=== PATIENT | male | born 1955 | race Caucasian/White ===

== ENCOUNTER 2016-06-28 10:50 | Emergency (ER) | payer MEDICAID, OTHER ==
--- NOTE | 2016-06-28 11:55 | ED Physician Chart ---
Chief Complaint/HPI - Patient Information Date Seen:: 06/28/16 Time Seen:: 11:40 Chief Complaint:: depression History of Present Illness:: Patient was brought in by police having been placed on a 5150 by the police. Patient was at home and was called by a nurse doing a survey for his medical insurance company which is [employer]. The patient told the blister rust eradicator that 10-15 years ago he he had a gun and had thoughts of shooting himself. He denied at present any thoughts of suicide. He also states that he does not have any guns in his possession at this time. His sons have his guns. Patient states he is always depressed but is not any more so now than he always is. Allergies:: Allergies Allergy/AdvReac Type Severity Reaction Status Date / Time No Known Allergies Allergy Verified 06/28/16 10:58 Vitals:: Vital Signs - 8 hr 06/28/16 10:50 Temp 97.8 F HR 89 RR 16 BP 175/113 O2 Sat % 96 Historian:: Patient Review:: Nurse's Note Reviewed Review of Systems - Review of Systems General/Constitutional: No fever, No chills Skin: No skin lesions Head: No headache Eyes: No loss of vision ENT: No earache Neck: No neck pain Cardio Vascular: No chest pain Pulmonary: Wheezing, Other GI: No nausea, No vomiting G/U: No dysuria, No hematuria Musculoskeletal: No bone or joint pain, No muscle pain Psychiatric: Depression, Suicidal ideation Hematopoietic: No bruising Allergic/Immuno: No urticaria Neurological: No syncope, No focal symptoms, No weakness Family Medical History - Family Member Mother History Unknown: Yes Ethnicity: Non- Living Status: Hx Family Diabetes: Yes Physical Exam - Physical Examination General/Constitutional: Well-developed, well-nourished, Alert, No distress Head: Atraumatic Eyes: Lids, conjuctiva normal, PERRL Skin: No rash, No ecchymosis Other ENMT comments:: Edentulous Neck: No nuchal rigidity Respiratory: Nl effort/Exclusion Other Respiratory comments:: 1 out of 4 inspiratory wheezing and decreased expiratory sounds Other Cardio Vascular comments:: Heart sounds and audible GI: No tenderness/rebounding/guarding, No organomegaly : No CVA tenderness Other Extremities comments:: 2/4 pretibial pitting edema Neuro/Psych: Alert/oriented, No focal deficits Misc: Normal back Labs/Radiology/EKG Results - Lab Results Results: Laboratory Results - last 24 hr 06/28/16 06/28/16 06/28/16 11:50 11:50 11:50 WBC 7.9 RBC 5.41 Hgb 15.2 Hct 46.2 MCV 85.4 MCH 28.1 MCHC Differential 32.9 RDW 13.4 Plt Count 139 L MPV 8.9 Neutrophils % 54.4 Lymphocytes % 35.1 Monocytes % 6.1 Eosinophils % 3.2 Basophils % 1.2 Sodium 136 Potassium 4.6 Chloride 101 Carbon Dioxide 32.6 H Anion Gap 7.0 BUN 16 Creatinine 1.1 Est GFR ( Amer) > 60.0 Est GFR (Non-Af Amer) > 60.0 BUN/Creatinine Ratio 14.5 Glucose 233 H Hemoglobin A1c % Calcium 9.5 Triglycerides 159 H Cholesterol 138 LDL Cholesterol Direct 73 L HDL Cholesterol 38 TSH 1.62 Salicylates Acetaminophen Ethyl Alcohol 06/28/16 06/28/16 11:50 11:50 WBC RBC Hgb Hct MCV MCH MCHC Differential RDW Plt Count MPV Neutrophils % Lymphocytes % Monocytes % Eosinophils % Basophils % Sodium Potassium Chloride Carbon Dioxide Anion Gap BUN Creatinine Est GFR ( Amer) Est GFR (Non-Af Amer) BUN/Creatinine Ratio Glucose Hemoglobin A1c % 8.2 H Calcium Triglycerides Cholesterol LDL Cholesterol Direct HDL Cholesterol TSH Salicylates < 25.0 L Acetaminophen < 10.0 L Ethyl Alcohol < 10 - Radiology Results Results: CXR: pacemeaker noted; no infiltrate - EKG Interpretations Rate & Rhythm: ventricular pacemaker; rate 88 Assessment - Assessment General Assessment: Patient is medically stable ED Septic Shock - <6hrs of presentation: Vital Signs: Vital Signs - 8 hr 06/28/16 10:50 Temp 97.8 F HR 89 RR 16 BP 175/113 O2 Sat % 96 ED Discharge Plan - Patient Disposition Instructions: Psychosis
[2016-06-28 11:57] LABS: % BASOPHILS 1.2 % (0.0-2.0); % EOSINOPHILS 3.2 % (0.0-5.0); % LYMPHOCYTES 35.1 % (20.0-50.0); % MONOCYTES 6.1 % (2.0-10.0); % NEUTROPHILS 54.4 % (40.0-80.0); HEMATOCRIT 46.2 % (39.0-49.0); HEMOGLOBIN 15.2 gm/dL (13.2-17.3); MEAN CELL VOLUME 85.4 fl (80-99); MEAN CORPUSCULAR HEMOGLOBIN 28.1 pg (26.0-30.0); MEAN CORPUSCULAR HGB CONC 32.9 pg (28.0-36.0); MEAN PLATELET VOLUME 8.9 fl; NEUTROPHILE ABSOLUTE 4.2 Th/cmm (1.8-8.0); PLATELET COUNT 139 Th/cmm (150-400); RED BLOOD COUNT 5.41 Mil/cmm (4.30-5.70); RED CELL DISTRIBUTION WIDTH 13.4 % (11.5-20.0); WHITE BLOOD COUNT 7.9 Th/cmm (4.8-10.8)
[2016-06-28 12:17] LABS: BUN - UREA NITROGEN 16 mg/dL (7-25); BUN/CREATININE RATIO 14.5; CALCIUM SERUM 9.5 mg/dL (8.6-10.3); CARBON DIOXIDE 32.6 mEq/L (21.0-31.0); CHLORIDE 101 mEq/L (98-107); CHOLESTEROL 138 mg/dL (<200); CREATININE - SERUM 1.1 mg/dL (0.7-1.3); GLUCOSE 233 mg/dL (70-105); POTASSIUM SERUM 4.6 mEq/L (3.5-5.1); SODIUM SERUM 136 mEq/L (136-145); TRIGLYCERIDES 159 mg/dL (<150)
[2016-06-28 12:30] LABS: ACETAMINOPHEN < 10.0 ug/mL (10.0-30.0)
--- NOTE | 2016-06-28 15:10 | Diagnostic Imaging Report ---
Portable chest x-ray HISTORY: Pneumonia The heart is enlarged. Pacemaker lead wires project over the right atrium and right ventricle. No focal pulmonary processes. IMPRESSION: 1. No acute pulmonary processes 2. Cardiomegaly
[2016-06-28 18:49] VITALS: BP 135/75
[2016-06-28] MEDS ORDERED: Atorvastatin Calcium 10 MG TAB ONE (21:54)
[2016-06-28] MEDS ORDERED: Diclofenac 75 mg Tab PO ONE (21:54)
[2016-06-28] MEDS: Non-Formulary Item 1 EA (Atorvastatin Calcium [Lipitor] 40 MG) PO SCH (22:07)
[2016-06-28] MEDS: METOPROLOL SUCCINATE 25 MG PO SCH (22:07)
[2016-06-28] MEDS: Non-Formulary Item 1 EA (Metformin Hcl [Metformin Hcl Er] 1,000 MG) PO SCH (22:07)
[2016-06-29 13:11] LABS: HEP B CORE IGM Negative (Negative); HEP C ANTIBODY <0.1 s/co ratio (0.0-0.9)
== END 2016-06-28 11:15 | disposition home or self-care (01) ==
LOC: ER 10:50
DX: F32.9 Major depressive disorder, single episode, unspecified (principal)
CPT/HCPCS: 36415-UA; 71010-TC; 80048-TC; 80061-TC; 80074-90; 80320-TC; 80329-TC; 83036-90; 84443-TC; 85025-TC; 86592-TC; 93005

== ENCOUNTER 2018-05-30 08:56 | Emergency (ER) | payer OTHER ==
[2018-05-30 09:31] LABS: % BASOPHILS 0.6 % (0.0-2.0); % EOSINOPHILS 1.5 % (0.0-5.0); % MONOCYTES 6.5 % (2.0-10.0); % NEUTROPHILS 71.4 % (40.0-80.0); BASOPHILE ABSOLUTE 0.1 Th/cumm (0-0.2); EOSINOPHILE ABSOLUTE 0.2 Th/cmm (0.1-0.4); HEMATOCRIT 39.5 % (41.0-60); LYMPHOCYTE ABSOLUTE 2.3 Th/cmm (1.5-3.0); MEAN CELL VOLUME 87.3 fl (80-99); MEAN CORPUSCULAR HEMOGLOBIN 28.6 pg (26.0-30.0); MEAN CORPUSCULAR HGB CONC 32.8 pg (28.0-36.0); MEAN PLATELET VOLUME 8.5 fl; MONOCYTE ABSOLUTE 0.7 Th/cmm (0.3-1.0); NEUTROPHILE ABSOLUTE 8.1 Th/cmm (1.8-8.0); PLATELET COUNT 185 Th/cmm (150-400); RED BLOOD COUNT 4.52 Mil/cmm (4.30-5.70); RED CELL DISTRIBUTION WIDTH 15.2 % (11.5-20.0); WHITE BLOOD COUNT 11.4 Th/cmm (4.8-10.8)
[2018-05-30 09:42] LABS: INR 1.01 (0.5-1.4); PROTHROMBIN TIME (TEST) 10.5 SECONDS (9.5-11.5)
--- NOTE | 2018-05-30 09:43 | ED Physician Chart ---
ED Chief Complaint/HPI - Patient Information Date Seen:: 05/30/18 Time Seen:: 09:06 Chief Complaint:: bilateral foot pain History of Present Illness:: this is a 62 yo obese, diabetic chronically ill male with complaint of bilateral foot pain. he also has orthopnia, chf and copd. he was refered to a vascular senior analytic consultant for evaluation and treatment of his foot pain. Allergies:: Allergies Allergy/AdvReac Type Severity Reaction Status Date / Time No Known Allergies Allergy Verified 06/28/16 10:58 Vitals:: Vital Signs - 8 hr 05/30/18 09:09 Temp 97.8 F HR 80 RR 22 BP 113/42 O2 Sat % 96 Historian:: Patient Review:: Nurse's Note Reviewed, Old Chart Reviewed ED Review of Systems - Review of Systems General/Constitutional: No fever, No chills, No weight loss, No weakness, No diaphoresis, Edema, No loss of appetite Skin: No skin lesions, No rash, No bruising Head: No headache, No light-headedness Eyes: No loss of vision, No pain, No diplopia ENT: No earache, No nasal drainage, No sore throat, No tinnitus Neck: No neck pain, No swelling, No thyromegaly, No stiffness, No mass noted Cardio Vascular: No chest pain, No palpitations, PND, orthopnea, edema Pulmonary: No SOB, No cough, No sputum, No wheezing GI: No nausea, No vomiting, No diarrhea, Pain, No melena, No hematochezia, No constipation, No hematemesis G/U: No dysuria, No frequency, No hematuria Musculoskeletal: Bone or joint pain (foot pain), No back pain, No muscle pain Endocrine: No polyuria, No polydipsia Psychiatric: No prior psych history, No depression, No anxiety, No suicidal ideation Hematopoietic: No bruising, No lymphadenopathy Allergic/Immuno: No urticaria, No angioedema Neurological: No syncope, No focal symptoms, No weakness, No paresthesia, No headache, No seizure, No dizziness, No confusion, No vertigo ED Past Medical History - Past Medical History Obtainable: Yes Past Medical History: HTN, DM, CAD, CHF Family History: None Social History: Smoker, No Alcohol, No Drug Use Surgical History: Pacemaker, other (back surgery) Family Medical History - Family Member Mother History Unknown: Yes Ethnicity: Non- Living Status: Hx Family Diabetes: Yes ED Labs/Radiology/EKG Results - Lab Results Results: Laboratory Tests 05/30/18 09:19 WBC 11.4 H RBC 4.52 Hgb 13.0 Hct 39.5 L MCV 87.3 MCH 28.6 MCHC Differential 32.8 RDW 15.2 Plt Count 185 MPV 8.5 Neutrophils % 71.4 Lymphocytes % 20.0 Monocytes % 6.5 Eosinophils % 1.5 Basophils % 0.6 Abnormal Lab Results 05/30/18 05/30/18 05/30/18 09:19 09:19 09:19 WBC 11.4 H RBC 4.52 Hgb 13.0 Hct 39.5 L MCV 87.3 MCH 28.6 MCHC Differential 32.8 RDW 15.2 Plt Count 185 MPV 8.5 Neutrophils % 71.4 Lymphocytes % 20.0 Monocytes % 6.5 Eosinophils % 1.5 Basophils % 0.6 PT 10.5 INR 1.01 PTT (Actin FS) 27.3 Sodium 133 L Potassium 4.9 Chloride 96 L Carbon Dioxide 35.0 H Anion Gap 6.9 L BUN 25 Creatinine 1.6 H Est GFR ( Amer) 56.6 Est GFR (Non-Af Amer) 46.8 BUN/Creatinine Ratio 15.6 Glucose 139 H Calcium 9.5 Total Bilirubin 0.4 AST 15 ALT 12 Alkaline Phosphatase 81 Troponin I Total Protein 6.8 Albumin 3.7 L Globulin 3.1 Albumin/Globulin Ratio 1.2 Triglycerides 166 H Cholesterol 148 LDL Cholesterol Direct 96 HDL Cholesterol 33 05/30/18 09:19 WBC RBC Hgb Hct MCV MCH MCHC Differential RDW Plt Count MPV Neutrophils % Lymphocytes % Monocytes % Eosinophils % Basophils % PT INR PTT (Actin FS) Sodium Potassium Chloride Carbon Dioxide Anion Gap BUN Creatinine Est GFR ( Amer) Est GFR (Non-Af Amer) BUN/Creatinine Ratio Glucose Calcium Total Bilirubin AST ALT Alkaline Phosphatase Troponin I 0.06 H D Total Protein Albumin Globulin Albumin/Globulin Ratio Triglycerides Cholesterol LDL Cholesterol Direct HDL Cholesterol - Radiology Results Results: chest x-ray = cm, copd ED Assessment - Assessment General Assessment: chf, and bilateral neuropathy of the feet. ED Septic Shock - . Is Septic Shock (SBP<90, OR Lactate>4 mmol\L) present?: No - <6hrs of presentation: Vital Signs: Vital Signs - 8 hr 05/30/18 09:09 Temp 97.8 F HR 80 RR 22 BP 113/42 O2 Sat % 96 ED Reassessment (Disposition) - Diagnosis Diagnosis:: abdominal pain bilateral foot pain elevated tropo - Patient Disposition Discharge/Transfer:: Acute Care w/in this hosp
[2018-05-30 09:46] LABS: ALB/GLOB RATIO 1.2 (1.0-1.8); ALBUMIN 3.7 gm/dL (4.2-5.5); ANION GAP 6.9 (7.0-16.0); BILIRUBIN,TOTAL 0.4 mg/dL (0.3-1.0); CALCIUM SERUM 9.5 mg/dL (8.6-10.3); CREATININE - SERUM 1.6 mg/dL (0.7-1.3); GFR AFRICAN-AMERICAN 56.6 ml/min (>90); GFR NON AFRICAN-AMERICAN 46.8 ml/min; POTASSIUM SERUM 4.9 mEq/L (3.5-5.1); TOTAL PROTEIN,SERUM 6.8 gm/dL (6.0-8.3)
--- NOTE | 2018-05-30 10:56 | Diagnostic Imaging Report ---
Chest x-ray single view History: Shortness of breath Comparison: 0 06/28 2016 The heart size is normal. No focal pulmonary parenchymal processes. No hilar or mediastinal abnormalities. Impression: No acute abnormalities
[2018-05-30 11:35] LABS: URINE SOURCE CLEAN C
[2018-05-30 11:52] LABS: URINE BILIRUBIN NEGATIVE (NEGATIVE); URINE BLOOD NEGATIVE (NEGATIVE); URINE GLUCOSE (UA) NEGATIVE (NEGATIVE); URINE KETONE NEGATIVE (NEGATIVE); URINE LEUKOCYTE ESTERASE NEGATIVE (NEGATIVE); URINE NITRATE NEGATIVE (NEGATIVE); URINE PH 5.5 (4.6 - 8.0); URINE PROTEIN NEGATIVE (NEGATIVE); URINE UROBILINOGEN 0.2 E.U./dL (0.2 - 1.0)
[2018-05-30 12:12] LABS: URINE CLARITY CLEAR (CLEAR); URINE COLOR YELLOW; URINE MICROSCOPIC INDICATED? YES
[2018-05-30 12:13] LABS: URINE BACTERIA FEW /hpf (NONE SEEN); URINE EPITHELIAL CELLS NONE SEEN /lpf (FEW); URINE RBC NONE SEEN /hpf (0-5); URINE WBC 0-2 /hpf (0-5)
--- NOTE | 2018-05-30 15:04 | Diagnostic Imaging Report ---
Bilateral lower extremity Doppler arterial ultrasound exam HISTORY: Pain Sonographic sector images were obtained through the arterial systems of both legs. Associated Doppler data was obtained. The exam of the right leg demonstrates biphasic waveforms within the common femoral, superficial femoral, popliteal, anterior tibial, posterior tibial, and dorsalis pedis arteries. Sonographic images demonstrate generalized intimal thickening. No significant focal atherosclerotic plaque is seen. No significant narrowing or stenosis. The right ankle-brachial index is normal (ankle-brachial index equals 1.06). The left leg demonstrates biphasic waveforms throughout the arterial system. No significant focal plaque. Ankle-brachial index is normal (0.94). IMPRESSION: 1. No evidence of hemodynamically significant atherosclerotic vascular disease
--- NOTE | 2018-05-30 15:04 | Diagnostic Imaging Report ---
Bilateral lower extremity Doppler venous ultrasound exam HISTORY: Pain/swelling Sonographic sector images were obtained through the deep venous systems of both legs. Associated Doppler data was obtained. The exam demonstrates patency of the common femoral, superficial femoral, popliteal, and posterior tibial veins bilaterally. Specifically, no thrombus is seen. There are normal compressibility and augmentation responses. IMPRESSION: Negative exam for deep vein thrombophlebitis.
--- NOTE | 2018-05-31 09:39 | Diagnostic Imaging Report ---
CT pulmonary angiogram with intravenous contrast History: : Embolism Total DLP equals 609 CTDI equals 12.9 Following administration of intravenous contrast, axial sections were obtained from a level above the clavicles down to a level below the diaphragm. The exam demonstrates normal opacification of the main right and left pulmonary arteries. No intraluminal lesions are seen. Specifically, no evidence of pulmonary embolism. There is preservation of normal fat planes throughout the mediastinum. No lymphadenopathy is seen. No abnormal focal pulmonary parenchymal masses or nodules are seen. No pleural effusions. Impression: Negative examination.
== END 2018-05-30 16:03 | disposition home or self-care (01) ==
LOC: ER 08:56
DX: I11.0 Hypertensive heart disease with heart failure (principal); I50.9 Heart failure, unspecified; E11.9 Type 2 diabetes mellitus without complications; M79.671 Pain in right foot; M79.672 Pain in left foot; R79.89 Other specified abnormal findings of blood chemistry; F17.200 Nicotine dependence, unspecified, uncomplicated; Z95.1 Presence of aortocoronary bypass graft
CPT/HCPCS: 36415-UA; 71045-TC; 71275-TC; 80053-TC; 80061-TC; 81001-TC; 83880-TC; 84443-TC; 84484-TC; 85025-TC; 85379-TC; 85610-TC; 85730-TC; 93005; 93925-TC; 93970-TC-50; 96374; J1940

== ENCOUNTER 2018-05-31 17:46 | Inpatient (IN) | payer OTHER ==
[2018-05-31 18:27] LABS: % BASOPHILS 0.9 % (0.0-2.0); % EOSINOPHILS 0.9 % (0.0-5.0); % LYMPHOCYTES 18.3 % (20.0-50.0); % MONOCYTES 5.3 % (2.0-10.0); % NEUTROPHILS 74.6 % (40.0-80.0); BASOPHILE ABSOLUTE 0.1 Th/cumm (0-0.2); EOSINOPHILE ABSOLUTE 0.1 Th/cmm (0.1-0.4); HEMATOCRIT 38.2 % (41.0-60); HEMOGLOBIN 12.3 gm/dL (12-16); LYMPHOCYTE ABSOLUTE 2.4 Th/cmm (1.5-3.0); MEAN CELL VOLUME 87.5 fl (80-99); MEAN CORPUSCULAR HEMOGLOBIN 28.2 pg (26.0-30.0); MEAN CORPUSCULAR HGB CONC 32.2 pg (28.0-36.0); MEAN PLATELET VOLUME 8.2 fl; MONOCYTE ABSOLUTE 0.7 Th/cmm (0.3-1.0); NEUTROPHILE ABSOLUTE 9.7 Th/cmm (1.8-8.0); PLATELET COUNT 170 Th/cmm (150-400); RED BLOOD COUNT 4.37 Mil/cmm (4.30-5.70); RED CELL DISTRIBUTION WIDTH 14.8 % (11.5-20.0)
--- NOTE | 2018-05-31 18:33 | ED Physician Chart ---
ED Chief Complaint/HPI - Patient Information Date Seen:: 05/31/18 Time Seen:: 18:28 Chief Complaint:: positive blood cultures History of Present Illness:: this patient's blood culture came back positive and his doctor sent him back to er for evaluation and treatment. he son stated that his sugar was above 300 and he had several seizures the day before coming into the hospital. Allergies:: Allergies Allergy/AdvReac Type Severity Reaction Status Date / Time No Known Allergies Allergy Verified 06/28/16 10:58 Vitals:: Vital Signs - 8 hr 05/31/18 18:09 Temp 99.5 F HR 92 RR 17 BP 108/59 O2 Sat % 96 Historian:: Patient, Family Member (son) Review:: Nurse's Note Reviewed, Old Chart Reviewed ED Review of Systems - Review of Systems General/Constitutional: Fever, No chills, No weight loss, No weakness, No diaphoresis, No edema, No loss of appetite Skin: No skin lesions, No rash, No bruising Head: No headache, No light-headedness Eyes: No loss of vision, No pain, No diplopia ENT: No earache, No nasal drainage, No sore throat, No tinnitus Neck: No neck pain, No swelling, No thyromegaly, No stiffness, No mass noted Cardio Vascular: No chest pain, No palpitations, No PND, No orthopnea, No edema Pulmonary: No SOB, No cough, No sputum, No wheezing GI: No nausea, No vomiting, No diarrhea, No pain, No melena, No hematochezia, No constipation, No hematemesis G/U: No dysuria, No frequency, No hematuria Musculoskeletal: No bone or joint pain, No back pain, No muscle pain, Other ( pain in both legs and feet) Endocrine: No polyuria, No polydipsia Psychiatric: No prior psych history, No depression, No anxiety, No suicidal ideation Hematopoietic: No bruising, No lymphadenopathy Allergic/Immuno: No urticaria, No angioedema Neurological: No syncope, No focal symptoms, No weakness, No paresthesia, No headache, No seizure, No dizziness, No confusion, No vertigo ED Past Medical History - Past Medical History Obtainable: Yes Past Medical History: HTN, DM, CAD, CHF, Dyslipidemia Family History: None Social History: Non Smoker, No Alcohol, No Drug Use Psychiatricy History: Depression Medication: Reviewed Family Medical History - Family Member Mother History Unknown: Yes Ethnicity: Non- Living Status: Hx Family Diabetes: Yes ED Physical Exam - Physical Examination General/Constitutional: Awake, Well-developed, well-nourished, Alert, No distress, GCS 15, Non-toxic appearing, Ambulatory Other Gen/Cons comments:: obese Head: Atraumatic Eyes: Lids, conjuctiva normal, PERRL, EOMI Skin: Nl inspection, No rash, No skin lesions, No ecchymosis, Well hydrated, No lymphadenopathy ENMT: External ears, nose nl, Nasal exam nl, Lips, teeth, gums nl Neck: Nontender, Full ROM w/o pain, No JVD, No nuchal rigidity, No bruit, No mass, No stridor Respiratory: Nl effort/Exclusion, Clear to Auscultation, No Wheeze/Rhonchi/Rales Cardio Vascular: RRR, No murmur, gallop, rubs, NL S1 S2 GI: No tenderness/rebounding/guarding, No organomegaly, No hernia, Normal BS's, Nondistended, No mass/bruits, No McBurney tenderness : No CVA tenderness Extremities: No tenderness or effusion, Full ROM, normal strength in all extremities, No edema, Normal digits & nails Other Extremities comments:: bilateral edema of the lower extremities Neuro/Psych: Alert/oriented, DTR's symmetric, Normal sensory exam, Normal motor strength, Judgement/insight normal, Mood normal, Normal gait, No focal deficits Misc: Normal back, No paraspinal tenderness ED Labs/Radiology/EKG Results - Lab Results Results: Abnormal Lab Results 05/31/18 05/31/18 05/31/18 17:53 18:15 18:15 WBC 13.0 H RBC 4.37 Hgb 12.3 Hct 38.2 L MCV 87.5 MCH 28.2 MCHC Differential 32.2 RDW 14.8 Plt Count 170 MPV 8.2 Neutrophils % 74.6 Lymphocytes % 18.3 L Monocytes % 5.3 Eosinophils % 0.9 Basophils % 0.9 Sodium 133 L Potassium 5.1 Chloride 90 L Carbon Dioxide 32.8 H Anion Gap 15.3 BUN 32 H Creatinine 1.8 H Est GFR ( Amer) 49.4 Est GFR (Non-Af Amer) 40.8 BUN/Creatinine Ratio 17.8 Glucose 154 H Calcium 9.3 Total Bilirubin 0.6 AST 14 ALT 10 Alkaline Phosphatase 65 Troponin I 0.06 H Total Protein 6.8 Albumin 3.6 L Globulin 3.2 Albumin/Globulin Ratio 1.1 ED Assessment - Assessment General Assessment: bacteremia copd chf elevated troponin ED Septic Shock - . Is Septic Shock (SBP<90, OR Lactate>4 mmol\L) present?: No - <6hrs of presentation: Vital Signs: Vital Signs - 8 hr 05/31/18 18:09 Temp 99.5 F HR 92 RR 17 BP 108/59 O2 Sat % 96 ED Reassessment (Disposition) - Reassessment Reassessment Condition:: Unchanged - Diagnosis Diagnosis:: two possitive blood cultures(bacterimia) elevated troponin copd chf - Patient Disposition Discharge/Transfer:: Acute Care w/in this hosp Admitting Medical Physician:: Ap Rutherford Condition at Disposition:: Unchanged
[2018-05-31 18:45] LABS: ALB/GLOB RATIO 1.1 (1.0-1.8); ALBUMIN 3.6 gm/dL (4.2-5.5); ANION GAP 15.3 (7.0-16.0); BILIRUBIN,TOTAL 0.6 mg/dL (0.3-1.0); CALCIUM SERUM 9.3 mg/dL (8.6-10.3); CARBON DIOXIDE 32.8 mEq/L (21.0-31.0); CREATININE - SERUM 1.8 mg/dL (0.7-1.3); GFR AFRICAN-AMERICAN 49.4 ml/min (>90); GFR NON AFRICAN-AMERICAN 40.8 ml/min; POTASSIUM SERUM 5.1 mEq/L (3.5-5.1); TOTAL PROTEIN,SERUM 6.8 gm/dL (6.0-8.3)
[2018-05-31] MEDS: INSULIN LISPRO SLIDING SCALE 100 UNITS/ML UNIT SUBQ SCH (22:35)
[2018-06-01] MEDS: INSULIN LISPRO SLIDING SCALE 100 UNITS/ML UNIT SUBQ SCH ×4 (06:31→21:18)
[2018-06-01 06:55] LABS: ALB/GLOB RATIO 1.1 (1.0-1.8); ALBUMIN 3.3 gm/dL (4.2-5.5); ANION GAP 12.7 (7.0-16.0); BILIRUBIN,TOTAL 0.6 mg/dL (0.3-1.0); CALCIUM SERUM 9.1 mg/dL (8.6-10.3); CARBON DIOXIDE 34.4 mEq/L (21.0-31.0); CREATININE - SERUM 2.6 mg/dL (0.7-1.3); GFR AFRICAN-AMERICAN 32.3 ml/min (>90); GFR NON AFRICAN-AMERICAN 26.7 ml/min; MAGNESIUM 1.5 mg/dL (1.9-2.7); POTASSIUM SERUM 5.1 mEq/L (3.5-5.1); TOTAL PROTEIN,SERUM 6.3 gm/dL (6.0-8.3)
[2018-06-01 06:56] LABS: % BASOPHILS 0.2 % (0.0-2.0); % EOSINOPHILS 0.8 % (0.0-5.0); % LYMPHOCYTES 24.2 % (20.0-50.0); % MONOCYTES 6.9 % (2.0-10.0); % NEUTROPHILS 67.9 % (40.0-80.0); EOSINOPHILE ABSOLUTE 0.1 Th/cmm (0.1-0.4); HEMATOCRIT 35.4 % (41.0-60); HEMOGLOBIN 11.6 gm/dL (12-16); LYMPHOCYTE ABSOLUTE 3.2 Th/cmm (1.5-3.0); MEAN CELL VOLUME 88.2 fl (80-99); MEAN CORPUSCULAR HEMOGLOBIN 28.9 pg (26.0-30.0); MEAN CORPUSCULAR HGB CONC 32.8 pg (28.0-36.0); MEAN PLATELET VOLUME 8.9 fl; MONOCYTE ABSOLUTE 0.9 Th/cmm (0.3-1.0); NEUTROPHILE ABSOLUTE 9.1 Th/cmm (1.8-8.0); PLATELET COUNT 162 Th/cmm (150-400); RED BLOOD COUNT 4.01 Mil/cmm (4.30-5.70); RED CELL DISTRIBUTION WIDTH 14.5 % (11.5-20.0); WHITE BLOOD COUNT 13.3 Th/cmm (4.8-10.8)
[2018-06-01] MEDS ORDERED: METFORMIN HCL 1000 MG PO SCH (12:15)
--- NOTE | 2018-06-01 13:41 | History & Physical ---
ADMIT DATE: 06/01/2018 PATIENT IDENTIFICATION: A 62-year-old male. CHIEF COMPLAINT: "They have called me to come to the Emergency Room." HISTORY OF PRESENT ILLNESS: A 62-year-old male who resides in [facility], has previous admission here at [facility] in 04/2015. Has a diagnosis of diabetes mellitus, COPD, hypertension, sleep apnea, coronary artery disease, history of pacemaker placement, who has primary doctor in [facility], came to Emergency Room 2 days ago for bilateral leg pain and at that time, I was called in to see this patient for CHF exacerbation as per Emergency Room MD evaluation. I did discuss with the Emergency Room MD and the staff and noted that the patient did not have any evidence of any congestive heart failure or any history of pneumonia in spite of patient also had a CT angio was also done, which was unremarkable for pulmonary embolism and the patient was discharged to home, but in the Emergency Room, Emergency Room doctor ordered blood cultures that came out positive for gram-positive cocci in clusters and I did receive a call and the patient was advised to go to the ER, so he came to Emergency Room without any symptoms of fever, chills, or any unusual new symptoms. The patient was advised to be admitted. PAST MEDICAL HISTORY: 1. Diabetes. 2. Obstructive sleep apnea. 3. Chronic obstructive pulmonary disease. 4. Hypertension. 5. Coronary artery disease. 6. Pacemaker placement. 7. History of cerebrovascular accident. 8. History of atrial fibrillation. MEDICATIONS: List has been reviewed and reconciled appropriately. ALLERGIES: To not any medications. SOCIAL HISTORY: The patient resides in [facility]. The patient has a history of smoking cigarette but no history of alcohol or drug use. 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 FAMILY HISTORY: Remarkable for diabetes. REVIEW OF SYSTEMS: Remarkable for leg pain, otherwise denies any chest pain, shortness of breath, palpitation, dizziness, nausea, vomiting, diarrhea, dysuria, hematuria, hematochezia, or melena. No fever, no chills. No seizure or syncopal episode. PHYSICAL EXAMINATION: GENERAL: The patient is alert, awake, oriented, lying in the bed without any acute distress. VITAL SIGNS: Temperature 98.1, pulse is 74, respiratory rate 18, blood pressure 138/64. HEENT: Normocephalic, atraumatic. Extraocular muscles are intact. Tongue more pink and coated. Absent upper and lower dentition noted. NECK: Supple, no JVD, no hepatojugular reflux. No lymphadenopathy, thyromegaly, or carotid bruit. HEART: Both heart sounds are irregular. Grade 2/6 systolic murmur noted. CHEST AND LUNGS: Equal in expansion with occasional expiratory wheezing. Palpable pacemaker noted. ABDOMEN: Protuberant, soft. No guarding, no rigidity. Liver and spleen palpable. No palpable mass. EXTREMITIES: Remarkable for trace edema, with mild erythema noted, without any evidence of any calf tenderness. Peripheral pulses are +2. NEUROLOGIC: Limited, but grossly nonfocal. AVAILABLE DIAGNOSTIC DATA: White count of 13.3, hemoglobin 11.6, platelet count of 170. Sodium 133, potassium 5.1, chloride 90, CO2 32.8. BUN and creatinine is 32 and 1.8, glucose of 154. Blood cultures were done 2 days ago was gram-positive cocci in clusters. MRSA nares final was MRSA. CLINICAL IMPRESSION: 1. Positive blood cultures x 2. Nares for MRSA screen is positive for MRSA at the nares area. The patient does not look toxic, does not look sepsis. The patient has Staphylococcus aureus positive blood cultures, either it is coagulase negative or it is true Staphylococcus aureus needs to determine, wait for the final culture and sensitivity, but in the view of his immunocompromised status, I will admit this patient. 2. Chronic respiratory failure. 3. Chronic obstructive pulmonary disease, O2 dependent. 4. Hypertension. 5. Diabetes mellitus. 6. Status post pacemaker placement. 7. Cardiac arrhythmia. 8. History of cerebrovascular accident. 9. Obesity. PLAN: 1. Admit patient to Med/Surg floor. 2. IV antibiotic, vancomycin for now. Have Infectious Disease consultation and do the appropriate home medicine reconciliation. 3. Discontinue patient's Actos in the view of leg edema. 4. Continue other medicine as prescribed. Follow up lab will be done. Infectious Disease input will be greatly helpful in order to make decisions to discharge this patient. Care plan has been reviewed and discussed. JOB# [id number]
[2018-06-01] MEDS: Apixaban 5 MG TABLET PO SCH (16:36)
[2018-06-01] MEDS ORDERED: APIXABAN 5 MG PO SCH (17:00)
[2018-06-01 20:49] LABS: URINE SOURCE CLEAN C
[2018-06-01 20:56] LABS: URINE BILIRUBIN NEGATIVE (NEGATIVE); URINE BLOOD TRACE (NEGATIVE); URINE GLUCOSE (UA) NEGATIVE (NEGATIVE); URINE KETONE NEGATIVE (NEGATIVE); URINE LEUKOCYTE ESTERASE NEGATIVE (NEGATIVE); URINE MICROSCOPIC INDICATED? YES; URINE NITRATE NEGATIVE (NEGATIVE); URINE PH 5.5 (4.6 - 8.0); URINE PROTEIN TRACE mg/dL (NEGATIVE); URINE UROBILINOGEN 0.2 E.U./dL (0.2 - 1.0)
[2018-06-01] MEDS: Linezolid 600mg/300mL 600 MG/300 ML BAG IV SCH (20:56)
[2018-06-01 21:00] LABS: URINE CLARITY CLEAR (CLEAR); URINE COLOR YELLOW
--- NOTE | 2018-06-01 21:02 | Consultation ---
DATE OF CONSULTATION: 06/01/2018 INFECTIOUS DISEASE CONSULTATION REFERRING PHYSICIAN: Ap Rutherford M.D. REASON FOR CONSULTATION: Bacteremia. HISTORY OF PRESENT ILLNESS: The patient is a 60-year-old male with a past medical history of diabetes mellitus type 2, sleep apnea, COPD, hypertension, carotid disease, pacemaker placement, history of CVA, history of atrial fibrillation and chronic pain syndrome and went to pain management doctor. However, he was stating there was some issue with the paper work, so he cannot get his pain medications. So, he came to the ER for further evaluation and management. His blood sugar was also not well controlled. Two days back, he came to the ER for bilateral leg pain and swelling. He was diagnosed with CHF in ER. The patient CT angio was done, which was unremarkable for pulmonary embolism. Ultimately, the patient was discharged home. ER physician ordered a blood culture at that time, it came positive for gram-positive cocci in clusters. Blood cultures are repeated again yesterday and blood culture grew gram-positive cocci in clusters, ____ staph species. Vancomycin IV was started and ID consult was called for antibiotic management. On initial evaluation, his temperature was 99.5 degree Fahrenheit. WBC count was 13,000. His creatinine was 1.6 on 05/30/2018 and yesterday 1.8. Today, it went up to 2.6. Vancomycin was stopped. Metformin was stopped. The patient wanted to sign AMA. I have discussed with him and his son in detail and informed of the gravity of the situation and risks related with bacteremia. Ultimately, he decided to stay in the hospital and had workup done. PAST MEDICAL HISTORY: Includes diabetes mellitus type 2, hypertension, obesity, sleep apnea, COPD, coronary artery disease, pacemaker placement, CVA, atrial fibrillation, and chronic pain syndrome. MEDICATIONS: As per medication reconciliation sheet. Antibiotic-llanes, the patient had received vancomycin. ALLERGIES: NKDA. SOCIAL HISTORY: The patient lives at home. Denies any smoking, alcohol or drug use. REVIEW OF SYSTEMS: GENERAL: The patient denies any fever or chills. HEENT: No diplopia, no photophobia, no sore throat. RESPIRATORY: No cough, no shortness of breath. CARDIOVASCULAR: No chest pain or palpitation. GASTROINTESTINAL: No nausea, no vomiting, no diarrhea, no constipation. GENITOURINARY: No dysuria. NEUROLOGIC: No headache, no dizziness, no focal weakness. MUSCULOSKELETAL: The patient complains of the pain in the legs and the joints. PHYSICAL EXAMINATION: VITAL SIGNS: Shows temperature is 97.5, pulse 55, respirations 20, blood pressure 90/53, oxygen 91%. GENERAL: The patient is comfortable lying in the bed, obese. HEENT: Head is normocephalic, atraumatic. Oral cavity moist, pink tongue. Eyes: No pallor, no icterus. Pupils PERRLA, EOMI. NECK: Supple, no JVD, no bruits. Trachea midline. CHEST: Bilateral breath sounds. No crackles or wheezing. HEART: S1, S2 within normal limits. Regular rhythm. No murmur, no gallop. ABDOMEN: Soft, nontender, nondistended. Bowel sounds present. EXTREMITIES: No cyanosis, no clubbing, no edema. NEUROLOGIC: Alert, awake, oriented x 3. No focal deficit. LABORATORY DATA: Current lab shows WBC count is 13,300, hemoglobin 11.6, hematocrit 35.4, platelets are 162,000. Sodium is 132, potassium 5.1, chloride 90, bicarbonate is 34, BUN is 39, creatinine 2.6, glucose is 173. Blood culture 4 sets on 05/30/2018 and 05/31/2018, few gram-positive cocci in clusters, ____ staph species. CT angio was negative. Chest x-ray on 05/30/2018 showed no acute abnormality. Ultrasound of lower extremity showed negative with somewhat DVT. Arterial study of lower extremity showed no evidence of any significant disease. IMPRESSION: 1. Staph sepsis, with hypotension and leukocytosis. 2. Chronic respiratory insufficiency. 3. Acute kidney injury, likely sepsis related versus acute tubular necrosis. The patient had received 1 dose of vancomycin. 4. Chronic pain syndrome. 5. Chronic obstructive pulmonary disease. 6. Dyslipidemia. 7. Hypertension, but currently hypotensive. 8. History of atrial fibrillation. 9. History of cerebrovascular accident. 10. Obesity. 11. Pacemaker placement. 12. Diabetes mellitus type 2. RECOMMENDATION AND PLAN: We will change antibiotic to Zyvox at this time. Check lactic acid. Get the CT scan of the abdomen, pelvis and chest. A 2D echocardiogram. Repeat blood culture in the morning. Procalcitonin level, lactic acid now. Discussed with the patient and he was tolerating his workup done for his bacteremia. He agreed to stay today. Tomorrow may consider transfer the patient to contracted facility. Thank you, Dr. Rutherford for involving me in taking care of this patient. JOB# [id number]
[2018-06-01 21:04] LABS: AMPHETAMINE URINE POSITIVE (NEGATIVE); BARBITURATES URINE NEGATIVE (NEGATIVE); COCAINE METABOLITE QUAL URINE NEGATIVE (NEGATIVE); METHAMPHETAMINES QUAL URINE POSITIVE (NEGATIVE); PHENCYCLIDINE (PCP) URINE NEGATIVE (NEGATIVE); TRICYCLICS (TCA) QUAL. URINE NEGATIVE (NEGATIVE); URINE BACTERIA 1+ /hpf (NONE SEEN); URINE COARSE GRANULAR CAST 0-2 /lpf (NONE SEEN); URINE EPITHELIAL CELLS FEW /lpf (FEW); URINE WBC 0-2 /hpf (0-5)
[2018-06-01 21:05] LABS: BENZODIAZEPINES QUAL URINE NEGATIVE (NEGATIVE); CANNABINOID THC NEGATIVE (NEGATIVE); METHADONE URINE NEGATIVE (NEGATIVE); OPIATES (MORPHINE) QUAL. URINE POSITIVE (NEGATIVE)
[2018-06-02] MEDS: INSULIN LISPRO SLIDING SCALE 100 UNITS/ML UNIT SUBQ SCH ×4 (07:01→21:15)
[2018-06-02] MEDS: Apixaban 5 MG TABLET PO SCH ×2 (08:00→16:53)
[2018-06-02] MEDS: Pantoprazole 40 mg EC Tab PO SCH (08:01)
[2018-06-02] MEDS: Linezolid 600mg/300mL 600 MG/300 ML BAG IV SCH ×2 (08:34→20:02)
[2018-06-02] MEDS ORDERED: Non-Formulary Item 1 EA (Omeprazole [Omeprazole] 20 MG) PO SCH (09:00)
--- NOTE | 2018-06-02 12:38 | Diagnostic Imaging Report ---
Exam: CT examination of chest HISTORY: Nodule Total DLP equals 757 CTDI equals 14.2 COMPARISON 05/30/2018. Findings: Multiple contiguous thin section of the chest were obtained from thoracic outlet to the upper abdomen without the administration of contrast material, the study compared to prior exam 05/30/2018. The study again demonstrates no active pulmonic infiltrates or effusions. Mediastinal structures midline. The evidence for mild bilateral basilar atelectasis. The costophrenic angles are clear. The visualized upper abdomen is intact. IMPRESSION: Basilar atelectasis.
--- NOTE | 2018-06-02 12:42 | Diagnostic Imaging Report ---
Exam: CT examination abdomen pelvis. HISTORY: Abscess. Total DLP equals 757 CTDI equals 14.2 Findings: Multiple contiguous thin section abdomen pelvis obtained from lower thorax to pubic symphysis without the administration of contrast material. No prior studies available for comparison. The study demonstrates normal appearance of liver and spleen. The spleen is slightly enlarged. The pancreas normal. Adrenal glands are normal. The kidneys demonstrate no evidence of obstructive uropathy or nephrolithiasis. The abdominal aorta is calcified. There is evidence for midline infraumbilical hernia containing fat. The appendix is not seen. There is evidence of diverticular disease of sigmoid colon without diverticulitis. The uterine bladder is intact. There is evidence for 1 mm nonobstructing left renal calculus at the ureter the thecal junction. The bony structures demonstrate no evidence for lytic or blastic process. IMPRESSION: Splenomegaly. Midline infraumbilical abdominal hernia containing fat. Atherosclerosis. Nonobstructing 1 mm calculus left ureterovesicular junction.
--- NOTE | 2018-06-02 13:02 | General Progress Note ---
Subjective - Review of Systems Service Date: 06/02/18 Subjective: Patient has less chest pain shortness of breath Objective - Results Result Diagrams: 06/01/18 06:05 06/01/18 06:05 Recent Labs: Laboratory Last Values WBC 13.3 Th/cmm (4.8-10.8) H 06/01/18 06:05 RBC 4.01 Mil/cmm (4.30-5.70) L 06/01/18 06:05 Hgb 11.6 gm/dL (12-16) L 06/01/18 06:05 Hct 35.4 % (41.0-60) L 06/01/18 06:05 MCV 88.2 fl (80-99) 06/01/18 06:05 MCH 28.9 pg (26.0-30.0) 06/01/18 06:05 MCHC Differential 32.8 pg (28.0-36.0) 06/01/18 06:05 RDW 14.5 % (11.5-20.0) 06/01/18 06:05 Plt Count 162 Th/cmm (150-400) 06/01/18 06:05 MPV 8.9 fl 06/01/18 06:05 Neutrophils % 67.9 % (40.0-80.0) 06/01/18 06:05 Lymphocytes % 24.2 % (20.0-50.0) 06/01/18 06:05 Monocytes % 6.9 % (2.0-10.0) 06/01/18 06:05 Eosinophils % 0.8 % (0.0-5.0) 06/01/18 06:05 Basophils % 0.2 % (0.0-2.0) 06/01/18 06:05 Sodium 132 mEq/L (136-145) L 06/01/18 06:05 Potassium 5.1 mEq/L (3.5-5.1) 06/01/18 06:05 Chloride 90 mEq/L (98-107) L 06/01/18 06:05 Carbon Dioxide 34.4 mEq/L (21.0-31.0) H 06/01/18 06:05 Anion Gap 12.7 (7.0-16.0) 06/01/18 06:05 BUN 39 mg/dL (7-25) H 06/01/18 06:05 Creatinine 2.6 mg/dL (0.7-1.3) H 06/01/18 06:05 Est GFR ( Amer) 32.3 ml/min (>90) 06/01/18 06:05 Est GFR (Non-Af Amer) 26.7 ml/min 06/01/18 06:05 BUN/Creatinine Ratio 15.0 06/01/18 06:05 Glucose 173 mg/dL (70-105) H 06/01/18 06:05 POC Glucose 169 MG/DL (70 - 105) H 06/02/18 06:47 Whole Bld Lactic Acid 1.55 mmol/L (0.60-1.99) 05/31/18 18:15 Calcium 9.1 mg/dL (8.6-10.3) 06/01/18 06:05 Magnesium 1.5 mg/dL (1.9-2.7) L 06/01/18 06:05 Total Bilirubin 0.6 mg/dL (0.3-1.0) 06/01/18 06:05 AST 13 U/L (13-39) 06/01/18 06:05 ALT 9 U/L (7-52) 06/01/18 06:05 Alkaline Phosphatase 60 U/L (34-104) 06/01/18 06:05 Troponin I 0.06 ng/mL (0.01-0.05) H 05/31/18 18:15 Total Protein 6.3 gm/dL (6.0-8.3) 06/01/18 06:05 Albumin 3.3 gm/dL (4.2-5.5) L 06/01/18 06:05 Globulin 3.0 gm/dL 06/01/18 06:05 Albumin/Globulin Ratio 1.1 (1.0-1.8) 06/01/18 06:05 Urine Source CLEAN C 06/01/18 20:45 Urine Color YELLOW 06/01/18 20:45 Urine Clarity CLEAR (CLEAR) 06/01/18 20:45 Urine pH 5.5 (4.6 - 8.0) 06/01/18 20:45 Ur Specific Felch 1.025 (1.005-1.030) 06/01/18 20:45 Urine Protein TRACE mg/dL (NEGATIVE) 06/01/18 20:45 Urine Glucose (UA) NEGATIVE mg/dL (NEGATIVE) 06/01/18 20:45 Urine Ketones NEGATIVE mg/dL (NEGATIVE) 06/01/18 20:45 Urine Blood TRACE (NEGATIVE) 06/01/18 20:45 Urine Nitrate NEGATIVE (NEGATIVE) 06/01/18 20:45 Urine Bilirubin NEGATIVE (NEGATIVE) 06/01/18 20:45 Urine Urobilinogen 0.2 E.U./dL (0.2 - 1.0) 06/01/18 20:45 Ur Leukocyte Esterase NEGATIVE (NEGATIVE) 06/01/18 20:45 Urine RBC 2-5 /hpf (0-5) H 06/01/18 20:45 Urine WBC 0-2 /hpf (0-5) 06/01/18 20:45 Ur Epithelial Cells FEW /lpf (FEW) 06/01/18 20:45 Urine Bacteria 1+ /hpf (NONE SEEN) H 06/01/18 20:45 Coarse Granular Casts 0-2 /lpf (NONE SEEN) H 06/01/18 20:45 Random Vancomycin 16.6 ug/mL (5.0-40.0) 06/02/18 04:40 Urine Opiates Screen POSITIVE (NEGATIVE) H 06/01/18 20:45 Urine Methadone Screen NEGATIVE (NEGATIVE) 06/01/18 20:45 Ur Barbiturates Screen NEGATIVE (NEGATIVE) 06/01/18 20:45 Ur Tricyclics Screen NEGATIVE (NEGATIVE) 06/01/18 20:45 Ur Phencyclidine Scrn NEGATIVE (NEGATIVE) 06/01/18 20:45 Amphetamines Screen POSITIVE (NEGATIVE) H 06/01/18 20:45 U Methamphetamines Scrn POSITIVE (NEGATIVE) H 06/01/18 20:45 U Benzodiazepines Scrn NEGATIVE (NEGATIVE) 06/01/18 20:45 U Cocaine Metab Screen NEGATIVE (NEGATIVE) 06/01/18 20:45 U Cannabinoids Screen NEGATIVE (NEGATIVE) 06/01/18 20:45 - Physical Exam Vitals and I&O: Vital Signs Temp 97.1 F 06/02/18 12:09 Pulse 69 06/02/18 12:09 Resp 19 06/02/18 12:09 BP 108/78 06/02/18 12:09 Pulse Ox 92 06/02/18 12:09 Intake & Output 06/01/18 06/02/18 06/02/18 18:59 06:59 18:59 Intake Total 300 700 300 Balance 300 700 300 Weight (lbs) 133.719 kg 133.356 kg Intake: Intake, IV Amount 300 300 Linezolid 600mg/300mL 600 300 300 mg In 300 ml @ 300 mls/ hr IV Q12HR [facility] Rx#: [id number] Oral 300 400 Other: # Voids 3 2 # Bowel Movements 1 0 Stool Characteristics Soft Soft Brown Brown Weight Source Bedscale Bedscale Active Medications: Current Medications Acetaminophen (Tylenol) 650 mg PO Q4H PRN PRN Reason: Pain (Moderate) Stop: 07/31/18 04:58 Last Admin: 06/01/18 09:50 Dose: 650 mg Carvedilol (Coreg) 6.25 mg PO BID [facility] Stop: 07/31/18 16:59 Last Admin: 06/02/18 08:00 Dose: Not Given Furosemide (Lasix) 40 mg PO BID [facility] Stop: 07/31/18 16:59 Last Admin: 06/02/18 08:00 Dose: Not Given Gabapentin (Neurontin) 800 mg PO TID [facility] Stop: 07/31/18 13:59 Last Admin: 06/02/18 08:01 Dose: Not Given Glipizide (Glucotrol) 5 mg PO DAILY [facility] Stop: 07/31/18 12:14 Last Admin: 06/02/18 08:01 Dose: Not Given Linezolid (Zyvox) 600 mg in 300 mls @ 300 mls/hr IV Q12HR [facility] Stop: 07/31/18 20:59 Last Infusion: 06/02/18 09:34 Dose: Infused Insulin Human Lispro (Humalog Insulin Sliding Scale) 0 units SUBQ ACHS [facility]; Protocol Stop: 07/30/18 20:59 Last Admin: 06/02/18 07:01 Dose: Not Given Losartan Potassium (Cozaar) 25 mg PO DAILY [facility] Stop: 07/31/18 12:14 Last Admin: 06/02/18 08:01 Dose: Not Given Magnesium Oxide (Mag-Oxide) 400 mg PO DAILY [facility] Stop: 07/31/18 12:14 Last Admin: 06/02/18 08:01 Dose: Not Given Pantoprazole Sodium (Protonix) 40 mg PO DAILY [facility] Stop: 08/01/18 08:59 Last Admin: 06/02/18 08:01 Dose: Not Given Spironolactone (Aldactone) 25 mg PO BID [facility] Stop: 07/31/18 16:59 Last Admin: 06/02/18 08:02 Dose: Not Given Tramadol HCl (Ultram) 50 mg PO Q4HR PRN PRN Reason: PAIN Stop: 07/31/18 12:13 General: Alert, Oriented x3, No acute distress HEENT: Mucous membr. moist/pink Neck: Supple, JVD, +2 carotid pulse wo bruit (flat) Cardiovascular: Regular rate, Normal S1, Normal S2, Systolic murmurs Lungs: Clear to auscultation, Normal air movement Abdomen: Bowel sounds, Soft, Obese Extremities: Edema Neurological: Normal gait, Normal speech, Strength at 5/5 X4 ext, Normal tone, Cranial nerves 3-12 NL, Reflexes 2+ - Procedures Procedures: Procedures Procedure Code Date OXYGEN ENRICHMENT NEC 93.96 12/11/00 Assessment/Plan - Problem List Patient Problems: All Active Problems ABNORMAL PRELIMINARY BLOOD CULTURE REPOR (Acute) - Assessment Assessment: Septicemia with blood cultures positive COPD Hypertension Atrial fibrillation 6 sinus syndrome with pacemaker Morbid obesity Diabetes mellitus type 2 Obstructive sleep apnea Chronic pain syndrome Narcotic dependence - Plan Plan: Patient to have echocardiogram to rule out endocarditis
--- NOTE | 2018-06-02 13:24 | Infectious Disease Prog Note ---
Infectious Disease Subjective - Review of Systems Service Date: 06/02/18 Subjective: There is no new change. Infectious Disease Objective - Results Result Diagrams: 06/01/18 06:05 06/01/18 06:05 Recent Labs: Laboratory Last Values WBC 13.3 Th/cmm (4.8-10.8) H 06/01/18 06:05 RBC 4.01 Mil/cmm (4.30-5.70) L 06/01/18 06:05 Hgb 11.6 gm/dL (12-16) L 06/01/18 06:05 Hct 35.4 % (41.0-60) L 06/01/18 06:05 MCV 88.2 fl (80-99) 06/01/18 06:05 MCH 28.9 pg (26.0-30.0) 06/01/18 06:05 MCHC Differential 32.8 pg (28.0-36.0) 06/01/18 06:05 RDW 14.5 % (11.5-20.0) 06/01/18 06:05 Plt Count 162 Th/cmm (150-400) 06/01/18 06:05 MPV 8.9 fl 06/01/18 06:05 Neutrophils % 67.9 % (40.0-80.0) 06/01/18 06:05 Lymphocytes % 24.2 % (20.0-50.0) 06/01/18 06:05 Monocytes % 6.9 % (2.0-10.0) 06/01/18 06:05 Eosinophils % 0.8 % (0.0-5.0) 06/01/18 06:05 Basophils % 0.2 % (0.0-2.0) 06/01/18 06:05 Sodium 132 mEq/L (136-145) L 06/01/18 06:05 Potassium 5.1 mEq/L (3.5-5.1) 06/01/18 06:05 Chloride 90 mEq/L (98-107) L 06/01/18 06:05 Carbon Dioxide 34.4 mEq/L (21.0-31.0) H 06/01/18 06:05 Anion Gap 12.7 (7.0-16.0) 06/01/18 06:05 BUN 39 mg/dL (7-25) H 06/01/18 06:05 Creatinine 2.6 mg/dL (0.7-1.3) H 06/01/18 06:05 Est GFR ( Amer) 32.3 ml/min (>90) 06/01/18 06:05 Est GFR (Non-Af Amer) 26.7 ml/min 06/01/18 06:05 BUN/Creatinine Ratio 15.0 06/01/18 06:05 Glucose 173 mg/dL (70-105) H 06/01/18 06:05 POC Glucose 169 MG/DL (70 - 105) H 06/02/18 06:47 Whole Bld Lactic Acid 1.55 mmol/L (0.60-1.99) 05/31/18 18:15 Calcium 9.1 mg/dL (8.6-10.3) 06/01/18 06:05 Magnesium 1.5 mg/dL (1.9-2.7) L 06/01/18 06:05 Total Bilirubin 0.6 mg/dL (0.3-1.0) 06/01/18 06:05 AST 13 U/L (13-39) 06/01/18 06:05 ALT 9 U/L (7-52) 06/01/18 06:05 Alkaline Phosphatase 60 U/L (34-104) 06/01/18 06:05 Troponin I 0.06 ng/mL (0.01-0.05) H 05/31/18 18:15 Total Protein 6.3 gm/dL (6.0-8.3) 06/01/18 06:05 Albumin 3.3 gm/dL (4.2-5.5) L 06/01/18 06:05 Globulin 3.0 gm/dL 06/01/18 06:05 Albumin/Globulin Ratio 1.1 (1.0-1.8) 06/01/18 06:05 Urine Source CLEAN C 06/01/18 20:45 Urine Color YELLOW 06/01/18 20:45 Urine Clarity CLEAR (CLEAR) 06/01/18 20:45 Urine pH 5.5 (4.6 - 8.0) 06/01/18 20:45 Ur Specific Aubrey 1.025 (1.005-1.030) 06/01/18 20:45 Urine Protein TRACE mg/dL (NEGATIVE) 06/01/18 20:45 Urine Glucose (UA) NEGATIVE mg/dL (NEGATIVE) 06/01/18 20:45 Urine Ketones NEGATIVE mg/dL (NEGATIVE) 06/01/18 20:45 Urine Blood TRACE (NEGATIVE) 06/01/18 20:45 Urine Nitrate NEGATIVE (NEGATIVE) 06/01/18 20:45 Urine Bilirubin NEGATIVE (NEGATIVE) 06/01/18 20:45 Urine Urobilinogen 0.2 E.U./dL (0.2 - 1.0) 06/01/18 20:45 Ur Leukocyte Esterase NEGATIVE (NEGATIVE) 06/01/18 20:45 Urine RBC 2-5 /hpf (0-5) H 06/01/18 20:45 Urine WBC 0-2 /hpf (0-5) 06/01/18 20:45 Ur Epithelial Cells FEW /lpf (FEW) 06/01/18 20:45 Urine Bacteria 1+ /hpf (NONE SEEN) H 06/01/18 20:45 Coarse Granular Casts 0-2 /lpf (NONE SEEN) H 06/01/18 20:45 Random Vancomycin 16.6 ug/mL (5.0-40.0) 06/02/18 04:40 Urine Opiates Screen POSITIVE (NEGATIVE) H 06/01/18 20:45 Urine Methadone Screen NEGATIVE (NEGATIVE) 06/01/18 20:45 Ur Barbiturates Screen NEGATIVE (NEGATIVE) 06/01/18 20:45 Ur Tricyclics Screen NEGATIVE (NEGATIVE) 06/01/18 20:45 Ur Phencyclidine Scrn NEGATIVE (NEGATIVE) 06/01/18 20:45 Amphetamines Screen POSITIVE (NEGATIVE) H 06/01/18 20:45 U Methamphetamines Scrn POSITIVE (NEGATIVE) H 06/01/18 20:45 U Benzodiazepines Scrn NEGATIVE (NEGATIVE) 06/01/18 20:45 U Cocaine Metab Screen NEGATIVE (NEGATIVE) 06/01/18 20:45 U Cannabinoids Screen NEGATIVE (NEGATIVE) 06/01/18 20:45 - Physical Exam Vitals and I&O: Vital Signs Temp 97.1 F 06/02/18 12:09 Pulse 69 06/02/18 12:09 Resp 19 06/02/18 12:09 BP 108/78 06/02/18 12:09 Pulse Ox 92 06/02/18 12:09 Intake & Output 06/01/18 06/02/18 06/02/18 18:59 06:59 18:59 Intake Total 300 700 300 Balance 300 700 300 Weight (lbs) 133.719 kg 133.356 kg Intake: Intake, IV Amount 300 300 Linezolid 600mg/300mL 600 300 300 mg In 300 ml @ 300 mls/ hr IV Q12HR [facility] Rx#: [id number] Oral 300 400 Other: # Voids 3 2 # Bowel Movements 1 0 Stool Characteristics Soft Soft Brown Brown Weight Source Bedscale Bedscale Active Medications: Current Medications Acetaminophen (Tylenol) 650 mg PO Q4H PRN PRN Reason: Pain (Moderate) Stop: 07/31/18 04:58 Last Admin: 06/01/18 09:50 Dose: 650 mg Carvedilol (Coreg) 6.25 mg PO BID [facility] Stop: 07/31/18 16:59 Last Admin: 06/02/18 08:00 Dose: Not Given Furosemide (Lasix) 40 mg PO BID [facility] Stop: 07/31/18 16:59 Last Admin: 06/02/18 08:00 Dose: Not Given Gabapentin (Neurontin) 800 mg PO TID [facility] Stop: 07/31/18 13:59 Last Admin: 06/02/18 08:01 Dose: Not Given Glipizide (Glucotrol) 5 mg PO DAILY [facility] Stop: 07/31/18 12:14 Last Admin: 06/02/18 08:01 Dose: Not Given Linezolid (Zyvox) 600 mg in 300 mls @ 300 mls/hr IV Q12HR [facility] Stop: 07/31/18 20:59 Last Infusion: 06/02/18 09:34 Dose: Infused Insulin Human Lispro (Humalog Insulin Sliding Scale) 0 units SUBQ ACHS [facility]; Protocol Stop: 07/30/18 20:59 Last Admin: 06/02/18 07:01 Dose: Not Given Losartan Potassium (Cozaar) 25 mg PO DAILY [facility] Stop: 07/31/18 12:14 Last Admin: 06/02/18 08:01 Dose: Not Given Magnesium Oxide (Mag-Oxide) 400 mg PO DAILY [facility] Stop: 07/31/18 12:14 Last Admin: 06/02/18 08:01 Dose: Not Given Pantoprazole Sodium (Protonix) 40 mg PO DAILY [facility] Stop: 08/01/18 08:59 Last Admin: 06/02/18 08:01 Dose: Not Given Spironolactone (Aldactone) 25 mg PO BID [facility] Stop: 07/31/18 16:59 Last Admin: 06/02/18 08:02 Dose: Not Given Tramadol HCl (Ultram) 50 mg PO Q4HR PRN PRN Reason: PAIN Stop: 07/31/18 12:13 General: no acute distress, well developed, well nourished HEENT: atraumatic, normocephalic, PERRLA, EOMI Neck: supple, no thyromegaly, no lymphadenopathy Cardiovascular: S1S2, regular, systolic murmur Lungs: clear to auscultation bilaterally, clear to percussion Abdomen: soft, no tender, no distended, no mass, no rebound Extremities: no cyanosis, no clubbing, no edema Neurological: awake, alert, oriented Skin: intact - Procedures Procedures: Procedures Procedure Code Date OXYGEN ENRICHMENT NEC 93.96 12/11/00 Infectious Disease Assmt/Plan - Problem List Patient Problems: All Active Problems ABNORMAL PRELIMINARY BLOOD CULTURE REPOR (Acute) - Assessment Assessment: 1. Staph hemolyticus sepsis, with hypotension and leukocytosis. CY A/P/C neg./ 2. Chronic respiratory insufficiency. 3. Acute kidney injury, likely sepsis related versus acute tubular necrosis. The patient had received 1 dose of vancomycin. 4. Chronic pain syndrome. 5. Chronic obstructive pulmonary disease. 6. Dyslipidemia. 7. Hypertension, but currently hypotensive. 8. History of atrial fibrillation. 9. History of cerebrovascular accident. 10. Obesity. 11. Pacemaker placement. 12. Diabetes mellitus type 2. - Plan Plan: Continue zyvox. Repeat the blood culture till his blood clears up. Check Echo
--- NOTE | 2018-06-02 13:33 | Diagnostic Imaging Report ---
Exam: Portable chest x-ray HISTORY: Pneumonia COMPARISON 05/30/2018 Findings: Portable upright examination of the chest at 0 7:28 reviewed compatible prior study 05/30/2018 demonstrates mild left basilar atelectasis. The distal structures midline, the heart is not enlarged. No acute pulmonic infiltrates or effusions are noted bony thorax intact. Left-sided pacemaker is noted. IMPRESSION mild left basilar atelectasis.
--- NOTE | 2018-06-03 00:04 | Progress Notes ---
DATE: 06/02/2018 PATIENT'S IDENTIFICATION: A 62-year-old male. SUBJECTIVE: The patient seen and examined. The patient is lying in the bed. The patient remained hostile and he does not know what is going on with him. Discussed with him about his positive blood cultures. The patient currently denies any chest pain, shortness of breath, palpitation, dizziness, nausea, vomiting, diarrhea. PHYSICAL EXAMINATION: On exam, VITAL SIGNS: Temperature 96.4, pulse 70, respiratory rate 18, blood pressure 112/47. HEENT: No facial asymmetry. NECK: Supple, no JVD. HEART: Irregularly irregular. CHEST AND LUNG: Equal in expansion with no expiratory wheezing. Palpable pacemaker noted. ABDOMEN: Protuberant, soft. No guarding, no rigidity. Bowel sounds present. No palpable mass. EXTREMITIES: No edema. NEUROLOGIC: Nonfocal. CLINICAL IMPRESSION: 1. Gram-positive septicemia. 4 blood cultures are positive. 2. Diabetes. 3. Obesity. 4. Respiratory failure. 5. Cardiomyopathy. 6. Status post pacemaker placement. 7. Atrial fibrillation. 8. Positive drug screen with methamphetamine and amphetamine with opiates. PLAN: Workup for septicemia by getting CT abdomen, pelvis and chest. 2D echocardiogram has been ordered. Cardiology consultation requested. The patient will continue on IV antibiotic. Diabetes management as prescribed. General nursing care as well. Follow lab and follow consultant electronics's recommendations. Care plan reviewed and discussed with staff. JOB# [id number]
[2018-06-03 07:41] LABS: ALB/GLOB RATIO 1.1 (1.0-1.8); ALBUMIN 3.5 gm/dL (4.2-5.5); ALKALINE PHOSPHATASE 66 U/L (34-104); ANION GAP 11.3 (7.0-16.0); BILIRUBIN,TOTAL 0.5 mg/dL (0.3-1.0); BUN - UREA NITROGEN 26 mg/dL (7-25); CALCIUM SERUM 9.5 mg/dL (8.6-10.3); CARBON DIOXIDE 35.4 mEq/L (21.0-31.0); CHLORIDE 90 mEq/L (98-107); CREATININE - SERUM 1.5 mg/dL (0.7-1.3); GFR AFRICAN-AMERICAN > 60.0 ml/min (>90); GFR NON AFRICAN-AMERICAN 50.4 ml/min; GLUCOSE 177 mg/dL (70-105); POTASSIUM SERUM 4.7 mEq/L (3.5-5.1); SGOT 13 U/L (13-39); SGPT/ALT 10 U/L (7-52); SODIUM SERUM 132 mEq/L (136-145); TOTAL PROTEIN,SERUM 6.8 gm/dL (6.0-8.3)
[2018-06-03] MEDS: Apixaban 5 MG TABLET PO SCH ×2 (08:52→16:31)
[2018-06-03] MEDS: Pantoprazole 40 mg EC Tab PO SCH (08:53)
[2018-06-03] MEDS: Linezolid 600mg/300mL 600 MG/300 ML BAG IV SCH ×2 (08:54→20:46)
[2018-06-03] MEDS: INSULIN LISPRO SLIDING SCALE 100 UNITS/ML UNIT SUBQ SCH ×4 (08:57→21:00)
[2018-06-03 11:10] LABS: HEMATOCRIT 38.5 % (41.0-60); HEMOGLOBIN 12.4 gm/dL (12-16); MEAN CORPUSCULAR HEMOGLOBIN 29.1 pg (26.0-30.0); MEAN CORPUSCULAR HGB CONC 32.3 pg (28.0-36.0); RED BLOOD COUNT 4.28 Mil/cmm (4.30-5.70); RED CELL DISTRIBUTION WIDTH 15.3 % (11.5-20.0); WHITE BLOOD COUNT 10.1 Th/cmm (4.8-10.8)
[2018-06-03 11:11] LABS: BAND NEUTROPHILE 0 % (0-10); LYMPHOCYTE 23.1 % (20-50); MONOCYTE 6.7 % (2-10); NEUTROPHILS 68.4 % (40-80); PLATELET COUNT 160 Th/cmm (150-400)
[2018-06-03 11:12] LABS: BASOPHIL 0 % (0-3); EOSINOPHIL 1.6 % (0-5)
--- NOTE | 2018-06-03 12:05 | Infectious Disease Prog Note ---
Infectious Disease Subjective - Review of Systems Service Date: 06/03/18 Subjective: There is no new change. Infectious Disease Objective - Results Result Diagrams: 06/03/18 06:40 06/03/18 06:40 Recent Labs: Laboratory Last Values WBC 10.1 Th/cmm (4.8-10.8) 06/03/18 06:40 RBC 4.28 Mil/cmm (4.30-5.70) L 06/03/18 06:40 Hgb 12.4 gm/dL (12-16) 06/03/18 06:40 Hct 38.5 % (41.0-60) L 06/03/18 06:40 MCV 90.0 fl (80-99) 06/03/18 06:40 MCH 29.1 pg (26.0-30.0) 06/03/18 06:40 MCHC Differential 32.3 pg (28.0-36.0) 06/03/18 06:40 RDW 15.3 % (11.5-20.0) 06/03/18 06:40 Plt Count 160 Th/cmm (150-400) 06/03/18 06:40 MPV 8.9 fl 06/01/18 06:05 Add Manual Diff YES 06/03/18 06:40 Neutrophils % 67.9 % (40.0-80.0) 06/01/18 06:05 Band Neutrophils % 0 % (0-10) 06/03/18 06:40 Lymphocytes % 24.2 % (20.0-50.0) 06/01/18 06:05 Monocytes % 6.9 % (2.0-10.0) 06/01/18 06:05 Eosinophils % 0.8 % (0.0-5.0) 06/01/18 06:05 Basophils % 0.2 % (0.0-2.0) 06/01/18 06:05 Neutrophils (Manual) 68.4 % (40-80) 06/03/18 06:40 Lymphocytes 23.1 % (20-50) 06/03/18 06:40 Monocytes 6.7 % (2-10) 06/03/18 06:40 Eosinophils 1.6 % (0-5) 06/03/18 06:40 Basophils 0 % (0-3) 06/03/18 06:40 Sodium 132 mEq/L (136-145) L 06/03/18 06:40 Potassium 4.7 mEq/L (3.5-5.1) 06/03/18 06:40 Chloride 90 mEq/L (98-107) L 06/03/18 06:40 Carbon Dioxide 35.4 mEq/L (21.0-31.0) H 06/03/18 06:40 Anion Gap 11.3 (7.0-16.0) 06/03/18 06:40 BUN 26 mg/dL (7-25) H 06/03/18 06:40 Creatinine 1.5 mg/dL (0.7-1.3) H 06/03/18 06:40 Est GFR ( Amer) > 60.0 ml/min (>90) 06/03/18 06:40 Est GFR (Non-Af Amer) 50.4 ml/min 06/03/18 06:40 BUN/Creatinine Ratio 17.3 06/03/18 06:40 Glucose 177 mg/dL (70-105) H 06/03/18 06:40 POC Glucose 183 MG/DL (70 - 105) H 06/03/18 06:31 Whole Bld Lactic Acid 1.55 mmol/L (0.60-1.99) 05/31/18 18:15 Calcium 9.5 mg/dL (8.6-10.3) 06/03/18 06:40 Magnesium 1.5 mg/dL (1.9-2.7) L 06/01/18 06:05 Total Bilirubin 0.5 mg/dL (0.3-1.0) 06/03/18 06:40 AST 13 U/L (13-39) 06/03/18 06:40 ALT 10 U/L (7-52) 06/03/18 06:40 Alkaline Phosphatase 66 U/L (34-104) 06/03/18 06:40 Troponin I 0.06 ng/mL (0.01-0.05) H 05/31/18 18:15 Total Protein 6.8 gm/dL (6.0-8.3) 06/03/18 06:40 Albumin 3.5 gm/dL (4.2-5.5) L 06/03/18 06:40 Globulin 3.3 gm/dL 06/03/18 06:40 Albumin/Globulin Ratio 1.1 (1.0-1.8) 06/03/18 06:40 Urine Source CLEAN C 06/01/18 20:45 Urine Color YELLOW 06/01/18 20:45 Urine Clarity CLEAR (CLEAR) 06/01/18 20:45 Urine pH 5.5 (4.6 - 8.0) 06/01/18 20:45 Ur Specific [place] 1.025 (1.005-1.030) 06/01/18 20:45 Urine Protein TRACE mg/dL (NEGATIVE) 06/01/18 20:45 Urine Glucose (UA) NEGATIVE mg/dL (NEGATIVE) 06/01/18 20:45 Urine Ketones NEGATIVE mg/dL (NEGATIVE) 06/01/18 20:45 Urine Blood TRACE (NEGATIVE) 06/01/18 20:45 Urine Nitrate NEGATIVE (NEGATIVE) 06/01/18 20:45 Urine Bilirubin NEGATIVE (NEGATIVE) 06/01/18 20:45 Urine Urobilinogen 0.2 E.U./dL (0.2 - 1.0) 06/01/18 20:45 Ur Leukocyte Esterase NEGATIVE (NEGATIVE) 06/01/18 20:45 Urine RBC 2-5 /hpf (0-5) H 06/01/18 20:45 Urine WBC 0-2 /hpf (0-5) 06/01/18 20:45 Ur Epithelial Cells FEW /lpf (FEW) 06/01/18 20:45 Urine Bacteria 1+ /hpf (NONE SEEN) H 06/01/18 20:45 Coarse Granular Casts 0-2 /lpf (NONE SEEN) H 06/01/18 20:45 Random Vancomycin 16.6 ug/mL (5.0-40.0) 06/02/18 04:40 Urine Opiates Screen POSITIVE (NEGATIVE) H 06/01/18 20:45 Urine Methadone Screen NEGATIVE (NEGATIVE) 06/01/18 20:45 Ur Barbiturates Screen NEGATIVE (NEGATIVE) 06/01/18 20:45 Ur Tricyclics Screen NEGATIVE (NEGATIVE) 06/01/18 20:45 Ur Phencyclidine Scrn NEGATIVE (NEGATIVE) 06/01/18 20:45 Amphetamines Screen POSITIVE (NEGATIVE) H 06/01/18 20:45 U Methamphetamines Scrn POSITIVE (NEGATIVE) H 06/01/18 20:45 U Benzodiazepines Scrn NEGATIVE (NEGATIVE) 06/01/18 20:45 U Cocaine Metab Screen NEGATIVE (NEGATIVE) 06/01/18 20:45 U Cannabinoids Screen NEGATIVE (NEGATIVE) 06/01/18 20:45 - Physical Exam Vitals and I&O: Vital Signs Temp 96.4 F 06/03/18 11:29 Pulse 83 06/03/18 11:29 Resp 18 06/03/18 11:29 BP 129/35 06/03/18 11:29 Pulse Ox 98 06/03/18 11:29 Intake & Output 06/02/18 06/03/18 06/03/18 18:59 06:59 18:59 Intake Total 1200 300 Output Total 300 Balance 1200 0 Weight (lbs) 133.356 kg 116.12 kg Intake: Intake, IV Amount 300 300 Linezolid 600mg/300mL 600 300 300 mg In 300 ml @ 300 mls/ hr IV Q12HR [facility] Rx#: [id number] Oral 900 Output: Urine 300 Other: # Voids 3 # Bowel Movements 1 Weight Source Bedscale Bedscale Active Medications: Current Medications Acetaminophen (Tylenol) 650 mg PO Q4H PRN PRN Reason: Pain (Moderate) Stop: 07/31/18 04:58 Last Admin: 06/01/18 09:50 Dose: 650 mg Carvedilol (Coreg) 6.25 mg PO BID [facility] Stop: 07/31/18 16:59 Last Admin: 06/03/18 08:53 Dose: 6.25 mg Furosemide (Lasix) 40 mg PO BID [facility] Stop: 07/31/18 16:59 Last Admin: 06/03/18 08:52 Dose: 40 mg Gabapentin (Neurontin) 800 mg PO TID [facility] Stop: 07/31/18 13:59 Last Admin: 06/03/18 08:53 Dose: 800 mg Glipizide (Glucotrol) 5 mg PO DAILY [facility] Stop: 07/31/18 12:14 Last Admin: 06/03/18 08:54 Dose: 5 mg Linezolid (Zyvox) 600 mg in 300 mls @ 300 mls/hr IV Q12HR [facility] Stop: 07/31/18 20:59 Last Admin: 06/03/18 08:54 Dose: 300 mls/hr Insulin Human Lispro (Humalog Insulin Sliding Scale) 0 units SUBQ ACHS [facility]; Protocol Stop: 07/30/18 20:59 Last Admin: 06/03/18 08:57 Dose: 2 units Losartan Potassium (Cozaar) 25 mg PO DAILY [facility] Stop: 07/31/18 12:14 Last Admin: 06/03/18 08:54 Dose: 25 mg Magnesium Oxide (Mag-Oxide) 400 mg PO DAILY [facility] Stop: 07/31/18 12:14 Last Admin: 06/03/18 08:53 Dose: 400 mg Pantoprazole Sodium (Protonix) 40 mg PO DAILY [facility] Stop: 08/01/18 08:59 Last Admin: 06/03/18 08:53 Dose: 40 mg Spironolactone (Aldactone) 25 mg PO BID [facility] Stop: 07/31/18 16:59 Last Admin: 06/03/18 08:54 Dose: 25 mg Tramadol HCl (Ultram) 50 mg PO Q4HR PRN PRN Reason: PAIN Stop: 07/31/18 12:13 Last Admin: 06/02/18 20:03 Dose: 50 mg General: no acute distress, well developed, well nourished HEENT: atraumatic, normocephalic, PERRLA, EOMI Neck: supple, no thyromegaly Cardiovascular: S1S2, regular Lungs: clear to auscultation bilaterally, clear to percussion Abdomen: soft, no tender, no distended, no rebound Extremities: no cyanosis, no clubbing, no edema Neurological: awake, alert, oriented Skin: intact - Procedures Procedures: Procedures Procedure Code Date OXYGEN ENRICHMENT NEC 93.96 12/11/00 Infectious Disease Assmt/Plan - Problem List Patient Problems: All Active Problems ABNORMAL PRELIMINARY BLOOD CULTURE REPOR (Acute) - Assessment Assessment: 1. Staph hemolyticus sepsis, with hypotension and leukocytosis. CT A/P/C neg./ 2. Chronic respiratory insufficiency. 3. Acute kidney injury, likely sepsis related versus acute tubular necrosis. The patient had received 1 dose of vancomycin. improving. 4. Chronic pain syndrome. 5. Chronic obstructive pulmonary disease. 6. Dyslipidemia. 7. Hypertension, but currently hypotensive. 8. History of atrial fibrillation. 9. History of cerebrovascular accident. 10. Obesity. 11. Pacemaker placement. 12. Diabetes mellitus type 2. 13. CELIO. ( does not like to use CPAP). - Plan Plan: Continue zyvox. If renal function improves may consider changing antibiotic to vancO IV. Repeat the blood culture till his blood clears up. Check Echo
--- NOTE | 2018-06-03 12:41 | Cardiology ---
06/02/[address] Rutherford. M-MODE ECHOCARDIOGRAM: Mitral valve: Anterior leaflet of mitral valve shows normal excursion, EF velocity. Posterior leaflet of the mitral valve shows normal excursion. Left ventricle posterior wall shows normal thickness, excursion. Interventricular septum shows normal thickness, excursion. Ejection fraction 63%. Left atrium enlarged 4.2 cm. Aortic root shows normal dimension, normal excursion of aortic leaflets. CONCLUSION: Left atrial enlargement, minimal hypertrophy of the left ventricle, ejection fraction 63%. 2D ECHO: Long axis view showed normal sized left ventricle with minimal hypertrophy of the left ventricle. Left atrium enlarged. Aortic root shows normal dimension, normal excursion of aortic leaflets. Short axis view of mitral valve normal. Short axis view of aortic valve normal. Apical four-chamber view showed normal sized left ventricle with minimal hypertrophy of the left ventricle. Left atrium enlarged. Right ventricular cavity, right atrium normal. No pericardial effusion. CONCLUSION: Minimal hypertrophy of the left ventricle, ejection fraction 63%. Doppler study showed trace mitral regurgitation, trace tricuspid regurgitation, right ventricular systolic pressure 40 mmHg. [facility]# [id number]
--- NOTE | 2018-06-03 22:25 | Progress Notes ---
DATE: MEDICAL PROGRESS NOTE IDENTIFICATION: A 62-year-old male. SUBJECTIVE: The patient seen and examined. The patient is lying in the bed. No new event. Another blood cultures came out negative. The patient was seen by automotive worker foreman as well. A 2D echocardiogram is also done, which is remarkable for minimal hypertrophy of left ventricle with ejection fraction 63%. No evidence of any wall motion abnormality. The patient remained hemodynamically stable. PHYSICAL EXAMINATION: VITAL SIGNS: Temperature 96.4, pulse 83, respiratory rate 18, and blood pressure 130/35. HEENT: No facial asymmetry. NECK: Supple. HEART: Regular. LUNGS: Expiratory wheezing. ABDOMEN: Soft. EXTREMITIES: No edema. NEUROLOGIC: Alert, awake, follows command. AVAILABLE DIAGNOSTIC DATA: Reviewed. CLINICAL IMPRESSION: 1. Staph haemolyticus sepsis with hypotension and leukocytosis. 2. Chronic respiratory failure. 3. Chronic obstructive pulmonary disease. 4. Chronic pain syndrome. 5. Hypertension. 6. Atrial fibrillation. 7. Status post pacemaker placement. 8. Diabetes mellitus. 9. Obstructive sleep apnea. PLAN: Discussed with Infectious Disease. Continue to recommend antibiotic. If the patient is stable, we will discharge this patient to home tomorrow. Meanwhile, continue to provide current medication as well as chronic disease management. Care plan reviewed and discussed with staff. JOB# [id number]
[2018-06-04] MEDS: INSULIN LISPRO SLIDING SCALE 100 UNITS/ML UNIT SUBQ SCH ×4 (07:49→20:42)
[2018-06-04] MEDS: Apixaban 5 MG TABLET PO SCH ×2 (08:34→17:00)
[2018-06-04] MEDS: Linezolid 600mg/300mL 600 MG/300 ML BAG IV SCH ×2 (08:35→21:14)
[2018-06-04] MEDS: Pantoprazole 40 mg EC Tab PO SCH (08:35)
--- NOTE | 2018-06-04 14:44 | General Progress Note ---
Subjective - Review of Systems Service Date: 06/04/18 Subjective: Patient has less chest pain shortness of breath Objective - Results Result Diagrams: 06/03/18 06:40 06/03/18 06:40 Recent Labs: Laboratory Last Values WBC 10.1 Th/cmm (4.8-10.8) 06/03/18 06:40 RBC 4.28 Mil/cmm (4.30-5.70) L 06/03/18 06:40 Hgb 12.4 gm/dL (12-16) 06/03/18 06:40 Hct 38.5 % (41.0-60) L 06/03/18 06:40 MCV 90.0 fl (80-99) 06/03/18 06:40 MCH 29.1 pg (26.0-30.0) 06/03/18 06:40 MCHC Differential 32.3 pg (28.0-36.0) 06/03/18 06:40 RDW 15.3 % (11.5-20.0) 06/03/18 06:40 Plt Count 160 Th/cmm (150-400) 06/03/18 06:40 MPV 8.9 fl 06/01/18 06:05 Add Manual Diff YES 06/03/18 06:40 Neutrophils % 67.9 % (40.0-80.0) 06/01/18 06:05 Band Neutrophils % 0 % (0-10) 06/03/18 06:40 Lymphocytes % 24.2 % (20.0-50.0) 06/01/18 06:05 Monocytes % 6.9 % (2.0-10.0) 06/01/18 06:05 Eosinophils % 0.8 % (0.0-5.0) 06/01/18 06:05 Basophils % 0.2 % (0.0-2.0) 06/01/18 06:05 Neutrophils (Manual) 68.4 % (40-80) 06/03/18 06:40 Lymphocytes 23.1 % (20-50) 06/03/18 06:40 Monocytes 6.7 % (2-10) 06/03/18 06:40 Eosinophils 1.6 % (0-5) 06/03/18 06:40 Basophils 0 % (0-3) 06/03/18 06:40 Sodium 132 mEq/L (136-145) L 06/03/18 06:40 Potassium 4.7 mEq/L (3.5-5.1) 06/03/18 06:40 Chloride 90 mEq/L (98-107) L 06/03/18 06:40 Carbon Dioxide 35.4 mEq/L (21.0-31.0) H 06/03/18 06:40 Anion Gap 11.3 (7.0-16.0) 06/03/18 06:40 BUN 26 mg/dL (7-25) H 06/03/18 06:40 Creatinine 1.5 mg/dL (0.7-1.3) H 06/03/18 06:40 Est GFR ( Amer) > 60.0 ml/min (>90) 06/03/18 06:40 Est GFR (Non-Af Amer) 50.4 ml/min 06/03/18 06:40 BUN/Creatinine Ratio 17.3 06/03/18 06:40 Glucose 177 mg/dL (70-105) H 06/03/18 06:40 POC Glucose 244 MG/DL (70 - 105) H 06/04/18 12:08 Whole Bld Lactic Acid 1.55 mmol/L (0.60-1.99) 05/31/18 18:15 Calcium 9.5 mg/dL (8.6-10.3) 06/03/18 06:40 Magnesium 1.5 mg/dL (1.9-2.7) L 06/01/18 06:05 Total Bilirubin 0.5 mg/dL (0.3-1.0) 06/03/18 06:40 AST 13 U/L (13-39) 06/03/18 06:40 ALT 10 U/L (7-52) 06/03/18 06:40 Alkaline Phosphatase 66 U/L (34-104) 06/03/18 06:40 Troponin I 0.06 ng/mL (0.01-0.05) H 05/31/18 18:15 Total Protein 6.8 gm/dL (6.0-8.3) 06/03/18 06:40 Albumin 3.5 gm/dL (4.2-5.5) L 06/03/18 06:40 Globulin 3.3 gm/dL 06/03/18 06:40 Albumin/Globulin Ratio 1.1 (1.0-1.8) 06/03/18 06:40 Urine Source CLEAN C 06/01/18 20:45 Urine Color YELLOW 06/01/18 20:45 Urine Clarity CLEAR (CLEAR) 06/01/18 20:45 Urine pH 5.5 (4.6 - 8.0) 06/01/18 20:45 Ur Specific [place] 1.025 (1.005-1.030) 06/01/18 20:45 Urine Protein TRACE mg/dL (NEGATIVE) 06/01/18 20:45 Urine Glucose (UA) NEGATIVE mg/dL (NEGATIVE) 06/01/18 20:45 Urine Ketones NEGATIVE mg/dL (NEGATIVE) 06/01/18 20:45 Urine Blood TRACE (NEGATIVE) 06/01/18 20:45 Urine Nitrate NEGATIVE (NEGATIVE) 06/01/18 20:45 Urine Bilirubin NEGATIVE (NEGATIVE) 06/01/18 20:45 Urine Urobilinogen 0.2 E.U./dL (0.2 - 1.0) 06/01/18 20:45 Ur Leukocyte Esterase NEGATIVE (NEGATIVE) 06/01/18 20:45 Urine RBC 2-5 /hpf (0-5) H 06/01/18 20:45 Urine WBC 0-2 /hpf (0-5) 06/01/18 20:45 Ur Epithelial Cells FEW /lpf (FEW) 06/01/18 20:45 Urine Bacteria 1+ /hpf (NONE SEEN) H 06/01/18 20:45 Coarse Granular Casts 0-2 /lpf (NONE SEEN) H 06/01/18 20:45 Random Vancomycin 16.6 ug/mL (5.0-40.0) 06/02/18 04:40 Urine Opiates Screen POSITIVE (NEGATIVE) H 06/01/18 20:45 Urine Methadone Screen NEGATIVE (NEGATIVE) 06/01/18 20:45 Ur Barbiturates Screen NEGATIVE (NEGATIVE) 06/01/18 20:45 Ur Tricyclics Screen NEGATIVE (NEGATIVE) 06/01/18 20:45 Ur Phencyclidine Scrn NEGATIVE (NEGATIVE) 06/01/18 20:45 Amphetamines Screen POSITIVE (NEGATIVE) H 06/01/18 20:45 U Methamphetamines Scrn POSITIVE (NEGATIVE) H 06/01/18 20:45 U Benzodiazepines Scrn NEGATIVE (NEGATIVE) 06/01/18 20:45 U Cocaine Metab Screen NEGATIVE (NEGATIVE) 06/01/18 20:45 U Cannabinoids Screen NEGATIVE (NEGATIVE) 06/01/18 20:45 - Physical Exam Vitals and I&O: Vital Signs Temp 97.4 F 06/04/18 11:13 Pulse 65 06/04/18 11:13 Resp 20 06/04/18 11:13 BP 103/46 06/04/18 11:13 Pulse Ox 96 06/04/18 11:13 Intake & Output 06/03/18 06/04/18 06/04/18 18:59 06:59 18:59 Intake Total 1200 300 700 Balance 1200 300 700 Weight (lbs) 116.12 kg 116.12 kg Intake: Intake, IV Amount 300 300 Linezolid 600mg/300mL 600 300 300 mg In 300 ml @ 300 mls/ hr IV Q12HR [facility] Rx#: [id number] Oral 900 700 Other: # Voids 6 4 # Bowel Movements 1 0 Weight Source Bedscale Bedscale Active Medications: Current Medications Acetaminophen (Tylenol) 650 mg PO Q4H PRN PRN Reason: Pain (Moderate) Stop: 07/31/18 04:58 Last Admin: 06/01/18 09:50 Dose: 650 mg Carvedilol (Coreg) 6.25 mg PO BID [facility] Stop: 07/31/18 16:59 Last Admin: 06/04/18 08:21 Dose: Not Given Furosemide (Lasix) 40 mg PO BID [facility] Stop: 07/31/18 16:59 Last Admin: 06/04/18 08:21 Dose: Not Given Gabapentin (Neurontin) 800 mg PO TID [facility] Stop: 07/31/18 13:59 Last Admin: 06/04/18 13:35 Dose: 800 mg Glipizide (Glucotrol) 5 mg PO DAILY [facility] Stop: 07/31/18 12:14 Last Admin: 06/04/18 08:35 Dose: 5 mg Linezolid (Zyvox) 600 mg in 300 mls @ 300 mls/hr IV Q12HR [facility] Stop: 07/31/18 20:59 Last Admin: 06/04/18 08:35 Dose: 300 mls/hr Insulin Human Lispro (Humalog Insulin Sliding Scale) 0 units SUBQ ACHS [facility]; Protocol Stop: 07/30/18 20:59 Last Admin: 06/04/18 12:16 Dose: 4 units Losartan Potassium (Cozaar) 25 mg PO DAILY [facility] Stop: 07/31/18 12:14 Last Admin: 06/04/18 08:21 Dose: Not Given Magnesium Oxide (Mag-Oxide) 400 mg PO DAILY [facility] Stop: 07/31/18 12:14 Last Admin: 06/04/18 08:35 Dose: 400 mg Pantoprazole Sodium (Protonix) 40 mg PO DAILY [facility] Stop: 08/01/18 08:59 Last Admin: 06/04/18 08:35 Dose: 40 mg Spironolactone (Aldactone) 25 mg PO BID [facility] Stop: 07/31/18 16:59 Last Admin: 06/04/18 08:22 Dose: Not Given Tramadol HCl (Ultram) 50 mg PO Q4HR PRN PRN Reason: PAIN Stop: 07/31/18 12:13 Last Admin: 06/04/18 05:02 Dose: 50 mg General: Alert, Oriented x3, No acute distress HEENT: Mucous membr. moist/pink Neck: Supple, JVD, +2 carotid pulse wo bruit (flat) Cardiovascular: Regular rate, Normal S1, Normal S2, Systolic murmurs Lungs: Clear to auscultation, Normal air movement Abdomen: Bowel sounds, Soft, Obese Extremities: Edema Neurological: Normal gait, Normal speech, Strength at 5/5 X4 ext, Normal tone, Cranial nerves 3-12 NL, Reflexes 2+ - Procedures Procedures: Procedures Procedure Code Date OXYGEN ENRICHMENT NEC 93.96 12/11/00 Assessment/Plan - Problem List Patient Problems: All Active Problems ABNORMAL PRELIMINARY BLOOD CULTURE REPOR (Acute) - Assessment Assessment: Septicemia with blood cultures positive COPD Hypertension Atrial fibrillation 6 sinus syndrome with pacemaker Morbid obesity Diabetes mellitus type 2 Obstructive sleep apnea Chronic pain syndrome Narcotic dependence Echocardiogram showed ejection fraction 63% mild left ventricular hypertrophy and trace mitral regurgitation tricuspid regurgitation no evidence of endocarditis - Plan Plan: Echocardiogram no endocarditis patient to continue IV antibiotic
--- NOTE | 2018-06-05 02:19 | Progress Notes ---
DATE: 06/04/2018 PATIENT'S ID: A 62-year-old male. SUBJECTIVE: The patient seen and examined. The patient is lying in the bed. OBJECTIVE: GENERAL: The patient is lying in the bed. The patient has no new complaint. VITAL SIGNS: Temperature 97.6, pulse is 68, respiratory rate 18, blood pressure 100/53. HEENT: Poor dentition. NECK: Supple, no JVD. HEART: Regular. CHEST AND LUNGS: Equal in expansion with mild expiratory wheezing. ABDOMEN: Soft, no guarding or rigidity. Bowel sounds are present. No palpable mass. EXTREMITIES: No edema. AVAILABLE DIAGNOSTIC DATA: Reviewed. CLINICAL IMPRESSION: 1. Staphylococcus haemolyticus sepsis. 2. Chronic respiratory failure. 3. Acute kidney injury. 4. Chronic pain syndrome. 5. Chronic obstructive pulmonary disease. 6. Hyperlipidemia. 7. Hypertension. 8. Atrial fibrillation. 9. History of cerebrovascular accident. 10. Obesity. 11. Status post pacemaker placement. 12. Diabetes mellitus. 13. Obstructive sleep apnea. PLAN: Discharge to home with IV vancomycin to be continued for 2 weeks as well. We will have piano case maker to arrange this and will discharge this patient safely to home. Care plan has been reviewed and discussed with the patient and the patient's RN. JOB# [id number]
[2018-06-05] MEDS: INSULIN LISPRO SLIDING SCALE 100 UNITS/ML UNIT SUBQ SCH ×3 (07:50→16:58)
[2018-06-05] MEDS: Pantoprazole 40 mg EC Tab PO SCH (08:57)
[2018-06-05] MEDS: Linezolid 600mg/300mL 600 MG/300 ML BAG IV SCH (08:57)
[2018-06-05] MEDS: Apixaban 5 MG TABLET PO SCH ×2 (08:58→17:02)
--- NOTE | 2018-06-05 11:34 | Infectious Disease Prog Note ---
Infectious Disease Subjective - Review of Systems Service Date: 06/05/18 Subjective: There is no new change. Infectious Disease Objective - Results Result Diagrams: 06/03/18 06:40 06/03/18 06:40 Recent Labs: Laboratory Last Values WBC 10.1 Th/cmm (4.8-10.8) 06/03/18 06:40 RBC 4.28 Mil/cmm (4.30-5.70) L 06/03/18 06:40 Hgb 12.4 gm/dL (12-16) 06/03/18 06:40 Hct 38.5 % (41.0-60) L 06/03/18 06:40 MCV 90.0 fl (80-99) 06/03/18 06:40 MCH 29.1 pg (26.0-30.0) 06/03/18 06:40 MCHC Differential 32.3 pg (28.0-36.0) 06/03/18 06:40 RDW 15.3 % (11.5-20.0) 06/03/18 06:40 Plt Count 160 Th/cmm (150-400) 06/03/18 06:40 MPV 8.9 fl 06/01/18 06:05 Add Manual Diff YES 06/03/18 06:40 Neutrophils % 67.9 % (40.0-80.0) 06/01/18 06:05 Band Neutrophils % 0 % (0-10) 06/03/18 06:40 Lymphocytes % 24.2 % (20.0-50.0) 06/01/18 06:05 Monocytes % 6.9 % (2.0-10.0) 06/01/18 06:05 Eosinophils % 0.8 % (0.0-5.0) 06/01/18 06:05 Basophils % 0.2 % (0.0-2.0) 06/01/18 06:05 Neutrophils (Manual) 68.4 % (40-80) 06/03/18 06:40 Lymphocytes 23.1 % (20-50) 06/03/18 06:40 Monocytes 6.7 % (2-10) 06/03/18 06:40 Eosinophils 1.6 % (0-5) 06/03/18 06:40 Basophils 0 % (0-3) 06/03/18 06:40 Sodium 132 mEq/L (136-145) L 06/03/18 06:40 Potassium 4.7 mEq/L (3.5-5.1) 06/03/18 06:40 Chloride 90 mEq/L (98-107) L 06/03/18 06:40 Carbon Dioxide 35.4 mEq/L (21.0-31.0) H 06/03/18 06:40 Anion Gap 11.3 (7.0-16.0) 06/03/18 06:40 BUN 26 mg/dL (7-25) H 06/03/18 06:40 Creatinine 1.5 mg/dL (0.7-1.3) H 06/03/18 06:40 Est GFR ( Amer) > 60.0 ml/min (>90) 06/03/18 06:40 Est GFR (Non-Af Amer) 50.4 ml/min 06/03/18 06:40 BUN/Creatinine Ratio 17.3 06/03/18 06:40 Glucose 177 mg/dL (70-105) H 06/03/18 06:40 POC Glucose 159 MG/DL (70 - 105) H 06/05/18 05:32 Whole Bld Lactic Acid 1.55 mmol/L (0.60-1.99) 05/31/18 18:15 Calcium 9.5 mg/dL (8.6-10.3) 06/03/18 06:40 Magnesium 1.5 mg/dL (1.9-2.7) L 06/01/18 06:05 Total Bilirubin 0.5 mg/dL (0.3-1.0) 06/03/18 06:40 AST 13 U/L (13-39) 06/03/18 06:40 ALT 10 U/L (7-52) 06/03/18 06:40 Alkaline Phosphatase 66 U/L (34-104) 06/03/18 06:40 Troponin I 0.06 ng/mL (0.01-0.05) H 05/31/18 18:15 Total Protein 6.8 gm/dL (6.0-8.3) 06/03/18 06:40 Albumin 3.5 gm/dL (4.2-5.5) L 06/03/18 06:40 Globulin 3.3 gm/dL 06/03/18 06:40 Albumin/Globulin Ratio 1.1 (1.0-1.8) 06/03/18 06:40 Urine Source CLEAN C 06/01/18 20:45 Urine Color YELLOW 06/01/18 20:45 Urine Clarity CLEAR (CLEAR) 06/01/18 20:45 Urine pH 5.5 (4.6 - 8.0) 06/01/18 20:45 Ur Specific [place] 1.025 (1.005-1.030) 06/01/18 20:45 Urine Protein TRACE mg/dL (NEGATIVE) 06/01/18 20:45 Urine Glucose (UA) NEGATIVE mg/dL (NEGATIVE) 06/01/18 20:45 Urine Ketones NEGATIVE mg/dL (NEGATIVE) 06/01/18 20:45 Urine Blood TRACE (NEGATIVE) 06/01/18 20:45 Urine Nitrate NEGATIVE (NEGATIVE) 06/01/18 20:45 Urine Bilirubin NEGATIVE (NEGATIVE) 06/01/18 20:45 Urine Urobilinogen 0.2 E.U./dL (0.2 - 1.0) 06/01/18 20:45 Ur Leukocyte Esterase NEGATIVE (NEGATIVE) 06/01/18 20:45 Urine RBC 2-5 /hpf (0-5) H 06/01/18 20:45 Urine WBC 0-2 /hpf (0-5) 06/01/18 20:45 Ur Epithelial Cells FEW /lpf (FEW) 06/01/18 20:45 Urine Bacteria 1+ /hpf (NONE SEEN) H 06/01/18 20:45 Coarse Granular Casts 0-2 /lpf (NONE SEEN) H 06/01/18 20:45 Random Vancomycin 16.6 ug/mL (5.0-40.0) 06/02/18 04:40 Urine Opiates Screen POSITIVE (NEGATIVE) H 06/01/18 20:45 Urine Methadone Screen NEGATIVE (NEGATIVE) 06/01/18 20:45 Ur Barbiturates Screen NEGATIVE (NEGATIVE) 06/01/18 20:45 Ur Tricyclics Screen NEGATIVE (NEGATIVE) 06/01/18 20:45 Ur Phencyclidine Scrn NEGATIVE (NEGATIVE) 06/01/18 20:45 Amphetamines Screen POSITIVE (NEGATIVE) H 06/01/18 20:45 U Methamphetamines Scrn POSITIVE (NEGATIVE) H 06/01/18 20:45 U Benzodiazepines Scrn NEGATIVE (NEGATIVE) 06/01/18 20:45 U Cocaine Metab Screen NEGATIVE (NEGATIVE) 06/01/18 20:45 U Cannabinoids Screen NEGATIVE (NEGATIVE) 06/01/18 20:45 - Physical Exam Vitals and I&O: Vital Signs Temp 97.5 F 06/05/18 08:00 Pulse 89 06/05/18 08:55 Resp 19 06/05/18 08:00 BP 101/48 06/05/18 08:55 Pulse Ox 95 06/05/18 08:00 Intake & Output 06/04/18 06/05/18 06/05/18 18:59 06:59 18:59 Intake Total 1620 550 Balance 1620 550 Weight (lbs) 116.12 kg 116.12 kg Intake: Intake, IV Amount 300 300 Linezolid 600mg/300mL 600 300 300 mg In 300 ml @ 300 mls/ hr IV Q12HR [facility] Rx#: [id number] Oral 1320 250 Other: # Voids 3 2 # Bowel Movements 0 Weight Source Bedscale Bedscale Active Medications: Current Medications Acetaminophen (Tylenol) 650 mg PO Q4H PRN PRN Reason: Pain (Moderate) Stop: 07/31/18 04:58 Last Admin: 06/01/18 09:50 Dose: 650 mg Carvedilol (Coreg) 6.25 mg PO BID [facility] Stop: 07/31/18 16:59 Last Admin: 06/05/18 08:51 Dose: Not Given Furosemide (Lasix) 40 mg PO BID [facility] Stop: 07/31/18 16:59 Last Admin: 06/05/18 08:51 Dose: Not Given Gabapentin (Neurontin) 800 mg PO TID [facility] Stop: 07/31/18 13:59 Last Admin: 06/05/18 08:56 Dose: 800 mg Glipizide (Glucotrol) 5 mg PO DAILY [facility] Stop: 07/31/18 12:14 Last Admin: 06/05/18 08:57 Dose: 5 mg Linezolid (Zyvox) 600 mg in 300 mls @ 300 mls/hr IV Q12HR [facility] Stop: 07/31/18 20:59 Last Admin: 06/05/18 08:57 Dose: 300 mls/hr Insulin Human Lispro (Humalog Insulin Sliding Scale) 0 units SUBQ ACHS [facility]; Protocol Stop: 07/30/18 20:59 Last Admin: 06/05/18 07:50 Dose: 2 units Losartan Potassium (Cozaar) 25 mg PO DAILY [facility] Stop: 07/31/18 12:14 Last Admin: 06/05/18 08:54 Dose: Not Given Magnesium Oxide (Mag-Oxide) 400 mg PO DAILY [facility] Stop: 07/31/18 12:14 Last Admin: 06/05/18 08:56 Dose: 400 mg Pantoprazole Sodium (Protonix) 40 mg PO DAILY [facility] Stop: 08/01/18 08:59 Last Admin: 06/05/18 08:57 Dose: 40 mg Spironolactone (Aldactone) 25 mg PO BID [facility] Stop: 07/31/18 16:59 Last Admin: 06/05/18 08:55 Dose: Not Given Tramadol HCl (Ultram) 50 mg PO Q4HR PRN PRN Reason: PAIN Stop: 07/31/18 12:13 Last Admin: 06/05/18 06:03 Dose: 50 mg General: no acute distress, well developed, well nourished, other (obesity) HEENT: atraumatic, normocephalic, PERRLA, EOMI Neck: supple, no thyromegaly Cardiovascular: S1S2, regular Lungs: clear to auscultation bilaterally, clear to percussion Abdomen: soft, no tender, no distended, no mass, no hepatomegaly Extremities: no cyanosis, no clubbing, no edema Neurological: awake, alert, oriented Skin: intact - Procedures Procedures: Procedures Procedure Code Date OXYGEN ENRICHMENT NEC 93.96 12/11/00 Infectious Disease Assmt/Plan - Problem List Patient Problems: All Active Problems ABNORMAL PRELIMINARY BLOOD CULTURE REPOR (Acute) - Assessment Assessment: 1. Staph hemolyticus sepsis, with hypotension and leukocytosis. CT A/P/C neg./ Echo Neg. 2. Chronic respiratory insufficiency. 3. Acute kidney injury, likely sepsis related versus acute tubular necrosis. The patient had received 1 dose of vancomycin. improving. 4. Chronic pain syndrome. 5. Chronic obstructive pulmonary disease. 6. Dyslipidemia. 7. Hypertension, but currently hypotensive. 8. History of atrial fibrillation. 9. History of cerebrovascular accident. 10. Obesity. 11. Pacemaker placement. 12. Diabetes mellitus type 2. 13. CELIO. ( does not like to use CPAP). - Plan Plan: Continue zyvox. If renal function improves may consider changing antibiotic to vancO IV. (End Date: 06/14/2018). DC PLAN. Nutritional Asmnt/Malnutr-PDOC - Dietary Evaluation Malnutrition Findings (Please click <Entered> for more info): Nutritional Asmnt/Malnutrition Start: 06/04/18 16: 51 Text: Status: Complete Freq: Protocol: Document 06/04/18 16:51 LCMARVING (Rec: 06/04/18 17:15 [id number]) Nutritional Asmnt/Malnutrition Patient General Information Nutritional Screening Moderate Risk Diagnosis bacteremia Pertinent Medical Hx/Surgical Hx HTn, DM, CAD, CHF, dyslipidemia, depression Subjective Information Pt seen sitting on bed, on the phone, not able to visit pt. Per EMR, PO intake 75-100%. Current Diet Order/ Nutrition Support 2gm Na Pertinent Medications lasix, glucotrol, humalog, mag -oxide, protonix Pertinent Labs 06/04 POC 81-244 06/03 Na 132, Cl 90, BUN 26, Cr 1.5, glucose 177, POC 158-215 Nutritional Hx/Data Height 1.73 m Height (Calculated Centimeters) 172.7 Current Weight (lbs) 116.12 kg Weight (Calculated Kilograms) 116.1 Weight (Calculated Grams) 225387.6 [place] Body Weight 154 Body Mass Index (BMI) 38.9 GI Symptoms GI Symptoms None Last BM 06/03 Difficult in: None Skin Integrity/Comment: flaking Current %PO Good (75-100%) Estimated Nutritional Goals BEE in Kcals: Adj wt of IBW Calories/Kcals/Kg 25-30 Kcals Calculated 6285-4422 Protein: Adj wt of IBW Protein g/k Protein Calculated 82 Fluid: ml 2049-2460ml (1ml/kcal) Nutritional Problem 1. Problem Problem altered nutrition related labs Etiology hyperglycemia, renal dysfunction Signs/Symptoms: glucose 177, BUN 26, Cr 1.5 Malnutrition Alert Is there a minimum of two criteria No selected? Query Text:Check all the applicable criteria. A minimum of two criteria are recommended for diagnosis of either severe or non-severe malnutrition. Malnutrition Related to Morbid Obesity Malnutrition related to morbid obesity No Intervention/Recommendation Comments 1. Recommend adding CCHO diet for optimal glycemic control. 2. Monitor PO intake, wt, labs and skin integrity 3. F/U as moderate risk in 3-5 days Expected Outcomes/Goals Expected Outcomes/Goals 1. PO intake to meet at least 75% of nutritional needs. 2. Wt stability, skin to remain intact, labs to approach WNL.
[2018-06-05 12:28] LABS: BUN - UREA NITROGEN 24 mg/dL (7-25); CALCIUM SERUM 9.2 mg/dL (8.6-10.3); CHLORIDE 90 mEq/L (98-107); CREATININE - SERUM 1.3 mg/dL (0.7-1.3); GFR AFRICAN-AMERICAN > 60.0 ml/min (>90); GFR NON AFRICAN-AMERICAN 59.5 ml/min; GLUCOSE 186 mg/dL (70-105); POTASSIUM SERUM 4.8 mEq/L (3.5-5.1); SODIUM SERUM 132 mEq/L (136-145)
[2018-06-05 12:46] LABS: ANION GAP 7.9 (7.0-16.0); CARBON DIOXIDE 38.9 mEq/L (21.0-31.0)
--- NOTE | 2018-06-05 13:04 | General Progress Note ---
Subjective - Review of Systems Service Date: 06/05/18 Subjective: Patient has less chest pain shortness of breath Objective - Results Result Diagrams: 06/03/18 06:40 06/05/18 11:55 Recent Labs: Laboratory Last Values WBC 10.1 Th/cmm (4.8-10.8) 06/03/18 06:40 RBC 4.28 Mil/cmm (4.30-5.70) L 06/03/18 06:40 Hgb 12.4 gm/dL (12-16) 06/03/18 06:40 Hct 38.5 % (41.0-60) L 06/03/18 06:40 MCV 90.0 fl (80-99) 06/03/18 06:40 MCH 29.1 pg (26.0-30.0) 06/03/18 06:40 MCHC Differential 32.3 pg (28.0-36.0) 06/03/18 06:40 RDW 15.3 % (11.5-20.0) 06/03/18 06:40 Plt Count 160 Th/cmm (150-400) 06/03/18 06:40 MPV 8.9 fl 06/01/18 06:05 Add Manual Diff YES 06/03/18 06:40 Neutrophils % 67.9 % (40.0-80.0) 06/01/18 06:05 Band Neutrophils % 0 % (0-10) 06/03/18 06:40 Lymphocytes % 24.2 % (20.0-50.0) 06/01/18 06:05 Monocytes % 6.9 % (2.0-10.0) 06/01/18 06:05 Eosinophils % 0.8 % (0.0-5.0) 06/01/18 06:05 Basophils % 0.2 % (0.0-2.0) 06/01/18 06:05 Neutrophils (Manual) 68.4 % (40-80) 06/03/18 06:40 Lymphocytes 23.1 % (20-50) 06/03/18 06:40 Monocytes 6.7 % (2-10) 06/03/18 06:40 Eosinophils 1.6 % (0-5) 06/03/18 06:40 Basophils 0 % (0-3) 06/03/18 06:40 Sodium 132 mEq/L (136-145) L 06/05/18 11:55 Potassium 4.8 mEq/L (3.5-5.1) 06/05/18 11:55 Chloride 90 mEq/L (98-107) L 06/05/18 11:55 Carbon Dioxide 38.9 mEq/L (21.0-31.0) H 06/05/18 11:55 Anion Gap 7.9 (7.0-16.0) 06/05/18 11:55 BUN 24 mg/dL (7-25) 06/05/18 11:55 Creatinine 1.3 mg/dL (0.7-1.3) 06/05/18 11:55 Est GFR ( Amer) > 60.0 ml/min (>90) 06/05/18 11:55 Est GFR (Non-Af Amer) 59.5 ml/min 06/05/18 11:55 BUN/Creatinine Ratio 18.5 06/05/18 11:55 Glucose 186 mg/dL (70-105) H 06/05/18 11:55 POC Glucose 170 MG/DL (70 - 105) H 06/05/18 11:57 Whole Bld Lactic Acid 1.55 mmol/L (0.60-1.99) 05/31/18 18:15 Calcium 9.2 mg/dL (8.6-10.3) 06/05/18 11:55 Magnesium 1.5 mg/dL (1.9-2.7) L 06/01/18 06:05 Total Bilirubin 0.5 mg/dL (0.3-1.0) 06/03/18 06:40 AST 13 U/L (13-39) 06/03/18 06:40 ALT 10 U/L (7-52) 06/03/18 06:40 Alkaline Phosphatase 66 U/L (34-104) 06/03/18 06:40 Troponin I 0.06 ng/mL (0.01-0.05) H 05/31/18 18:15 Total Protein 6.8 gm/dL (6.0-8.3) 06/03/18 06:40 Albumin 3.5 gm/dL (4.2-5.5) L 06/03/18 06:40 Globulin 3.3 gm/dL 06/03/18 06:40 Albumin/Globulin Ratio 1.1 (1.0-1.8) 06/03/18 06:40 Urine Source CLEAN C 06/01/18 20:45 Urine Color YELLOW 06/01/18 20:45 Urine Clarity CLEAR (CLEAR) 06/01/18 20:45 Urine pH 5.5 (4.6 - 8.0) 06/01/18 20:45 Ur Specific [place] 1.025 (1.005-1.030) 06/01/18 20:45 Urine Protein TRACE mg/dL (NEGATIVE) 06/01/18 20:45 Urine Glucose (UA) NEGATIVE mg/dL (NEGATIVE) 06/01/18 20:45 Urine Ketones NEGATIVE mg/dL (NEGATIVE) 06/01/18 20:45 Urine Blood TRACE (NEGATIVE) 06/01/18 20:45 Urine Nitrate NEGATIVE (NEGATIVE) 06/01/18 20:45 Urine Bilirubin NEGATIVE (NEGATIVE) 06/01/18 20:45 Urine Urobilinogen 0.2 E.U./dL (0.2 - 1.0) 06/01/18 20:45 Ur Leukocyte Esterase NEGATIVE (NEGATIVE) 06/01/18 20:45 Urine RBC 2-5 /hpf (0-5) H 06/01/18 20:45 Urine WBC 0-2 /hpf (0-5) 06/01/18 20:45 Ur Epithelial Cells FEW /lpf (FEW) 06/01/18 20:45 Urine Bacteria 1+ /hpf (NONE SEEN) H 06/01/18 20:45 Coarse Granular Casts 0-2 /lpf (NONE SEEN) H 06/01/18 20:45 Random Vancomycin 16.6 ug/mL (5.0-40.0) 06/02/18 04:40 Urine Opiates Screen POSITIVE (NEGATIVE) H 06/01/18 20:45 Urine Methadone Screen NEGATIVE (NEGATIVE) 06/01/18 20:45 Ur Barbiturates Screen NEGATIVE (NEGATIVE) 06/01/18 20:45 Ur Tricyclics Screen NEGATIVE (NEGATIVE) 06/01/18 20:45 Ur Phencyclidine Scrn NEGATIVE (NEGATIVE) 06/01/18 20:45 Amphetamines Screen POSITIVE (NEGATIVE) H 06/01/18 20:45 U Methamphetamines Scrn POSITIVE (NEGATIVE) H 06/01/18 20:45 U Benzodiazepines Scrn NEGATIVE (NEGATIVE) 06/01/18 20:45 U Cocaine Metab Screen NEGATIVE (NEGATIVE) 06/01/18 20:45 U Cannabinoids Screen NEGATIVE (NEGATIVE) 06/01/18 20:45 - Physical Exam Vitals and I&O: Vital Signs Temp 97 F 06/05/18 11:52 Pulse 84 06/05/18 11:52 Resp 18 06/05/18 11:52 BP 98/35 06/05/18 11:52 Pulse Ox 99 06/05/18 11:52 Intake & Output 06/04/18 06/05/18 06/05/18 18:59 06:59 18:59 Intake Total 1620 550 Balance 1620 550 Weight (lbs) 116.12 kg 116.12 kg Intake: Intake, IV Amount 300 300 Linezolid 600mg/300mL 600 300 300 mg In 300 ml @ 300 mls/ hr IV Q12HR [facility] Rx#: [id number] Oral 1320 250 Other: # Voids 3 2 # Bowel Movements 0 Weight Source Bedscale Bedscale Active Medications: Current Medications Acetaminophen (Tylenol) 650 mg PO Q4H PRN PRN Reason: Pain (Moderate) Stop: 07/31/18 04:58 Last Admin: 06/01/18 09:50 Dose: 650 mg Carvedilol (Coreg) 6.25 mg PO BID [facility] Stop: 07/31/18 16:59 Last Admin: 06/05/18 08:51 Dose: Not Given Furosemide (Lasix) 40 mg PO BID [facility] Stop: 07/31/18 16:59 Last Admin: 06/05/18 08:51 Dose: Not Given Gabapentin (Neurontin) 800 mg PO TID [facility] Stop: 07/31/18 13:59 Last Admin: 06/05/18 08:56 Dose: 800 mg Glipizide (Glucotrol) 5 mg PO DAILY [facility] Stop: 07/31/18 12:14 Last Admin: 06/05/18 08:57 Dose: 5 mg Linezolid (Zyvox) 600 mg in 300 mls @ 300 mls/hr IV Q12HR [facility] Stop: 07/31/18 20:59 Last Admin: 06/05/18 08:57 Dose: 300 mls/hr Insulin Human Lispro (Humalog Insulin Sliding Scale) 0 units SUBQ ACHS [facility]; Protocol Stop: 07/30/18 20:59 Last Admin: 06/05/18 12:14 Dose: 2 units Losartan Potassium (Cozaar) 25 mg PO DAILY [facility] Stop: 07/31/18 12:14 Last Admin: 06/05/18 08:54 Dose: Not Given Magnesium Oxide (Mag-Oxide) 400 mg PO DAILY [facility] Stop: 07/31/18 12:14 Last Admin: 06/05/18 08:56 Dose: 400 mg Pantoprazole Sodium (Protonix) 40 mg PO DAILY [facility] Stop: 08/01/18 08:59 Last Admin: 06/05/18 08:57 Dose: 40 mg Spironolactone (Aldactone) 25 mg PO BID [facility] Stop: 07/31/18 16:59 Last Admin: 06/05/18 08:55 Dose: Not Given Tramadol HCl (Ultram) 50 mg PO Q4HR PRN PRN Reason: PAIN Stop: 07/31/18 12:13 Last Admin: 06/05/18 06:03 Dose: 50 mg General: Alert, Oriented x3, No acute distress HEENT: Mucous membr. moist/pink Neck: Supple, JVD, +2 carotid pulse wo bruit (flat) Cardiovascular: Regular rate, Normal S1, Normal S2, Systolic murmurs Lungs: Clear to auscultation, Normal air movement Abdomen: Bowel sounds, Soft, Obese Extremities: Edema Neurological: Normal gait, Normal speech, Strength at 5/5 X4 ext, Normal tone, Cranial nerves 3-12 NL, Reflexes 2+ - Procedures Procedures: Procedures Procedure Code Date OXYGEN ENRICHMENT NEC 93.96 12/11/00 Assessment/Plan - Problem List Patient Problems: All Active Problems ABNORMAL PRELIMINARY BLOOD CULTURE REPOR (Acute) - Assessment Assessment: Septicemia with blood cultures positive COPD Hypertension Atrial fibrillation 6 sinus syndrome with pacemaker Morbid obesity Diabetes mellitus type 2 Obstructive sleep apnea Chronic pain syndrome Narcotic dependence Echocardiogram showed ejection fraction 63% mild left ventricular hypertrophy and trace mitral regurgitation tricuspid regurgitation no evidence of endocarditis CT abdomen chest pelvis no evidence of infection echocardiogram nor endocarditis Hypotension - Plan Plan: Echocardiogram no endocarditis patient to continue IV antibiotic Nutritional Asmnt/Malnutr-PDOC - Dietary Evaluation Malnutrition Findings (Please click <Entered> for more info): Nutritional Asmnt/Malnutrition Start: 06/04/18 16: 51 Text: Status: Complete Freq: Protocol: Document 06/04/18 16:51 MARVIN (Rec: 06/04/18 17:15 [facility] [email or web address]) Nutritional Asmnt/Malnutrition Patient General Information Nutritional Screening Moderate Risk Diagnosis bacteremia Pertinent Medical Hx/Surgical Hx HTn, DM, CAD, CHF, dyslipidemia, depression Subjective Information Pt seen sitting on bed, on the phone, not able to visit pt. Per EMR, PO intake 75-100%. Current Diet Order/ Nutrition Support 2gm Na Pertinent Medications lasix, glucotrol, humalog, mag -oxide, protonix Pertinent Labs 06/04 POC 81-244 06/03 Na 132, Cl 90, BUN 26, Cr 1.5, glucose 177, POC 158-215 Nutritional Hx/Data Height 1.73 m Height (Calculated Centimeters) 172.7 Current Weight (lbs) 116.12 kg Weight (Calculated Kilograms) 116.1 Weight (Calculated Grams) 097969.6 [place] Body Weight 154 Body Mass Index (BMI) 38.9 GI Symptoms GI Symptoms None Last BM 06/03 Difficult in: None Skin Integrity/Comment: flaking Current %PO Good (75-100%) Estimated Nutritional Goals BEE in Kcals: Adj wt of IBW Calories/Kcals/Kg 25-30 Kcals Calculated 2626-6106 Protein: Adj wt of IBW Protein g/k Protein Calculated 82 Fluid: ml 2049-2460ml (1ml/kcal) Nutritional Problem 1. Problem Problem altered nutrition related labs Etiology hyperglycemia, renal dysfunction Signs/Symptoms: glucose 177, BUN 26, Cr 1.5 Malnutrition Alert Is there a minimum of two criteria No selected? Query Text:Check all the applicable criteria. A minimum of two criteria are recommended for diagnosis of either severe or non-severe malnutrition. Malnutrition Related to Morbid Obesity Malnutrition related to morbid obesity No Intervention/Recommendation Comments 1. Recommend adding CCHO diet for optimal glycemic control. 2. Monitor PO intake, wt, labs and skin integrity 3. F/U as moderate risk in 3-5 days Expected Outcomes/Goals Expected Outcomes/Goals 1. PO intake to meet at least 75% of nutritional needs. 2. Wt stability, skin to remain intact, labs to approach WNL.
--- NOTE | 2018-06-05 23:02 | Progress Notes ---
DATE: PATIENT'S IDENTIFICATION: A 62-year-old male. SUBJECTIVE: The patient seen and examined. The patient is still here, not discharged to home, considering the patient had a urine drug screen positive for crystal meth. The patient has no new complaints. OBJECTIVE: On exam, VITAL SIGNS: Temperature 97.5, pulse 90, respiratory rate 18, blood pressure 101/48. HEENT: Poor dentition. NECK: Supple. No JVD. HEART: Irregular. CHEST AND LUNG: Equal in expansion. Mild expiratory wheezing. ABDOMEN: Soft. EXTREMITIES: No edema. CLINICAL IMPRESSION: 1. Staphylococcus haemolyticus sepsis. 2. Respiratory failure, chronic. 3. Chronic obstructive pulmonary disease. 4. Hypertension. 5. Atrial fibrillation. 6. Diabetes mellitus. 7. Obstructive sleep apnea. PLAN: 1. Discharge to alf for 2 weeks for IV antibiotic for now. 2. Continue other medicine as prescribed. 3. We will discuss with outpatient case manager. JOB# [id number]
--- NOTE | 2018-06-15 18:28 | Discharge Summary ---
DATE OF DISCHARGE: DISPOSITION: To SNF. PRINCIPAL DIAGNOSES: 1. Staphylococcus haemolyticus septicemia. 2. Chronic respiratory failure. 3. Chronic obstructive pulmonary disease. 4. Hypertension. 5. Diabetes mellitus. 6. Obstructive sleep apnea. 7. Degenerative joint disease. 8. History of substance abuse. 9. Status post pacemaker placement. 10. Coronary artery disease. 11. History of cerebrovascular accident. BRIEF STATEMENT FOR THE REASON FOR ADMISSION: A 62-year-old male who was admitted on 06/01/2018 after the patient was called in to come to Emergency Room when his blood cultures came out positive for gram-positive cocci in cluster. Please refer to my H and P for further information. HOSPITAL COURSE: The patient was admitted to Med/Surg floor. IV antibiotic was started. Infectious Disease consultation was requested, appropriate home medicines were reconciled. Actos was discontinued along with other medication was reconciled. The patient was informed of the patient's condition, diagnosis, and treatment plan. Repeat blood cultures did come out negative. The blood cultures came out as Staphylococcus haemolyticus. The patient did have a positive blood cultures workup in the form of CT scan of the chest, abdomen and pelvis along with a 2D echocardiogram, which was not showing any source of endocarditis or any source of infection though the patient responded so well to the treatment plan. Infectious Disease recommended the patient should be placed on IV antibiotic for 2 more weeks. The patient did have a history of substance abuse, so it was decided that it is better to put this patient in intermediate. The patient was accepted to intermediate and transferred to intermediate on 06/05/2018. The patient will be followed by the [facility] in the intermediate. At the time of discharge, all of his medications were reconciled. JOB# [id number]
== END 2018-06-05 17:14 | DRG 720 ==
LOC: ER 17:46 → MSI 19:15
PROVIDERS: ADMIT Internal Medicine; ATTEND Internal Medicine
DX: A41.1 Sepsis due to other specified staphylococcus (principal); J96.10 Chronic respiratory failure, unspecified whether with hypoxia or hypercapnia; I95.9 Hypotension, unspecified; I13.0 Hypertensive heart and chronic kidney disease with heart failure and stage 1 through stage 4 chronic kidney disease, or unspecified chronic kidney disease; N17.9 Acute kidney failure, unspecified; I49.5 Sick sinus syndrome; I50.9 Heart failure, unspecified; E66.01 Morbid (severe) obesity due to excess calories; N18.3 Chronic kidney disease, stage 3 (moderate); I48.91 Unspecified atrial fibrillation; J44.9 Chronic obstructive pulmonary disease, unspecified; I49.9 Cardiac arrhythmia, unspecified; E11.9 Type 2 diabetes mellitus without complications; I25.10 Atherosclerotic heart disease of native coronary artery without angina pectoris; G47.33 Obstructive sleep apnea (adult) (pediatric); G89.4 Chronic pain syndrome; E78.5 Hyperlipidemia, unspecified; F11.10 Opioid abuse, uncomplicated; Z68.38 Body mass index [BMI] 38.0-38.9, adult; Z95.0 Presence of cardiac pacemaker; Z86.73 Personal history of transient ischemic attack (TIA), and cerebral infarction without residual deficits
CPT/HCPCS: 36415-UA; 71045-TC; 71250-TC; 80048-TC; 80053-TC; 80202-TC; 80307; 81001-TC; 82948-90; 83036-90; 83605; 83735-TC; 84484-TC; 85007-TC; 85025-TC; 87086-90; 94760; J2020; J3370; J7040; Q0162; Z7610

== ENCOUNTER 2018-06-11 20:47 | Inpatient (IN) | payer OTHER ==
[2018-06-11] MEDS ORDERED: Albuterol/Ipratropium Neb 3 ML AERS HHN ONE ×2 (21:14→21:39)
[2018-06-11] MEDS ORDERED: Dexamethasone Sodium Phos 4 mg/mL Vial INH STA (21:40)
[2018-06-11 21:46] LABS: % BASOPHILS 0.3 % (0.0-2.0); % EOSINOPHILS 0.3 % (0.0-5.0); % LYMPHOCYTES 15.1 % (20.0-50.0); % MONOCYTES 4.4 % (2.0-10.0); % NEUTROPHILS 79.9 % (40.0-80.0); HEMATOCRIT 37.7 % (41.0-60); HEMOGLOBIN 12.2 gm/dL (12-16); LYMPHOCYTE ABSOLUTE 1.4 Th/cmm (1.5-3.0); MEAN CELL VOLUME 87.7 fl (80-99); MEAN CORPUSCULAR HEMOGLOBIN 28.3 pg (26.0-30.0); MEAN CORPUSCULAR HGB CONC 32.3 pg (28.0-36.0); MEAN PLATELET VOLUME 8.5 fl; MONOCYTE ABSOLUTE 0.4 Th/cmm (0.3-1.0); NEUTROPHILE ABSOLUTE 7.3 Th/cmm (1.8-8.0); PLATELET COUNT 175 Th/cmm (150-400); RED CELL DISTRIBUTION WIDTH 14.4 % (11.5-20.0); WHITE BLOOD COUNT 9.1 Th/cmm (4.8-10.8)
--- NOTE | 2018-06-11 21:47 | ED Physician Chart ---
ED Chief Complaint/HPI - Patient Information Date Seen:: 06/11/18 Time Seen:: 21:41 Chief Complaint:: abd pain History of Present Illness:: 62 yr old male with hx chf copd pacemaker dm htn with sob cough abd pain Allergies:: Allergies Allergy/AdvReac Type Severity Reaction Status Date / Time No Known Allergies Allergy Verified 06/28/16 10:58 Vitals:: Vital Signs - 8 hr 06/11/18 06/11/18 20:50 21:05 Temp 98.5 F 99.1 F HR 66 105 RR 17 21 BP 144/62 107/52 O2 Sat % 93 95 ED Review of Systems - Review of Systems Pulmonary: SOB GI: No nausea, No vomiting, Other (dry heaves) G/U: No dysuria Hematopoietic: No bruising Allergic/Immuno: No urticaria Neurological: No syncope Family Medical History - Family Member Mother History Unknown: Yes Ethnicity: Non- Living Status: Hx Family Cancer: Yes Hx Family Coronary Artery Disease: No Hx Family Congestive Heart Failure: Yes Hx Family Hypertension: Yes Hx Family Stroke: No Hx Family Diabetes: Yes Hx Family Seizures: No Hx Family Dementia: No Hx Family AIDS: No Hx Family HIV: No Hx Family COPD: Yes Hx Family Hepatitis: No Hx Family Psychiatric Problems: No Hx Family Tuberculosis: No ED Septic Shock - . Is Septic Shock (SBP<90, OR Lactate>4 mmol\L) present?: No - <6hrs of presentation: Vital Signs: Vital Signs - 8 hr 06/11/18 06/11/18 20:50 21:05 Temp 98.5 F 99.1 F HR 66 105 RR 17 21 BP 144/62 107/52 O2 Sat % 93 95 ED Reassessment (Disposition) - Reassessment Reassessment:: copd sob abd pains - Patient Disposition Condition at Disposition:: Stable
[2018-06-11] MEDS ORDERED: Dexamethasone Sodium Phos 10 mg/mL PF Vial ONE (21:53)
[2018-06-11 22:06] LABS: ALB/GLOB RATIO 1.3 (1.0-1.8); ALBUMIN 3.8 gm/dL (4.2-5.5); ALKALINE PHOSPHATASE 81 U/L (34-104); AMYLASE SERUM 23 U/L (29-103); ANION GAP 11.7 (7.0-16.0); BILIRUBIN,TOTAL 0.6 mg/dL (0.3-1.0); BUN - UREA NITROGEN 29 mg/dL (7-25); CALCIUM SERUM 9.5 mg/dL (8.6-10.3); CARBON DIOXIDE 37.5 mEq/L (21.0-31.0); CHLORIDE 93 mEq/L (98-107); CREATININE - SERUM 1.5 mg/dL (0.7-1.3); GFR AFRICAN-AMERICAN > 60.0 ml/min (>90); GFR NON AFRICAN-AMERICAN 50.4 ml/min; GLUCOSE 189 mg/dL (70-105); LIPASE 11 U/L (11-82); POTASSIUM SERUM 5.2 mEq/L (3.5-5.1); SGOT 26 U/L (13-39); SGPT/ALT 23 U/L (7-52); SODIUM SERUM 137 mEq/L (136-145); TOTAL PROTEIN,SERUM 6.8 gm/dL (6.0-8.3)
[2018-06-12] MEDS: Albuterol/Ipratropium Neb 3 ML AERS HHN SCH ×6 (02:35→22:47)
[2018-06-12 04:01] VITALS: BP 110/56
[2018-06-12] MEDS ORDERED: methylPREDNISolone SS 40 mg Vial IVP SCH (05:00)
[2018-06-12] MEDS ORDERED: INSULIN ASPART SLIDING SCALE 100 UNITS/ML UNIT SUBQ PRN (05:15)
[2018-06-12] MEDS ORDERED: Dextrose 50% 50 mL Abboject IVP PRN (05:23)
[2018-06-12 06:33] LABS: % BASOPHILS 0.2 % (0.0-2.0); % EOSINOPHILS 0.3 % (0.0-5.0); % LYMPHOCYTES 23.4 % (20.0-50.0); % MONOCYTES 6.8 % (2.0-10.0); % NEUTROPHILS 69.3 % (40.0-80.0); HEMATOCRIT 38.3 % (41.0-60); HEMOGLOBIN 12.3 gm/dL (12-16); LYMPHOCYTE ABSOLUTE 2.3 Th/cmm (1.5-3.0); MEAN CORPUSCULAR HEMOGLOBIN 28.7 pg (26.0-30.0); MEAN CORPUSCULAR HGB CONC 32.3 pg (28.0-36.0); MEAN PLATELET VOLUME 8.7 fl; MONOCYTE ABSOLUTE 0.7 Th/cmm (0.3-1.0); PLATELET COUNT 150 Th/cmm (150-400); RED CELL DISTRIBUTION WIDTH 14.5 % (11.5-20.0)
[2018-06-12 06:35] LABS: ALB/GLOB RATIO 1.4 (1.0-1.8); ALBUMIN 3.8 gm/dL (4.2-5.5); BILIRUBIN,TOTAL 0.6 mg/dL (0.3-1.0); CALCIUM SERUM 9.6 mg/dL (8.6-10.3); CARBON DIOXIDE 31.8 mEq/L (21.0-31.0); CREATININE - SERUM 1.8 mg/dL (0.7-1.3); GFR AFRICAN-AMERICAN 49.4 ml/min (>90); GFR NON AFRICAN-AMERICAN 40.8 ml/min; POTASSIUM SERUM 5.8 mEq/L (3.5-5.1); TOTAL PROTEIN,SERUM 6.6 gm/dL (6.0-8.3)
[2018-06-12] MEDS: INSULIN LISPRO SLIDING SCALE 100 UNITS/ML UNIT SUBQ SCH ×4 (06:37→21:26)
[2018-06-12] MEDS: Pantoprazole 40 mg EC Tab PO SCH (06:42)
--- NOTE | 2018-06-12 08:43 | Diagnostic Imaging Report ---
Exam: Portable chest x-ray HISTORY: Shortness of breath Findings: Portable summation of chest at 2124 hours reviewed, compatible prior study of 06/02/2018 demonstrates cardiomegaly and congestion. The costophrenic angles are clear bony thorax intact. No acute pulmonic right-sided identified. IMPRESSION: Cardiomegaly, congestive heart failure.
[2018-06-12] MEDS ORDERED: Apixaban 2.5 MG TABLET PO SCH (09:00)
[2018-06-12] MEDS: Apixaban 5 MG TABLET PO SCH ×2 (10:00→17:36)
[2018-06-12] MEDS: Linezolid 600mg/300mL 600 MG/300 ML BAG IV SCH ×2 (10:01→21:25)
--- NOTE | 2018-06-12 10:38 | Diagnostic Imaging Report ---
CHEST X-RAY: AP view INDICATION: Shortness of breath COMPARISON: 06/11/2018 FINDINGS: Left chest wall pacemaker is noted. There is mild increased central lung markings. There may be trace right pleural fluid. Cardiomegaly is noted. IMPRESSION: Mild increased interstitial lung markings. A mild degree of congestion cannot be excluded at trace right pleural effusion No focal consolidation identified. Cardiomegaly.
[2018-06-12] MEDS ORDERED: Non-Formulary Item 1 EA (Metformin Hcl [Metformin Hcl] 1,000 MG) PO SCH (11:15)
[2018-06-12] MEDS ORDERED: [UNRECOGNIZED DRUG - OTHER] IV SCH (11:15)
[2018-06-12] MEDS ORDERED: LINEZOLID IV SCH (11:15)
[2018-06-12] MEDS ORDERED: MAGNESIUM OXIDE 400 MG PO SCH (11:15)
[2018-06-12] MEDS ORDERED: PIOGLITAZONE HCL 45 MG PO SCH (11:15)
--- NOTE | 2018-06-12 12:24 | Consultation ---
Consult Note - Consult Note Service Date: 06/12/18 Referring Physician: Abdullahi Hernandez Consult Note: PHYSICIAN Consultation Note: Date of Admission: 06/12/18 Purpose of Consultation: follow up on septicemia Chief Complaint: Patient ABELINO QUACH was admitted to [facility] Telemetry with COPD,CHF. History of Present Illness: 62 y male with hotory of obesity,DM2, HTN, chf, copd, sleep apnea, recently admitted for CN staph sepsis 05/22 blood cs positive. Echo was negative. He was discharged on Zyvox ( as he had renal failure getting worse on vanco IV ) for two weeks ( blood cs was negative on 06/02/2018). Yesterday, he came in for shortness of breath and diagnosed to have COPD, CHF exacerbation. ID consult was called for antibiotic management. Past Medical History: DM2, obesity, HTN, COPD, CHF, CELIO, Staph hemolyticus bacteremia. Allergies Allergy/AdvReac Type Severity Reaction Status Date / Time No Known Allergies Allergy Verified 06/28/16 10:58 Vital Signs Temp 98 F 06/12/18 10:00 Pulse 99 06/12/18 11:25 Resp 20 06/12/18 11:25 BP 137/8 06/12/18 10:10 Pulse Ox 96 06/12/18 11:25 Intake & Output 06/11/18 06/12/18 06/12/18 18:59 06:59 18:59 Intake Total 300 Output Total 0 Balance 300 Weight (lbs) 117.934 kg 117.934 kg Intake: Oral 300 Output: Urine 0 Other: # Voids 0 Weight Source Estimated Bedscale Laboratory Results - last 24 hr 06/11/18 06/11/18 06/11/18 21:30 21:30 21:30 WBC 9.1 RBC 4.30 Hgb 12.2 Hct 37.7 L MCV 87.7 MCH 28.3 MCHC Differential 32.3 RDW 14.4 Plt Count 175 MPV 8.5 Neutrophils % 79.9 Lymphocytes % 15.1 L Monocytes % 4.4 Eosinophils % 0.3 Basophils % 0.3 Sodium 137 Potassium 5.2 H Chloride 93 L Carbon Dioxide 37.5 H Anion Gap 11.7 BUN 29 H Creatinine 1.5 H Est GFR ( Amer) > 60.0 Est GFR (Non-Af Amer) 50.4 BUN/Creatinine Ratio 19.3 Glucose 189 H POC Glucose Calcium 9.5 Total Bilirubin 0.6 AST 26 ALT 23 Alkaline Phosphatase 81 Creatine Kinase 35 Troponin I Total Protein 6.8 Albumin 3.8 L Globulin 3.0 Albumin/Globulin Ratio 1.3 Amylase 23 L Lipase 11 06/11/18 06/12/18 06/12/18 21:30 05:25 05:25 WBC 10.0 RBC 4.30 Hgb 12.3 Hct 38.3 L MCV 89.0 MCH 28.7 MCHC Differential 32.3 RDW 14.5 Plt Count 150 MPV 8.7 Neutrophils % 69.3 Lymphocytes % 23.4 Monocytes % 6.8 Eosinophils % 0.3 Basophils % 0.2 Sodium 135 L Potassium 5.8 H Chloride 92 L Carbon Dioxide 31.8 H Anion Gap 17.0 H BUN 35 H Creatinine 1.8 H Est GFR ( Amer) 49.4 Est GFR (Non-Af Amer) 40.8 BUN/Creatinine Ratio 19.4 Glucose 156 H POC Glucose Calcium 9.6 Total Bilirubin 0.6 AST 37 ALT 33 Alkaline Phosphatase 79 Creatine Kinase Troponin I 0.06 H Total Protein 6.6 Albumin 3.8 L Globulin 2.8 Albumin/Globulin Ratio 1.4 Amylase Lipase 06/12/18 06/12/18 05:25 06:32 WBC RBC Hgb Hct MCV MCH MCHC Differential RDW Plt Count MPV Neutrophils % Lymphocytes % Monocytes % Eosinophils % Basophils % Sodium Potassium Chloride Carbon Dioxide Anion Gap BUN Creatinine Est GFR ( Amer) Est GFR (Non-Af Amer) BUN/Creatinine Ratio Glucose POC Glucose 147 H Calcium Total Bilirubin AST ALT Alkaline Phosphatase Creatine Kinase Troponin I 0.07 H* D Total Protein Albumin Globulin Albumin/Globulin Ratio Amylase Lipase Home Medication Medication Instructions Recorded Type Acetaminophen [Tylenol] 6,650 mg PO Q4HR PRN 06/11/18 History Apixaban [Eliquis] 5 mg PO BID 06/11/18 History Aspirin [Aspirin Chewable] 81 mg PO DAILY 06/11/18 History Carvedilol 6.25 mg PO BID 06/11/18 History Furosemide [Lasix] 40 mg PO BID 06/11/18 History Gabapentin 800 mg PO TID 06/11/18 History Glipizide [Glucotrol] 5 mg PO DAILY 06/11/18 History Insulin Lispro Sliding Scale See Protocol SUBQ ACHS 06/11/18 History [humaLOG INSULIN SLIDING SCALE] Linezolid in Dextrose 5% 600 mg IV Q12H 06/11/18 History [Linezolid 600 mg/300 ml-D5w] Losartan Potassium 25 mg PO DAILY 06/11/18 History Magnesium Oxide 400 mg PO DAILY 06/11/18 History Metformin HCl 1,000 mg PO DAILY 06/11/18 History Omeprazole 20 mg PO DAILY 06/11/18 History Pantoprazole [Protonix] 40 mg PO DAILY 06/11/18 History Pioglitazone HCl 45 mg PO DAILY 06/11/18 History Spironolactone [Aldactone] 25 mg PO BID 06/11/18 History Tramadol HCl [Ultram] 50 mg PO Q4H PRN 06/11/18 History Current Medications Generic Name Dose Route Start Last Admin Trade Name Freq PRN Reason Stop Dose Admin Acetaminophen 650 mg 06/12/18 01:14 06/12/18 04:53 Tylenol PO 08/11/18 03:59 650 mg Q4HR PRN Administration Pain or Fever >101 Albuterol/Ipratropium 3 ml 06/12/18 03:00 06/12/18 11:16 Duoneb Neb HHN 08/11/18 02:59 3 ml Q4HRT ERICKSON Administration Aspirin 325 mg 06/12/18 09:00 06/12/18 09:59 Aspirin PO 08/11/18 08:59 325 mg DAILY ERICKSON Administration Carvedilol 6.25 mg 06/12/18 17:00 Coreg PO 08/11/18 16:59 BID ERICKSON Dextrose 50 ml 06/12/18 05:23 D50w IVP 08/11/18 05:22 PRN PRN Blood Glucose less than 70 Furosemide 20 mg 06/12/18 09:00 06/12/18 10:10 Lasix IVP 08/11/18 08:59 20 mg BID ERICKSON Administration Gabapentin 800 mg 06/12/18 14:00 Neurontin PO 08/11/18 13:59 TID ERICKSON Glipizide 5 mg 06/12/18 11:15 Glucotrol PO 08/11/18 11:14 DAILY ERICKSON Linezolid 600 mg in 300 mls @ 300 mls/hr 06/12/18 09:00 06/12/18 10:01 Zyvox IV 08/11/18 08:59 300 mls/hr Q12HR ERICKSON Administration Insulin Human Lispro 0 units 06/12/18 07:30 06/12/18 06:37 Humalog Insulin Sliding Scale SUBQ 08/11/18 07:29 Not Given ACHS ERICKSON Protocol Losartan Potassium 25 mg 06/12/18 11:15 Cozaar PO 08/11/18 11:14 DAILY ERICKSON Magnesium Oxide 400 mg 06/13/18 09:00 Mag-Oxide PO 08/12/18 08:59 DAILY ERICKSON Metformin HCl 1,000 mg 06/13/18 09:00 Glucophage PO 08/12/18 08:59 DAILY ERICKSON Methylprednisolone Sodium Succinate 40 mg 06/12/18 05:00 06/12/18 04:40 Solu-Medrol IVP 08/11/18 04:59 40 mg Q8HR ERICKSON Administration Pantoprazole Sodium 40 mg 06/12/18 07:30 06/12/18 06:42 Protonix PO 08/11/18 07:29 40 mg QDAC ERICKSON Administration Pioglitazone HCl 15 mg/ 45 mg 06/13/18 09:00 Pioglitazone HCl 30 mg PO 08/12/18 08:59 DAILY ERICKSON Tramadol HCl 50 mg 06/12/18 11:09 Ultram PO 08/11/18 11:08 Q4H PRN Pain (Severe) Review of Systems: A 12 point ROS was reviewed with the pertinent positive and negatives noted in the HPI. Social History Smoking Status Former smoker Drug Use No Alcohol Use No Family Medical History Unknown. Physical Exam: General: Obese, dyspneic. HEENT: Head: NC NT. Oral cavity: moist, pink tongue. Eyes: pallor neg, icterus neg, Pupil PERRLA, EOMI. Neck: Supple, no JVD, no carotid bruit. Cardio: S1 and S2 WNL, No murmur. Respiratory: Vesicualr breath sounds. NO crackles, no wheezing. decreased breath sounds. Abdominal: Soft NT ND BS, globular Genital/Urinary: Extremities: NCCE Neurological: AAOx3. No focal neurodeficit. Assessment: 1. Staph hemolyticus bacteremia/sepsis. 2. DEENA on CKD. 3. SOB. improved, COPD exacerbation. 4. CELIO. 5. DM2 6. COPD. 7. Obesity. 8. h/o Afib and Pacemaker placement. Plan: Will continue the same treatment. Continue Zyvox till 06/16/2018. Follow up blood cultures done on this admission. Thank you, Dr Abdullahi Hernandez for involving me in taking care of this patient. SignedDavid Devesh N., M.D. [id number]
--- NOTE | 2018-06-12 13:15 | History & Physical ---
ADMIT DATE: 06/12/2018 REASON FOR ADMISSION: COPD and CHF exacerbation in this patient with severe obstructive sleep apnea and refusing to use CPAP, recent bacteremia with staphylococcus and currently on Zyvox due to renal failure with vancomycin. HISTORY OF PRESENTING ILLNESS: This 62-year-old gentleman sent from the senior care facility due to shortness of breath after getting Zyvox dose. The patient pointing at the xiphoid area and says it is hard to breathe from here. The patient complaining of some discomfort, generalized all over the belly. Denies any chest pain, chest pressure, palpitation, passing out. The patient gets short of breath very easily and he was given a trial of CPAP, but refuses in the past. Advised the patient to reconsider any use as much as BiPAP/CPAP he can tolerate. During this hospital stay, the patient's medication reviewed and we will discontinue the spironolactone as the potassium level increased from 5.2 to 5.8 and creatinine increased from 1.5 to 1.8. The patient's case discussed with ID specialist who is also at bedside and advised me to continue 2 weeks of total IV Zyvox and will obtain ID consult to finish the duration of the IV Zyvox for bacteremia persistent x 2 in the blood culture, 4 sets positive. We will also obtain a renal consult with doctors regarding hyperkalemia. The patient is also on Actos, we will discontinue that as it can increase the swelling and edema. At this stage, the patient will be better served with insulin than p.o. medication. The patient is also on metformin, as creatinine is increasing we will have to discontinue that also. All other medications rechecked. The patient's troponin on admission 0.06 and increased to 0.07, so we will also obtain a Cardiology consult. Otherwise, the patient is a very poor historian and says look up the chart, I do not remember most of the time. Chest x-ray from admission 06/11/2018 to 06/12/2018 revealed increase in interstitial marking, mild degree of congestive heart failure, right pleural effusion also present. ALLERGIES: None. MEDICATIONS: At [facility] include Ecotrin 325 once a day, Coreg 6.25 twice a day, Lasix 40 mg twice a day, gabapentin 800 mg 3 times a day, glipizide 5 mg once a day, Zyvox 600 mg IV piggyback q.12 hours, losartan 25 mg once a day, magnesium oxide 400 mg once a day, metformin 1 gram once a day, Solu-Medrol 40 IV push q.8 hours, Protonix 40 p.o. once a day, Ultram 50 q.4h. and Actos 45 mg once a day. SOCIAL HISTORY: Denies smoking at present time. No alcohol or substance abuse. FAMILY HISTORY: Noncontributory. REVIEW OF SYSTEMS: See the history of presenting illness. PHYSICAL EXAMINATION: VITAL SIGNS: Height 1.73 meter, weight 117.9 kg, BMI 39.5. Temperature 98, pulse 99, respiratory rate 20, blood pressure 137/80, oxygen saturation 88-94%. HEENT: Unremarkable. NECK: Very short and thick. LUNGS: Decreased air entry all over, but no rales, rhonchi. CARDIOVASCULAR: S1, S2 normal limit. ABDOMEN: Morbidly obese, otherwise benign. EXTREMITIES: Trace edema. Dorsalis pedis palpable. Bunion with callus noted on left first MP joint. No foot ulcers are noted. No cellulitis noted. SKIN: Dry. MUSCULOSKELETAL: No clubbing, cyanosis, or synovitis. LABORATORY TESTS: Significant for WBC 10,000, hemoglobin 12.3, MCV 89, platelet count of 150,000, neutrophil 69%. Sodium 135, potassium 5.8, chloride 92, bicarb 31, BUN 35, creatinine 1.8, glucose of 156, calcium 9.6. Liver panel otherwise unremarkable. Troponin 0.06 and 0.07 respectively. Albumin 3.8. Liver panel otherwise unremarkable. Amylase and lipase normal. Chest x-ray as mentioned earlier with right pleural effusion and vascular congestion and interstitial marking. ASSESSMENT AND PLAN: 1. Acute respiratory failure secondary to chronic obstructive pulmonary disease and congestive heart failure decompensation. 2. Congestive heart failure decompensation. 3. Chronic obstructive pulmonary disease decompensation. 4. Severe obstructive sleep apnea clinically and refusing to use CPAP. 5. Morbid obesity with BMI of 39.5. 6. Type 2 diabetes mellitus. We will discontinue metformin and Actos due to elevated creatinine and morbid obesity and congestive heart failure diagnoses, Actos contraindicated. Only do Accu-Chek sliding scale and start on Lantus as needed. 7. Acute kidney injuries. We will discontinue spironolactone, watch potassium level and creatinine carefully, obtain renal consult and go from there. 8. Chronic obstructive pulmonary disease exacerbation. We will taper off the Solu-Medrol and only go with handheld nebulizer and oxygen therapy at present time. 9. Bacteremia with staphylococcus, currently on IV Zyvox 600 b.i.d. We will obtain ID consult for further evaluation. 10. Elevated troponin. We will obtain Cardiology consult and go from there. Dr. Rutherford will follow the patient. JOB# [id number]
[2018-06-12] MEDS ORDERED: Non-Formulary Item 1 EA (Gabapentin [Gabapentin] 800 MG) PO SCH (14:00)
[2018-06-12] MEDS ORDERED: Apixaban 5 MG TABLET PO SCH (17:00)
[2018-06-12] MEDS ORDERED: Linezolid 600mg/300mL Premix Bag IV SCH (21:00)
--- NOTE | 2018-06-12 21:24 | Consultation ---
DATE OF CONSULTATION: 06/12/2018 PATIENT OF: Dr. Benton. HISTORY OF PRESENT ILLNESS: This 62 years old male patient who was recently discharged from [facility]. The patient had blood cultures positive. The patient was on IV antibiotics. The patient's renal status deteriorated. At this time, the patient came to the Emergency Room and the patient is admitted. No history of PND, orthopnea. PAST MEDICAL HISTORY: Staph septicemia, blood culture positive. Echocardiogram, no evidence of endocarditis, diabetes mellitus type 2, hypertension, congestive heart failure, diastolic dysfunction, chronic obstructive sleep apnea, morbid obesity, COPD, chronic atrial fibrillation, sick sinus syndrome with pacemaker, narcotic dependence. FAMILY HISTORY: Unremarkable. SOCIAL HISTORY: No history of smoking, alcohol abuse. ALLERGIES: None. PHYSICAL EXAMINATION: VITAL SIGNS: Blood pressure 130/80, pulse 80 irregular, and respirations 28. HEAD: Normocephalic. No lumps or bumps. EYES: Pupils equal, reactive to light. Fundi show AV nicking, sclerae white, conjunctivae pink. NECK: Carotid 2+. Normal upstroke. JVD 10 cm above the sternal angle. Thyroid not palpable. Lymph nodes not palpable. CHEST: Shows increased AP diameter. No kyphosis, scoliosis. LUNGS: Bilateral bronchovesicular breath sounds. HEART: PMI fifth intercostal space with lateral to midclavicular line. S1 irregular. S2, S3, S4, soft systolic murmur. ABDOMEN: Soft. Liver, spleen not palpable. No organomegaly. Bowel sounds active. NEUROLOGIC: Unremarkable. EXTREMITIES: Peripheral pulses 2+. No pedal edema. CLINICAL IMPRESSION: 1. Staphylococcus septicemia. 2. Diabetes mellitus type 2. 3. Diabetic chronic kidney disease. 4. Hypertension. 5. Congestive heart failure. 6. Diastolic dysfunction. 7. Obstructive sleep apnea. 8. Chronic obstructive pulmonary disease. 9. Atrial fibrillation. 10. Sick sinus syndrome with pacemaker. 11. Narcotic dependence. PLAN: At the present time, we will continue IV antibiotics. The patient's recent echocardiogram showed no evidence of endocarditis. The patient's potassium is 5.8 with hyperkalemia, also give Kayexalate. The patient's creatinine is 1.8 and BUN 35. JOB# [id number]
[2018-06-13] MEDS: Albuterol/Ipratropium Neb 3 ML AERS HHN SCH ×6 (02:30→23:28)
[2018-06-13] MEDS: INSULIN LISPRO SLIDING SCALE 100 UNITS/ML UNIT SUBQ SCH ×4 (06:41→20:22)
[2018-06-13] MEDS: Pantoprazole 40 mg EC Tab PO SCH (06:42)
[2018-06-13 07:09] LABS: % BASOPHILS 0.9 % (0.0-2.0); % EOSINOPHILS 0.4 % (0.0-5.0); % LYMPHOCYTES 24.8 % (20.0-50.0); % MONOCYTES 8.2 % (2.0-10.0); % NEUTROPHILS 65.7 % (40.0-80.0); BASOPHILE ABSOLUTE 0.1 Th/cumm (0-0.2); HEMATOCRIT 37.8 % (41.0-60); HEMOGLOBIN 12.2 gm/dL (12-16); LYMPHOCYTE ABSOLUTE 2.7 Th/cmm (1.5-3.0); MEAN CELL VOLUME 89.4 fl (80-99); MEAN CORPUSCULAR HEMOGLOBIN 28.9 pg (26.0-30.0); MEAN CORPUSCULAR HGB CONC 32.4 pg (28.0-36.0); MEAN PLATELET VOLUME 8.9 fl; MONOCYTE ABSOLUTE 0.9 Th/cmm (0.3-1.0); NEUTROPHILE ABSOLUTE 7.3 Th/cmm (1.8-8.0); PLATELET COUNT 158 Th/cmm (150-400); RED BLOOD COUNT 4.22 Mil/cmm (4.30-5.70); RED CELL DISTRIBUTION WIDTH 14.7 % (11.5-20.0)
[2018-06-13 07:22] LABS: ALB/GLOB RATIO 1.2 (1.0-1.8); ALBUMIN 3.8 gm/dL (4.2-5.5); ANION GAP 14.3 (7.0-16.0); BILIRUBIN,TOTAL 0.4 mg/dL (0.3-1.0); CALCIUM SERUM 9.6 mg/dL (8.6-10.3); CARBON DIOXIDE 35.8 mEq/L (21.0-31.0); GFR AFRICAN-AMERICAN 43.8 ml/min (>90); GFR NON AFRICAN-AMERICAN 36.2 ml/min; POTASSIUM SERUM 5.1 mEq/L (3.5-5.1); TOTAL PROTEIN,SERUM 7.1 gm/dL (6.0-8.3)
[2018-06-13] MEDS ORDERED: Aspirin 81mg Chewable Tab PO SCH (09:00)
[2018-06-13] MEDS ORDERED: methylPREDNISolone SS 40 mg Vial IVP SCH (09:00)
[2018-06-13] MEDS ORDERED: PIOGLITAZONE HCL PO SCH (09:00)
[2018-06-13] MEDS: Linezolid 600mg/300mL 600 MG/300 ML BAG IV SCH ×2 (09:13→22:55)
[2018-06-13] MEDS: Apixaban 5 MG TABLET PO SCH ×2 (09:16→17:26)
--- NOTE | 2018-06-13 09:45 | Infectious Disease Prog Note ---
Infectious Disease Subjective - Review of Systems Service Date: 06/13/18 Subjective: Patient feels better, had used CPAP last night. Infectious Disease Objective - Results Result Diagrams: 06/13/18 06:35 06/13/18 06:35 Recent Labs: Laboratory Last Values WBC 11.0 Th/cmm (4.8-10.8) H 06/13/18 06:35 RBC 4.22 Mil/cmm (4.30-5.70) L 06/13/18 06:35 Hgb 12.2 gm/dL (12-16) 06/13/18 06:35 Hct 37.8 % (41.0-60) L 06/13/18 06:35 MCV 89.4 fl (80-99) 06/13/18 06:35 MCH 28.9 pg (26.0-30.0) 06/13/18 06:35 MCHC Differential 32.4 pg (28.0-36.0) 06/13/18 06:35 RDW 14.7 % (11.5-20.0) 06/13/18 06:35 Plt Count 158 Th/cmm (150-400) 06/13/18 06:35 MPV 8.9 fl 06/13/18 06:35 Neutrophils % 65.7 % (40.0-80.0) 06/13/18 06:35 Lymphocytes % 24.8 % (20.0-50.0) 06/13/18 06:35 Monocytes % 8.2 % (2.0-10.0) 06/13/18 06:35 Eosinophils % 0.4 % (0.0-5.0) 06/13/18 06:35 Basophils % 0.9 % (0.0-2.0) 06/13/18 06:35 Sodium 135 mEq/L (136-145) L 06/13/18 06:35 Potassium 5.1 mEq/L (3.5-5.1) 06/13/18 06:35 Chloride 90 mEq/L (98-107) L 06/13/18 06:35 Carbon Dioxide 35.8 mEq/L (21.0-31.0) H 06/13/18 06:35 Anion Gap 14.3 (7.0-16.0) 06/13/18 06:35 BUN 46 mg/dL (7-25) H 06/13/18 06:35 Creatinine 2.0 mg/dL (0.7-1.3) H 06/13/18 06:35 Est GFR ( Amer) 43.8 ml/min (>90) 06/13/18 06:35 Est GFR (Non-Af Amer) 36.2 ml/min 06/13/18 06:35 BUN/Creatinine Ratio 23.0 06/13/18 06:35 Glucose 163 mg/dL (70-105) H 06/13/18 06:35 POC Glucose 145 MG/DL (70 - 105) H 06/13/18 06:38 Whole Bld Lactic Acid 1.92 mmol/L (0.60-1.99) 06/12/18 13:55 Calcium 9.6 mg/dL (8.6-10.3) 06/13/18 06:35 Total Bilirubin 0.4 mg/dL (0.3-1.0) 06/13/18 06:35 AST 64 U/L (13-39) H 06/13/18 06:35 ALT 99 U/L (7-52) H 06/13/18 06:35 Alkaline Phosphatase 93 U/L (34-104) 06/13/18 06:35 Creatine Kinase 35 U/L (30-223) 06/11/18 21:30 Troponin I 0.07 ng/mL (0.01-0.05) H* D 06/12/18 05:25 Total Protein 7.1 gm/dL (6.0-8.3) 06/13/18 06:35 Albumin 3.8 gm/dL (4.2-5.5) L 06/13/18 06:35 Globulin 3.3 gm/dL 06/13/18 06:35 Albumin/Globulin Ratio 1.2 (1.0-1.8) 06/13/18 06:35 Triglycerides 114 mg/dL (<150) 06/13/18 06:35 Cholesterol 115 mg/dL (<200) 06/13/18 06:35 LDL Cholesterol Direct 76 mg/dL (75-193) 06/13/18 06:35 HDL Cholesterol 26 mg/dL (23-92) 06/13/18 06:35 Amylase 24 U/L (29-103) L 06/13/18 06:35 Lipase 11 U/L (11-82) 06/11/18 21:30 TSH 1.30 uIU/ml (0.34-5.60) 06/12/18 13:55 - Physical Exam Vitals and I&O: Vital Signs Temp 98.0 F 06/13/18 08:44 Pulse 98 06/13/18 09:16 Resp 18 06/13/18 08:44 BP 114/72 06/13/18 09:16 Pulse Ox 99 06/13/18 08:44 Intake & Output 06/12/18 06/13/18 06/13/18 18:59 06:59 18:59 Intake Total 1600 600 Output Total 450 Balance 1150 600 Weight (lbs) 117.934 kg Intake: Intake, IV Amount 600 Linezolid 600mg/300mL 600 600 mg In 300 ml @ 300 mls/ hr IV Q12HR [facility] Rx#: [id number] Oral 800 Other 800 Output: Urine 450 Other: # Voids 0 # Bowel Movements 2 Stool Characteristics Soft Soft Weight Source Bedscale Active Medications: Current Medications Acetaminophen (Tylenol) 650 mg PO Q4HR PRN PRN Reason: Pain or Fever >101 Stop: 08/11/18 03:59 Last Admin: 06/12/18 04:53 Dose: 650 mg Albuterol/Ipratropium (Duoneb Neb) 3 ml HHN Q4HRT [facility] Stop: 08/11/18 02:59 Last Admin: 06/13/18 07:07 Dose: 3 ml Aspirin (Aspirin) 325 mg PO DAILY [facility] Stop: 08/11/18 08:59 Last Admin: 06/13/18 09:14 Dose: 325 mg Carvedilol (Coreg) 6.25 mg PO BID [facility] Stop: 08/11/18 16:59 Last Admin: 06/13/18 09:16 Dose: 6.25 mg Dextrose (D50w) 50 ml IVP PRN PRN PRN Reason: Blood Glucose less than 70 Stop: 08/11/18 05:22 Furosemide (Lasix) 20 mg IVP BID [facility] Stop: 08/11/18 08:59 Last Admin: 06/13/18 09:15 Dose: 20 mg Gabapentin (Neurontin) 800 mg PO TID [facility] Stop: 08/11/18 13:59 Last Admin: 06/13/18 09:16 Dose: 800 mg Glipizide (Glucotrol) 5 mg PO DAILY [facility] Stop: 08/11/18 11:14 Last Admin: 06/13/18 09:16 Dose: 5 mg Linezolid (Zyvox) 600 mg in 300 mls @ 300 mls/hr IV Q12HR [facility] Stop: 08/11/18 08:59 Last Admin: 06/13/18 09:13 Dose: 300 mls/hr Insulin Human Lispro (Humalog Insulin Sliding Scale) 0 units SUBQ ACHS [facility]; Protocol Stop: 08/11/18 07:29 Last Admin: 06/13/18 06:41 Dose: Not Given Magnesium Oxide (Mag-Oxide) 400 mg PO DAILY [facility] Stop: 08/12/18 08:59 Last Admin: 06/13/18 09:16 Dose: 400 mg Metformin HCl (Glucophage) 1,000 mg PO DAILY [facility] Stop: 08/12/18 08:59 Last Admin: 06/13/18 09:16 Dose: 1,000 mg Methylprednisolone Sodium Succinate (Solu-Medrol) 40 mg IVP DAILY [facility] Stop: 08/12/18 08:59 Last Admin: 06/13/18 09:14 Dose: 40 mg Pantoprazole Sodium (Protonix) 40 mg PO QDAC [facility] Stop: 08/11/18 07:29 Last Admin: 06/13/18 06:42 Dose: 40 mg Tramadol HCl (Ultram) 50 mg PO Q4H PRN PRN Reason: Pain (Severe) Stop: 08/11/18 11:08 General: no acute distress, well developed, well nourished HEENT: atraumatic, normocephalic, PERRLA Neck: supple, no thyromegaly Cardiovascular: S1S2, regular Lungs: clear to auscultation bilaterally, clear to percussion Abdomen: soft, no tender, no distended Extremities: no cyanosis, no clubbing, no edema Neurological: awake, alert, oriented Skin: intact - Procedures Procedures: Procedures Procedure Code Date OXYGEN ENRICHMENT NEC 93.96 12/11/00 Infectious Disease Assmt/Plan - Assessment Assessment: 1. Staph hemolyticus bacteremia/sepsis. 2. DEENA on CKD. 3. SOB. improved, COPD exacerbation. 4. CELIO. 5. DM2 6. COPD. 7. Obesity. 8. h/o Afib and Pacemaker placement. - Plan Plan: Will continue the same treatment. Continue Zyvox till 06/16/2018. Follow up blood cultures done on this admission. can be discharged from ID point of view. Nutritional Asmnt/Malnutr-PDOC - Dietary Evaluation Malnutrition Findings (Please click <Entered> for more info): Nutritional Asmnt/Malnutrition Start: 06/12/18 17: 18 Text: Status: Complete Freq: Protocol: Document 06/12/18 17:23 LCHENG (Rec: 06/12/18 17:37 LCHENG [email or web address]) Nutritional Asmnt/Malnutrition Patient General Information Nutritional Screening High Risk Diagnosis COPD, CHF Pertinent Medical Hx/Surgical Hx DM, HTN, pacemaker, COPD, CHF Subjective Information Pt seen sitting up on bed having lunch. Pt stated he did not want this lunch tray only took the ice cream and requested for salad and fresh fruit. Food preference provided to RD. Glucose ad admission was 189 noted. Pt appeared not ready for diabetic education. Current Diet Order/ Nutrition Support CCHO NA 2gm Pertinent Medications lasix, humalog, mag-oxide, glucophage, protonix Pertinent Labs 06/12 na 135, K 5.8, Cl 92, BUN 35, Cr 1.8, Glucose 156, POC 147-280, Alb 3.8 Nutritional Hx/Data Height 1.73 m Height (Calculated Centimeters) 172.7 Current Weight (lbs) 117.934 kg Weight (Calculated Kilograms) 117.9 Weight (Calculated Grams) 427621.0 [place] Body Weight 154 Body Mass Index (BMI) 39.5 Weight Status Obese GI Symptoms GI Symptoms None Last BM none Difficult in: None Skin Integrity/Comment: intact Estimated Nutritional Goals BEE in Kcals: Adj wt of IBW Calories/Kcals/Kg 23-27 Kcals Calculated [id number] Protein: Adj wt of IBW Protein g/k.8 Protein Calculated 66 Fluid: ml [id number] Nutritional Problem 1. Problem Problem altered nutrition related labs Etiology hyperglycemia Signs/Symptoms: Glucose 156, POC 147-280 Intervention/Recommendation Comments 1. Continue with CCHO Na 2gm diet as ordered. 2. Monitor PO intake, wt, labs and skin integrity 3. F/U as high risk in 2-3 days Expected Outcomes/Goals Expected Outcomes/Goals 1. PO intake to meet at least 75% of nutritional needs. 2. Wt stability, skin to remain intact, labs to approach WNL.
[2018-06-13] MEDS ORDERED: Albumin 5% 12.5gm/250mL 12.5 GM/250 ML BTL IV ONE (10:10)
--- NOTE | 2018-06-13 11:40 | Diagnostic Imaging Report ---
Chest x-ray (2 views) HISTORY: Shortness of breath Compared to prior exam of 2018, the heart remains enlarged. Faint linear density seen in the left perihilar region. Changes may be associated with subsegmental atelectasis. No other changes. IMPRESSION: 1. New faint linear density within the left perihilar region. Findings may be associated with subsegmental atelectasis. No other changes.
--- NOTE | 2018-06-13 12:47 | Consultation ---
DATE OF CONSULTATION: ATTENDING PHYSICIAN: Dr. Abdullahi Hernandez. REASON FOR CONSULTATION: Acute renal failure. HISTORY OF PRESENT ILLNESS: The patient is a 62-year-old male with a history of CHF, COPD, diabetes mellitus, who comes into the Emergency Room with shortness of breath. He was found to have congestive heart failure and COPD exacerbation as well as worsening renal failure, so I am called in consultation as I am covering for Dr. Keegan Oneill. PAST MEDICAL HISTORY: Significant for diabetes, hypertension, congestive heart failure and COPD. FAMILY HISTORY: Noncontributory. SOCIAL HISTORY: The patient does not drink or smoke now, but did in the past. REVIEW OF SYSTEMS: As in history of present illness, all other systems reviewed and found to be negative. PHYSICAL EXAMINATION: VITAL SIGNS: His blood pressure is 137/80, temperature is 98.0, pulse 99, respirations 20. HEENT: Normocephalic, atraumatic. Pupils equal, round, reacting to light and accommodation. Extraocular movements are intact. CARDIOVASCULAR: S1, S2 heard, regular rate and rhythm. LUNGS: Clear to auscultation bilaterally. ABDOMEN: Soft. No hepatosplenomegaly. EXTREMITIES: There is no cyanosis or clubbing. There is trace pedal edema. NEUROLOGIC: Cranial nerves 2 through 12 are intact. No focal deficit. LABORATORY DATA: On presentation, WBC was 10,000, hemoglobin 12.3, platelet count 150,000. Sodium 135, potassium 5.8, chloride 92, bicarbonate 31, BUN 35, creatinine 1.8, glucose 156, calcium 9.6. Troponin 0.06, albumin 3.8. ASSESSMENT AND PLAN: 1. Acute renal failure. This is probably prerenal azotemia due to congestive heart failure. We will check renal ultrasound and urinalysis. If this is confirmed, we will start the patient on a dopamine drip for renal perfusion. 2. Probable underlying chronic kidney disease due to diabetes. We will see if there is proteinuria. 3. Chronic obstructive pulmonary disease, on breathing treatments. 4. Diabetes mellitus, on sliding scale insulin. Thank you very much for the privilege of consulting on your patient. JOB# [id number]
[2018-06-13 13:48] LABS: URINE SOURCE RANDOM
[2018-06-13 13:50] LABS: URINE BILIRUBIN NEGATIVE (NEGATIVE); URINE BLOOD NEGATIVE (NEGATIVE); URINE GLUCOSE (UA) NEGATIVE (NEGATIVE); URINE KETONE NEGATIVE (NEGATIVE); URINE LEUKOCYTE ESTERASE NEGATIVE (NEGATIVE); URINE NITRATE NEGATIVE (NEGATIVE); URINE PH 5.5 (4.6 - 8.0); URINE PROTEIN NEGATIVE (NEGATIVE); URINE UROBILINOGEN 0.2 E.U./dL (0.2 - 1.0)
[2018-06-13] MEDS ORDERED: Probiotic Screen MC PRN (13:55)
--- NOTE | 2018-06-13 13:56 | Diagnostic Imaging Report ---
Renal ultrasound HISTORY: Abnormal renal function tests The right kidney is generous in size (12.5 x 4.9 x 5.5 cm). No focal lesions. No hydronephrosis. The left kidney is somewhat increased in size (13.0 x 5.6 x 4.8 cm). No focal lesions. No hydronephrosis. No intraluminal abnormality seen within the urinary bladder. IMPRESSION: 1. Increased renal sizes bilaterally. Significance should be correlated with renal function tests. 2. No focal renal lesions or hydronephrosis.
[2018-06-13 14:07] LABS: URINE CLARITY CLEAR (CLEAR); URINE COLOR YELLOW
[2018-06-13 14:12] LABS: URINE MICROSCOPIC INDICATED? YES; URINE RBC NONE SEEN /hpf (0-5); URINE WBC NONE SEEN /hpf (0-5)
[2018-06-13 14:13] LABS: URINE BACTERIA FEW /hpf (NONE SEEN); URINE EPITHELIAL CELLS RARE /lpf (FEW)
--- NOTE | 2018-06-13 15:43 | General Progress Note ---
Subjective - Review of Systems Service Date: 06/13/18 Subjective: Patient is still complaining of chest pain shortness of breath no palpitations Objective - Results Result Diagrams: 06/13/18 06:35 06/13/18 06:35 Recent Labs: Laboratory Last Values WBC 11.0 Th/cmm (4.8-10.8) H 06/13/18 06:35 RBC 4.22 Mil/cmm (4.30-5.70) L 06/13/18 06:35 Hgb 12.2 gm/dL (12-16) 06/13/18 06:35 Hct 37.8 % (41.0-60) L 06/13/18 06:35 MCV 89.4 fl (80-99) 06/13/18 06:35 MCH 28.9 pg (26.0-30.0) 06/13/18 06:35 MCHC Differential 32.4 pg (28.0-36.0) 06/13/18 06:35 RDW 14.7 % (11.5-20.0) 06/13/18 06:35 Plt Count 158 Th/cmm (150-400) 06/13/18 06:35 MPV 8.9 fl 06/13/18 06:35 Neutrophils % 65.7 % (40.0-80.0) 06/13/18 06:35 Lymphocytes % 24.8 % (20.0-50.0) 06/13/18 06:35 Monocytes % 8.2 % (2.0-10.0) 06/13/18 06:35 Eosinophils % 0.4 % (0.0-5.0) 06/13/18 06:35 Basophils % 0.9 % (0.0-2.0) 06/13/18 06:35 Sodium 135 mEq/L (136-145) L 06/13/18 06:35 Potassium 5.1 mEq/L (3.5-5.1) 06/13/18 06:35 Chloride 90 mEq/L (98-107) L 06/13/18 06:35 Carbon Dioxide 35.8 mEq/L (21.0-31.0) H 06/13/18 06:35 Anion Gap 14.3 (7.0-16.0) 06/13/18 06:35 BUN 46 mg/dL (7-25) H 06/13/18 06:35 Creatinine 2.0 mg/dL (0.7-1.3) H 06/13/18 06:35 Est GFR ( Amer) 43.8 ml/min (>90) 06/13/18 06:35 Est GFR (Non-Af Amer) 36.2 ml/min 06/13/18 06:35 BUN/Creatinine Ratio 23.0 06/13/18 06:35 Glucose 163 mg/dL (70-105) H 06/13/18 06:35 POC Glucose 281 MG/DL (70 - 105) H 06/13/18 10:59 Whole Bld Lactic Acid 1.92 mmol/L (0.60-1.99) 06/12/18 13:55 Calcium 9.6 mg/dL (8.6-10.3) 06/13/18 06:35 Total Bilirubin 0.4 mg/dL (0.3-1.0) 06/13/18 06:35 AST 64 U/L (13-39) H 06/13/18 06:35 ALT 99 U/L (7-52) H 06/13/18 06:35 Alkaline Phosphatase 93 U/L (34-104) 06/13/18 06:35 Creatine Kinase 35 U/L (30-223) 06/11/18 21:30 Troponin I 0.10 ng/mL (0.01-0.05) H* D 06/13/18 06:35 Total Protein 7.1 gm/dL (6.0-8.3) 06/13/18 06:35 Albumin 3.8 gm/dL (4.2-5.5) L 06/13/18 06:35 Globulin 3.3 gm/dL 06/13/18 06:35 Albumin/Globulin Ratio 1.2 (1.0-1.8) 06/13/18 06:35 Triglycerides 114 mg/dL (<150) 06/13/18 06:35 Cholesterol 115 mg/dL (<200) 06/13/18 06:35 LDL Cholesterol Direct 76 mg/dL (75-193) 06/13/18 06:35 HDL Cholesterol 26 mg/dL (23-92) 06/13/18 06:35 Amylase 24 U/L (29-103) L 06/13/18 06:35 Lipase 11 U/L (11-82) 06/11/18 21:30 TSH 1.30 uIU/ml (0.34-5.60) 06/12/18 13:55 Urine Source RANDOM 06/13/18 13:46 Urine Color YELLOW 06/13/18 13:46 Urine Clarity CLEAR (CLEAR) 06/13/18 13:46 Urine pH 5.5 (4.6 - 8.0) 06/13/18 13:46 Ur Specific [place] >= 1.030 (1.005-1.030) 06/13/18 13:46 Urine Protein NEGATIVE mg/dL (NEGATIVE) 06/13/18 13:46 Urine Glucose (UA) NEGATIVE mg/dL (NEGATIVE) 06/13/18 13:46 Urine Ketones NEGATIVE mg/dL (NEGATIVE) 06/13/18 13:46 Urine Blood NEGATIVE (NEGATIVE) 06/13/18 13:46 Urine Nitrate NEGATIVE (NEGATIVE) 06/13/18 13:46 Urine Bilirubin NEGATIVE (NEGATIVE) 06/13/18 13:46 Urine Urobilinogen 0.2 E.U./dL (0.2 - 1.0) 06/13/18 13:46 Ur Leukocyte Esterase NEGATIVE (NEGATIVE) 06/13/18 13:46 Urine RBC NONE SEEN /hpf (0-5) 06/13/18 13:46 Urine WBC NONE SEEN /hpf (0-5) 06/13/18 13:46 Ur Epithelial Cells RARE /lpf (FEW) 06/13/18 13:46 Urine Bacteria FEW /hpf (NONE SEEN) 06/13/18 13:46 - Physical Exam Vitals and I&O: Vital Signs Temp 98.1 F 06/13/18 12:54 Pulse 86 06/13/18 14:23 Resp 18 06/13/18 14:23 BP 121/70 06/13/18 12:54 Pulse Ox 94 06/13/18 14:23 Intake & Output 06/12/18 06/13/18 06/13/18 18:59 06:59 18:59 Intake Total 1600 600 Output Total 450 Balance 1150 600 Weight (lbs) 117.934 kg Intake: Intake, IV Amount 600 Linezolid 600mg/300mL 600 600 mg In 300 ml @ 300 mls/ hr IV Q12HR [facility] Rx#: [id number] Oral 800 Other 800 Output: Urine 450 Other: # Voids 0 # Bowel Movements 2 Stool Characteristics Soft Soft Soft Weight Source Bedscale Active Medications: Current Medications Acetaminophen (Tylenol) 650 mg PO Q4HR PRN PRN Reason: Pain or Fever >101 Stop: 08/11/18 03:59 Last Admin: 06/12/18 04:53 Dose: 650 mg Albuterol/Ipratropium (Duoneb Neb) 3 ml HHN Q4HRT [facility] Stop: 08/11/18 02:59 Last Admin: 06/13/18 14:20 Dose: 3 ml Aspirin (Aspirin) 325 mg PO DAILY [facility] Stop: 08/11/18 08:59 Last Admin: 06/13/18 09:14 Dose: 325 mg Carvedilol (Coreg) 6.25 mg PO BID [facility] Stop: 08/11/18 16:59 Last Admin: 06/13/18 09:16 Dose: 6.25 mg Dextrose (D50w) 50 ml IVP PRN PRN PRN Reason: Blood Glucose less than 70 Stop: 08/11/18 05:22 Gabapentin (Neurontin) 800 mg PO TID [facility] Stop: 08/11/18 13:59 Last Admin: 06/13/18 13:21 Dose: 800 mg Glipizide (Glucotrol) 5 mg PO DAILY [facility] Stop: 08/11/18 11:14 Last Admin: 06/13/18 09:16 Dose: 5 mg Linezolid (Zyvox) 600 mg in 300 mls @ 300 mls/hr IV Q12HR [facility] Stop: 08/11/18 08:59 Last Admin: 06/13/18 09:13 Dose: 300 mls/hr Insulin Human Lispro (Humalog Insulin Sliding Scale) 0 units SUBQ ACHS [facility]; Protocol Stop: 08/11/18 07:29 Last Admin: 06/13/18 12:19 Dose: 6 units Lactobacillus Rhamnosus (Culturelle 15b) 1 each PO DAILY [facility] Stop: 08/13/18 08:59 Magnesium Oxide (Mag-Oxide) 400 mg PO DAILY [facility] Stop: 08/12/18 08:59 Last Admin: 06/13/18 09:16 Dose: 400 mg Miscellaneous (Probiotic Screen) 1 ea MC PRN PRN PRN Reason: PROTOCOL Stop: 08/12/18 13:54 Pantoprazole Sodium (Protonix) 40 mg PO QDAC [facility] Stop: 08/11/18 07:29 Last Admin: 06/13/18 06:42 Dose: 40 mg Tramadol HCl (Ultram) 50 mg PO Q4H PRN PRN Reason: Pain (Severe) Stop: 08/11/18 11:08 Last Admin: 06/13/18 10:10 Dose: 50 mg General: Alert, No acute distress HEENT: Mucous membr. moist/pink Neck: Supple, JVD, +2 carotid pulse wo bruit (flat) Cardiovascular: Regular rate, Systolic murmurs, Other (atrial fibrillation) Lungs: Clear to auscultation, Normal air movement Abdomen: Bowel sounds, Soft, Obese, Other (no organomegaly) Neurological: Normal speech, Strength at 5/5 X4 ext, Cranial nerves 3-12 NL, Reflexes 2+ - Procedures Procedures: Procedures Procedure Code Date OXYGEN ENRICHMENT NEC 93.96 12/11/00 Assessment/Plan - Assessment Assessment: Staph septicemia Diabetes mellitus type 2 insulin-dependent Diabetics securities Hypertension Congestive heart failure diastolic dysfunction. COPD 6 sinus syndrome with pacemaker Atrial fibrillation Narcotic dependence - Plan Plan: Continue IV antibiotics we will do urine for drug screen Nutritional Asmnt/Malnutr-PDOC - Dietary Evaluation Malnutrition Findings (Please click <Entered> for more info): Nutritional Asmnt/Malnutrition Start: 06/12/18 17: 18 Text: Status: Complete Freq: Protocol: Document 06/12/18 17:23 LCHENG (Rec: 06/12/18 17:37 [email or web address]) Nutritional Asmnt/Malnutrition Patient General Information Nutritional Screening High Risk Diagnosis COPD, CHF Pertinent Medical Hx/Surgical Hx DM, HTN, pacemaker, COPD, CHF Subjective Information Pt seen sitting up on bed having lunch. Pt stated he did not want this lunch tray only took the ice cream and requested for salad and fresh fruit. Food preference provided to RD. Glucose ad admission was 189 noted. Pt appeared not ready for diabetic education. Current Diet Order/ Nutrition Support CCHO NA 2gm Pertinent Medications lasix, humalog, mag-oxide, glucophage, protonix Pertinent Labs 06/12 na 135, K 5.8, Cl 92, BUN 35, Cr 1.8, Glucose 156, POC 147-280, Alb 3.8 Nutritional Hx/Data Height 1.73 m Height (Calculated Centimeters) 172.7 Current Weight (lbs) 117.934 kg Weight (Calculated Kilograms) 117.9 Weight (Calculated Grams) 068801.0 [place] Body Weight 154 Body Mass Index (BMI) 39.5 Weight Status Obese GI Symptoms GI Symptoms None Last BM none Difficult in: None Skin Integrity/Comment: intact Estimated Nutritional Goals BEE in Kcals: Adj wt of IBW Calories/Kcals/Kg 23-27 Kcals Calculated 7732-5038 Protein: Adj wt of IBW Protein g/k.8 Protein Calculated 66 Fluid: ml 5548-0978 Nutritional Problem 1. Problem Problem altered nutrition related labs Etiology hyperglycemia Signs/Symptoms: Glucose 156, POC 147-280 Intervention/Recommendation Comments [facility]. [facility] as ordered. 2. Monitor PO intake, wt, labs and skin integrity 3. F/U as high risk in 2-3 days Expected Outcomes/Goals Expected Outcomes/Goals 1. PO intake to meet at least 75% of nutritional needs. 2. Wt stability, skin to remain intact, labs to approach WNL.
[2018-06-13 17:31] LABS: AMPHETAMINE URINE NEGATIVE (NEGATIVE); BARBITURATES URINE NEGATIVE (NEGATIVE); CANNABINOID THC NEGATIVE (NEGATIVE); COCAINE METABOLITE QUAL URINE NEGATIVE (NEGATIVE); METHAMPHETAMINES QUAL URINE NEGATIVE (NEGATIVE); OPIATES (MORPHINE) QUAL. URINE NEGATIVE (NEGATIVE); PHENCYCLIDINE (PCP) URINE NEGATIVE (NEGATIVE); TRICYCLICS (TCA) QUAL. URINE NEGATIVE (NEGATIVE)
[2018-06-13 17:32] LABS: BENZODIAZEPINES QUAL URINE NEGATIVE (NEGATIVE); METHADONE URINE NEGATIVE (NEGATIVE)
--- NOTE | 2018-06-14 01:57 | Progress Notes ---
DATE: 06/13/[address] Rutherford's coverage. SUBJECTIVE: The patient tolerated BiPAP at night from 10:30 to 6:30 this morning and feeling a little better, wish to finish Zyvox antibiotic up to 06/16 at the hospital or want to go to the [facility] where all his records are there. The patient still on oxygen via face mask. Overall, feeling better. Generalized weakness persist. Laboratory llanes potassium now back to 5.1, creatinine increased to 2.0, waiting for renal input at this stage. Case discussed at bedside with Dr. Michael Hernandez, Infectious Disease specialist and recommended to finish Zyvox up to 06/16. PHYSICAL EXAMINATION: VITAL SIGNS: Temperature 98, pulse 98, respiratory rate 18, blood pressure 114/72. HEENT: Unremarkable. NECK: Very short and thick. LUNGS: Decreased air entry, but no rales or rhonchi. CARDIOVASCULAR: S1, S2 normal limits. No murmur, gallop, or bruit. ABDOMEN: Soft, nontender. No hepatosplenomegaly. Obesity is apparent. EXTREMITIES: No leg edema noted. LABORATORY TESTS: WBC 11,000, hemoglobin 12, MCV 89, platelet count of 150,000, neutrophil 65%. Sodium 135, potassium 5.1, chloride 90, bicarbonate 35, BUN 26, creatinine 2.0, glucose 145 calcium 9.5, AST 64, ALT 99, alkaline phosphatase 93, albumin 3.8, amylase 24. Cholesterol 115, HDL 26, LDL 76. TSH 1.3, lipase 11, amylase 24. Chest x-ray this morning is pending. ASSESSMENT AND PLAN: 1. Hyperkalemia, now resolving. 2. Acute on chronic renal insufficiency. Keep off of metformin, spironolactone, and losartan. Renal consult pending. Monitor BMP daily. 3. Staphylococcus haemolyticus bacteremia. Finish IV Zyvox up until 06/16. 4. Chronic obstructive pulmonary disease, now improving, so discontinue IV Solu-Medrol. 5. Obstructive sleep apnea on BiPAP. The patient is much alert after that. Continue BiPAP treatment. 6. Elevated troponin. Further plan per pearl fisherman and Cardiology consult noted. The patient recently had an echocardiogram, so no further workup needed at this stage. JOB# [id number] [facility]
[2018-06-14] MEDS: Albuterol/Ipratropium Neb 3 ML AERS HHN SCH ×6 (02:07→23:18)
[2018-06-14 06:31] LABS: % BASOPHILS 0.4 % (0.0-2.0); % EOSINOPHILS 0.2 % (0.0-5.0); % LYMPHOCYTES 16.5 % (20.0-50.0); % NEUTROPHILS 75.9 % (40.0-80.0); HEMATOCRIT 33.4 % (41.0-60); HEMOGLOBIN 11.1 gm/dL (12-16); LYMPHOCYTE ABSOLUTE 1.7 Th/cmm (1.5-3.0); MEAN CELL VOLUME 88.1 fl (80-99); MEAN CORPUSCULAR HEMOGLOBIN 29.4 pg (26.0-30.0); MEAN CORPUSCULAR HGB CONC 33.4 pg (28.0-36.0); MEAN PLATELET VOLUME 8.9 fl; MONOCYTE ABSOLUTE 0.7 Th/cmm (0.3-1.0); NEUTROPHILE ABSOLUTE 7.7 Th/cmm (1.8-8.0); PLATELET COUNT 149 Th/cmm (150-400); RED BLOOD COUNT 3.79 Mil/cmm (4.30-5.70); RED CELL DISTRIBUTION WIDTH 14.6 % (11.5-20.0); WHITE BLOOD COUNT 10.1 Th/cmm (4.8-10.8)
[2018-06-14 06:38] LABS: ALB/GLOB RATIO 1.3 (1.0-1.8); ANION GAP 13.8 (7.0-16.0); BILIRUBIN,TOTAL 0.4 mg/dL (0.3-1.0); CALCIUM SERUM 9.5 mg/dL (8.6-10.3); CARBON DIOXIDE 33.9 mEq/L (21.0-31.0); CREATININE - SERUM 2.4 mg/dL (0.7-1.3); GFR AFRICAN-AMERICAN 35.5 ml/min (>90); GFR NON AFRICAN-AMERICAN 29.3 ml/min; POTASSIUM SERUM 5.7 mEq/L (3.5-5.1)
[2018-06-14] MEDS: Pantoprazole 40 mg EC Tab PO SCH (06:46)
[2018-06-14] MEDS: INSULIN LISPRO SLIDING SCALE 100 UNITS/ML UNIT SUBQ SCH ×4 (06:46→21:16)
--- NOTE | 2018-06-14 08:32 | General Progress Note ---
Subjective - Review of Systems Subjective: IM A LITTLE BETTER Objective - Results Result Diagrams: 06/14/18 06:02 06/14/18 06:02 Recent Labs: Laboratory Last Values WBC 10.1 Th/cmm (4.8-10.8) 06/14/18 06:02 RBC 3.79 Mil/cmm (4.30-5.70) L 06/14/18 06:02 Hgb 11.1 gm/dL (12-16) L 06/14/18 06:02 Hct 33.4 % (41.0-60) L 06/14/18 06:02 MCV 88.1 fl (80-99) 06/14/18 06:02 MCH 29.4 pg (26.0-30.0) 06/14/18 06:02 MCHC Differential 33.4 pg (28.0-36.0) 06/14/18 06:02 RDW 14.6 % (11.5-20.0) 06/14/18 06:02 Plt Count 149 Th/cmm (150-400) L 06/14/18 06:02 MPV 8.9 fl 06/14/18 06:02 Neutrophils % 75.9 % (40.0-80.0) 06/14/18 06:02 Lymphocytes % 16.5 % (20.0-50.0) L 06/14/18 06:02 Monocytes % 7.0 % (2.0-10.0) 06/14/18 06:02 Eosinophils % 0.2 % (0.0-5.0) 06/14/18 06:02 Basophils % 0.4 % (0.0-2.0) 06/14/18 06:02 Sodium 130 mEq/L (136-145) L 06/14/18 06:02 Potassium 5.7 mEq/L (3.5-5.1) H 06/14/18 06:02 Chloride 88 mEq/L (98-107) L 06/14/18 06:02 Carbon Dioxide 33.9 mEq/L (21.0-31.0) H 06/14/18 06:02 Anion Gap 13.8 (7.0-16.0) 06/14/18 06:02 BUN 61 mg/dL (7-25) H 06/14/18 06:02 Creatinine 2.4 mg/dL (0.7-1.3) H 06/14/18 06:02 Est GFR ( Amer) 35.5 ml/min (>90) 06/14/18 06:02 Est GFR (Non-Af Amer) 29.3 ml/min 06/14/18 06:02 BUN/Creatinine Ratio 25.4 06/14/18 06:02 Glucose 183 mg/dL (70-105) H 06/14/18 06:02 POC Glucose 175 MG/DL (70 - 105) H 06/14/18 06:27 Whole Bld Lactic Acid 1.92 mmol/L (0.60-1.99) 06/12/18 13:55 Calcium 9.5 mg/dL (8.6-10.3) 06/14/18 06:02 Total Bilirubin 0.4 mg/dL (0.3-1.0) 06/14/18 06:02 AST 42 U/L (13-39) H 06/14/18 06:02 ALT 91 U/L (7-52) H 06/14/18 06:02 Alkaline Phosphatase 90 U/L (34-104) 06/14/18 06:02 Creatine Kinase 35 U/L (30-223) 06/11/18 21:30 Troponin I 0.10 ng/mL (0.01-0.05) H* D 06/13/18 06:35 Total Protein 7.0 gm/dL (6.0-8.3) 06/14/18 06:02 Albumin 4.0 gm/dL (4.2-5.5) L 06/14/18 06:02 Globulin 3.0 gm/dL 06/14/18 06:02 Albumin/Globulin Ratio 1.3 (1.0-1.8) 06/14/18 06:02 Triglycerides 114 mg/dL (<150) 06/13/18 06:35 Cholesterol 115 mg/dL (<200) 06/13/18 06:35 LDL Cholesterol Direct 76 mg/dL (75-193) 06/13/18 06:35 HDL Cholesterol 26 mg/dL (23-92) 06/13/18 06:35 Amylase 24 U/L (29-103) L 06/13/18 06:35 Lipase 11 U/L (11-82) 06/11/18 21:30 TSH 1.30 uIU/ml (0.34-5.60) 06/12/18 13:55 Urine Source RANDOM 06/13/18 13:46 Urine Color YELLOW 06/13/18 13:46 Urine Clarity CLEAR (CLEAR) 06/13/18 13:46 Urine pH 5.5 (4.6 - 8.0) 06/13/18 13:46 Ur Specific [place] >= 1.030 (1.005-1.030) 06/13/18 13:46 Urine Protein NEGATIVE mg/dL (NEGATIVE) 06/13/18 13:46 Urine Glucose (UA) NEGATIVE mg/dL (NEGATIVE) 06/13/18 13:46 Urine Ketones NEGATIVE mg/dL (NEGATIVE) 06/13/18 13:46 Urine Blood NEGATIVE (NEGATIVE) 06/13/18 13:46 Urine Nitrate NEGATIVE (NEGATIVE) 06/13/18 13:46 Urine Bilirubin NEGATIVE (NEGATIVE) 06/13/18 13:46 Urine Urobilinogen 0.2 E.U./dL (0.2 - 1.0) 06/13/18 13:46 Ur Leukocyte Esterase NEGATIVE (NEGATIVE) 06/13/18 13:46 Urine RBC NONE SEEN /hpf (0-5) 06/13/18 13:46 Urine WBC NONE SEEN /hpf (0-5) 06/13/18 13:46 Ur Epithelial Cells RARE /lpf (FEW) 06/13/18 13:46 Urine Bacteria FEW /hpf (NONE SEEN) 06/13/18 13:46 Urine Opiates Screen NEGATIVE (NEGATIVE) 06/13/18 13:46 Urine Methadone Screen NEGATIVE (NEGATIVE) 06/13/18 13:46 Ur Barbiturates Screen NEGATIVE (NEGATIVE) 06/13/18 13:46 Ur Tricyclics Screen NEGATIVE (NEGATIVE) 06/13/18 13:46 Ur Phencyclidine Scrn NEGATIVE (NEGATIVE) 06/13/18 13:46 Amphetamines Screen NEGATIVE (NEGATIVE) 06/13/18 13:46 U Methamphetamines Scrn NEGATIVE (NEGATIVE) 06/13/18 13:46 U Benzodiazepines Scrn NEGATIVE (NEGATIVE) 06/13/18 13:46 U Cocaine Metab Screen NEGATIVE (NEGATIVE) 06/13/18 13:46 U Cannabinoids Screen NEGATIVE (NEGATIVE) 06/13/18 13:46 - Physical Exam Vitals and I&O: Vital Signs Temp 97.8 F 06/14/18 00:00 Pulse 78 06/14/18 02:09 Resp 23 06/14/18 02:28 BP 94/41 06/14/18 00:00 Pulse Ox 95 06/14/18 02:28 Intake & Output 06/13/18 06/14/18 06/14/18 18:59 06:59 18:59 Intake Total 800 700 Output Total 850 Balance 800 -150 Weight (lbs) 117.934 kg 117.934 kg Intake: Intake, IV Amount 300 Linezolid 600mg/300mL 600 300 mg In 300 ml @ 300 mls/ hr IV Q12HR [facility] Rx#: [id number] Oral 500 700 Output: Urine 850 Other: # Voids 2 # Bowel Movements 0 Stool Characteristics Soft Soft Weight Source Bedscale Bedscale Active Medications: Current Medications Acetaminophen (Tylenol) 650 mg PO Q4HR PRN PRN Reason: Pain or Fever >101 Stop: 08/11/18 03:59 Last Admin: 06/13/18 21:42 Dose: 650 mg Albuterol/Ipratropium (Duoneb Neb) 3 ml HHN Q4HRT [facility] Stop: 08/11/18 02:59 Last Admin: 06/14/18 07:05 Dose: 3 ml Aspirin (Aspirin) 325 mg PO DAILY [facility] Stop: 08/11/18 08:59 Last Admin: 06/13/18 09:14 Dose: 325 mg Carvedilol (Coreg) 6.25 mg PO BID [facility] Stop: 08/11/18 16:59 Last Admin: 06/13/18 17:26 Dose: 6.25 mg Dextrose (D50w) 50 ml IVP PRN PRN PRN Reason: Blood Glucose less than 70 Stop: 08/11/18 05:22 Gabapentin (Neurontin) 800 mg PO TID [facility] Stop: 08/11/18 13:59 Last Admin: 06/13/18 20:22 Dose: 800 mg Glipizide (Glucotrol) 5 mg PO DAILY [facility] Stop: 08/11/18 11:14 Last Admin: 06/13/18 09:16 Dose: 5 mg Linezolid (Zyvox) 600 mg in 300 mls @ 300 mls/hr IV Q12HR [facility] Stop: 08/11/18 08:59 Last Admin: 06/13/18 22:55 Dose: 300 mls/hr Insulin Human Lispro (Humalog Insulin Sliding Scale) 0 units SUBQ ACHS [facility]; Protocol Stop: 08/11/18 07:29 Last Admin: 06/14/18 06:46 Dose: 2 units Lactobacillus Rhamnosus (Culturelle 15b) 1 each PO DAILY [facility] Stop: 08/13/18 08:59 Magnesium Oxide (Mag-Oxide) 400 mg PO DAILY [facility] Stop: 08/12/18 08:59 Last Admin: 06/13/18 09:16 Dose: 400 mg Miscellaneous (Probiotic Screen) 1 ea MC PRN PRN PRN Reason: PROTOCOL Stop: 08/12/18 13:54 Pantoprazole Sodium (Protonix) 40 mg PO QDAC [facility] Stop: 08/11/18 07:29 Last Admin: 06/14/18 06:46 Dose: 40 mg Tramadol HCl (Ultram) 50 mg PO Q4H PRN PRN Reason: Pain (Severe) Stop: 08/11/18 11:08 Last Admin: 06/14/18 04:23 Dose: 50 mg General: Alert, No acute distress HEENT: Mucous membr. moist/pink Neck: Supple, JVD, +2 carotid pulse wo bruit (flat) Cardiovascular: Regular rate, Systolic murmurs, Other (atrial fibrillation) Lungs: Clear to auscultation, Normal air movement Abdomen: Bowel sounds, Soft, Obese, Other (no organomegaly) Neurological: Normal speech, Strength at 5/5 X4 ext, Cranial nerves 3-12 NL, Reflexes 2+ - Procedures Procedures: Procedures Procedure Code Date OXYGEN ENRICHMENT NEC 93.96 12/11/00 Assessment/Plan - Problem List Patient Problems: All Active Problems ARF (acute renal failure) (Acute) COPD with acute exacerbation (Acute) J44.1 Diabetes mellitus (Acute) E11.9 HTN (hypertension) (Acute) I10 - Assessment Assessment: ARF DUE TO PRERENAL AZOTEMIA WILL GIVE RENAL DOSE DOPAMINE - Plan Plan: CHECK LABS IN AM Nutritional Asmnt/Malnutr-PDOC - Dietary Evaluation Malnutrition Findings (Please click <Entered> for more info): Nutritional Asmnt/Malnutrition Start: 06/12/18 17: 18 Text: Status: Complete Freq: Protocol: Document 06/12/18 17:23 ROJAS (Rec: 06/12/18 17:37 [email or web address]) Nutritional Asmnt/Malnutrition Patient General Information Nutritional Screening High Risk Diagnosis COPD, CHF Pertinent Medical Hx/Surgical Hx DM, HTN, pacemaker, COPD, CHF Subjective Information Pt seen sitting up on bed having lunch. Pt stated he did not want this lunch tray only took the ice cream and requested for salad and fresh fruit. Food preference provided to RD. Glucose ad admission was 189 noted. Pt appeared not ready for diabetic education. Current Diet Order/ Nutrition Support CCHO NA 2gm Pertinent Medications lasix, humalog, mag-oxide, glucophage, protonix Pertinent Labs 06/12 na 135, K 5.8, Cl 92, BUN 35, Cr 1.8, Glucose 156, POC 147-280, Alb 3.8 Nutritional Hx/Data Height 1.73 m Height (Calculated Centimeters) 172.7 Current Weight (lbs) 117.934 kg Weight (Calculated Kilograms) 117.9 Weight (Calculated Grams) 358552.0 [place] Body Weight 154 Body Mass Index (BMI) 39.5 Weight Status Obese GI Symptoms GI Symptoms None Last BM none Difficult in: None Skin Integrity/Comment: intact Estimated Nutritional Goals BEE in Kcals: Adj wt of IBW Calories/Kcals/Kg 23-27 Kcals Calculated 8299-4229 Protein: Adj wt of IBW Protein g/k.8 Protein Calculated 66 Fluid: ml 4307-3759 Nutritional Problem 1. Problem Problem altered nutrition related labs Etiology hyperglycemia Signs/Symptoms: Glucose 156, POC 147-280 Intervention/Recommendation Comments 1. [facility] diet as ordered. 2. Monitor PO intake, wt, labs and skin integrity 3. F/U as high risk in 2-3 days Expected Outcomes/Goals Expected Outcomes/Goals 1. PO intake to meet at least 75% of nutritional needs. 2. Wt stability, skin to remain intact, labs to approach WNL.
[2018-06-14] MEDS ORDERED: DOPamine 400 MG/250 ML BAG IV PRN (08:33)
[2018-06-14] MEDS: Apixaban 5 MG TABLET PO SCH ×2 (10:18→16:56)
[2018-06-14] MEDS: Lactobacillus Rhamnosus GG 15 Billion CFU CAP.SPRINK PO SCH (10:19)
[2018-06-14] MEDS: Linezolid 600mg/300mL 600 MG/300 ML BAG IV SCH ×2 (10:20→21:01)
--- NOTE | 2018-06-14 14:27 | General Progress Note ---
Subjective - Review of Systems Service Date: 06/14/18 Subjective: Patient is still complaining of chest pain shortness of breath no palpitations Objective - Results Result Diagrams: 06/14/18 06:02 06/14/18 06:02 Recent Labs: Laboratory Last Values WBC 10.1 Th/cmm (4.8-10.8) 06/14/18 06:02 RBC 3.79 Mil/cmm (4.30-5.70) L 06/14/18 06:02 Hgb 11.1 gm/dL (12-16) L 06/14/18 06:02 Hct 33.4 % (41.0-60) L 06/14/18 06:02 MCV 88.1 fl (80-99) 06/14/18 06:02 MCH 29.4 pg (26.0-30.0) 06/14/18 06:02 MCHC Differential 33.4 pg (28.0-36.0) 06/14/18 06:02 RDW 14.6 % (11.5-20.0) 06/14/18 06:02 Plt Count 149 Th/cmm (150-400) L 06/14/18 06:02 MPV 8.9 fl 06/14/18 06:02 Neutrophils % 75.9 % (40.0-80.0) 06/14/18 06:02 Lymphocytes % 16.5 % (20.0-50.0) L 06/14/18 06:02 Monocytes % 7.0 % (2.0-10.0) 06/14/18 06:02 Eosinophils % 0.2 % (0.0-5.0) 06/14/18 06:02 Basophils % 0.4 % (0.0-2.0) 06/14/18 06:02 Sodium 130 mEq/L (136-145) L 06/14/18 06:02 Potassium 5.7 mEq/L (3.5-5.1) H 06/14/18 06:02 Chloride 88 mEq/L (98-107) L 06/14/18 06:02 Carbon Dioxide 33.9 mEq/L (21.0-31.0) H 06/14/18 06:02 Anion Gap 13.8 (7.0-16.0) 06/14/18 06:02 BUN 61 mg/dL (7-25) H 06/14/18 06:02 Creatinine 2.4 mg/dL (0.7-1.3) H 06/14/18 06:02 Est GFR ( Amer) 35.5 ml/min (>90) 06/14/18 06:02 Est GFR (Non-Af Amer) 29.3 ml/min 06/14/18 06:02 BUN/Creatinine Ratio 25.4 06/14/18 06:02 Glucose 183 mg/dL (70-105) H 06/14/18 06:02 POC Glucose 308 MG/DL (70 - 105) H 06/14/18 12:03 Whole Bld Lactic Acid 1.92 mmol/L (0.60-1.99) 06/12/18 13:55 Calcium 9.5 mg/dL (8.6-10.3) 06/14/18 06:02 Total Bilirubin 0.4 mg/dL (0.3-1.0) 06/14/18 06:02 AST 42 U/L (13-39) H 06/14/18 06:02 ALT 91 U/L (7-52) H 06/14/18 06:02 Alkaline Phosphatase 90 U/L (34-104) 06/14/18 06:02 Creatine Kinase 35 U/L (30-223) 06/11/18 21:30 Troponin I 0.10 ng/mL (0.01-0.05) H* D 06/13/18 06:35 Total Protein 7.0 gm/dL (6.0-8.3) 06/14/18 06:02 Albumin 4.0 gm/dL (4.2-5.5) L 06/14/18 06:02 Globulin 3.0 gm/dL 06/14/18 06:02 Albumin/Globulin Ratio 1.3 (1.0-1.8) 06/14/18 06:02 Triglycerides 114 mg/dL (<150) 06/13/18 06:35 Cholesterol 115 mg/dL (<200) 06/13/18 06:35 LDL Cholesterol Direct 76 mg/dL (75-193) 06/13/18 06:35 HDL Cholesterol 26 mg/dL (23-92) 06/13/18 06:35 Amylase 24 U/L (29-103) L 06/13/18 06:35 Lipase 11 U/L (11-82) 06/11/18 21:30 TSH 1.30 uIU/ml (0.34-5.60) 06/12/18 13:55 Urine Source RANDOM 06/13/18 13:46 Urine Color YELLOW 06/13/18 13:46 Urine Clarity CLEAR (CLEAR) 06/13/18 13:46 Urine pH 5.5 (4.6 - 8.0) 06/13/18 13:46 Ur Specific [place] >= 1.030 (1.005-1.030) 06/13/18 13:46 Urine Protein NEGATIVE mg/dL (NEGATIVE) 06/13/18 13:46 Urine Glucose (UA) NEGATIVE mg/dL (NEGATIVE) 06/13/18 13:46 Urine Ketones NEGATIVE mg/dL (NEGATIVE) 06/13/18 13:46 Urine Blood NEGATIVE (NEGATIVE) 06/13/18 13:46 Urine Nitrate NEGATIVE (NEGATIVE) 06/13/18 13:46 Urine Bilirubin NEGATIVE (NEGATIVE) 06/13/18 13:46 Urine Urobilinogen 0.2 E.U./dL (0.2 - 1.0) 06/13/18 13:46 Ur Leukocyte Esterase NEGATIVE (NEGATIVE) 06/13/18 13:46 Urine RBC NONE SEEN /hpf (0-5) 06/13/18 13:46 Urine WBC NONE SEEN /hpf (0-5) 06/13/18 13:46 Ur Epithelial Cells RARE /lpf (FEW) 06/13/18 13:46 Urine Bacteria FEW /hpf (NONE SEEN) 06/13/18 13:46 Urine Opiates Screen NEGATIVE (NEGATIVE) 06/13/18 13:46 Urine Methadone Screen NEGATIVE (NEGATIVE) 06/13/18 13:46 Ur Barbiturates Screen NEGATIVE (NEGATIVE) 06/13/18 13:46 Ur Tricyclics Screen NEGATIVE (NEGATIVE) 06/13/18 13:46 Ur Phencyclidine Scrn NEGATIVE (NEGATIVE) 06/13/18 13:46 Amphetamines Screen NEGATIVE (NEGATIVE) 06/13/18 13:46 U Methamphetamines Scrn NEGATIVE (NEGATIVE) 06/13/18 13:46 U Benzodiazepines Scrn NEGATIVE (NEGATIVE) 06/13/18 13:46 U Cocaine Metab Screen NEGATIVE (NEGATIVE) 06/13/18 13:46 U Cannabinoids Screen NEGATIVE (NEGATIVE) 06/13/18 13:46 - Physical Exam Vitals and I&O: Vital Signs Temp 96.4 F 06/14/18 12:00 Pulse 88 06/14/18 12:00 Resp 19 06/14/18 12:00 BP 115/57 06/14/18 12:00 Pulse Ox 93 06/14/18 12:00 Intake & Output 06/13/18 06/14/18 06/14/18 18:59 06:59 18:59 Intake Total 800 1000 Output Total 850 Balance 800 150 Weight (lbs) 117.934 kg 117.934 kg Intake: Intake, IV Amount 300 300 Linezolid 600mg/300mL 600 300 300 mg In 300 ml @ 300 mls/ hr IV Q12HR [facility]ES [facility] Rx#: [id number] Oral 500 700 Output: Urine 850 Other: # Voids 2 # Bowel Movements 0 Stool Characteristics Soft Soft Soft Weight Source Bedscale Bedscale Active Medications: Current Medications Acetaminophen (Tylenol) 650 mg PO Q4HR PRN PRN Reason: Pain or Fever >101 Stop: 08/11/18 03:59 Last Admin: 06/13/18 21:42 Dose: 650 mg Albuterol/Ipratropium (Duoneb Neb) 3 ml HHN Q4HRT [facility] Stop: 08/11/18 02:59 Last Admin: 06/14/18 10:52 Dose: 3 ml Aspirin (Aspirin) 325 mg PO DAILY [facility] Stop: 08/11/18 08:59 Last Admin: 06/14/18 10:18 Dose: 325 mg Carvedilol (Coreg) 6.25 mg PO BID [facility] Stop: 08/11/18 16:59 Last Admin: 06/14/18 10:18 Dose: 6.25 mg Dextrose (D50w) 50 ml IVP PRN PRN PRN Reason: Blood Glucose less than 70 Stop: 08/11/18 05:22 Gabapentin (Neurontin) 800 mg PO TID [facility] Stop: 08/11/18 13:59 Last Admin: 06/14/18 10:19 Dose: 800 mg Glipizide (Glucotrol) 5 mg PO DAILY [facility] Stop: 08/11/18 11:14 Last Admin: 06/14/18 10:20 Dose: 5 mg Linezolid (Zyvox) 600 mg in 300 mls @ 300 mls/hr IV Q12HR [facility] Stop: 08/11/18 08:59 Last Admin: 06/14/18 10:20 Dose: 300 mls/hr Dopamine HCl/Dextrose (Dopamine) 400 mg in 250 mls @ 11.056 mls/hr IV TITR PRN PRN Reason: RENAL PERFUSION Stop: 08/13/18 08:32 Insulin Human Lispro (Humalog Insulin Sliding Scale) 0 units SUBQ ACHS [facility]; Protocol Stop: 08/11/18 07:29 Last Admin: 06/14/18 12:28 Dose: 8 units Lactobacillus Rhamnosus (Culturelle 15b) 1 each PO DAILY [facility] Stop: 08/13/18 08:59 Last Admin: 06/14/18 10:19 Dose: 1 each Magnesium Oxide (Mag-Oxide) 400 mg PO DAILY [facility] Stop: 08/12/18 08:59 Last Admin: 06/14/18 10:19 Dose: 400 mg Miscellaneous (Probiotic Screen) 1 ea PRN PRN PRN Reason: PROTOCOL Stop: 08/12/18 13:54 Pantoprazole Sodium (Protonix) 40 mg PO QDAC [facility]CLUD[facility] Stop: 08/11/18 07:29 Last Admin: 06/14/18 06:46 Dose: 40 mg Tramadol HCl (Ultram) 50 mg PO Q4H PRN PRN Reason: Pain (Severe) Stop: 08/11/18 11:08 Last Admin: 06/14/18 10:19 Dose: 50 mg General: Alert, No acute distress HEENT: Mucous membr. moist/pink Neck: Supple, JVD, +2 carotid pulse wo bruit (flat) Cardiovascular: Regular rate, Systolic murmurs, Other (atrial fibrillation) Lungs: Clear to auscultation, Normal air movement Abdomen: Bowel sounds, Soft, Obese, Other (no organomegaly) Neurological: Normal speech, Strength at 5/5 X4 ext, Cranial nerves 3-12 NL, Reflexes 2+ - Procedures Procedures: Procedures Procedure Code Date OXYGEN ENRICHMENT NEC 93.96 12/11/00 Assessment/Plan - Problem List Patient Problems: All Active Problems ARF (acute renal failure) (Acute) COPD with acute exacerbation (Acute) J44.1 Diabetes mellitus (Acute) E11.9 HTN (hypertension) (Acute) I10 - Assessment Assessment: Staph septicemia Diabetes mellitus type 2 insulin-dependent Diabetics securities Hypertension Congestive heart failure diastolic dysfunction. COPD 6 sinus syndrome with pacemaker Atrial fibrillation Narcotic dependence - Plan Plan: Continue IV antibiotics we will do urine for drug screen Patient to get Kayexalate 60 g due to hyperkalemia Nutritional Asmnt/Malnutr-PDOC - Dietary Evaluation Malnutrition Findings (Please click <Entered> for more info): Nutritional Asmnt/Malnutrition Start: 06/12/18 17: 18 Text: Status: Complete Freq: Protocol: Document 06/12/18 17:23 [facility]CHENG (Rec: 06/12/18 17:37 [email or web address] Nutritional Asmnt/Malnutrition Patient General Information Nutritional Screening High Risk Diagnosis COPD, CHF Pertinent Medical Hx/Surgical Hx DM, HTN, pacemaker, COPD, CHF Subjective Information Pt seen sitting up on bed having lunch. Pt stated he did not want this lunch tray only took the ice cream and requested for salad and fresh fruit. Food preference provided to RD. Glucose ad admission was 189 noted. Pt appeared not ready for diabetic education. Current Diet Order/ Nutrition Support CCHO NA 2gm Pertinent Medications lasix, humalog, mag-oxide, glucophage, protonix Pertinent Labs 06/12 na 135, K 5.8, Cl 92, BUN 35, Cr 1.8, Glucose 156, POC 147-280, Alb 3.8 Nutritional Hx/Data Height 1.73 m Height (Calculated Centimeters) 172.7 Current Weight (lbs) 117.934 kg Weight (Calculated Kilograms) 117.9 Weight (Calculated Grams) 015282.0 [place] Body Weight 154 Body Mass Index (BMI) 39.5 Weight Status Obese GI Symptoms GI Symptoms None Last BM none Difficult in: None Skin Integrity/Comment: intact Estimated Nutritional Goals BEE in Kcals: Adj wt of IBW Calories/Kcals/Kg 23-27 Kcals Calculated 1057-9395 Protein: Adj wt of IBW Protein g/k.8 Protein Calculated 66 Fluid: ml 6579-1885 Nutritional Problem 1. Problem Problem altered nutrition related labs Etiology hyperglycemia Signs/Symptoms: Glucose 156, POC 147-280 Intervention/Recommendation Comments 1. Continue with CCHO Na 2gm diet as ordered. 2. Monitor PO intake, wt, labs and skin integrity 3. F/U as high risk in 2-3 days Expected Outcomes/Goals Expected Outcomes/Goals 1. PO intake to meet at least 75% of nutritional needs. 2. Wt stability, skin to remain intact, labs to approach WNL.
--- NOTE | 2018-06-14 20:53 | Progress Notes ---
DATE: 06/14/[address] Rutherford's coverage. SUBJECTIVE: The patient is a 62-year-old gentleman who is persistently hyperkalemic and creatinine increased from 1.5 to 2.4 now. Renal consult appreciated this morning and the patient started on renal dose of dopamine for prerenal azotemia. The patient remained afebrile, complaining of some nausea this morning, but no abdominal pain, no vomiting, no diarrhea, melena. Bowel movement increased after Kayexalate, but no blood in it. No UTI symptomatology. No leg swelling or joint swelling at present time. No seizures noted per RN report. The patient is tolerating BiPAP at night. PHYSICAL EXAMINATION: VITAL SIGNS: Temperature 96.8, pulse 89, respiratory rate 20, blood pressure 121/69, oxygen saturation 94% on 4 liters oxygen nasal cannula. HEENT: Unremarkable. NECK: Short and thick. LUNGS: Clear anteriorly and posteriorly. No rales, rhonchi. CARDIOVASCULAR: S1, S2 normal limit. ABDOMEN: Obese, otherwise benign. EXTREMITIES: No leg edema noted. LABORATORY TESTS: Significant for WBC 10,000, hemoglobin 11, MCV 88 and a platelet count of 149,000, neutrophil 76%. Sodium 130, potassium 5.7, chloride 88, bicarbonate 33, BUN 61, creatinine 2.4, glucose 183, calcium 9.5. AST 42, ALT 91, alkaline phosphatase normal at 90. Albumin 4.0. Urinalysis: pH 5.5, specific gravity 1.030, otherwise unremarkable. Urine tox screen is negative. Renal ultrasound done on 06/13/2018 revealed increased renal size bilaterally. No significant focal renal lesion or hydronephrosis noted. ASSESSMENT AND PLAN: 1. Hyperkalemia, persistent Kayexalate 60 grams given by the renal specialist. We will monitor BMP in the morning and go from there. 2. Acute on chronic renal insufficiency with prerenal azotemia. The patient currently on dopamine renal dose. Monitor BMP in the morning. 3. A Staphylococcus haemolyticus bacteremia. Continue IV Zosyn up until 06/16/2018. 4. Chronic obstructive pulmonary disease. Continue with handheld nebulizer. The patient is off of IV Solu-Medrol now and no exacerbation noted. 5. Obstructive sleep apnea on BiPAP. The patient tolerating BiPAP. Continue same at night. 6. Elevated troponin. Further plan per cardiology. JOB# [id number]
[2018-06-15] MEDS: Albuterol/Ipratropium Neb 3 ML AERS HHN SCH ×6 (02:48→23:08)
[2018-06-15] MEDS: Pantoprazole 40 mg EC Tab PO SCH (06:36)
[2018-06-15 07:10] LABS: % BASOPHILS 0.5 % (0.0-2.0); % EOSINOPHILS 0.8 % (0.0-5.0); % LYMPHOCYTES 22.9 % (20.0-50.0); % MONOCYTES 8.8 % (2.0-10.0); EOSINOPHILE ABSOLUTE 0.1 Th/cmm (0.1-0.4); HEMATOCRIT 33.7 % (41.0-60); HEMOGLOBIN 11.1 gm/dL (12-16); MEAN CELL VOLUME 89.4 fl (80-99); MEAN CORPUSCULAR HEMOGLOBIN 29.4 pg (26.0-30.0); MEAN CORPUSCULAR HGB CONC 32.9 pg (28.0-36.0); MEAN PLATELET VOLUME 9.1 fl; MONOCYTE ABSOLUTE 0.8 Th/cmm (0.3-1.0); NEUTROPHILE ABSOLUTE 5.7 Th/cmm (1.8-8.0); PLATELET COUNT 137 Th/cmm (150-400); RED BLOOD COUNT 3.77 Mil/cmm (4.30-5.70); RED CELL DISTRIBUTION WIDTH 14.9 % (11.5-20.0); WHITE BLOOD COUNT 8.6 Th/cmm (4.8-10.8)
[2018-06-15 07:21] LABS: ALB/GLOB RATIO 1.4 (1.0-1.8); ALBUMIN 3.8 gm/dL (4.2-5.5); ANION GAP 13.1 (7.0-16.0); BILIRUBIN,TOTAL 0.5 mg/dL (0.3-1.0); CARBON DIOXIDE 37.2 mEq/L (21.0-31.0); CREATININE - SERUM 2.3 mg/dL (0.7-1.3); GFR AFRICAN-AMERICAN 37.2 ml/min (>90); GFR NON AFRICAN-AMERICAN 30.8 ml/min; MAGNESIUM 2.1 mg/dL (1.9-2.7); PHOSPHOROUS 5.6 mg/dL (2.5-5.0); POTASSIUM SERUM 4.3 mEq/L (3.5-5.1); TOTAL PROTEIN,SERUM 6.6 gm/dL (6.0-8.3)
[2018-06-15] MEDS: INSULIN LISPRO SLIDING SCALE 100 UNITS/ML UNIT SUBQ SCH ×4 (08:13→21:41)
[2018-06-15] MEDS: Lactobacillus Rhamnosus GG 15 Billion CFU CAP.SPRINK PO SCH (08:58)
[2018-06-15] MEDS: Linezolid 600mg/300mL 600 MG/300 ML BAG IV SCH ×2 (08:58→20:30)
[2018-06-15] MEDS: Apixaban 5 MG TABLET PO SCH ×2 (09:20→17:08)
[2018-06-15] MEDS ORDERED: DOPamine 400 MG/250 ML BAG IV PRN (11:41)
--- NOTE | 2018-06-15 13:18 | General Progress Note ---
Subjective - Review of Systems Service Date: 06/15/18 Subjective: Patient is still complaining of chest pain shortness of breath no palpitations Objective - Results Result Diagrams: 06/15/18 06:46 06/15/18 06:46 Recent Labs: Laboratory Last Values WBC 8.6 Th/cmm (4.8-10.8) 06/15/18 06:46 RBC 3.77 Mil/cmm (4.30-5.70) L 06/15/18 06:46 Hgb 11.1 gm/dL (12-16) L 06/15/18 06:46 Hct 33.7 % (41.0-60) L 06/15/18 06:46 MCV 89.4 fl (80-99) 06/15/18 06:46 MCH 29.4 pg (26.0-30.0) 06/15/18 06:46 MCHC Differential 32.9 pg (28.0-36.0) 06/15/18 06:46 RDW 14.9 % (11.5-20.0) 06/15/18 06:46 Plt Count 137 Th/cmm (150-400) L 06/15/18 06:46 MPV 9.1 fl 06/15/18 06:46 Neutrophils % 67.0 % (40.0-80.0) 06/15/18 06:46 Lymphocytes % 22.9 % (20.0-50.0) 06/15/18 06:46 Monocytes % 8.8 % (2.0-10.0) 06/15/18 06:46 Eosinophils % 0.8 % (0.0-5.0) 06/15/18 06:46 Basophils % 0.5 % (0.0-2.0) 06/15/18 06:46 Sodium 133 mEq/L (136-145) L 06/15/18 06:46 Potassium 4.3 mEq/L (3.5-5.1) 06/15/18 06:46 Chloride 87 mEq/L (98-107) L 06/15/18 06:46 Carbon Dioxide 37.2 mEq/L (21.0-31.0) H 06/15/18 06:46 Anion Gap 13.1 (7.0-16.0) 06/15/18 06:46 BUN 64 mg/dL (7-25) H 06/15/18 06:46 Creatinine 2.3 mg/dL (0.7-1.3) H 06/15/18 06:46 Est GFR ( Amer) 37.2 ml/min (>90) 06/15/18 06:46 Est GFR (Non-Af Amer) 30.8 ml/min 06/15/18 06:46 BUN/Creatinine Ratio 27.8 06/15/18 06:46 Glucose 170 mg/dL (70-105) H 06/15/18 06:46 POC Glucose 216 MG/DL (70 - 105) H 06/15/18 12:03 Whole Bld Lactic Acid 1.92 mmol/L (0.60-1.99) 06/12/18 13:55 Calcium 9.0 mg/dL (8.6-10.3) 06/15/18 06:46 Phosphorus 5.6 mg/dL (2.5-5.0) H 06/15/18 06:46 Magnesium 2.1 mg/dL (1.9-2.7) 06/15/18 06:46 Total Bilirubin 0.5 mg/dL (0.3-1.0) 06/15/18 06:46 AST 68 U/L (13-39) H 06/15/18 06:46 ALT 128 U/L (7-52) H 06/15/18 06:46 Alkaline Phosphatase 112 U/L (34-104) H 06/15/18 06:46 Creatine Kinase 35 U/L (30-223) 06/11/18 21:30 Troponin I 0.10 ng/mL (0.01-0.05) H* D 06/13/18 06:35 Total Protein 6.6 gm/dL (6.0-8.3) 06/15/18 06:46 Albumin 3.8 gm/dL (4.2-5.5) L 06/15/18 06:46 Globulin 2.8 gm/dL 06/15/18 06:46 Albumin/Globulin Ratio 1.4 (1.0-1.8) 06/15/18 06:46 Triglycerides 114 mg/dL (<150) 06/13/18 06:35 Cholesterol 115 mg/dL (<200) 06/13/18 06:35 LDL Cholesterol Direct 76 mg/dL (75-193) 06/13/18 06:35 HDL Cholesterol 26 mg/dL (23-92) 06/13/18 06:35 Amylase 24 U/L (29-103) L 06/13/18 06:35 Lipase 11 U/L (11-82) 06/11/18 21:30 TSH 1.30 uIU/ml (0.34-5.60) 06/12/18 13:55 Urine Source RANDOM 06/13/18 13:46 Urine Color YELLOW 06/13/18 13:46 Urine Clarity CLEAR (CLEAR) 06/13/18 13:46 Urine pH 5.5 (4.6 - 8.0) 06/13/18 13:46 Ur Specific [place] >= 1.030 (1.005-1.030) 06/13/18 13:46 Urine Protein NEGATIVE mg/dL (NEGATIVE) 06/13/18 13:46 Urine Glucose (UA) NEGATIVE mg/dL (NEGATIVE) 06/13/18 13:46 Urine Ketones NEGATIVE mg/dL (NEGATIVE) 06/13/18 13:46 Urine Blood NEGATIVE (NEGATIVE) 06/13/18 13:46 Urine Nitrate NEGATIVE (NEGATIVE) 06/13/18 13:46 Urine Bilirubin NEGATIVE (NEGATIVE) 06/13/18 13:46 Urine Urobilinogen 0.2 E.U./dL (0.2 - 1.0) 06/13/18 13:46 Ur Leukocyte Esterase NEGATIVE (NEGATIVE) 06/13/18 13:46 Urine RBC NONE SEEN /hpf (0-5) 06/13/18 13:46 Urine WBC NONE SEEN /hpf (0-5) 06/13/18 13:46 Ur Epithelial Cells RARE /lpf (FEW) 06/13/18 13:46 Urine Bacteria FEW /hpf (NONE SEEN) 06/13/18 13:46 Urine Opiates Screen NEGATIVE (NEGATIVE) 06/13/18 13:46 Urine Methadone Screen NEGATIVE (NEGATIVE) 06/13/18 13:46 Ur Barbiturates Screen NEGATIVE (NEGATIVE) 06/13/18 13:46 Ur Tricyclics Screen NEGATIVE (NEGATIVE) 06/13/18 13:46 Ur Phencyclidine Scrn NEGATIVE (NEGATIVE) 06/13/18 13:46 Amphetamines Screen NEGATIVE (NEGATIVE) 06/13/18 13:46 U Methamphetamines Scrn NEGATIVE (NEGATIVE) 06/13/18 13:46 U Benzodiazepines Scrn NEGATIVE (NEGATIVE) 06/13/18 13:46 U Cocaine Metab Screen NEGATIVE (NEGATIVE) 06/13/18 13:46 U Cannabinoids Screen NEGATIVE (NEGATIVE) 06/13/18 13:46 - Physical Exam Vitals and I&O: Vital Signs Temp 96.6 F 06/15/18 12:00 Pulse 100 06/15/18 12:00 Resp 18 06/15/18 12:00 BP 84/30 06/15/18 12:00 Pulse Ox 91 06/15/18 12:00 Intake & Output 06/14/18 06/15/18 06/15/18 18:59 06:59 18:59 Intake Total 300 1100 Balance 300 1100 Weight (lbs) 117.934 kg 124.738 kg Intake: Intake, IV Amount 300 300 Linezolid 600mg/300mL 600 300 300 mg In 300 ml @ 300 mls/ hr IV Q12HR [facility] Rx#: [id number] Oral 800 Other: # Voids 600 # Bowel Movements 2 Stool Characteristics Soft Soft Weight Source Bedscale Active Medications: Current Medications Acetaminophen (Tylenol) 650 mg PO Q4HR PRN PRN Reason: Pain or Fever >101 Stop: 08/11/18 03:59 Last Admin: 06/13/18 21:42 Dose: 650 mg Albuterol/Ipratropium (Duoneb Neb) 3 ml HHN Q4HRT [facility] Stop: 08/11/18 02:59 Last Admin: 06/15/18 10:39 Dose: 3 ml Aspirin (Aspirin) 325 mg PO DAILY [facility] Stop: 08/11/18 08:59 Last Admin: 06/15/18 08:57 Dose: 325 mg Carvedilol (Coreg) 6.25 mg PO BID [facility] Stop: 08/11/18 16:59 Last Admin: 06/15/18 08:52 Dose: Not Given Dextrose (D50w) 50 ml IVP PRN PRN PRN Reason: Blood Glucose less than 70 Stop: 08/11/18 05:22 Gabapentin (Neurontin) 800 mg PO TID [facility] Stop: 08/11/18 13:59 Last Admin: 06/15/18 08:58 Dose: 800 mg Glipizide (Glucotrol) 5 mg PO DAILY [facility] Stop: 08/11/18 11:14 Last Admin: 06/15/18 08:58 Dose: 5 mg Linezolid (Zyvox) 600 mg in 300 mls @ 300 mls/hr IV Q12HR [facility] Stop: 08/11/18 08:59 Last Admin: 06/15/18 08:58 Dose: 300 mls/hr Dopamine HCl/Dextrose (Dopamine) 400 mg in 250 mls @ 6.634 mls/hr IV TITR PRN PRN Reason: RENAL PERFUSION Stop: 06/16/18 08:32 Insulin Human Lispro (Humalog Insulin Sliding Scale) 0 units SUBQ ACHS [facility]; Protocol Stop: 08/11/18 07:29 Last Admin: 06/15/18 12:06 Dose: 4 units Lactobacillus Rhamnosus (Culturelle 15b) 1 each PO DAILY [facility] Stop: 08/13/18 08:59 Last Admin: 06/15/18 08:58 Dose: 1 each Levetiracetam (Keppra) 500 mg PO BID [facility] Stop: 08/13/18 18:14 Last Admin: 06/15/18 08:58 Dose: 500 mg Magnesium Oxide (Mag-Oxide) 400 mg PO DAILY [facility] Stop: 08/12/18 08:59 Last Admin: 06/15/18 08:58 Dose: 400 mg Miscellaneous (Probiotic Screen) 1 ea MC PRN PRN PRN Reason: PROTOCOL Stop: 08/12/18 13:54 Ondansetron HCl (Zofran) 4 mg IV Q4H PRN PRN Reason: Nausea / Vomiting Stop: 08/14/18 11:47 Last Admin: 06/15/18 11:55 Dose: 4 mg Pantoprazole Sodium (Protonix) 40 mg PO QDAC [facility] Stop: 08/11/18 07:29 Last Admin: 06/15/18 06:36 Dose: 40 mg Tramadol HCl (Ultram) 50 mg PO Q4H PRN PRN Reason: Pain (Severe) Stop: 08/11/18 11:08 Last Admin: 06/15/18 08:58 Dose: 50 mg General: Alert, No acute distress HEENT: Mucous membr. moist/pink Neck: Supple, JVD, +2 carotid pulse wo bruit (flat) Cardiovascular: Regular rate, Systolic murmurs, Other (atrial fibrillation) Lungs: Clear to auscultation, Normal air movement Abdomen: Bowel sounds, Soft, Obese, Other (no organomegaly) Neurological: Normal speech, Strength at 5/5 X4 ext, Cranial nerves 3-12 NL, Reflexes 2+ - Procedures Procedures: Procedures Procedure Code Date OXYGEN ENRICHMENT NEC 93.96 12/11/00 Assessment/Plan - Problem List Patient Problems: All Active Problems ARF (acute renal failure) (Acute) COPD with acute exacerbation (Acute) J44.1 Diabetes mellitus (Acute) E11.9 HTN (hypertension) (Acute) I10 - Assessment Assessment: Staph septicemia Diabetes mellitus type 2 insulin-dependent Diabetics securities Hypertension Congestive heart failure diastolic dysfunction. COPD sick sinus syndrome with pacemaker Atrial fibrillation Narcotic dependence - Plan Plan: Continue IV antibiotics we will do urine for drug screen Patient to get Kayexalate 60 g due to hyperkalemia Low dose dopamine for renal perfusion Nutritional Asmnt/Malnutr-PDOC - Dietary Evaluation Malnutrition Findings (Please click <Entered> for more info): Nutritional Asmnt/Malnutrition Start: 06/12/18 17: 18 Text: Status: Complete Freq: Protocol: Document 06/12/18 17:23 LCHENG (Rec: 06/12/18 17:37 [email or web address]) Nutritional Asmnt/Malnutrition Patient General Information Nutritional Screening High Risk Diagnosis COPD, CHF Pertinent Medical Hx/Surgical Hx DM, HTN, pacemaker, COPD, CHF Subjective Information Pt seen sitting up on bed having lunch. Pt stated he did not want this lunch tray only took the ice cream and requested for salad and fresh fruit. Food preference provided to RD. Glucose ad admission was 189 noted. Pt appeared not ready for diabetic education. Current Diet Order/ Nutrition Support CCHO NA 2gm Pertinent Medications lasix, humalog, mag-oxide, glucophage, protonix Pertinent Labs 06/12 na 135, K 5.8, Cl 92, BUN 35, Cr 1.8, Glucose 156, POC 147-280, Alb 3.8 Nutritional Hx/Data Height 1.73 m Height (Calculated Centimeters) 172.7 Current Weight (lbs) 117.934 kg Weight (Calculated Kilograms) 117.9 Weight (Calculated Grams) 352420.0 [place] Body Weight 154 Body Mass Index (BMI) 39.5 Weight Status Obese GI Symptoms GI Symptoms None Last BM none Difficult in: None Skin Integrity/Comment: intact Estimated Nutritional Goals BEE in Kcals: Adj wt of IBW Calories/Kcals/Kg 23-27 Kcals Calculated 8664-3701 Protein: Adj wt of IBW Protein g/k.8 Protein Calculated 66 Fluid: ml Nutritional Problem 1. Problem Problem altered nutrition related labs Etiology hyperglycemia Signs/Symptoms: Glucose 156, POC 147-280 Intervention/Recommendation Comments 1. Continue with CCHO Na 2gm diet as ordered. 2. Monitor PO intake, wt, labs and skin integrity 3. F/U as high risk in 2-3 days Expected Outcomes/Goals Expected Outcomes/Goals 1. PO intake to meet at least 75% of nutritional needs. 2. Wt stability, skin to remain intact, labs to approach WNL.
--- NOTE | 2018-06-16 01:49 | Infectious Disease Prog Note ---
Infectious Disease Subjective - Review of Systems Service Date: 06/15/18 Subjective: Patient feels better, had used CPAP last night. Infectious Disease Objective - Results Result Diagrams: 06/15/18 06:46 06/15/18 06:46 Recent Labs: Laboratory Last Values WBC 8.6 Th/cmm (4.8-10.8) 06/15/18 06:46 RBC 3.77 Mil/cmm (4.30-5.70) L 06/15/18 06:46 Hgb 11.1 gm/dL (12-16) L 06/15/18 06:46 Hct 33.7 % (41.0-60) L 06/15/18 06:46 MCV 89.4 fl (80-99) 06/15/18 06:46 MCH 29.4 pg (26.0-30.0) 06/15/18 06:46 MCHC Differential 32.9 pg (28.0-36.0) 06/15/18 06:46 RDW 14.9 % (11.5-20.0) 06/15/18 06:46 Plt Count 137 Th/cmm (150-400) L 06/15/18 06:46 MPV 9.1 fl 06/15/18 06:46 Neutrophils % 67.0 % (40.0-80.0) 06/15/18 06:46 Lymphocytes % 22.9 % (20.0-50.0) 06/15/18 06:46 Monocytes % 8.8 % (2.0-10.0) 06/15/18 06:46 Eosinophils % 0.8 % (0.0-5.0) 06/15/18 06:46 Basophils % 0.5 % (0.0-2.0) 06/15/18 06:46 Sodium 133 mEq/L (136-145) L 06/15/18 06:46 Potassium 4.3 mEq/L (3.5-5.1) 06/15/18 06:46 Chloride 87 mEq/L (98-107) L 06/15/18 06:46 Carbon Dioxide 37.2 mEq/L (21.0-31.0) H 06/15/18 06:46 Anion Gap 13.1 (7.0-16.0) 06/15/18 06:46 BUN 64 mg/dL (7-25) H 06/15/18 06:46 Creatinine 2.3 mg/dL (0.7-1.3) H 06/15/18 06:46 Est GFR ( Amer) 37.2 ml/min (>90) 06/15/18 06:46 Est GFR (Non-Af Amer) 30.8 ml/min 06/15/18 06:46 BUN/Creatinine Ratio 27.8 06/15/18 06:46 Glucose 170 mg/dL (70-105) H 06/15/18 06:46 POC Glucose 180 MG/DL (70 - 105) H 06/15/18 20:29 Whole Bld Lactic Acid 1.92 mmol/L (0.60-1.99) 06/12/18 13:55 Calcium 9.0 mg/dL (8.6-10.3) 06/15/18 06:46 Phosphorus 5.6 mg/dL (2.5-5.0) H 06/15/18 06:46 Magnesium 2.1 mg/dL (1.9-2.7) 06/15/18 06:46 Total Bilirubin 0.5 mg/dL (0.3-1.0) 06/15/18 06:46 AST 68 U/L (13-39) H 06/15/18 06:46 ALT 128 U/L (7-52) H 06/15/18 06:46 Alkaline Phosphatase 112 U/L (34-104) H 06/15/18 06:46 Creatine Kinase 35 U/L (30-223) 06/11/18 21:30 Troponin I 0.10 ng/mL (0.01-0.05) H* D 06/13/18 06:35 Total Protein 6.6 gm/dL (6.0-8.3) 06/15/18 06:46 Albumin 3.8 gm/dL (4.2-5.5) L 06/15/18 06:46 Globulin 2.8 gm/dL 06/15/18 06:46 Albumin/Globulin Ratio 1.4 (1.0-1.8) 06/15/18 06:46 Triglycerides 114 mg/dL (<150) 06/13/18 06:35 Cholesterol 115 mg/dL (<200) 06/13/18 06:35 LDL Cholesterol Direct 76 mg/dL (75-193) 06/13/18 06:35 HDL Cholesterol 26 mg/dL (23-92) 06/13/18 06:35 Amylase 24 U/L (29-103) L 06/13/18 06:35 Lipase 11 U/L (11-82) 06/11/18 21:30 TSH 1.30 uIU/ml (0.34-5.60) 06/12/18 13:55 Urine Source RANDOM 06/13/18 13:46 Urine Color YELLOW 06/13/18 13:46 Urine Clarity CLEAR (CLEAR) 06/13/18 13:46 Urine pH 5.5 (4.6 - 8.0) 06/13/18 13:46 Ur Specific [place] >= 1.030 (1.005-1.030) 06/13/18 13:46 Urine Protein NEGATIVE mg/dL (NEGATIVE) 06/13/18 13:46 Urine Glucose (UA) NEGATIVE mg/dL (NEGATIVE) 06/13/18 13:46 Urine Ketones NEGATIVE mg/dL (NEGATIVE) 06/13/18 13:46 Urine Blood NEGATIVE (NEGATIVE) 06/13/18 13:46 Urine Nitrate NEGATIVE (NEGATIVE) 06/13/18 13:46 Urine Bilirubin NEGATIVE (NEGATIVE) 06/13/18 13:46 Urine Urobilinogen 0.2 E.U./dL (0.2 - 1.0) 06/13/18 13:46 Ur Leukocyte Esterase NEGATIVE (NEGATIVE) 06/13/18 13:46 Urine RBC NONE SEEN /hpf (0-5) 06/13/18 13:46 Urine WBC NONE SEEN /hpf (0-5) 06/13/18 13:46 Ur Epithelial Cells RARE /lpf (FEW) 06/13/18 13:46 Urine Bacteria FEW /hpf (NONE SEEN) 06/13/18 13:46 Urine Opiates Screen NEGATIVE (NEGATIVE) 06/13/18 13:46 Urine Methadone Screen NEGATIVE (NEGATIVE) 06/13/18 13:46 Ur Barbiturates Screen NEGATIVE (NEGATIVE) 06/13/18 13:46 Ur Tricyclics Screen NEGATIVE (NEGATIVE) 06/13/18 13:46 Ur Phencyclidine Scrn NEGATIVE (NEGATIVE) 06/13/18 13:46 Amphetamines Screen NEGATIVE (NEGATIVE) 06/13/18 13:46 U Methamphetamines Scrn NEGATIVE (NEGATIVE) 06/13/18 13:46 U Benzodiazepines Scrn NEGATIVE (NEGATIVE) 06/13/18 13:46 U Cocaine Metab Screen NEGATIVE (NEGATIVE) 06/13/18 13:46 U Cannabinoids Screen NEGATIVE (NEGATIVE) 06/13/18 13:46 - Physical Exam Vitals and I&O: Vital Signs Temp 97.6 F 06/15/18 23:48 Pulse 105 06/15/18 23:48 Resp 18 06/16/18 01:00 BP 115/58 06/15/18 23:48 Pulse Ox 93 06/15/18 23:48 Intake & Output 06/15/18 06/15/18 06/16/18 06:59 18:59 06:59 Intake Total 2892 915 7162 Output Total 50 Balance 7751 836 4426 Weight (lbs) 117.934 kg 124.738 kg 124.738 kg Intake: Intake, IV Amount 300 300 300 Linezolid 600mg/300mL 600 300 300 300 mg In 300 ml @ 300 mls/ hr IV Q12HR [facility] Rx#: [id number] Oral 800 800 Output: Emesis 50 Other: # Voids 600 700 # Bowel Movements 2 0 Stool Characteristics Soft Weight Source Bedscale Bedscale Active Medications: Current Medications Acetaminophen (Tylenol) 650 mg PO Q4HR PRN PRN Reason: Pain or Fever >101 Stop: 08/11/18 03:59 Last Admin: 06/13/18 21:42 Dose: 650 mg Albuterol/Ipratropium (Duoneb Neb) 3 ml HHN Q4HRT [facility] Stop: 08/11/18 02:59 Last Admin: 06/15/18 23:08 Dose: 3 ml Aspirin (Aspirin) 325 mg PO DAILY [facility] Stop: 08/11/18 08:59 Last Admin: 06/15/18 08:57 Dose: 325 mg Carvedilol (Coreg) 6.25 mg PO BID [facility] Stop: 08/11/18 16:59 Last Admin: 06/15/18 17:06 Dose: Not Given Dextrose (D50w) 50 ml IVP PRN PRN PRN Reason: Blood Glucose less than 70 Stop: 08/11/18 05:22 Gabapentin (Neurontin) 800 mg PO TID [facility] Stop: 08/11/18 13:59 Last Admin: 06/15/18 21:41 Dose: Not Given Glipizide (Glucotrol) 5 mg PO DAILY [facility] Stop: 08/11/18 11:14 Last Admin: 06/15/18 08:58 Dose: 5 mg Linezolid (Zyvox) 600 mg in 300 mls @ 300 mls/hr IV Q12HR [facility] Stop: 08/11/18 08:59 Last Infusion: 06/15/18 21:40 Dose: Infused Insulin Human Lispro (Humalog Insulin Sliding Scale) 0 units SUBQ ACHS [facility]; Protocol Stop: 08/11/18 07:29 Last Admin: 06/15/18 21:41 Dose: Not Given Lactobacillus Rhamnosus (Culturelle 15b) 1 each PO DAILY [facility] Stop: 08/13/18 08:59 Last Admin: 06/15/18 08:58 Dose: 1 each Levetiracetam (Keppra) 500 mg PO BID [facility] Stop: 08/13/18 18:14 Last Admin: 06/15/18 17:08 Dose: 500 mg Magnesium Oxide (Mag-Oxide) 400 mg PO DAILY [facility] Stop: 08/12/18 08:59 Last Admin: 06/15/18 08:58 Dose: 400 mg Miscellaneous (Probiotic Screen) 1 ea MC PRN PRN PRN Reason: PROTOCOL Stop: 08/12/18 13:54 Ondansetron HCl (Zofran) 4 mg IV Q4H PRN PRN Reason: Nausea / Vomiting Stop: 08/14/18 11:47 Last Admin: 06/15/18 22:44 Dose: 4 mg Pantoprazole Sodium (Protonix) 40 mg PO QDAC [facility] Stop: 08/11/18 07:29 Last Admin: 06/15/18 06:36 Dose: 40 mg Sevelamer Carbonate (Renvela) 800 mg PO TIDWM [facility] Stop: 08/14/18 16:59 Last Admin: 06/15/18 17:08 Dose: 800 mg Tramadol HCl (Ultram) 50 mg PO Q4H PRN PRN Reason: Pain (Severe) Stop: 08/11/18 11:08 Last Admin: 06/15/18 23:49 Dose: 50 mg General: no acute distress, well developed, well nourished HEENT: atraumatic, normocephalic, PERRLA, EOMI Neck: supple, no thyromegaly Cardiovascular: S1S2, regular Lungs: clear to auscultation bilaterally, clear to percussion Abdomen: soft, no tender, no distended Extremities: no cyanosis, no clubbing, no edema Neurological: awake, alert, oriented Skin: intact - Procedures Procedures: Procedures Procedure Code Date OXYGEN ENRICHMENT NEC 93.96 12/11/00 Infectious Disease Assmt/Plan - Problem List Patient Problems: All Active Problems ARF (acute renal failure) (Acute) COPD with acute exacerbation (Acute) J44.1 Diabetes mellitus (Acute) E11.9 HTN (hypertension) (Acute) I10 - Assessment Assessment: 1. Staph hemolyticus bacteremia/sepsis. 2. DEENA on CKD. 3. SOB. improved, COPD exacerbation. 4. CELIO. 5. DM2 6. COPD. 7. Obesity. 8. h/o Afib and Pacemaker placement. - Plan Plan: Will continue the same treatment. Continue Zyvox till 06/16/2018. Follow up blood cultures done on this admission. can be discharged from ID point of view. Nutritional Asmnt/Malnutr-PDOC - Dietary Evaluation Malnutrition Findings (Please click <Entered> for more info): Nutritional Asmnt/Malnutrition Start: 06/12/18 17: 18 Text: Status: Complete Freq: Protocol: Document 06/12/18 17:23 LCHENG (Rec: 06/12/18 17:37 [email or web address] [id number]) Nutritional Asmnt/Malnutrition Patient General Information Nutritional Screening High Risk Diagnosis COPD, CHF Pertinent Medical Hx/Surgical Hx DM, HTN, pacemaker, COPD, CHF Subjective Information Pt seen sitting up on bed having lunch. Pt stated he did not want this lunch tray only took the ice cream and requested for salad and fresh fruit. Food preference provided to RD. Glucose ad admission was 189 noted. Pt appeared not ready for diabetic education. Current Diet Order/ Nutrition Support CCHO NA 2gm Pertinent Medications lasix, humalog, mag-oxide, glucophage, protonix Pertinent Labs 06/12 na 135, K 5.8, Cl 92, BUN 35, Cr 1.8, Glucose 156, POC 147-280, Alb 3.8 Nutritional Hx/Data Height 1.73 m Height (Calculated Centimeters) 172.7 Current Weight (lbs) 117.934 kg Weight (Calculated Kilograms) 117.9 Weight (Calculated Grams) 774952.0 [place] Body Weight 154 Body Mass Index (BMI) 39.5 Weight Status Obese GI Symptoms GI Symptoms None Last BM none Difficult in: None Skin Integrity/Comment: intact Estimated Nutritional Goals BEE in Kcals: Adj wt of IBW Calories/Kcals/Kg 23-27 Kcals Calculated 6119-8476 Protein: Adj wt of IBW Protein g/k.8 Protein Calculated 66 Fluid: ml Nutritional Problem 1. Problem Problem altered nutrition related labs Etiology hyperglycemia Signs/Symptoms: Glucose 156, POC 147-280 Intervention/Recommendation Comments 1. Continue with [facility] Na 2gm diet as ordered. 2. Monitor PO intake, wt, labs and skin integrity 3. F/U as high risk in 2-3 days Expected Outcomes/Goals Expected Outcomes/Goals 1. PO intake to meet at least 75% of nutritional needs. 2. Wt stability, skin to remain intact, labs to approach WNL.
--- NOTE | 2018-06-16 02:10 | Progress Notes ---
DATE: 06/15/2018 This is a progress note coverage for Dr. Ap Rutherford. SUBJECTIVE: The patient had a seizure episode and found with movement of all four limbs and bruising of the left fifth digit, which has Dupuytren's contracture and significant amount of bruise color discoloration noted. The patient since 2010 unable to move left fifth digit, is in a flexed position due to the Dupuytren's contracture of the left palm. Denies any significant pain there at present time. The patient had seizures every day and sometime the patient remembers most of the time is unaware what is happening and son or other family member noticed that his limb moves all of them. No involuntary tongue biting or defecation or urination. Remained afebrile. Today's lab revealed potassium of 4.3, but the patient still has sodium of 133 and some nausea after starting on a renal dose dopamine, WBC remained same. Creatinine still at 2.3, yesterday was 2.4. Sugar range from 175 to 308 to 149, lowest 114, fasting 151. Liver enzymes are still elevated at AST of 68 and ALT of 128. The patient able to tolerate the BiPAP at night. OBJECTIVE: VITAL SIGNS: Temperature 96.6, afebrile, pulse 92, respiratory rate 20, blood pressure 108/46 and oxygen saturation 92%. HEENT: No icterus, no pallor. Mucosa is moist. NECK: Very short and thick. LUNGS: Clear anteriorly and posteriorly. No rales, rhonchi. CARDIOVASCULAR: S1 and S2 normal limits. No murmur, gallop or bruit. ABDOMEN: Morbidly obese, otherwise benign. EXTREMITIES: No leg edema noted. Dupuytren's contracture noted on both palms, especially left fifth digit is permanently in a flexed position at the left proximal interphalangeal joint area with local bruising from the black and blue colors also noted and tenderness to touch. The patient is unable to extend the left fifth PIP joint. No clubbing or cyanosis or synovitis noted. CENTRAL NERVOUS SYSTEM: Nonfocal. LABORATORY AND DIAGNOSTIC TESTS: Significant for WBC 8.6, hemoglobin 11, MCV 89, platelet count of 137,000, neutrophils 67%. Sodium 133, potassium 4.3, chloride 87, bicarbonate 37, BUN 64, creatinine 2.3, glucose of 170, calcium 9.0, phosphorus 5.6, magnesium 2.1, AST 68, ALT 128, alkaline phosphatase 112, albumin 3.8. Last chest x-ray on 06/13/2018 consistent with subsegmental atelectasis in the left perihilar area. ASSESSMENT AND PLAN: 1. Seizure disorder, most likely narcolepsy vs grand mal, give Keppra 500 mg b.i.d., started workup with CT head without contrast during this hospital stay and outpatient Neurology consult. 2. Hyperkalemia, now improved with potassium 4.3. We will check a BMP in the morning and adjust the medication Kayexalate at that time. 4. Dxhun-bi-sleouhj renal insufficiency. The patient started having nausea after a renal dose dopamine at 2.5, will decrease the dose to 1.5 and see how the patient is doing and give Zofran. 4. Staphylococcus haemolyticus bacteremia. The patient is currently on IV Zosyn up till 06/16/2018. 5. Transaminitis. We will monitor. Ultrasound of abdomen and liver panel and hepatitis panel in the morning. 6. Elevated troponin, further plan per Cardiology. 7. Obstructive sleep apnea, currently on a BiPAP and tolerating it. The patient will need outpatient BiPAP treatment when the patient returned home or jail facility. 8. Morbid obesity with BMI of 41.8. 9. Status post fall with seizures and we will obtain a left hand x-rays. 10. Dupuytren's contracture of the left fifth PIP joint with the local bruising. Continue supportive care at present time. JOB# [id number] JESSICA
--- NOTE | 2018-06-16 02:26 | Progress Notes ---
DATE: 06/15/2018 LOCATION: [facility], Room #30, bed B. SUBJECTIVE: The patient is conscious, alert. The patient has been started on renal dose dopamine at 1.5 mcg. The patient has some nausea and vomiting, treated with Zofran with good outcome. The patient's urine output is improving. The patient's shortness of breath is less. Denies chest pain. No diarrhea or constipation. OBJECTIVE: VITAL SIGNS: Temperature 96.6, pulse 100, blood pressure 84/30. Yesterday's intake 1800 and output 850. HEART: Regular. LUNGS: Good air entry. ABDOMEN: Soft. EXTREMITIES: No edema. SIGNIFICANT LABORATORY DATA: Hemoglobin 11, sodium improved to 133, potassium improved to 4.3, BUN 64, creatinine 2.3, calcium 9, phosphorus 5.6 and WBC 8.6. ASSESSMENT: 1. Hyperkalemia, improving. 2. Hyponatremia, improving. 3. Acute kidney injury. 4. Chronic kidney disease, III-IV, baseline. 5. Anemia. 6. Congestive heart failure. 7. Diabetes mellitus. PLAN: 1. Decrease dopamine to 1.5 mcg instead of 2.5 mcg. 2. Obtain urinalysis. 3. Obtain chest x-ray. 4. Start the patient on phosphate binder. 5. Obtain BMP, phosphorus and CBC in the morning. 6. Left hand x-ray is pending. Discussed with nursing staff. JOB# [id number]
[2018-06-16] MEDS: Albuterol/Ipratropium Neb 3 ML AERS HHN SCH ×6 (03:17→23:16)
[2018-06-16 05:49] LABS: ALB/GLOB RATIO 1.3 (1.0-1.8); ALBUMIN 3.8 gm/dL (4.2-5.5); ANION GAP 14.8 (7.0-16.0); BILIRUBIN,TOTAL 1.2 mg/dL (0.3-1.0); CALCIUM SERUM 9.1 mg/dL (8.6-10.3); CARBON DIOXIDE 34.1 mEq/L (21.0-31.0); CREATININE - SERUM 2.2 mg/dL (0.7-1.3); GFR AFRICAN-AMERICAN 39.2 ml/min (>90); GFR NON AFRICAN-AMERICAN 32.4 ml/min; PHOSPHOROUS 5.7 mg/dL (2.5-5.0); POTASSIUM SERUM 4.9 mEq/L (3.5-5.1); TOTAL PROTEIN,SERUM 6.8 gm/dL (6.0-8.3)
[2018-06-16] MEDS: INSULIN LISPRO SLIDING SCALE 100 UNITS/ML UNIT SUBQ SCH ×4 (06:51→22:07)
[2018-06-16] MEDS: Pantoprazole 40 mg EC Tab PO SCH (06:54)
--- NOTE | 2018-06-16 07:53 | Diagnostic Imaging Report ---
Right hand (3 views) HISTORY: Pain, trauma Evaluation of the DIP and PIP joints limited due to flexion. No definite acute bony abnormalities. No definite fractures. Radiolucency with a sclerotic rim noted in the vicinity of the ulnar styloid. Findings may be associated with a benign lesion such as a bone cyst. IMPRESSION: 1. No definite acute abnormalities In the presence of recent trauma and persistent symptoms, a repeat radiograph in 5-7 days may be helpful for detection of a subtle or occult fracture.
--- NOTE | 2018-06-16 07:54 | Diagnostic Imaging Report ---
Left hand (3 views) HISTORY: Pain, trauma Severe flexion deformity involving the fifth PIP joint. There is a mildly displaced fracture off the anterior aspect of the base of the fifth middle phalanx. The fracture line appears to extend to the articular surface. IMPRESSION: 1. Fracture involving the base of the fifth middle phalanx with severe flexion deformity.
[2018-06-16] MEDS: Lactobacillus Rhamnosus GG 15 Billion CFU CAP.SPRINK PO SCH (09:00)
[2018-06-16] MEDS: Apixaban 5 MG TABLET PO SCH ×2 (09:00→17:09)
[2018-06-16] MEDS: Linezolid 600mg/300mL 600 MG/300 ML BAG IV SCH ×2 (10:00→22:06)
--- NOTE | 2018-06-16 10:03 | Diagnostic Imaging Report ---
Abdominal ultrasound HISTORY: Abnormal liver function test Suboptimal exam due to patient size, body habitus, bowel gas. Incomplete visualization of the liver which appears to be enlarged. No obvious focal lesions. The gallbladder is not seen consistent with patient's surgical history. Common bile duct could not be visualized. No intrahepatic biliary dilatation. Suboptimal delineation the renal margins. No obvious focal lesions or hydronephrosis. The pancreas cannot be seen. No other definite retroperitoneal or intra-abdominal abnormality. IMPRESSION: 1. Suboptimal exam due to patient's size, body habitus, and bowel gas and due to incomplete visualization of the liver which appears to be enlarged. 2. Nonvisualization of the gallbladder consistent with patient's surgical history 3. Poor visualization of the kidneys. The pancreas cannot be seen due to bowel gas.
[2018-06-16] MEDS ORDERED: Sodium Chloride 0.9% 1,000 ML IV SCH ×2 (11:15→22:00)
--- NOTE | 2018-06-16 12:03 | General Progress Note ---
Subjective - Review of Systems Service Date: 06/16/18 Subjective: Patient is still complaining of chest pain shortness of breath no palpitations Objective - Results Result Diagrams: 06/15/18 06:46 06/16/18 04:50 Recent Labs: Laboratory Last Values WBC 8.6 Th/cmm (4.8-10.8) 06/15/18 06:46 RBC 3.77 Mil/cmm (4.30-5.70) L 06/15/18 06:46 Hgb 11.1 gm/dL (12-16) L 06/15/18 06:46 Hct 33.7 % (41.0-60) L 06/15/18 06:46 MCV 89.4 fl (80-99) 06/15/18 06:46 MCH 29.4 pg (26.0-30.0) 06/15/18 06:46 MCHC Differential 32.9 pg (28.0-36.0) 06/15/18 06:46 RDW 14.9 % (11.5-20.0) 06/15/18 06:46 Plt Count 137 Th/cmm (150-400) L 06/15/18 06:46 MPV 9.1 fl 06/15/18 06:46 Neutrophils % 67.0 % (40.0-80.0) 06/15/18 06:46 Lymphocytes % 22.9 % (20.0-50.0) 06/15/18 06:46 Monocytes % 8.8 % (2.0-10.0) 06/15/18 06:46 Eosinophils % 0.8 % (0.0-5.0) 06/15/18 06:46 Basophils % 0.5 % (0.0-2.0) 06/15/18 06:46 Sodium 130 mEq/L (136-145) L 06/16/18 04:50 Potassium 4.9 mEq/L (3.5-5.1) 06/16/18 04:50 Chloride 86 mEq/L (98-107) L 06/16/18 04:50 Carbon Dioxide 34.1 mEq/L (21.0-31.0) H 06/16/18 04:50 Anion Gap 14.8 (7.0-16.0) 06/16/18 04:50 BUN 66 mg/dL (7-25) H 06/16/18 04:50 Creatinine 2.2 mg/dL (0.7-1.3) H 06/16/18 04:50 Est GFR ( Amer) 39.2 ml/min (>90) 06/16/18 04:50 Est GFR (Non-Af Amer) 32.4 ml/min 06/16/18 04:50 BUN/Creatinine Ratio 30.0 06/16/18 04:50 Glucose 207 mg/dL (70-105) H 06/16/18 04:50 POC Glucose 177 MG/DL (70 - 105) H 06/16/18 06:50 Whole Bld Lactic Acid 1.92 mmol/L (0.60-1.99) 06/12/18 13:55 Calcium 9.1 mg/dL (8.6-10.3) 06/16/18 04:50 Phosphorus 5.7 mg/dL (2.5-5.0) H 06/16/18 04:50 Magnesium 2.1 mg/dL (1.9-2.7) 06/15/18 06:46 Total Bilirubin 1.2 mg/dL (0.3-1.0) H 06/16/18 04:50 AST 111 U/L (13-39) H 06/16/18 04:50 ALT 202 U/L (7-52) H 06/16/18 04:50 Alkaline Phosphatase 120 U/L (34-104) H 06/16/18 04:50 Creatine Kinase 35 U/L (30-223) 06/11/18 21:30 Troponin I 0.10 ng/mL (0.01-0.05) H* D 06/13/18 06:35 Total Protein 6.8 gm/dL (6.0-8.3) 06/16/18 04:50 Albumin 3.8 gm/dL (4.2-5.5) L 06/16/18 04:50 Globulin 3.0 gm/dL 06/16/18 04:50 Albumin/Globulin Ratio 1.3 (1.0-1.8) 06/16/18 04:50 Triglycerides 114 mg/dL (<150) 06/13/18 06:35 Cholesterol 115 mg/dL (<200) 06/13/18 06:35 LDL Cholesterol Direct 76 mg/dL (75-193) 06/13/18 06:35 HDL Cholesterol 26 mg/dL (23-92) 06/13/18 06:35 Amylase 24 U/L (29-103) L 06/13/18 06:35 Lipase 11 U/L (11-82) 06/11/18 21:30 TSH 1.30 uIU/ml (0.34-5.60) 06/12/18 13:55 Urine Source RANDOM 06/13/18 13:46 Urine Color YELLOW 06/13/18 13:46 Urine Clarity CLEAR (CLEAR) 06/13/18 13:46 Urine pH 5.5 (4.6 - 8.0) 06/13/18 13:46 Ur Specific [place] >= 1.030 (1.005-1.030) 06/13/18 13:46 Urine Protein NEGATIVE mg/dL (NEGATIVE) 06/13/18 13:46 Urine Glucose (UA) NEGATIVE mg/dL (NEGATIVE) 06/13/18 13:46 Urine Ketones NEGATIVE mg/dL (NEGATIVE) 06/13/18 13:46 Urine Blood NEGATIVE (NEGATIVE) 06/13/18 13:46 Urine Nitrate NEGATIVE (NEGATIVE) 06/13/18 13:46 Urine Bilirubin NEGATIVE (NEGATIVE) 06/13/18 13:46 Urine Urobilinogen 0.2 E.U./dL (0.2 - 1.0) 06/13/18 13:46 Ur Leukocyte Esterase NEGATIVE (NEGATIVE) 06/13/18 13:46 Urine RBC NONE SEEN /hpf (0-5) 06/13/18 13:46 Urine WBC NONE SEEN /hpf (0-5) 06/13/18 13:46 Ur Epithelial Cells RARE /lpf (FEW) 06/13/18 13:46 Urine Bacteria FEW /hpf (NONE SEEN) 06/13/18 13:46 Urine Opiates Screen NEGATIVE (NEGATIVE) 06/13/18 13:46 Urine Methadone Screen NEGATIVE (NEGATIVE) 06/13/18 13:46 Ur Barbiturates Screen NEGATIVE (NEGATIVE) 06/13/18 13:46 Ur Tricyclics Screen NEGATIVE (NEGATIVE) 06/13/18 13:46 Ur Phencyclidine Scrn NEGATIVE (NEGATIVE) 06/13/18 13:46 Amphetamines Screen NEGATIVE (NEGATIVE) 06/13/18 13:46 U Methamphetamines Scrn NEGATIVE (NEGATIVE) 06/13/18 13:46 U Benzodiazepines Scrn NEGATIVE (NEGATIVE) 06/13/18 13:46 U Cocaine Metab Screen NEGATIVE (NEGATIVE) 06/13/18 13:46 U Cannabinoids Screen NEGATIVE (NEGATIVE) 06/13/18 13:46 - Physical Exam Vitals and I&O: Vital Signs Temp 96.3 F 06/16/18 08:00 Pulse 94 06/16/18 08:00 Resp 19 06/16/18 08:00 BP 87/60 06/16/18 08:00 Pulse Ox 92 06/16/18 08:00 Intake & Output 06/15/18 06/16/18 06/16/18 18:59 06:59 18:59 Intake Total 300 1700 Output Total 750 Balance 300 950 Weight (lbs) 124.738 kg 124.738 kg Intake: Intake, IV Amount 300 300 Linezolid 600mg/300mL 600 300 300 mg In 300 ml @ 300 mls/ hr IV Q12HR [facility] Rx#: [id number] Oral 1400 Output: Urine 700 Emesis 50 Other: # Voids 3 # Bowel Movements 0 Weight Source Bedscale Active Medications: Current Medications Acetaminophen (Tylenol) 650 mg PO Q4HR PRN PRN Reason: Pain or Fever >101 Stop: 08/11/18 03:59 Last Admin: 06/13/18 21:42 Dose: 650 mg Albuterol/Ipratropium (Duoneb Neb) 3 ml HHN Q4HRT [facility] Stop: 08/11/18 02:59 Last Admin: 06/16/18 12:01 Dose: 3 ml Aspirin (Aspirin) 325 mg PO DAILY [facility] Stop: 08/11/18 08:59 Last Admin: 06/15/18 08:57 Dose: 325 mg Carvedilol (Coreg) 6.25 mg PO BID [facility] Stop: 08/11/18 16:59 Last Admin: 06/15/18 17:06 Dose: Not Given Dextrose (D50w) 50 ml IVP PRN PRN PRN Reason: Blood Glucose less than 70 Stop: 08/11/18 05:22 Gabapentin (Neurontin) 800 mg PO TID [facility] Stop: 08/11/18 13:59 Last Admin: 06/15/18 21:41 Dose: Not Given Glipizide (Glucotrol) 5 mg PO DAILY [facility] Stop: 08/11/18 11:14 Last Admin: 06/15/18 08:58 Dose: 5 mg Linezolid (Zyvox) 600 mg in 300 mls @ 300 mls/hr IV Q12HR [facility] Stop: 08/11/18 08:59 Last Infusion: 06/15/18 21:40 Dose: Infused Sodium Chloride (Nacl 0.9%) 1,000 mls @ 50 mls/hr IV .Q20H [facility] Stop: 08/15/18 11:14 Insulin Human Lispro (Humalog Insulin Sliding Scale) 0 units SUBQ ACHS [facility]; Protocol Stop: 08/11/18 07:29 Last Admin: 06/16/18 06:51 Dose: Not Given Lactobacillus Rhamnosus (Culturelle 15b) 1 each PO DAILY [facility] Stop: 08/13/18 08:59 Last Admin: 06/15/18 08:58 Dose: 1 each Levetiracetam (Keppra) 500 mg PO BID [facility] Stop: 08/13/18 18:14 Last Admin: 06/15/18 17:08 Dose: 500 mg Magnesium Oxide (Mag-Oxide) 400 mg PO DAILY [facility] Stop: 08/12/18 08:59 Last Admin: 06/15/18 08:58 Dose: 400 mg Miscellaneous (Probiotic Screen) 1 ea [facility] PRN PRN PRN Reason: PROTOCOL Stop: 08/12/18 13:54 Ondansetron HCl (Zofran) 4 mg IV Q4H PRN PRN Reason: Nausea / Vomiting Stop: 08/14/18 11:47 Last Admin: 06/15/18 22:44 Dose: 4 mg Pantoprazole Sodium (Protonix) 40 mg PO QDAC [facility] Stop: 08/11/18 07:29 Last Admin: 06/16/18 06:54 Dose: Not Given Sevelamer Carbonate (Renvela) 800 mg PO TIDWM [facility] Stop: 08/14/18 16:59 Last Admin: 06/15/18 17:08 Dose: 800 mg Tramadol HCl (Ultram) 50 mg PO Q4H PRN PRN Reason: Pain (Severe) Stop: 08/11/18 11:08 Last Admin: 06/15/18 23:49 Dose: 50 mg General: Alert, No acute distress HEENT: Mucous membr. moist/pink Neck: Supple, JVD, +2 carotid pulse wo bruit (flat) Cardiovascular: Regular rate, Systolic murmurs, Other (atrial fibrillation) Lungs: Clear to auscultation, Normal air movement Abdomen: Bowel sounds, Soft, Obese, Other (no organomegaly) Neurological: Normal speech, Strength at 5/5 X4 ext, Cranial nerves 3-12 NL, Reflexes 2+ - Procedures Procedures: Procedures Procedure Code Date OXYGEN ENRICHMENT NEC 93.96 12/11/00 Assessment/Plan - Problem List Patient Problems: All Active Problems ARF (acute renal failure) (Acute) COPD with acute exacerbation (Acute) J44.1 Diabetes mellitus (Acute) E11.9 HTN (hypertension) (Acute) I10 - Assessment Assessment: Staph septicemia Diabetes mellitus type 2 insulin-dependent Diabetics securities Hypertension Congestive heart failure diastolic dysfunction. COPD sick sinus syndrome with pacemaker Atrial fibrillation Narcotic dependence - Plan Plan: Continue IV antibiotics we will do urine for drug screen Patient to get Kayexalate 60 g due to hyperkalemia Low dose dopamine for renal perfusion Nutritional Asmnt/Malnutr-PDOC - Dietary Evaluation Malnutrition Findings (Please click <Entered> for more info): Nutritional Asmnt/Malnutrition Start: 06/12/18 17: 18 Text: Status: Complete Freq: Protocol: Document 06/12/18 17:23 [email or web address] (Rec: 06/12/18 17:37 [id number] [id number]) Nutritional Asmnt/Malnutrition Patient General Information Nutritional Screening High Risk Diagnosis COPD, CHF Pertinent Medical Hx/Surgical Hx DM, HTN, pacemaker, COPD, CHF Subjective Information Pt seen sitting up on bed having lunch. Pt stated he did not want this lunch tray only took the ice cream and requested for salad and fresh fruit. Food preference provided to RD. Glucose ad admission was 189 noted. Pt appeared not ready for diabetic education. Current Diet Order/ Nutrition Support CCHO NA 2gm Pertinent Medications lasix, humalog, mag-oxide, glucophage, protonix Pertinent Labs 06/12 na 135, K 5.8, Cl 92, BUN 35, Cr 1.8, Glucose 156, POC 147-280, Alb 3.8 Nutritional Hx/Data Height 1.73 m Height (Calculated Centimeters) 172.7 Current Weight (lbs) 117.934 kg Weight (Calculated Kilograms) 117.9 Weight (Calculated Grams) 970462.0 [place] Body Weight 154 Body Mass Index (BMI) 39.5 Weight Status Obese GI Symptoms GI Symptoms None Last BM none Difficult in: None Skin Integrity/Comment: intact Estimated Nutritional Goals BEE in Kcals: Adj wt of IBW Calories/Kcals/Kg 23-27 Kcals Calculated 2112-2833 Protein: Adj wt of IBW Protein g/k.8 Protein Calculated 66 Fluid: ml Nutritional Problem 1. Problem Problem altered nutrition related labs Etiology hyperglycemia Signs/Symptoms: Glucose 156, POC 147-280 Intervention/Recommendation Comments 1. Continue with [facility] [place] Na 2gm diet as ordered. 2. Monitor PO intake, wt, labs and skin integrity 3. F/U as high risk in 2-3 days Expected Outcomes/Goals Expected Outcomes/Goals 1. PO intake to meet at least 75% of nutritional needs. 2. Wt stability, skin to remain intact, labs to approach WNL.
--- NOTE | 2018-06-16 12:35 | Diagnostic Imaging Report ---
CT scan of the brain without intravenous contrast HISTORY: Seizures Total DLP equals 907 CTDI equals 48.6 Axial sections were obtained from the base of the skull to the vertex. There is a normal ventricular system size for age. No acute parenchymal abnormalities. No intracerebral hemorrhage. No mass effect or shift of midline structures. There is prominence of cerebral sulci and subarachnoid cisterns reflecting mild atrophy. No other extra-axial masses or abnormal fluid collections. IMPRESSION: 1. No acute abnormalities 2. Mild cerebral atrophy
--- NOTE | 2018-06-16 23:48 | Consultation ---
DATE OF CONSULTATION: 06/16/2018 REQUESTING PHYSICIAN: Dr. Ap Rutherford REASON FOR CONSULTATION: Elevated LFTs. Thank you for asking me to see this patient in consultation. HISTORY OF PRESENT ILLNESS: This is a 62-year-old male who has been in the hospital since 06/12/2018. At that time was diagnosed with positive blood cultures, also with COPD and CHF exacerbation, as well as DEENA. Since that time, the patient has been making recovery and has been on medications for staph septicemia as well as supportive care for COPD as well as CHF. The patient's liver function tests have been mildly rising ever since he has been here in the hospital. He was started on new medications this hospitalization, mainly include Zyvox which he was started exactly on 06/12/2018, unknown whether he was using Keppra, but however he likely was on Keppra prior to this hospitalization. The patient currently states is somnolent, but he is alert and oriented and able to communicate. He apparently is getting close to discharge according to the patient. PAST MEDICAL HISTORY: Diabetes, hypertension, CHF, COPD, morbid obesity. MEDICATIONS: Have been reviewed extensively. SOCIAL HISTORY: Denies any tobacco, alcohol or drugs. REVIEW OF SYSTEMS: Positive for shortness of breath. All other 12-point systems are negative. PHYSICAL EXAMINATION: VITAL SIGNS: Temperature 97.4, pulse of 99, respiratory rate of 20, blood pressure is 105/73, satting 98% on 4 liters nasal cannula. GENERAL: He is in no acute distress. HEENT: Normocephalic, atraumatic. PERRLA positive. LUNGS: Clear bilaterally. No wheezes, rales or rhonchi. HEART: Regular rate and rhythm, normal S1, S2. ABDOMEN: Soft, nontender. Bowel sounds are positive. EXTREMITIES: Show no lower extremity edema. PSYCHOLOGICAL: He is alert and oriented x 3. NEUROLOGIC: Grossly intact. LABORATORY DATA: Total bilirubin of 1.2, AST of 111, ALT of 202, alk phos of 120. Hematology: Hemoglobin 11.1, platelet count of 137,000. BUN 66, creatinine 2.2 down from 2.4 at peak, sodium 130, CO2 of 34.1. IMAGING STUDIES: He had an abdominal ultrasound, which was relatively poor quality given the patient's body habitus, however nonvisualization of the gallbladder consistent with the patient's surgical history. ASSESSMENT AND PLAN: This is a 62-year-old male who presented to the hospital with respiratory failure, congestive heart failure as well as staph septicemia, who has had gradually increasing LFTs this hospitalization. 1. Elevated LFTs, suspect drug induced liver injury. 2. Congestive heart failure and chronic obstructive pulmonary disease with hypoxemic respiratory failure on presentation. 3. Staph septicemia. 4. Acute kidney injury. Most likely the rise in his LFTs, which were relatively normal prior to presentation are likely and probably a combination of septicemia, respiratory failure from COPD and CHF exacerbation as well as possibly a component of drug-induced liver injury, possibly from Zyvox. RECOMMENDATIONS: 1. Zyvox is set to discontinue today anyhow. 2. Supportive care and management. 3. Trend LFTs. 4. Watch for any signs of encephalopathy or elevated ammonia level, although I suspect he is relatively asymptomatic from the LFT elevations, but it is something to watch out for and monitor the amount of Tylenol he receives as well. Avoid any hepatotoxins. GI will continue to follow alongside with you. Thank you for allowing us to participate in this patient's care. JOB# [id number]
[2018-06-17] MEDS: Albuterol/Ipratropium Neb 3 ML AERS HHN SCH ×7 (02:57→22:51)
[2018-06-17 04:31] LABS: EOSINOPHILE ABSOLUTE 0.1 Th/cmm (0.1-0.4); HEMOGLOBIN 10.8 gm/dL (12-16); MONOCYTE ABSOLUTE 0.5 Th/cmm (0.3-1.0)
[2018-06-17 04:44] LABS: % BASOPHILS 0.2 % (0.0-2.0); % EOSINOPHILS 1.1 % (0.0-5.0); % LYMPHOCYTES 19.9 % (20.0-50.0); % MONOCYTES 6.2 % (2.0-10.0); % NEUTROPHILS 72.6 % (40.0-80.0); HEMATOCRIT 32.2 % (41.0-60); LYMPHOCYTE ABSOLUTE 1.5 Th/cmm (1.5-3.0); MEAN CELL VOLUME 89.2 fl (80-99); MEAN CORPUSCULAR HEMOGLOBIN 29.8 pg (26.0-30.0); MEAN CORPUSCULAR HGB CONC 33.4 pg (28.0-36.0); NEUTROPHILE ABSOLUTE 5.5 Th/cmm (1.8-8.0); PLATELET COUNT 112 Th/cmm (150-400); RED CELL DISTRIBUTION WIDTH 14.6 % (11.5-20.0); WHITE BLOOD COUNT 7.6 Th/cmm (4.8-10.8)
[2018-06-17 05:16] LABS: ALB/GLOB RATIO 1.3 (1.0-1.8); ALBUMIN 3.6 gm/dL (4.2-5.5); ANION GAP 13.4 (7.0-16.0); CARBON DIOXIDE 34.2 mEq/L (21.0-31.0); CREATININE - SERUM 2.2 mg/dL (0.7-1.3); GFR AFRICAN-AMERICAN 39.2 ml/min (>90); GFR NON AFRICAN-AMERICAN 32.4 ml/min; MAGNESIUM 2.3 mg/dL (1.9-2.7); POTASSIUM SERUM 4.6 mEq/L (3.5-5.1); TOTAL PROTEIN,SERUM 6.3 gm/dL (6.0-8.3)
--- NOTE | 2018-06-17 06:50 | Progress Notes ---
DATE: 06/16/2018 PATIENT'S ID: A 62-year-old male. SUBJECTIVE: The patient seen and examined. The patient just came back from CT scan of abdomen and pelvis, which was ordered by Dr. Abdullahi Hernandez. The patient has been followed by multiple consultants. SUBJECTIVE: The patient was recently admitted at [facility] for Staphylococcus haemolyticus septicemia. The patient is currently getting Zyvox. The patient also noted to have multiple other medical problems, for that patient has been following. The patient remained on his baseline. Did have episode of hypotension, which has improved significantly. PHYSICAL EXAMINATION: VITAL SIGNS: Temperature 96.3, pulse 94, respiratory rate 18, blood pressure 112/60. HEENT: Small hypopharynx noted. No facial asymmetry. NECK: Supple, no JVD. HEART: Regular. CHEST AND LUNG: Equal in expansion with no expiratory wheezing. ABDOMEN: Soft, protuberant. No guarding, no rigidity. Liver and spleen palpable. No palpable mass. EXTREMITIES: No edema. Dupuytren contraction noted on both arms. CLINICAL IMPRESSION: 1. Seizure disorder. The patient is on Keppra. 2. Hyperkalemia, improved. 3. Acute on chronic kidney injury. 4. 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 5. Abnormal liver function test. 6. Elevated troponin. 7. Obstructive sleep apnea. 8. Morbid obesity. 9. Status post fall. PLAN: CT scan currently pending at this time. Keppra has been started. Seizure medication has been started. Currently on IV antibiotics, Zyvox for his septicemia. Elevated troponin most likely secondary to demand ischemia. Currently on medical management at this time. The patient has been followed by the energy sales consultant. We will follow the energy sales consultant recommendation. Plan is to send him back to a alf once the patient remained stable. Care plan has been reviewed with RN and the patient's assigned nurse. JOB# [id number]
[2018-06-17] MEDS: Pantoprazole 40 mg EC Tab PO SCH (07:30)
--- NOTE | 2018-06-17 07:35 | Progress Notes ---
DATE: LOCATION: Room 30 bed B, [facility]. The patient is sleepy. The patient was n.p.o. The patient is oliguric and hypotensive this morning. No complaints of diarrhea or constipation. The patient could not tolerate dopamine and had persistent vomiting and so dopamine has been discontinued. OBJECTIVE: VITAL SIGNS: Temperature 96.3, pulse 94, blood pressure 87/60. Yesterday's intake 1400, output 850, today urine about 750 mL. HEART: Regular. LUNGS: Clear. ABDOMEN: Benign. EXTREMITIES: No edema. LABORATORY DATA: Sodium 130, potassium 4.9, BUN increased to 66, creatinine 2.2, EGFR 32, blood sugar 207, calcium 9.1, phosphorus increased to 5.7. Both SGOT and ALT elevated. ASSESSMENT: 1. Acute kidney injury, worsening. 2. Chronic kidney disease 3. 3. Elevated liver function test. 4. Hypotension. 5. Obesity. 6. Anemia. 7. Diabetes mellitus. 8. Hyponatremia, worsening. 9. History of congestive heart failure. No evidence of congestive heart failure at this time. PLAN: 1. Discontinue dopamine. 2. Start IV fluid due to hypotension. 3. Obtain liver ultrasound due to elevated LFT. 4. Check CMP, phosphorus in the morning. 5. Start patient on phosphate binder. Discussed with nursing staff. JOB# [id number]
[2018-06-17] MEDS: Lactobacillus Rhamnosus GG 15 Billion CFU CAP.SPRINK PO SCH (08:06)
[2018-06-17] MEDS: INSULIN LISPRO SLIDING SCALE 100 UNITS/ML UNIT SUBQ SCH ×4 (08:07→21:05)
[2018-06-17] MEDS: Apixaban 5 MG TABLET PO SCH ×2 (08:16→17:57)
[2018-06-17] MEDS: Linezolid 600mg/300mL 600 MG/300 ML BAG IV SCH (10:27)
--- NOTE | 2018-06-17 10:53 | General Progress Note ---
Subjective - Review of Systems Service Date: 06/17/18 Subjective: Patient is still complaining of chest pain shortness of breath no palpitations Patient has desaturation and has transferred to ICU Objective - Results Result Diagrams: 06/17/18 04:05 06/17/18 04:05 Recent Labs: Laboratory Last Values WBC 7.6 Th/cmm (4.8-10.8) 06/17/18 04:05 RBC 3.60 Mil/cmm (4.30-5.70) L 06/17/18 04:05 Hgb 10.8 gm/dL (12-16) L 06/17/18 04:05 Hct 32.2 % (41.0-60) L 06/17/18 04:05 MCV 89.2 fl (80-99) 06/17/18 04:05 MCH 29.8 pg (26.0-30.0) 06/17/18 04:05 MCHC Differential 33.4 pg (28.0-36.0) 06/17/18 04:05 RDW 14.6 % (11.5-20.0) 06/17/18 04:05 Plt Count 112 Th/cmm (150-400) L 06/17/18 04:05 MPV 9.0 fl 06/17/18 04:05 Neutrophils % 72.6 % (40.0-80.0) 06/17/18 04:05 Lymphocytes % 19.9 % (20.0-50.0) L 06/17/18 04:05 Monocytes % 6.2 % (2.0-10.0) 06/17/18 04:05 Eosinophils % 1.1 % (0.0-5.0) 06/17/18 04:05 Basophils % 0.2 % (0.0-2.0) 06/17/18 04:05 Sodium 129 mEq/L (136-145) L 06/17/18 04:05 Potassium 4.6 mEq/L (3.5-5.1) 06/17/18 04:05 Chloride 86 mEq/L (98-107) L 06/17/18 04:05 Carbon Dioxide 34.2 mEq/L (21.0-31.0) H 06/17/18 04:05 Anion Gap 13.4 (7.0-16.0) 06/17/18 04:05 BUN 70 mg/dL (7-25) H 06/17/18 04:05 Creatinine 2.2 mg/dL (0.7-1.3) H 06/17/18 04:05 Est GFR ( Amer) 39.2 ml/min (>90) 06/17/18 04:05 Est GFR (Non-Af Amer) 32.4 ml/min 06/17/18 04:05 BUN/Creatinine Ratio 31.8 06/17/18 04:05 Glucose 153 mg/dL (70-105) H 06/17/18 04:05 POC Glucose 171 MG/DL (70 - 105) H 06/17/18 07:39 Whole Bld Lactic Acid 1.92 mmol/L (0.60-1.99) 06/12/18 13:55 Calcium 9.0 mg/dL (8.6-10.3) 06/17/18 04:05 Phosphorus 5.7 mg/dL (2.5-5.0) H 06/16/18 04:50 Magnesium 2.3 mg/dL (1.9-2.7) 06/17/18 04:05 Total Bilirubin 1.0 mg/dL (0.3-1.0) 06/17/18 04:05 AST 154 U/L (13-39) H 06/17/18 04:05 ALT 284 U/L (7-52) H 06/17/18 04:05 Alkaline Phosphatase 126 U/L (34-104) H 06/17/18 04:05 Creatine Kinase 35 U/L (30-223) 06/11/18 21:30 Troponin I 0.10 ng/mL (0.01-0.05) H* D 06/13/18 06:35 Total Protein 6.3 gm/dL (6.0-8.3) 06/17/18 04:05 Albumin 3.6 gm/dL (4.2-5.5) L 06/17/18 04:05 Globulin 2.7 gm/dL 06/17/18 04:05 Albumin/Globulin Ratio 1.3 (1.0-1.8) 06/17/18 04:05 Triglycerides 114 mg/dL (<150) 06/13/18 06:35 Cholesterol 115 mg/dL (<200) 06/13/18 06:35 LDL Cholesterol Direct 76 mg/dL (75-193) 06/13/18 06:35 HDL Cholesterol 26 mg/dL (23-92) 06/13/18 06:35 Amylase 24 U/L (29-103) L 06/13/18 06:35 Lipase 11 U/L (11-82) 06/11/18 21:30 TSH 1.30 uIU/ml (0.34-5.60) 06/12/18 13:55 Urine Source RANDOM 06/13/18 13:46 Urine Color YELLOW 06/13/18 13:46 Urine Clarity CLEAR (CLEAR) 06/13/18 13:46 Urine pH 5.5 (4.6 - 8.0) 06/13/18 13:46 Ur Specific [place] >= 1.030 (1.005-1.030) 06/13/18 13:46 Urine Protein NEGATIVE mg/dL (NEGATIVE) 06/13/18 13:46 Urine Glucose (UA) NEGATIVE mg/dL (NEGATIVE) 06/13/18 13:46 Urine Ketones NEGATIVE mg/dL (NEGATIVE) 06/13/18 13:46 Urine Blood NEGATIVE (NEGATIVE) 06/13/18 13:46 Urine Nitrate NEGATIVE (NEGATIVE) 06/13/18 13:46 Urine Bilirubin NEGATIVE (NEGATIVE) 06/13/18 13:46 Urine Urobilinogen 0.2 E.U./dL (0.2 - 1.0) 06/13/18 13:46 Ur Leukocyte Esterase NEGATIVE (NEGATIVE) 06/13/18 13:46 Urine RBC NONE SEEN /hpf (0-5) 06/13/18 13:46 Urine WBC NONE SEEN /hpf (0-5) 06/13/18 13:46 Ur Epithelial Cells RARE /lpf (FEW) 06/13/18 13:46 Urine Bacteria FEW /hpf (NONE SEEN) 06/13/18 13:46 Urine Opiates Screen NEGATIVE (NEGATIVE) 06/13/18 13:46 Urine Methadone Screen NEGATIVE (NEGATIVE) 06/13/18 13:46 Ur Barbiturates Screen NEGATIVE (NEGATIVE) 06/13/18 13:46 Ur Tricyclics Screen NEGATIVE (NEGATIVE) 06/13/18 13:46 Ur Phencyclidine Scrn NEGATIVE (NEGATIVE) 06/13/18 13:46 Amphetamines Screen NEGATIVE (NEGATIVE) 06/13/18 13:46 U Methamphetamines Scrn NEGATIVE (NEGATIVE) 06/13/18 13:46 U Benzodiazepines Scrn NEGATIVE (NEGATIVE) 06/13/18 13:46 U Cocaine Metab Screen NEGATIVE (NEGATIVE) 06/13/18 13:46 U Cannabinoids Screen NEGATIVE (NEGATIVE) 06/13/18 13:46 - Physical Exam Vitals and I&O: Vital Signs Temp 98.2 F 06/17/18 08:00 Pulse 91 06/17/18 10:00 Resp 16 06/17/18 10:00 BP 101/45 06/17/18 10:00 Pulse Ox 99 06/17/18 10:00 Intake & Output 06/16/18 06/17/18 06/17/18 18:59 06:59 18:59 Intake Total 300 950 Output Total 760 Balance 300 190 Weight (lbs) 124.738 kg Intake: Intake, IV Amount 300 300 Linezolid 600mg/300mL 600 300 300 mg In 300 ml @ 300 mls/ hr IV Q12HR [facility] Rx#: [id number] Oral 650 Output: Urine 760 Other: # Bowel Movements 0 Weight Source Bedscale Active Medications: Current Medications Acetaminophen (Tylenol) 650 mg PO Q4HR PRN PRN Reason: Pain or Fever >101 Stop: 08/11/18 03:59 Last Admin: 06/13/18 21:42 Dose: 650 mg Albuterol/Ipratropium (Duoneb Neb) 3 ml HHN Q4HRT [facility] Stop: 08/11/18 02:59 Last Admin: 06/17/18 07:05 Dose: 3 ml Aspirin (Aspirin) 325 mg PO DAILY [facility] Stop: 08/11/18 08:59 Last Admin: 06/17/18 08:05 Dose: 325 mg Carvedilol (Coreg) 6.25 mg PO BID [facility] Stop: 08/11/18 16:59 Last Admin: 06/17/18 08:06 Dose: 6.25 mg Dextrose (D50w) 50 ml IVP PRN PRN PRN Reason: Blood Glucose less than 70 Stop: 08/11/18 05:22 Gabapentin (Neurontin) 800 mg PO TID [facility] Stop: 08/11/18 13:59 Last Admin: 06/17/18 08:22 Dose: 800 mg Glipizide (Glucotrol) 5 mg PO DAILY [facility] Stop: 08/11/18 11:14 Last Admin: 06/17/18 08:05 Dose: 5 mg Linezolid (Zyvox) 600 mg in 300 mls @ 300 mls/hr IV Q12HR [facility] Stop: 08/11/18 08:59 Last Admin: 06/17/18 10:27 Dose: 300 mls/hr Sodium Chloride (Nacl 0.9%) 1,000 mls @ 70 mls/hr IV .[id number] [facility] Stop: 08/15/18 21:59 Last Admin: 06/17/18 04:28 Dose: 70 mls/hr Insulin Human Lispro (Humalog Insulin Sliding Scale) 0 units SUBQ ACHS [facility]; Protocol Stop: 08/11/18 07:29 Last Admin: 06/17/18 08:07 Dose: 2 units Lactobacillus Rhamnosus (Culturelle 15b) 1 each PO DAILY [facility] Stop: 08/13/18 08:59 Last Admin: 06/17/18 08:06 Dose: 1 each Levetiracetam (Keppra) 500 mg PO BID [facility] Stop: 08/13/18 18:14 Last Admin: 06/17/18 08:05 Dose: 500 mg Magnesium Oxide (Mag-Oxide) 400 mg PO DAILY [facility] Stop: 08/12/18 08:59 Last Admin: 06/17/18 08:06 Dose: 400 mg Miscellaneous (Probiotic Screen) 1 ea MC PRN PRN PRN Reason: PROTOCOL Stop: 08/12/18 13:54 Ondansetron HCl (Zofran) 4 mg IV Q4H PRN PRN Reason: Nausea / Vomiting Stop: 08/14/18 11:47 Last Admin: 06/16/18 11:58 Dose: 4 mg Pantoprazole Sodium (Protonix) 40 mg PO QDAC [facility] Stop: 08/11/18 07:29 Last Admin: 06/17/18 07:30 Dose: 40 mg Sevelamer Carbonate (Renvela) 800 mg PO TIDWM [facility] Stop: 08/14/18 16:59 Last Admin: 06/17/18 08:06 Dose: 800 mg Tramadol HCl (Ultram) 50 mg PO Q4H PRN PRN Reason: Pain (Severe) Stop: 08/11/18 11:08 Last Admin: 06/15/18 23:49 Dose: 50 mg General: Alert, No acute distress HEENT: Mucous membr. moist/pink Neck: Supple, JVD, +2 carotid pulse wo bruit (flat) Cardiovascular: Regular rate, Systolic murmurs, Other (atrial fibrillation) Lungs: Clear to auscultation, Normal air movement Abdomen: Bowel sounds, Soft, Obese, Other (no organomegaly) Neurological: Normal speech, Strength at 5/5 X4 ext, Cranial nerves 3-12 NL, Reflexes 2+ - Procedures Procedures: Procedures Procedure Code Date OXYGEN ENRICHMENT NEC 93.96 12/11/00 Assessment/Plan - Problem List Patient Problems: All Active Problems ARF (acute renal failure) (Acute) COPD with acute exacerbation (Acute) J44.1 Diabetes mellitus (Acute) E11.9 HTN (hypertension) (Acute) I10 - Assessment Assessment: Staph septicemia Diabetes mellitus type 2 insulin-dependent Diabetics securities Hypertension Congestive heart failure diastolic dysfunction. COPD sick sinus syndrome with pacemaker Atrial fibrillation Narcotic dependence Respiratory failure on BiPAP - Plan Plan: Continue IV antibiotics we will do urine for drug screen Patient to get Kayexalate 60 g due to hyperkalemia Low dose dopamine for renal perfusion Continue present management Nutritional Asmnt/Malnutr-PDOC - Dietary Evaluation Malnutrition Findings (Please click <Entered> for more info): Nutritional Asmnt/Malnutrition Start: 06/12/18 17: 18 Text: Status: Complete Freq: Protocol: Document 06/12/18 17:23 LCHENG (Rec: 06/12/18 17:37 LCHENG [email or web address]) Nutritional Asmnt/Malnutrition Patient General Information Nutritional Screening High Risk Diagnosis COPD, CHF Pertinent Medical Hx/Surgical Hx DM, HTN, pacemaker, COPD, CHF Subjective Information Pt seen sitting up on bed having lunch. Pt stated he did not want this lunch tray only took the ice cream and requested for salad and fresh fruit. Food preference provided to RD. Glucose ad admission was 189 noted. Pt appeared not ready for diabetic education. Current Diet Order/ Nutrition Support CCHO NA 2gm Pertinent Medications lasix, humalog, mag-oxide, glucophage, protonix Pertinent Labs 06/12 na 135, K 5.8, Cl 92, BUN 35, Cr 1.8, Glucose 156, POC 147-280, Alb 3.8 Nutritional Hx/Data Height 1.73 m Height (Calculated Centimeters) 172.7 Current Weight (lbs) 117.934 kg Weight (Calculated Kilograms) 117.9 Weight (Calculated Grams) 297536.0 [place] Body Weight 154 Body Mass Index (BMI) 39.5 Weight Status Obese GI Symptoms GI Symptoms None Last BM none Difficult in: None Skin Integrity/Comment: intact Estimated Nutritional Goals BEE in Kcals: Adj wt of IBW Calories/Kcals/Kg 23-27 Kcals Calculated [id number] Protein: Adj wt of IBW Protein g/k.8 Protein Calculated 66 Fluid: ml 0111-6464 Nutritional Problem 1. Problem Problem altered nutrition related labs Etiology hyperglycemia Signs/Symptoms: Glucose 156, POC 147-280 Intervention/Recommendation Comments 1. Continue with CCHO Na 2gm diet as ordered. 2. Monitor PO intake, wt, labs and skin integrity 3. F/U as high risk in 2-3 days Expected Outcomes/Goals Expected Outcomes/Goals 1. PO intake to meet at least 75% of nutritional needs. 2. Wt stability, skin to remain intact, labs to approach WNL.
[2018-06-17 11:11] LABS: pH 7.325 (7.35-7.45)
[2018-06-17 11:12] LABS: PaCO2 75.1 mmHg (35.0-45.0); PaO2 87.6 mmHg (80.0-100.0)
[2018-06-17 11:13] LABS: ALLEN TEST Positive; sO2c 95.6 % (92.0-100.0)
--- NOTE | 2018-06-17 11:24 | Infectious Disease Prog Note ---
Infectious Disease Subjective - Review of Systems Service Date: 06/17/18 Subjective: Patient was confused, hallucination. PCO2 incresed. transferred to the ICU. Otherwise, no fever. Infectious Disease Objective - Results Result Diagrams: 06/17/18 04:05 06/17/18 04:05 Recent Labs: Laboratory Last Values WBC 7.6 Th/cmm (4.8-10.8) 06/17/18 04:05 RBC 3.60 Mil/cmm (4.30-5.70) L 06/17/18 04:05 Hgb 10.8 gm/dL (12-16) L 06/17/18 04:05 Hct 32.2 % (41.0-60) L 06/17/18 04:05 MCV 89.2 fl (80-99) 06/17/18 04:05 MCH 29.8 pg (26.0-30.0) 06/17/18 04:05 MCHC Differential 33.4 pg (28.0-36.0) 06/17/18 04:05 RDW 14.6 % (11.5-20.0) 06/17/18 04:05 Plt Count 112 Th/cmm (150-400) L 06/17/18 04:05 MPV 9.0 fl 06/17/18 04:05 Neutrophils % 72.6 % (40.0-80.0) 06/17/18 04:05 Lymphocytes % 19.9 % (20.0-50.0) L 06/17/18 04:05 Monocytes % 6.2 % (2.0-10.0) 06/17/18 04:05 Eosinophils % 1.1 % (0.0-5.0) 06/17/18 04:05 Basophils % 0.2 % (0.0-2.0) 06/17/18 04:05 Sodium 129 mEq/L (136-145) L 06/17/18 04:05 Potassium 4.6 mEq/L (3.5-5.1) 06/17/18 04:05 Chloride 86 mEq/L (98-107) L 06/17/18 04:05 Carbon Dioxide 34.2 mEq/L (21.0-31.0) H 06/17/18 04:05 Anion Gap 13.4 (7.0-16.0) 06/17/18 04:05 BUN 70 mg/dL (7-25) H 06/17/18 04:05 Creatinine 2.2 mg/dL (0.7-1.3) H 06/17/18 04:05 Est GFR ( Amer) 39.2 ml/min (>90) 06/17/18 04:05 Est GFR (Non-Af Amer) 32.4 ml/min 06/17/18 04:05 BUN/Creatinine Ratio 31.8 06/17/18 04:05 Glucose 153 mg/dL (70-105) H 06/17/18 04:05 POC Glucose 171 MG/DL (70 - 105) H 06/17/18 07:39 Whole Bld Lactic Acid 1.92 mmol/L (0.60-1.99) 06/12/18 13:55 Calcium 9.0 mg/dL (8.6-10.3) 06/17/18 04:05 Phosphorus 5.7 mg/dL (2.5-5.0) H 06/16/18 04:50 Magnesium 2.3 mg/dL (1.9-2.7) 06/17/18 04:05 Total Bilirubin 1.0 mg/dL (0.3-1.0) 06/17/18 04:05 AST 154 U/L (13-39) H 06/17/18 04:05 ALT 284 U/L (7-52) H 06/17/18 04:05 Alkaline Phosphatase 126 U/L (34-104) H 06/17/18 04:05 Creatine Kinase 35 U/L (30-223) 06/11/18 21:30 Troponin I 0.10 ng/mL (0.01-0.05) H* D 06/13/18 06:35 Total Protein 6.3 gm/dL (6.0-8.3) 06/17/18 04:05 Albumin 3.6 gm/dL (4.2-5.5) L 06/17/18 04:05 Globulin 2.7 gm/dL 06/17/18 04:05 Albumin/Globulin Ratio 1.3 (1.0-1.8) 06/17/18 04:05 Triglycerides 114 mg/dL (<150) 06/13/18 06:35 Cholesterol 115 mg/dL (<200) 06/13/18 06:35 LDL Cholesterol Direct 76 mg/dL (75-193) 06/13/18 06:35 HDL Cholesterol 26 mg/dL (23-92) 06/13/18 06:35 Amylase 24 U/L (29-103) L 06/13/18 06:35 Lipase 11 U/L (11-82) 06/11/18 21:30 TSH 1.30 uIU/ml (0.34-5.60) 06/12/18 13:55 Urine Source RANDOM 06/13/18 13:46 Urine Color YELLOW 06/13/18 13:46 Urine Clarity CLEAR (CLEAR) 06/13/18 13:46 Urine pH 5.5 (4.6 - 8.0) 06/13/18 13:46 Ur Specific [place] >= 1.030 (1.005-1.030) 06/13/18 13:46 Urine Protein NEGATIVE mg/dL (NEGATIVE) 06/13/18 13:46 Urine Glucose (UA) NEGATIVE mg/dL (NEGATIVE) 06/13/18 13:46 Urine Ketones NEGATIVE mg/dL (NEGATIVE) 06/13/18 13:46 Urine Blood NEGATIVE (NEGATIVE) 06/13/18 13:46 Urine Nitrate NEGATIVE (NEGATIVE) 06/13/18 13:46 Urine Bilirubin NEGATIVE (NEGATIVE) 06/13/18 13:46 Urine Urobilinogen 0.2 E.U./dL (0.2 - 1.0) 06/13/18 13:46 Ur Leukocyte Esterase NEGATIVE (NEGATIVE) 06/13/18 13:46 Urine RBC NONE SEEN /hpf (0-5) 06/13/18 13:46 Urine WBC NONE SEEN /hpf (0-5) 06/13/18 13:46 Ur Epithelial Cells RARE /lpf (FEW) 06/13/18 13:46 Urine Bacteria FEW /hpf (NONE SEEN) 06/13/18 13:46 Urine Opiates Screen NEGATIVE (NEGATIVE) 06/13/18 13:46 Urine Methadone Screen NEGATIVE (NEGATIVE) 06/13/18 13:46 Ur Barbiturates Screen NEGATIVE (NEGATIVE) 06/13/18 13:46 Ur Tricyclics Screen NEGATIVE (NEGATIVE) 06/13/18 13:46 Ur Phencyclidine Scrn NEGATIVE (NEGATIVE) 06/13/18 13:46 Amphetamines Screen NEGATIVE (NEGATIVE) 06/13/18 13:46 U Methamphetamines Scrn NEGATIVE (NEGATIVE) 06/13/18 13:46 U Benzodiazepines Scrn NEGATIVE (NEGATIVE) 06/13/18 13:46 U Cocaine Metab Screen NEGATIVE (NEGATIVE) 06/13/18 13:46 U Cannabinoids Screen NEGATIVE (NEGATIVE) 06/13/18 13:46 - Physical Exam Vitals and I&O: Vital Signs Temp 98.2 F 06/17/18 08:00 Pulse 91 06/17/18 10:00 Resp 16 06/17/18 10:00 BP 101/45 06/17/18 10:00 Pulse Ox 99 06/17/18 10:00 Intake & Output 06/16/18 06/17/18 06/17/18 18:59 06:59 18:59 Intake Total 300 950 Output Total 760 Balance 300 190 Weight (lbs) 124.738 kg Intake: Intake, IV Amount 300 300 Linezolid 600mg/300mL 600 300 300 mg In 300 ml @ 300 mls/ hr IV Q12HR [facility] Rx#: [id number] Oral 650 Output: Urine 760 Other: # Bowel Movements 0 Weight Source Bedscale Active Medications: Current Medications Acetaminophen (Tylenol) 650 mg PO Q4HR PRN PRN Reason: Pain or Fever >101 Stop: 08/11/18 03:59 Last Admin: 06/13/18 21:42 Dose: 650 mg Albuterol/Ipratropium (Duoneb Neb) 3 ml HHN Q4HRT [facility] Stop: 08/11/18 02:59 Last Admin: 06/17/18 07:05 Dose: 3 ml Aspirin (Aspirin) 325 mg PO DAILY [facility] Stop: 08/11/18 08:59 Last Admin: 06/17/18 08:05 Dose: 325 mg Carvedilol (Coreg) 6.25 mg PO BID [facility] Stop: 08/11/18 16:59 Last Admin: 06/17/18 08:06 Dose: 6.25 mg Dextrose (D50w) 50 ml IVP PRN PRN PRN Reason: Blood Glucose less than 70 Stop: 08/11/18 05:22 Gabapentin (Neurontin) 800 mg PO TID [facility] Stop: 08/11/18 13:59 Last Admin: 06/17/18 08:22 Dose: 800 mg Glipizide (Glucotrol) 5 mg PO DAILY [facility] Stop: 08/11/18 11:14 Last Admin: 06/17/18 08:05 Dose: 5 mg Linezolid (Zyvox) 600 mg in 300 mls @ 300 mls/hr IV Q12HR [facility] Stop: 08/11/18 08:59 Last Admin: 06/17/18 10:27 Dose: 300 mls/hr Sodium Chloride (Nacl 0.9%) 1,000 mls @ 70 mls/hr IV .[id number] [facility] Stop: 08/15/18 21:59 Last Admin: 06/17/18 04:28 Dose: 70 mls/hr Insulin Human Lispro (Humalog Insulin Sliding Scale) 0 units SUBQ ACHS [facility]; Protocol Stop: 08/11/18 07:29 Last Admin: 06/17/18 08:07 Dose: 2 units Lactobacillus Rhamnosus (Culturelle 15b) 1 each PO DAILY [facility] Stop: 08/13/18 08:59 Last Admin: 06/17/18 08:06 Dose: 1 each Levetiracetam (Keppra) 500 mg PO BID [facility] Stop: 08/13/18 18:14 Last Admin: 06/17/18 08:05 Dose: 500 mg Magnesium Oxide (Mag-Oxide) 400 mg PO DAILY [facility] Stop: 08/12/18 08:59 Last Admin: 06/17/18 08:06 Dose: 400 mg Miscellaneous (Probiotic Screen) 1 ea MC PRN PRN PRN Reason: PROTOCOL Stop: 08/12/18 13:54 Ondansetron HCl (Zofran) 4 mg IV Q4H PRN PRN Reason: Nausea / Vomiting Stop: 08/14/18 11:47 Last Admin: 06/16/18 11:58 Dose: 4 mg Pantoprazole Sodium (Protonix) 40 mg PO QDAC [facility] Stop: 08/11/18 07:29 Last Admin: 06/17/18 07:30 Dose: 40 mg Sevelamer Carbonate (Renvela) 800 mg PO TIDWM [facility] Stop: 08/14/18 16:59 Last Admin: 06/17/18 08:06 Dose: 800 mg Tramadol HCl (Ultram) 50 mg PO Q4H PRN PRN Reason: Pain (Severe) Stop: 08/11/18 11:08 Last Admin: 06/15/18 23:49 Dose: 50 mg General: no acute distress, well developed, well nourished HEENT: atraumatic, normocephalic, PERRLA, EOMI Neck: supple, no thyromegaly Cardiovascular: S1S2, regular Lungs: clear to auscultation bilaterally, clear to percussion Abdomen: soft, no tender, no distended, no mass Extremities: no cyanosis, no clubbing, no edema Neurological: awake, alert, oriented Skin: intact - Procedures Procedures: Procedures Procedure Code Date OXYGEN ENRICHMENT NEC 93.96 12/11/00 Infectious Disease Assmt/Plan - Problem List Patient Problems: All Active Problems ARF (acute renal failure) (Acute) COPD with acute exacerbation (Acute) J44.1 Diabetes mellitus (Acute) E11.9 HTN (hypertension) (Acute) I10 - Assessment Assessment: 1. Staph hemolyticus bacteremia/sepsis. 2. DEENA on CKD. 3. SOB. improved, COPD exacerbation. 4. CELIO. 5. DM2 6. COPD. 7. Obesity. 8. h/o Afib and Pacemaker placement. 9. AMS 2/2 Metabolic encephalopathy and CO2 narcosis. - Plan Plan: Will continue the same treatment. dc Zyvox. CXR Nutritional Asmnt/Malnutr-PDOC - Dietary Evaluation Malnutrition Findings (Please click <Entered> for more info): Nutritional Asmnt/Malnutrition Start: 06/12/18 17: 18 Text: Status: Complete Freq: Protocol: Document 06/12/18 17:23 LCHENG (Rec: 06/12/18 17:37 LCHENG [email or web address]) Nutritional Asmnt/Malnutrition Patient General Information Nutritional Screening High Risk Diagnosis COPD, CHF Pertinent Medical Hx/Surgical Hx DM, HTN, pacemaker, COPD, CHF Subjective Information Pt seen sitting up on bed having lunch. Pt stated he did not want this lunch tray only took the ice cream and requested for salad and fresh fruit. Food preference provided to RD. Glucose ad admission was 189 noted. Pt appeared not ready for diabetic education. Current Diet Order/ Nutrition Support CCHO NA 2gm Pertinent Medications lasix, humalog, mag-oxide, glucophage, protonix Pertinent Labs 06/12 na 135, K 5.8, Cl 92, BUN 35, Cr 1.8, Glucose 156, POC 147-280, Alb 3.8 Nutritional Hx/Data Height 1.73 m Height (Calculated Centimeters) 172.7 Current Weight (lbs) 117.934 kg Weight (Calculated Kilograms) 117.9 Weight (Calculated Grams) 844229.0 [place] Body Weight 154 Body Mass Index (BMI) 39.5 Weight Status Obese GI Symptoms GI Symptoms None Last BM none Difficult in: None Skin Integrity/Comment: intact Estimated Nutritional Goals BEE in Kcals: Adj wt of IBW Calories/Kcals/Kg 23-27 Kcals Calculated Protein: Adj wt of IBW Protein g/k.8 Protein Calculated 66 Fluid: ml 1048-3960 Nutritional Problem 1. Problem Problem altered nutrition related labs Etiology hyperglycemia Signs/Symptoms: Glucose 156, POC 147-280 Intervention/Recommendation Comments 1. Continue with [facility] Na 2gm diet as ordered. 2. Monitor PO intake, wt, labs and skin integrity 3. F/U as high risk in 2-3 days Expected Outcomes/Goals Expected Outcomes/Goals 1. PO intake to meet at least 75% of nutritional needs. 2. Wt stability, skin to remain intact, labs to approach WNL.
[2018-06-17] MEDS ORDERED: Sodium Chloride 0.45% 1,000 ML IV SCH (13:15)
--- NOTE | 2018-06-17 13:56 | Diagnostic Imaging Report ---
Portable chest x-ray HISTORY: Shortness of breath Compared with prior exam of June 13, 2018, the heart remains enlarged. There is evidence for small right pleural effusion. There is a degree of pulmonary vascular redistribution that may be associated with mild congestive heart failure. Cardiac pacemaker lead wires remain over the region of the right atrium and right ventricle. IMPRESSION: 1. Persistent cardiomegaly with evidence for small right pleural effusion. Changes may be related to congestive heart failure. Clinical correlation is needed.
[2018-06-17] MEDS: methylPREDNISolone SS 40 mg Vial IV SCH ×2 (17:59→21:06)
[2018-06-17] MEDS: Budesonide 0.5 Mg/2 mL Ud HHN SCH (18:46)
[2018-06-18] MEDS: Albuterol/Ipratropium Neb 3 ML AERS HHN SCH ×6 (00:35→18:48)
--- NOTE | 2018-06-18 03:10 | Consultation ---
DATE OF CONSULTATION: 06/17/2018 PULMONARY AND CRITICAL CARE CONSULTATION REASON FOR CONSULTATION: Possibly respiratory failure with chronic obstructive pulmonary disease. CONSULT NOTE: This is a 62-year-old gentleman who basically admitted a few days ago because of altered state of mind. The patient was subsequently become more confused, more disoriented. Subsequently, the patient was admitted as the patient started having more shortness of breath, was brought to the intensive care unit and I was asked to see this patient for further care and necessary treatment. Unfortunately, the patient is a very poor historian and meaningful history from the patient is not available on this patient. He does not know why he is in the hospital, he wants me to tell why he is in the hospital. The patient is currently on a BiPAP, etc. Denies of any coughing, wheezing or chest pain, etc. The patient basically had difficulty in breathing, was treated with possibly MRSA after getting a Zyvox dose. Subsequently, the patient was admitted and I was asked to see this patient because of respiratory failure, etc. PAST MEDICAL HISTORY: History of congestive heart failure, history of neuropathy, history of morbid obesity, history of hyponatremia, history of diabetes mellitus, smoking history 1 to 2-pack per day for 40 years, quit smoking ____ a couple of weeks or couple of days ago. ALLERGIC HISTORY: Nil, denies of any. SURGICAL HISTORY: As mentioned above, the patient is a very poor historian. PHYSICAL EXAMINATION: GENERAL: This is an elderly looking gentleman. Currently on a BiPAP. No respiratory distress, etc. VITAL SIGNS: The patient is afebrile, pulse is 80s, BP is 113/44, saturation is in mid 90s for 35% of oxygen. HEENT: Head is essentially unremarkable. Pupils appear to be equal and reactive to light. The patient has significant exophthalmos type of eye protrusion and oral cavity shows to be edentulous, otherwise unremarkable with very small oropharyngeal opening. NECK: Neck is very short. No nodes in the neck could be palpated. Good bilateral carotid upstroke. CHEST: Shows marked diminished air entry with occasional rhonchi. ABDOMEN: Protuberant. EXTREMITIES: Show slight trace of peripheral edema. IMAGING: Chest x-ray done few days ago shows a pacemaker device including some interstitial changes very minimal with right-sided enlargement. LABORATORY DATA: The patient's pertinent laboratory studies this morning, CBC: White count is 7.6, hemoglobin 10.8 and the patient's blood gases this morning shows partially compensated respiratory acidemia and electrolytes shows sodium of 129 with a creatinine is 2.2, BUN is 70 with elevation of liver LFTs enzymes. ASSESSMENT: 1. The patient has acute on chronic respiratory failure. 2. Chronic obstructive pulmonary disease with mild exacerbation. 3. Severe obstructive sleep apnea syndrome. 4. Morbid obesity with obesity hypoventilation syndrome with poor compliance and also tobacco dependence. PLANS AND SUGGESTIONS: We will give aggressive respiratory care, inhalation treatment. Repeat chest x-ray, sputum studies. Continue BiPAP for now and follow up liver enzymes, etc., and see how he does and go from there. [facility]# [id number]
[2018-06-18 04:47] LABS: MEAN PLATELET VOLUME 9.6 fl
[2018-06-18] MEDS: methylPREDNISolone SS 40 mg Vial IV SCH ×3 (05:14→20:44)
[2018-06-18 05:19] LABS: ALBUMIN 3.6 gm/dL (4.2-5.5); ANION GAP 17.4 (7.0-16.0); BILIRUBIN,DIRECT 0.75 mg/dL (0.0-0.2); BILIRUBIN,TOTAL 1.5 mg/dL (0.3-1.0); CARBON DIOXIDE 28.9 mEq/L (21.0-31.0); CREATININE - SERUM 2.6 mg/dL (0.7-1.3); GFR AFRICAN-AMERICAN 32.3 ml/min (>90); GFR NON AFRICAN-AMERICAN 26.7 ml/min
[2018-06-18 05:56] LABS: POTASSIUM SERUM 6.3 mEq/L (3.5-5.1)
[2018-06-18 05:57] LABS: HEMATOCRIT 33.5 % (41.0-60); HEMOGLOBIN 10.9 gm/dL (12-16); MEAN CELL VOLUME 89.9 fl (80-99); MEAN CORPUSCULAR HEMOGLOBIN 29.3 pg (26.0-30.0); MEAN CORPUSCULAR HGB CONC 32.6 pg (28.0-36.0); PLATELET COUNT 107 Th/cmm (150-400); RED BLOOD COUNT 3.73 Mil/cmm (4.30-5.70); RED CELL DISTRIBUTION WIDTH 14.6 % (11.5-20.0); WHITE BLOOD COUNT 4.9 Th/cmm (4.8-10.8)
[2018-06-18] MEDS: Pantoprazole 40 mg EC Tab PO SCH (06:45)
[2018-06-18] MEDS: INSULIN LISPRO SLIDING SCALE 100 UNITS/ML UNIT SUBQ SCH ×4 (06:45→20:44)
[2018-06-18] MEDS: Budesonide 0.5 Mg/2 mL Ud HHN SCH ×2 (06:57→18:49)
--- NOTE | 2018-06-18 07:12 | Progress Notes ---
DATE: IDENTIFICATION: A 62-year-old male. SUBJECTIVE: The patient was transferred to ICU last night due to confusion and low blood pressure. CT scan of the head was unremarkable. The patient is noted to have abnormal liver function test. For that, GI is following. The patient has multiple complex medical problems. Recent ABG has revealed his pCO2 is above 70. The patient's son at bedside. I did discuss with the patient's son about clinical impression, underlying diagnosis, and treatment plan along with the patient's refusal to have a CPAP machine. The patient is alert and awake. The patient has completed his antibiotic. PHYSICAL EXAMINATION: VITAL SIGNS: Temperature 98.2, pulse 91, respiratory rate 16, and blood pressure 101/45. HEENT: No facial asymmetry, small hypopharynx noted. NECK: Supple, no JVD. HEART: Regular. CHEST AND LUNGS: Equal in expansion, no expiratory wheezing. ABDOMEN: Soft. EXTREMITIES: No edema. CLINICAL IMPRESSION: 1. Altered mental status secondary to CO2 narcosis. 2. Strep septicemia, status post completed antibiotic. 3. Diabetes. 4. Hypertension. 5. Congestive heart failure. 6. Diastolic dysfunction. 7. Chronic obstructive pulmonary disease. 8. Sick sinus syndrome. 9. Atrial fibrillation. 10. Narcotic dependence. 11. Abnormal liver function test. PLAN: 1. Continue to provide BiPAP. 2. Pulmonary consult. 3. Follow lab. 4. Cardiac monitoring. 5. Follow technical sales consultant recommendation. 6. General nursing care. 7. 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 JOB# [id number]
--- NOTE | 2018-06-18 07:32 | Progress Notes ---
DATE: LOCATION: ICU bed 7 [facility]. SUBJECTIVE: Events noted. The patient has been transferred to ICU due to respiratory failure. The patient is started on BiPAP at this time. The patient's family member is at bedside. The patient is lethargic. OBJECTIVE: VITAL SIGNS: Temperature 98.2, pulse 91, blood pressure 102/59. Yesterday's intake 2000 mL, urine output 750 mL. HEART: Regular. LUNGS: Rhonchi with some rales on the bases. ABDOMEN: Soft. EXTREMITIES: Edema of the leg, both legs edema 1+. LABORATORY DATA: Hemoglobin 10.8, WBC 7.6, pCO2 75, sodium 129, potassium 4.6, chloride 86, CO2 34, BUN 70, creatinine 2.2, calcium 9. LFTs elevated. ASSESSMENT: 1. Chronic kidney disease III. 2. Prerenal azotemia. 3. Respiratory failure. 4. Anemia. 5. Hyponatremia. 6. Chronic obstructive pulmonary disease with CO2 retention. 7. Hypotension. 8. Diabetes mellitus. 9. History of congestive heart failure. PLAN: Lasix 40 mg 1 time IV now due to leg edema and congestive heart failure. Check CMP, phosphorus and magnesium in the morning. Decrease intravenous fluid. Discussed with the patient's family at bedside. JOB# [id number]
[2018-06-18] MEDS ORDERED: Calcium Gluconate 1 GM in Sodium Chloride 0.9% 100 ML IV ONE (08:00)
[2018-06-18] MEDS: Lactobacillus Rhamnosus GG 15 Billion CFU CAP.SPRINK PO SCH (08:20)
[2018-06-18] MEDS: Apixaban 5 MG TABLET PO SCH ×2 (08:23→16:50)
--- NOTE | 2018-06-18 08:34 | Diagnostic Imaging Report ---
Portable chest x-ray HISTORY: Shortness of breath Compared with prior exam of June 17, 2018, the heart is enlarged. Allowing for a poor inspiration, no definite acute focal pulmonary parenchymal processes are seen. Suggestion of a small right pleural effusion. IMPRESSION: 1. Cardiomegaly along with evidence of a small right pleural effusion. A degree of congestive heart failure cannot be definitely excluded. Clinical correlation is needed.
[2018-06-18 08:39] LABS: LYMPHOCYTE 13 % (20-50); MONOCYTE 1 % (2-10); NEUTROPHILS 86 % (40-80); PLATELET ESTIMATE DECREASED PLATELETS (NORMAL)
--- NOTE | 2018-06-18 08:48 | GI Progress Note ---
Subjective - Review of Systems Service Date: 06/17/18 Events since last encounter: Patient moved to ICU for respiratory failure Objective - Results Result Diagrams: 06/18/18 04:25 06/18/18 04:25 Recent Labs: Laboratory Last Values WBC 4.9 Th/cmm (4.8-10.8) 06/18/18 04:25 RBC 3.73 Mil/cmm (4.30-5.70) L 06/18/18 04:25 Hgb 10.9 gm/dL (12-16) L 06/18/18 04:25 Hct 33.5 % (41.0-60) L 06/18/18 04:25 MCV 89.9 fl (80-99) 06/18/18 04:25 MCH 29.3 pg (26.0-30.0) 06/18/18 04:25 MCHC Differential 32.6 pg (28.0-36.0) 06/18/18 04:25 RDW 14.6 % (11.5-20.0) 06/18/18 04:25 Plt Count 107 Th/cmm (150-400) L 06/18/18 04:25 MPV 9.6 fl 06/18/18 04:25 Add Manual Diff YES 06/18/18 04:25 Neutrophils % 72.6 % (40.0-80.0) 06/17/18 04:05 Lymphocytes % 19.9 % (20.0-50.0) L 06/17/18 04:05 Monocytes % 6.2 % (2.0-10.0) 06/17/18 04:05 Eosinophils % 1.1 % (0.0-5.0) 06/17/18 04:05 Basophils % 0.2 % (0.0-2.0) 06/17/18 04:05 Neutrophils (Manual) 86 % (40-80) H 06/18/18 04:25 Lymphocytes 13 % (20-50) L 06/18/18 04:25 Monocytes 1 % (2-10) L 06/18/18 04:25 Platelet Estimate DECREASED PLATELETS (NORMAL) 06/18/18 04:25 Specimen Source Arterial 06/17/18 10:56 Sample Site Right Radial 06/17/18 10:56 pH 7.325 (7.35-7.45) L 06/17/18 10:56 pCO2 75.1 mmHg (35.0-45.0) H* 06/17/18 10:56 pO2 87.6 mmHg (80.0-100.0) 06/17/18 10:56 HCO3 38.3 mEq/L (20.0-26.0) H 06/17/18 10:56 Base Excess 8.9 mEq/L (-3.0-3.0) H 06/17/18 10:56 O2 Saturation 95.6 % (92.0-100.0) 06/17/18 10:56 Brody Test Positive 06/17/18 10:56 Vent Rate NA 06/17/18 10:56 Inspired O2 45 06/17/18 10:56 Tidal Volume NA 06/17/18 10:56 PEEP NA 06/17/18 10:56 Pressure (ins/psv/peep) NA 06/17/18 10:56 Critical Value LZHANG 06/17/18 10:56 Sodium 126 mEq/L (136-145) L 06/18/18 04:25 Potassium 6.3 mEq/L (3.5-5.1) H* 06/18/18 04:25 Chloride 86 mEq/L (98-107) L 06/18/18 04:25 Carbon Dioxide 28.9 mEq/L (21.0-31.0) 06/18/18 04:25 Anion Gap 17.4 (7.0-16.0) H 06/18/18 04:25 BUN 81 mg/dL (7-25) H* 06/18/18 04:25 Creatinine 2.6 mg/dL (0.7-1.3) H 06/18/18 04:25 Est GFR ( Amer) 32.3 ml/min (>90) 06/18/18 04:25 Est GFR (Non-Af Amer) 26.7 ml/min 06/18/18 04:25 BUN/Creatinine Ratio 31.2 06/18/18 04:25 Glucose 235 mg/dL (70-105) H 06/18/18 04:25 POC Glucose 224 MG/DL (70 - 105) H 06/18/18 06:42 Whole Bld Lactic Acid 1.92 mmol/L (0.60-1.99) 06/12/18 13:55 Calcium 9.0 mg/dL (8.6-10.3) 06/18/18 04:25 Phosphorus 5.7 mg/dL (2.5-5.0) H 06/16/18 04:50 Magnesium 2.3 mg/dL (1.9-2.7) 06/17/18 04:05 Total Bilirubin 1.5 mg/dL (0.3-1.0) H 06/18/18 04:25 Direct Bilirubin 0.75 mg/dL (0.0-0.2) H 06/18/18 04:25 AST 220 U/L (13-39) H 06/18/18 04:25 ALT 412 U/L (7-52) H 06/18/18 04:25 Alkaline Phosphatase 175 U/L (34-104) H 06/18/18 04:25 Ammonia 65 umol/L (16-53) H 06/17/18 15:45 Creatine Kinase 35 U/L (30-223) 06/11/18 21:30 Troponin I 0.10 ng/mL (0.01-0.05) H* D 06/13/18 06:35 Total Protein 6.3 gm/dL (6.0-8.3) 06/17/18 04:05 Albumin 3.6 gm/dL (4.2-5.5) L 06/18/18 04:25 Globulin 2.7 gm/dL 06/17/18 04:05 Albumin/Globulin Ratio 1.3 (1.0-1.8) 06/17/18 04:05 Triglycerides 114 mg/dL (<150) 06/13/18 06:35 Cholesterol 115 mg/dL (<200) 06/13/18 06:35 LDL Cholesterol Direct 76 mg/dL (75-193) 06/13/18 06:35 HDL Cholesterol 26 mg/dL (23-92) 06/13/18 06:35 Amylase 24 U/L (29-103) L 06/13/18 06:35 Lipase 11 U/L (11-82) 06/11/18 21:30 TSH 1.30 uIU/ml (0.34-5.60) 06/12/18 13:55 Urine Source RANDOM 06/13/18 13:46 Urine Color YELLOW 06/13/18 13:46 Urine Clarity CLEAR (CLEAR) 06/13/18 13:46 Urine pH 5.5 (4.6 - 8.0) 06/13/18 13:46 Ur Specific [place] >= 1.030 (1.005-1.030) 06/13/18 13:46 Urine Protein NEGATIVE mg/dL (NEGATIVE) 06/13/18 13:46 Urine Glucose (UA) NEGATIVE mg/dL (NEGATIVE) 06/13/18 13:46 Urine Ketones NEGATIVE mg/dL (NEGATIVE) 06/13/18 13:46 Urine Blood NEGATIVE (NEGATIVE) 06/13/18 13:46 Urine Nitrate NEGATIVE (NEGATIVE) 06/13/18 13:46 Urine Bilirubin NEGATIVE (NEGATIVE) 06/13/18 13:46 Urine Urobilinogen 0.2 E.U./dL (0.2 - 1.0) 06/13/18 13:46 Ur Leukocyte Esterase NEGATIVE (NEGATIVE) 06/13/18 13:46 Urine RBC NONE SEEN /hpf (0-5) 06/13/18 13:46 Urine WBC NONE SEEN /hpf (0-5) 06/13/18 13:46 Ur Epithelial Cells RARE /lpf (FEW) 06/13/18 13:46 Urine Bacteria FEW /hpf (NONE SEEN) 06/13/18 13:46 Urine Opiates Screen NEGATIVE (NEGATIVE) 06/13/18 13:46 Urine Methadone Screen NEGATIVE (NEGATIVE) 06/13/18 13:46 Ur Barbiturates Screen NEGATIVE (NEGATIVE) 06/13/18 13:46 Ur Tricyclics Screen NEGATIVE (NEGATIVE) 06/13/18 13:46 Ur Phencyclidine Scrn NEGATIVE (NEGATIVE) 06/13/18 13:46 Amphetamines Screen NEGATIVE (NEGATIVE) 06/13/18 13:46 U Methamphetamines Scrn NEGATIVE (NEGATIVE) 06/13/18 13:46 U Benzodiazepines Scrn NEGATIVE (NEGATIVE) 06/13/18 13:46 U Cocaine Metab Screen NEGATIVE (NEGATIVE) 06/13/18 13:46 U Cannabinoids Screen NEGATIVE (NEGATIVE) 06/13/18 13:46 - Physical Exam Vitals and I&O: Vital Signs Temp 97 F 06/18/18 04:00 Pulse 86 06/18/18 08:20 Resp 16 06/18/18 07:06 BP 90/40 06/18/18 08:20 Pulse Ox 100 06/18/18 07:06 Intake & Output 06/17/18 06/18/18 06/18/18 18:59 06:59 18:59 Intake Total 1100 1077 Output Total 800 300 Balance 300 777 Weight (lbs) 131.542 kg 119.522 kg Intake: Intake, IV Amount 477 Sodium Chloride 0.45% 1, 477 000 ml @ 30 mls/hr IV . Q24H [facility] Rx#:[id number] Oral 800 600 Other 300 Output: Urine 800 300 Other: # Bowel Movements 0 Weight Source Bedscale Bedscale Active Medications: Current Medications Acetaminophen (Tylenol) 650 mg PO Q4HR PRN PRN Reason: Pain or Fever >101 Stop: 08/11/18 03:59 Last Admin: 06/13/18 21:42 Dose: 650 mg Albuterol/Ipratropium (Duoneb Neb) 3 ml HHN Q4HRT [facility] Stop: 08/11/18 02:59 Last Admin: 06/18/18 06:56 Dose: 3 ml Albuterol/Ipratropium (Duoneb Neb) 3 ml HHN [id number] [facility] Stop: 08/16/18 14:59 Last Admin: 06/17/18 18:45 Dose: 3 ml Aspirin (Aspirin) 325 mg PO DAILY [facility] Stop: 08/11/18 08:59 Last Admin: 06/18/18 08:21 Dose: 325 mg Budesonide (Pulmicort) 0.5 mg HHN BIDRT [facility] Stop: 08/16/18 18:59 Last Admin: 06/18/18 06:57 Dose: 0.5 mg Carvedilol (Coreg) 6.25 mg PO BID [facility] Stop: 08/11/18 16:59 Last Admin: 06/18/18 08:20 Dose: 6.25 mg Dextrose (D50w) 50 ml IVP PRN PRN PRN Reason: Blood Glucose less than 70 Stop: 08/11/18 05:22 Gabapentin (Neurontin) 800 mg PO TID [facility] Stop: 08/11/18 13:59 Last Admin: 06/18/18 08:24 Dose: 800 mg Glipizide (Glucotrol) 5 mg PO DAILY [facility] Stop: 08/11/18 11:14 Last Admin: 06/18/18 08:21 Dose: 5 mg Sodium Chloride (Nacl 0.45%) 1,000 mls @ 30 mls/hr IV .Q24H [facility] Stop: 08/16/18 13:14 Last Infusion: 06/18/18 06:54 Dose: 30 mls/hr Calcium Gluconate 1 gm/ Sodium (Chloride) 110 mls @ 100 mls/hr IV X1 ONE Stop: 06/18/18 09:05 Last Admin: 06/18/18 08:15 Dose: 100 mls/hr Insulin Human Lispro (Humalog Insulin Sliding Scale) 0 units SUBQ ACHS [facility]; Protocol Stop: 08/11/18 07:29 Last Admin: 06/18/18 06:45 Dose: 4 units Lactobacillus Rhamnosus (Culturelle 15b) 1 each PO DAILY [facility] Stop: 08/13/18 08:59 Last Admin: 06/18/18 08:20 Dose: 1 each Levetiracetam (Keppra) 500 mg PO BID [facility] Stop: 08/13/18 18:14 Last Admin: 06/18/18 08:20 Dose: 500 mg Magnesium Oxide (Mag-Oxide) 400 mg PO DAILY [facility] Stop: 08/12/18 08:59 Last Admin: 06/18/18 08:21 Dose: 400 mg Methylprednisolone Sodium Succinate (Solu-Medrol) 40 mg IV Q8HR [facility] Stop: 06/21/18 05:01 Last Admin: 06/18/18 05:14 Dose: 40 mg Miscellaneous (Probiotic Screen) 1 ea [facility] PRN PRN PRN Reason: PROTOCOL Stop: 08/12/18 13:54 Ondansetron HCl (Zofran) 4 mg IV Q4H PRN PRN Reason: Nausea / Vomiting Stop: 08/14/18 11:47 Last Admin: 06/16/18 11:58 Dose: 4 mg Pantoprazole Sodium (Protonix) 40 mg PO QDAC [facility] Stop: 08/11/18 07:29 Last Admin: 06/18/18 06:45 Dose: 40 mg Sevelamer Carbonate (Renvela) 800 mg PO TIDWM [facility] Stop: 08/14/18 16:59 Last Admin: 06/18/18 08:21 Dose: 800 mg Sodium Polystyrene Sulfonate (Kayexalate) 60 gm PO X1 ONE Stop: 06/18/18 08:45 Tramadol HCl (Ultram) 50 mg PO Q4H PRN PRN Reason: Pain (Severe) Stop: 08/11/18 11:08 Last Admin: 06/18/18 05:14 Dose: 50 mg General: Alert, No acute distress HEENT: Mucous membr. moist/pink Neck: Supple, JVD, +2 carotid pulse wo bruit (flat) Cardiovascular: Regular rate, Systolic murmurs, Other (atrial fibrillation) Lungs: Clear to auscultation, Normal air movement Abdomen: Bowel sounds, Soft, Obese, Other (no organomegaly) Neurological: Normal speech, Strength at 5/5 X4 ext, Cranial nerves 3-12 NL, Reflexes 2+ - Procedures Procedures: Procedures Procedure Code Date OXYGEN ENRICHMENT NEC 93.96 12/11/00 Assessment/Plan - Problem List Patient Problems: All Active Problems ARF (acute renal failure) (Acute) COPD with acute exacerbation (Acute) J44.1 Diabetes mellitus (Acute) E11.9 HTN (hypertension) (Acute) I10 - Assessment Assessment: 1. Transaminitis 2. Hypoxemic resp failure 3. Septicemia 4. Probable multifactorial hepatitis -suspect component of ischemic hepatopathy vs DILI -Supportive care and management -monitor ammonia level -watch and avoid any hepatotoxins
[2018-06-18 09:12] LABS: HEP A AB IGM Negative (Negative); HEP B CORE IGM Negative (Negative); HEP B SURFACE AG QL Negative (Negative); HEP C ANTIBODY <0.1 s/co ratio (0.0-0.9)
[2018-06-18 09:18] LABS: PaO2 81.5 mmHg (80.0-100.0); pH 7.308 (7.35-7.45)
[2018-06-18 09:19] LABS: ALLEN TEST PASS; PaCO2 65.4 mmHg (35.0-45.0); sO2c 94.7 % (92.0-100.0)
[2018-06-18] MEDS ORDERED: Sodium Chloride 0.45% 1,000 ML IV SCH (11:30)
[2018-06-18 12:57] LABS: ALB/GLOB RATIO 1.3 (1.0-1.8); TOTAL PROTEIN,SERUM 6.4 gm/dL (6.0-8.3)
--- NOTE | 2018-06-18 13:17 | General Progress Note ---
Subjective - Review of Systems Service Date: 06/18/18 Subjective: Patient is still complaining of chest pain shortness of breath no palpitations Patient has desaturation patient stable and transferred to [facility] Objective - Results Result Diagrams: 06/18/18 04:25 06/18/18 04:25 Recent Labs: Laboratory Last Values WBC 4.9 Th/cmm (4.8-10.8) 06/18/18 04:25 RBC 3.73 Mil/cmm (4.30-5.70) L 06/18/18 04:25 Hgb 10.9 gm/dL (12-16) L 06/18/18 04:25 Hct 33.5 % (41.0-60) L 06/18/18 04:25 MCV 89.9 fl (80-99) 06/18/18 04:25 MCH 29.3 pg (26.0-30.0) 06/18/18 04:25 MCHC Differential 32.6 pg (28.0-36.0) 06/18/18 04:25 RDW 14.6 % (11.5-20.0) 06/18/18 04:25 Plt Count 107 Th/cmm (150-400) L 06/18/18 04:25 MPV 9.6 fl 06/18/18 04:25 Add Manual Diff YES 06/18/18 04:25 Neutrophils % 72.6 % (40.0-80.0) 06/17/18 04:05 Lymphocytes % 19.9 % (20.0-50.0) L 06/17/18 04:05 Monocytes % 6.2 % (2.0-10.0) 06/17/18 04:05 Eosinophils % 1.1 % (0.0-5.0) 06/17/18 04:05 Basophils % 0.2 % (0.0-2.0) 06/17/18 04:05 Neutrophils (Manual) 86 % (40-80) H 06/18/18 04:25 Lymphocytes 13 % (20-50) L 06/18/18 04:25 Monocytes 1 % (2-10) L 06/18/18 04:25 Platelet Estimate DECREASED PLATELETS (NORMAL) 06/18/18 04:25 Specimen Source Arterial 06/18/18 09:10 Sample Site Left Radial 06/18/18 09:10 pH 7.308 (7.35-7.45) L 06/18/18 09:10 pCO2 65.4 mmHg (35.0-45.0) H* 06/18/18 09:10 pO2 81.5 mmHg (80.0-100.0) 06/18/18 09:10 HCO3 32.0 mEq/L (20.0-26.0) H 06/18/18 09:10 Base Excess 3.6 mEq/L (-3.0-3.0) H 06/18/18 09:10 O2 Saturation 94.7 % (92.0-100.0) 06/18/18 09:10 Brody Test PASS 06/18/18 09:10 Vent Rate NA 06/17/18 10:56 Inspired O2 36 06/18/18 09:10 Tidal Volume NA 06/17/18 10:56 PEEP NA 06/17/18 10:56 Pressure (ins/psv/peep) NA 06/17/18 10:56 Critical Value PW 06/18/18 09:10 Sodium 126 mEq/L (136-145) L 06/18/18 04:25 Potassium 6.3 mEq/L (3.5-5.1) H* 06/18/18 04:25 Chloride 86 mEq/L (98-107) L 06/18/18 04:25 Carbon Dioxide 28.9 mEq/L (21.0-31.0) 06/18/18 04:25 Anion Gap 17.4 (7.0-16.0) H 06/18/18 04:25 BUN 81 mg/dL (7-25) H* 06/18/18 04:25 Creatinine 2.6 mg/dL (0.7-1.3) H 06/18/18 04:25 Est GFR ( Amer) 32.3 ml/min (>90) 06/18/18 04:25 Est GFR (Non-Af Amer) 26.7 ml/min 06/18/18 04:25 BUN/Creatinine Ratio 31.2 06/18/18 04:25 Glucose 235 mg/dL (70-105) H 06/18/18 04:25 POC Glucose 218 MG/DL (70 - 105) H 06/18/18 12:14 Whole Bld Lactic Acid 1.92 mmol/L (0.60-1.99) 06/12/18 13:55 Calcium 9.0 mg/dL (8.6-10.3) 06/18/18 04:25 Phosphorus 5.7 mg/dL (2.5-5.0) H 06/16/18 04:50 Magnesium 2.3 mg/dL (1.9-2.7) 06/17/18 04:05 Total Bilirubin 1.5 mg/dL (0.3-1.0) H 06/18/18 04:25 Direct Bilirubin 0.75 mg/dL (0.0-0.2) H 06/18/18 04:25 AST 220 U/L (13-39) H 06/18/18 04:25 ALT 412 U/L (7-52) H 06/18/18 04:25 Alkaline Phosphatase 175 U/L (34-104) H 06/18/18 04:25 Ammonia 65 umol/L (16-53) H 06/17/18 15:45 Creatine Kinase 35 U/L (30-223) 06/11/18 21:30 Troponin I 0.10 ng/mL (0.01-0.05) H* D 06/13/18 06:35 Total Protein 6.4 gm/dL (6.0-8.3) 06/18/18 04:25 Albumin 3.6 gm/dL (4.2-5.5) L 06/18/18 04:25 Globulin 2.8 gm/dL 06/18/18 04:25 Albumin/Globulin Ratio 1.3 (1.0-1.8) 06/18/18 04:25 Triglycerides 114 mg/dL (<150) 06/13/18 06:35 Cholesterol 115 mg/dL (<200) 06/13/18 06:35 LDL Cholesterol Direct 76 mg/dL (75-193) 06/13/18 06:35 HDL Cholesterol 26 mg/dL (23-92) 06/13/18 06:35 Amylase 24 U/L (29-103) L 06/13/18 06:35 Lipase 11 U/L (11-82) 06/11/18 21:30 TSH 1.30 uIU/ml (0.34-5.60) 06/12/18 13:55 Urine Source RANDOM 06/13/18 13:46 Urine Color YELLOW 06/13/18 13:46 Urine Clarity CLEAR (CLEAR) 06/13/18 13:46 Urine pH 5.5 (4.6 - 8.0) 06/13/18 13:46 Ur Specific [place] >= 1.030 (1.005-1.030) 06/13/18 13:46 Urine Protein NEGATIVE mg/dL (NEGATIVE) 06/13/18 13:46 Urine Glucose (UA) NEGATIVE mg/dL (NEGATIVE) 06/13/18 13:46 Urine Ketones NEGATIVE mg/dL (NEGATIVE) 06/13/18 13:46 Urine Blood NEGATIVE (NEGATIVE) 06/13/18 13:46 Urine Nitrate NEGATIVE (NEGATIVE) 06/13/18 13:46 Urine Bilirubin NEGATIVE (NEGATIVE) 06/13/18 13:46 Urine Urobilinogen 0.2 E.U./dL (0.2 - 1.0) 06/13/18 13:46 Ur Leukocyte Esterase NEGATIVE (NEGATIVE) 06/13/18 13:46 Urine RBC NONE SEEN /hpf (0-5) 06/13/18 13:46 Urine WBC NONE SEEN /hpf (0-5) 06/13/18 13:46 Ur Epithelial Cells RARE /lpf (FEW) 06/13/18 13:46 Urine Bacteria FEW /hpf (NONE SEEN) 06/13/18 13:46 Urine Opiates Screen NEGATIVE (NEGATIVE) 06/13/18 13:46 Urine Methadone Screen NEGATIVE (NEGATIVE) 06/13/18 13:46 Ur Barbiturates Screen NEGATIVE (NEGATIVE) 06/13/18 13:46 Ur Tricyclics Screen NEGATIVE (NEGATIVE) 06/13/18 13:46 Ur Phencyclidine Scrn NEGATIVE (NEGATIVE) 06/13/18 13:46 Amphetamines Screen NEGATIVE (NEGATIVE) 06/13/18 13:46 U Methamphetamines Scrn NEGATIVE (NEGATIVE) 06/13/18 13:46 U Benzodiazepines Scrn NEGATIVE (NEGATIVE) 06/13/18 13:46 U Cocaine Metab Screen NEGATIVE (NEGATIVE) 06/13/18 13:46 U Cannabinoids Screen NEGATIVE (NEGATIVE) 06/13/18 13:46 Hepatitis A IgM Ab Negative (Negative) 06/17/18 15:45 Hep Bs Antigen Negative (Negative) 06/17/18 15:45 Hep B Core IgM Ab Negative (Negative) 06/17/18 15:45 Hepatitis C Antibody <0.1 s/co ratio (0.0-0.9) 06/17/18 15:45 - Physical Exam Vitals and I&O: Vital Signs Temp 98.7 F 06/18/18 08:00 Pulse 81 06/18/18 10:40 Resp 16 06/18/18 10:40 BP 110/55 06/18/18 10:00 Pulse Ox 96 06/18/18 12:00 Intake & Output 06/17/18 06/18/18 06/18/18 18:59 06:59 18:59 Intake Total 1100 1077 Output Total 800 300 Balance 300 777 Weight (lbs) 131.542 kg 119.522 kg Intake: Intake, IV Amount 477 Sodium Chloride 0.45% 1, 477 000 ml @ 30 mls/hr IV . Q24H [facility] Rx#:[id number] Oral 800 600 Other 300 Output: Urine 800 300 Other: # Bowel Movements 0 Weight Source Bedscale Bedscale Active Medications: Current Medications Acetaminophen (Tylenol) 650 mg PO Q4HR PRN PRN Reason: Pain or Fever >101 Stop: 08/11/18 03:59 Last Admin: 06/13/18 21:42 Dose: 650 mg Albuterol/Ipratropium (Duoneb Neb) 3 ml HHN [id number] [facility] Stop: 08/16/18 14:59 Last Admin: 06/18/18 10:39 Dose: 3 ml Aspirin (Aspirin) 325 mg PO DAILY [facility] Stop: 08/11/18 08:59 Last Admin: 06/18/18 08:21 Dose: 325 mg Budesonide (Pulmicort) 0.5 mg HHN BIDRT [facility] Stop: 08/16/18 18:59 Last Admin: 06/18/18 06:57 Dose: 0.5 mg Carvedilol (Coreg) 6.25 mg PO BID [facility] Stop: 08/11/18 16:59 Last Admin: 06/18/18 08:20 Dose: 6.25 mg Dextrose (D50w) 50 ml IVP PRN PRN PRN Reason: Blood Glucose less than 70 Stop: 08/11/18 05:22 Gabapentin (Neurontin) 800 mg PO TID [facility] Stop: 08/11/18 13:59 Last Admin: 06/18/18 08:24 Dose: 800 mg Glipizide (Glucotrol) 5 mg PO DAILY [facility] Stop: 08/11/18 11:14 Last Admin: 06/18/18 08:21 Dose: 5 mg Sodium Chloride (Nacl 0.45%) 1,000 mls @ 70 mls/hr IV .[id number] [facility] Stop: 08/17/18 11:29 Insulin Human Lispro (Humalog Insulin Sliding Scale) 0 units SUBQ ACHS [facility]; Protocol Stop: 08/11/18 07:29 Last Admin: 06/18/18 12:21 Dose: 4 units Lactobacillus Rhamnosus (Culturelle 15b) 1 each PO DAILY [facility] Stop: 08/13/18 08:59 Last Admin: 06/18/18 08:20 Dose: 1 each Levetiracetam (Keppra) 500 mg PO BID [facility] Stop: 08/13/18 18:14 Last Admin: 06/18/18 08:20 Dose: 500 mg Methylprednisolone Sodium Succinate (Solu-Medrol) 40 mg IV Q8HR [facility] Stop: 06/21/18 05:01 Last Admin: 06/18/18 12:21 Dose: 40 mg Miscellaneous (Probiotic Screen) 1 ea [facility] PRN PRN PRN Reason: PROTOCOL Stop: 08/12/18 13:54 Miscellaneous (Clinical Monitoring) 1 [facility] DAILY PRN PRN Reason: RENAL DOSING Stop: 08/17/18 12:28 Ondansetron HCl (Zofran) 4 mg IV Q4H PRN PRN Reason: Nausea / Vomiting Stop: 08/14/18 11:47 Last Admin: 06/16/18 11:58 Dose: 4 mg Pantoprazole Sodium (Protonix) 40 mg PO QDAC [facility] Stop: 08/11/18 07:29 Last Admin: 06/18/18 06:45 Dose: 40 mg Sevelamer Carbonate (Renvela) 800 mg PO TIDWM [facility] Stop: 08/14/18 16:59 Last Admin: 06/18/18 12:21 Dose: 800 mg Tramadol HCl (Ultram) 50 mg PO Q4H PRN PRN Reason: Pain (Severe) Stop: 08/11/18 11:08 Last Admin: 06/18/18 05:14 Dose: 50 mg General: Alert, No acute distress HEENT: Mucous membr. moist/pink Neck: Supple, JVD, +2 carotid pulse wo bruit (flat) Cardiovascular: Regular rate, Systolic murmurs, Other (atrial fibrillation) Lungs: Clear to auscultation, Normal air movement Abdomen: Bowel sounds, Soft, Obese, Other (no organomegaly) Neurological: Normal speech, Strength at 5/5 X4 ext, Cranial nerves 3-12 NL, Reflexes 2+ - Procedures Procedures: Procedures Procedure Code Date OXYGEN ENRICHMENT NEC 93.96 12/11/00 Assessment/Plan - Problem List Patient Problems: All Active Problems ARF (acute renal failure) (Acute) COPD with acute exacerbation (Acute) J44.1 Diabetes mellitus (Acute) E11.9 HTN (hypertension) (Acute) I10 - Assessment Assessment: Staph septicemia Diabetes mellitus type 2 insulin-dependent Diabetics securities Hypertension Congestive heart failure diastolic dysfunction. COPD sick sinus syndrome with pacemaker Atrial fibrillation Narcotic dependence Respiratory failure on BiPAP - Plan Plan: Continue IV antibiotics we will do urine for drug screen Patient to get Kayexalate 60 g due to hyperkalemia Low dose dopamine for renal perfusion Continue present management Nutritional Asmnt/Malnutr-PDOC - Dietary Evaluation Malnutrition Findings (Please click <Entered> for more info): Nutritional Asmnt/Malnutrition Start: 06/12/18 17: 18 Text: Status: Complete Freq: Protocol: Document 06/12/18 17:23 LCMARVING (Rec: 06/12/18 17:37 LCMARVING [id number]) Nutritional Asmnt/Malnutrition Patient General Information Nutritional Screening High Risk Diagnosis COPD, CHF Pertinent Medical Hx/Surgical Hx DM, HTN, pacemaker, COPD, CHF Subjective Information Pt seen sitting up on bed having lunch. Pt stated he did not want this lunch tray only took the ice cream and requested for salad and fresh fruit. Food preference provided to RD. Glucose ad admission was 189 noted. Pt appeared not ready for diabetic education. Current Diet Order/ Nutrition Support CCHO NA 2gm Pertinent Medications lasix, humalog, mag-oxide, glucophage, protonix Pertinent Labs 06/12 na 135, K 5.8, Cl 92, BUN 35, Cr 1.8, Glucose 156, POC 147-280, Alb 3.8 Nutritional Hx/Data Height 1.73 m Height (Calculated Centimeters) 172.7 Current Weight (lbs) 117.934 kg Weight (Calculated Kilograms) 117.9 Weight (Calculated Grams) 198104.0 Nahma Body Weight 154 Body Mass Index (BMI) 39.5 Weight Status Obese GI Symptoms GI Symptoms None Last BM none Difficult in: None Skin Integrity/Comment: intact Estimated Nutritional Goals BEE in Kcals: Adj wt of IBW Calories/Kcals/Kg 23-27 Kcals Calculated [id number] Protein: Adj wt of IBW Protein g/k.8 Protein Calculated 66 Fluid: ml Nutritional Problem 1. Problem Problem altered nutrition related labs Etiology hyperglycemia Signs/Symptoms: Glucose 156, POC 147-280 Intervention/Recommendation Comments 1. Continue with [facility] Na 2gm diet as ordered. 2. Monitor PO intake, wt, labs and skin integrity 3. F/U as high risk in 2-3 days Expected Outcomes/Goals Expected Outcomes/Goals 1. PO intake to meet at least 75% of nutritional needs. 2. Wt stability, skin to remain intact, labs to approach WNL.
--- NOTE | 2018-06-18 17:34 | GI Progress Note ---
Subjective - Review of Systems Service Date: 06/18/18 Events since last encounter: High K Subjective: No GI complaints Objective - Results Result Diagrams: 06/18/18 04:25 06/18/18 04:25 Recent Labs: Laboratory Last Values WBC 4.9 Th/cmm (4.8-10.8) 06/18/18 04:25 RBC 3.73 Mil/cmm (4.30-5.70) L 06/18/18 04:25 Hgb 10.9 gm/dL (12-16) L 06/18/18 04:25 Hct 33.5 % (41.0-60) L 06/18/18 04:25 MCV 89.9 fl (80-99) 06/18/18 04:25 MCH 29.3 pg (26.0-30.0) 06/18/18 04:25 MCHC Differential 32.6 pg (28.0-36.0) 06/18/18 04:25 RDW 14.6 % (11.5-20.0) 06/18/18 04:25 Plt Count 107 Th/cmm (150-400) L 06/18/18 04:25 MPV 9.6 fl 06/18/18 04:25 Add Manual Diff YES 06/18/18 04:25 Neutrophils % 72.6 % (40.0-80.0) 06/17/18 04:05 Lymphocytes % 19.9 % (20.0-50.0) L 06/17/18 04:05 Monocytes % 6.2 % (2.0-10.0) 06/17/18 04:05 Eosinophils % 1.1 % (0.0-5.0) 06/17/18 04:05 Basophils % 0.2 % (0.0-2.0) 06/17/18 04:05 Neutrophils (Manual) 86 % (40-80) H 06/18/18 04:25 Lymphocytes 13 % (20-50) L 06/18/18 04:25 Monocytes 1 % (2-10) L 06/18/18 04:25 Platelet Estimate DECREASED PLATELETS (NORMAL) 06/18/18 04:25 Specimen Source Arterial 06/18/18 09:10 Sample Site Left Radial 06/18/18 09:10 pH 7.308 (7.35-7.45) L 06/18/18 09:10 pCO2 65.4 mmHg (35.0-45.0) H* 06/18/18 09:10 pO2 81.5 mmHg (80.0-100.0) 06/18/18 09:10 HCO3 32.0 mEq/L (20.0-26.0) H 06/18/18 09:10 Base Excess 3.6 mEq/L (-3.0-3.0) H 06/18/18 09:10 O2 Saturation 94.7 % (92.0-100.0) 06/18/18 09:10 Brody Test PASS 06/18/18 09:10 Vent Rate NA 06/17/18 10:56 Inspired O2 36 06/18/18 09:10 Tidal Volume NA 06/17/18 10:56 PEEP NA 06/17/18 10:56 Pressure (ins/psv/peep) NA 06/17/18 10:56 Critical Value PW 06/18/18 09:10 Sodium 126 mEq/L (136-145) L 06/18/18 04:25 Potassium 6.3 mEq/L (3.5-5.1) H* 06/18/18 04:25 Chloride 86 mEq/L (98-107) L 06/18/18 04:25 Carbon Dioxide 28.9 mEq/L (21.0-31.0) 06/18/18 04:25 Anion Gap 17.4 (7.0-16.0) H 06/18/18 04:25 BUN 81 mg/dL (7-25) H* 06/18/18 04:25 Creatinine 2.6 mg/dL (0.7-1.3) H 06/18/18 04:25 Est GFR ( Amer) 32.3 ml/min (>90) 06/18/18 04:25 Est GFR (Non-Af Amer) 26.7 ml/min 06/18/18 04:25 BUN/Creatinine Ratio 31.2 06/18/18 04:25 Glucose 235 mg/dL (70-105) H 06/18/18 04:25 POC Glucose 199 MG/DL (70 - 105) H 06/18/18 16:57 Whole Bld Lactic Acid 1.92 mmol/L (0.60-1.99) 06/12/18 13:55 Calcium 9.0 mg/dL (8.6-10.3) 06/18/18 04:25 Phosphorus 5.7 mg/dL (2.5-5.0) H 06/16/18 04:50 Magnesium 2.3 mg/dL (1.9-2.7) 06/17/18 04:05 Total Bilirubin 1.5 mg/dL (0.3-1.0) H 06/18/18 04:25 Direct Bilirubin 0.75 mg/dL (0.0-0.2) H 06/18/18 04:25 AST 220 U/L (13-39) H 06/18/18 04:25 ALT 412 U/L (7-52) H 06/18/18 04:25 Alkaline Phosphatase 175 U/L (34-104) H 06/18/18 04:25 Ammonia 65 umol/L (16-53) H 06/17/18 15:45 Creatine Kinase 35 U/L (30-223) 06/11/18 21:30 Troponin I 0.10 ng/mL (0.01-0.05) H* D 06/13/18 06:35 Total Protein 6.4 gm/dL (6.0-8.3) 06/18/18 04:25 Albumin 3.6 gm/dL (4.2-5.5) L 06/18/18 04:25 Globulin 2.8 gm/dL 06/18/18 04:25 Albumin/Globulin Ratio 1.3 (1.0-1.8) 06/18/18 04:25 Triglycerides 114 mg/dL (<150) 06/13/18 06:35 Cholesterol 115 mg/dL (<200) 06/13/18 06:35 LDL Cholesterol Direct 76 mg/dL (75-193) 06/13/18 06:35 HDL Cholesterol 26 mg/dL (23-92) 06/13/18 06:35 Amylase 24 U/L (29-103) L 06/13/18 06:35 Lipase 11 U/L (11-82) 06/11/18 21:30 TSH 1.30 uIU/ml (0.34-5.60) 06/12/18 13:55 Urine Source RANDOM 06/13/18 13:46 Urine Color YELLOW 06/13/18 13:46 Urine Clarity CLEAR (CLEAR) 06/13/18 13:46 Urine pH 5.5 (4.6 - 8.0) 06/13/18 13:46 Ur Specific [place] >= 1.030 (1.005-1.030) 06/13/18 13:46 Urine Protein NEGATIVE mg/dL (NEGATIVE) 06/13/18 13:46 Urine Glucose (UA) NEGATIVE mg/dL (NEGATIVE) 06/13/18 13:46 Urine Ketones NEGATIVE mg/dL (NEGATIVE) 06/13/18 13:46 Urine Blood NEGATIVE (NEGATIVE) 06/13/18 13:46 Urine Nitrate NEGATIVE (NEGATIVE) 06/13/18 13:46 Urine Bilirubin NEGATIVE (NEGATIVE) 06/13/18 13:46 Urine Urobilinogen 0.2 E.U./dL (0.2 - 1.0) 06/13/18 13:46 Ur Leukocyte Esterase NEGATIVE (NEGATIVE) 06/13/18 13:46 Urine RBC NONE SEEN /hpf (0-5) 06/13/18 13:46 Urine WBC NONE SEEN /hpf (0-5) 06/13/18 13:46 Ur Epithelial Cells RARE /lpf (FEW) 06/13/18 13:46 Urine Bacteria FEW /hpf (NONE SEEN) 06/13/18 13:46 Urine Opiates Screen NEGATIVE (NEGATIVE) 06/13/18 13:46 Urine Methadone Screen NEGATIVE (NEGATIVE) 06/13/18 13:46 Ur Barbiturates Screen NEGATIVE (NEGATIVE) 06/13/18 13:46 Ur Tricyclics Screen NEGATIVE (NEGATIVE) 06/13/18 13:46 Ur Phencyclidine Scrn NEGATIVE (NEGATIVE) 06/13/18 13:46 Amphetamines Screen NEGATIVE (NEGATIVE) 06/13/18 13:46 U Methamphetamines Scrn NEGATIVE (NEGATIVE) 06/13/18 13:46 U Benzodiazepines Scrn NEGATIVE (NEGATIVE) 06/13/18 13:46 U Cocaine Metab Screen NEGATIVE (NEGATIVE) 06/13/18 13:46 U Cannabinoids Screen NEGATIVE (NEGATIVE) 06/13/18 13:46 Hepatitis A IgM Ab Negative (Negative) 06/17/18 15:45 Hep Bs Antigen Negative (Negative) 06/17/18 15:45 Hep B Core IgM Ab Negative (Negative) 06/17/18 15:45 Hepatitis C Antibody <0.1 s/co ratio (0.0-0.9) 06/17/18 15:45 - Physical Exam Vitals and I&O: Vital Signs Temp 98.7 F 06/18/18 08:00 Pulse 82 06/18/18 16:50 Resp 19 06/18/18 15:02 BP 103/42 06/18/18 16:50 Pulse Ox 98 06/18/18 15:02 Intake & Output 06/17/18 06/18/18 06/18/18 18:59 06:59 18:59 Intake Total 1100 1077 Output Total 800 300 Balance 300 777 Weight (lbs) 131.542 kg 119.522 kg Intake: Intake, IV Amount 477 Sodium Chloride 0.45% 1, 477 000 ml @ 30 mls/hr IV . Q24H [facility] Rx#:[id number] Oral 800 600 Other 300 Output: Urine 800 300 Other: # Bowel Movements 0 Weight Source Bedscale Bedscale Active Medications: Current Medications Acetaminophen (Tylenol) 650 mg PO Q4HR PRN PRN Reason: Pain or Fever >101 Stop: 08/11/18 03:59 Last Admin: 06/13/18 21:42 Dose: 650 mg Albuterol/Ipratropium (Duoneb Neb) 3 ml HHN [id number] [facility] Stop: 08/16/18 14:59 Last Admin: 06/18/18 15:02 Dose: 3 ml Aspirin (Aspirin) 325 mg PO DAILY [facility] Stop: 08/11/18 08:59 Last Admin: 06/18/18 08:21 Dose: 325 mg Budesonide (Pulmicort) 0.5 mg HHN BIDRT [facility] Stop: 08/16/18 18:59 Last Admin: 06/18/18 06:57 Dose: 0.5 mg Carvedilol (Coreg) 6.25 mg PO BID [facility] Stop: 08/11/18 16:59 Last Admin: 06/18/18 16:50 Dose: 6.25 mg Dextrose (D50w) 50 ml IVP PRN PRN PRN Reason: Blood Glucose less than 70 Stop: 08/11/18 05:22 Gabapentin (Neurontin) 800 mg PO TID [facility] Stop: 08/11/18 13:59 Last Admin: 06/18/18 13:22 Dose: 800 mg Glipizide (Glucotrol) 5 mg PO DAILY [facility] Stop: 08/11/18 11:14 Last Admin: 06/18/18 08:21 Dose: 5 mg Sodium Chloride (Nacl 0.45%) 1,000 mls @ 70 mls/hr IV .[id number] [facility] Stop: 08/17/18 11:29 Insulin Human Lispro (Humalog Insulin Sliding Scale) 0 units SUBQ ACHS [facility]; Protocol Stop: 08/11/18 07:29 Last Admin: 06/18/18 12:21 Dose: 4 units Lactobacillus Rhamnosus (Culturelle 15b) 1 each PO DAILY [facility] Stop: 08/13/18 08:59 Last Admin: 06/18/18 08:20 Dose: 1 each Levetiracetam (Keppra) 500 mg PO BID [facility] Stop: 08/13/18 18:14 Last Admin: 06/18/18 16:50 Dose: 500 mg Methylprednisolone Sodium Succinate (Solu-Medrol) 40 mg IV Q8HR [facility] Stop: 06/21/18 05:01 Last Admin: 06/18/18 12:21 Dose: 40 mg Miscellaneous (Probiotic Screen) 1 ea MC PRN PRN PRN Reason: PROTOCOL Stop: 08/12/18 13:54 Miscellaneous (Clinical Monitoring) 1 ea MC DAILY PRN PRN Reason: RENAL DOSING Stop: 08/17/18 12:28 Ondansetron HCl (Zofran) 4 mg IV Q4H PRN PRN Reason: Nausea / Vomiting Stop: 08/14/18 11:47 Last Admin: 06/18/18 13:22 Dose: 4 mg Pantoprazole Sodium (Protonix) 40 mg PO QDAC [facility] Stop: 08/11/18 07:29 Last Admin: 06/18/18 06:45 Dose: 40 mg Sevelamer Carbonate (Renvela) 800 mg PO TIDWM [facility] Stop: 08/14/18 16:59 Last Admin: 06/18/18 16:49 Dose: 800 mg Tramadol HCl (Ultram) 50 mg PO Q4H PRN PRN Reason: Pain (Severe) Stop: 08/11/18 11:08 Last Admin: 06/18/18 13:34 Dose: 50 mg General: Alert, Moderate distress HEENT: Mucous membr. moist/pink Neck: Supple, JVD, +2 carotid pulse wo bruit (flat) Cardiovascular: Regular rate, Normal S1, Normal S2, Systolic murmurs, Other ( atrial fibrillation) Lungs: Clear to auscultation, Normal air movement Abdomen: Bowel sounds, Soft, Distended, Obese, Other (no organomegaly) Neurological: Normal speech, Strength at 5/5 X4 ext, Cranial nerves 3-12 NL, Reflexes 2+ - Procedures Procedures: Procedures Procedure Code Date OXYGEN ENRICHMENT NEC 93.96 12/11/00 Assessment/Plan - Problem List Patient Problems: All Active Problems ARF (acute renal failure) (Acute) COPD with acute exacerbation (Acute) J44.1 Diabetes mellitus (Acute) E11.9 HTN (hypertension) (Acute) I10 - Assessment Assessment: 1. Transaminitis 2. Hypoxemic resp failure 3. Septicemia 4. Probable multifactorial hepatitis - - Plan Plan: 1. Transaminitis 2. Hypoxemic resp failure 3. Septicemia 4. Probable multifactorial hepatitis -suspect component of ischemic hepatopathy vs DILI -Supportive care and management -monitor ammonia level -watch and avoid any hepatotoxins
[2018-06-18 20:33] LABS: EOSINOPHIL SMEAR SOURCE URINE; EOSINOPHILS SMEAR COUNT NONE SEEN (NONE SEEN)
--- NOTE | 2018-06-18 23:01 | Progress Notes ---
DATE: 06/18/2018 SUBJECTIVE: The patient is in ICU. The patient's IV was decreased yesterday due to leg swelling. The patient has been taken off BiPAP. The patient is conscious, alert, but he is extremely sleepy. No complaint of chest pain. The patient's shortness of breathing is better. The patient is not eating good. He is eating less than 50%. The patient had about 800 mL of urine yesterday. Denies vomiting, diarrhea, or constipation. The patient was on a non-renal diet before. OBJECTIVE: VITAL SIGNS: Temperature 86, pulse 81, respirations 16, blood pressure 110/55, oxygen saturation 99. Yesterday's intake 1250, urine output 760. The patient was given Lasix yesterday one time 40 mg IV. HEART: Regular. LUNGS: Much clear. No rales. ABDOMEN: Soft. EXTREMITIES: No edema. LABORATORY DATA: WBC 4.9, hemoglobin 10.9, pCO2 of 65, pH 7.3, bicarbonate 32, sodium 126, potassium 6.3, chloride 86, CO2 of 28, BUN increased to 81, creatinine increased to 2.6, blood sugar 224, calcium 9.0. The patient is on IV steroids also. ASSESSMENT: 1. Acute kidney injury, worsening. 2. Chronic obstructive pulmonary disease with severe CO2 retention. 3. Chronic kidney disease 3, baseline. 4. Anemia. 5. Hyponatremia. 6. Hyperkalemia, new onset. 7. Recurrent hypotension. 8. Diabetes mellitus. 9. History of congestive heart failure. No evidence of congestive heart failure today. 10. Obesity and obstructive sleep apnea. PLAN: 1. Stop Lasix IV due to worsening of acute kidney injury. 2. Increase IV fluids since the patient does not have any evidence of congestive heart failure now. 3. Obtain urinalysis and urine eosinophil count. 4. Kayexalate 60 grams p.o. one time now. 5. Reduce potassium in diet. 6. IV calcium gluconate one time. 7. Check CMP, phosphorus, magnesium in the morning. 8. Albuterol breathing treatment for hyperkalemia. 9. Discussed with ICU nursing staff multiple times. 10. Discussed with the patient at length. JOB# [id number]
--- NOTE | 2018-06-18 23:20 | Progress Notes ---
DATE: 06/18/2018 PATIENT'S ID: A 62-year-old male. SUBJECTIVE: The patient seen and examined. The patient is lying in the bed. The patient is still feisty and wants to go home though the patient's pCO2 was 65. The patient currently on BiPAP, the patient's potassium is 6.3 along with BUN and creatinine 81 and 2.6. The patient has abnormal liver function test as well. PHYSICAL EXAMINATION: VITAL SIGNS: See nurses' note. HEENT: No facial asymmetry. NECK: Supple, no JVD. HEART: Irregular. CHEST: Lung equal in expansion with expiratory wheezing. ABDOMEN: Distended and soft. Bowel sounds are present. EXTREMITIES: Chronic venous stasis changes noted. CLINICAL IMPRESSION: 1. Fgsau-[id number]-klatthp respiratory failure. 2. Severe obstructive sleep apnea syndrome. 3. Chronic obstructive pulmonary disease exacerbation. 4. Morbid obesity with hypoventilation syndrome. 5. Diabetes mellitus. 6. History of cerebrovascular accident. 7. Abnormal liver function tests. 8. Recurrent encephalopathy secondary to CO2 narcosis. PLAN: 1. Continue to provide oxygen with BiPAP, correct electrolytes. 2. IV fluids, nutritional support, IV steroids, IV antibiotic and nebulizer treatment. 3. General nursing care along with following up on consult and recommendations. Care plan reviewed and discussed with staff. JOB# [id number]
--- NOTE | 2018-06-19 02:50 | Progress Notes ---
DATE: 06/18/2018 PULMONARY PROGRESS NOTE PROBLEM LIST: 1. Acute on chronic respiratory failure. 2. Chronic obstructive pulmonary disease. 3. Sleep apnea syndrome. 4. Significant morbid obesity. 5. History of tobacco dependency. SYMPTOMS: The patient is sleeping, has ____ nasal cannula, but wanted to his BiPAP back again. No respiratory distress, etc. PHYSICAL EXAMINATION: VITAL SIGNS: The patient is afebrile, heart rate is in 80s, and temperature is 99, and saturation is okay on 35% 90+. NECK: Veins not visualized. CHEST: Shows diminished air entry without much of adventitious breath sounds. HEART: Regular. ABDOMEN: Soft, nontender. LABORATORY DATA: The patient's white count is 4000, hemoglobin 10.9. ABG shows partially compensated respiratory acidemia with pH of 7.3, pCO2 of 65, pO2 is 81. Sodium is 126, potassium is 6.3. ASSESSMENT: The patient is clinically stable respiratory llanes. PLANS AND SUGGESTIONS: Subsequently okay pulmonary llanes to go to Step-Down Unit. Discussed with RN. We will go ahead and give a nasal O2 at 2-3 liters per minute see how she does and start mobilizing therapy, etc., and go from there. JOB# [id number]
[2018-06-19 04:56] LABS: % BASOPHILS 2.3 % (0.0-2.0); % EOSINOPHILS 0.3 % (0.0-5.0); % LYMPHOCYTES 10.4 % (20.0-50.0); % MONOCYTES 1.6 % (2.0-10.0); % NEUTROPHILS 85.4 % (40.0-80.0); BASOPHILE ABSOLUTE 0.2 Th/cumm (0-0.2); HEMATOCRIT 33.1 % (41.0-60); HEMOGLOBIN 10.6 gm/dL (12-16); LYMPHOCYTE ABSOLUTE 0.8 Th/cmm (1.5-3.0); MEAN CELL VOLUME 89.2 fl (80-99); MEAN CORPUSCULAR HEMOGLOBIN 28.5 pg (26.0-30.0); MEAN PLATELET VOLUME 9.1 fl; MONOCYTE ABSOLUTE 0.1 Th/cmm (0.3-1.0); NEUTROPHILE ABSOLUTE 6.3 Th/cmm (1.8-8.0); PLATELET COUNT 114 Th/cmm (150-400); RED BLOOD COUNT 3.72 Mil/cmm (4.30-5.70); RED CELL DISTRIBUTION WIDTH 14.6 % (11.5-20.0); WHITE BLOOD COUNT 7.4 Th/cmm (4.8-10.8)
[2018-06-19] MEDS: methylPREDNISolone SS 40 mg Vial IV SCH ×3 (05:33→21:09)
[2018-06-19 05:36] LABS: ALB/GLOB RATIO 1.4 (1.0-1.8); ALBUMIN 3.5 gm/dL (4.2-5.5); ANION GAP 17.7 (7.0-16.0); BILIRUBIN,TOTAL 1.1 mg/dL (0.3-1.0); CALCIUM SERUM 8.8 mg/dL (8.6-10.3); CARBON DIOXIDE 29.7 mEq/L (21.0-31.0); CREATININE - SERUM 3.2 mg/dL (0.7-1.3); GFR AFRICAN-AMERICAN 25.4 ml/min (>90); MAGNESIUM 2.5 mg/dL (1.9-2.7); PHOSPHOROUS 6.3 mg/dL (2.5-5.0); POTASSIUM SERUM 5.4 mEq/L (3.5-5.1); TOTAL PROTEIN,SERUM 6.1 gm/dL (6.0-8.3)
[2018-06-19] MEDS: Albuterol/Ipratropium Neb 3 ML AERS HHN SCH ×4 (06:53→19:16)
[2018-06-19] MEDS: Budesonide 0.5 Mg/2 mL Ud HHN SCH ×2 (06:53→19:16)
[2018-06-19] MEDS: INSULIN LISPRO SLIDING SCALE 100 UNITS/ML UNIT SUBQ SCH ×4 (07:36→21:20)
[2018-06-19] MEDS: Lactobacillus Rhamnosus GG 15 Billion CFU CAP.SPRINK PO SCH (09:14)
[2018-06-19] MEDS: Sodium Chloride 0.9% 1,000 ML IV SCH (09:14)
[2018-06-19] MEDS: Pantoprazole 40 mg EC Tab PO SCH (09:14)
[2018-06-19] MEDS: Apixaban 5 MG TABLET PO SCH ×2 (09:23→17:42)
[2018-06-19 10:07] LABS: pH 7.315 (7.35-7.45)
[2018-06-19 10:08] LABS: ALLEN TEST PASS; PaO2 77.4 mmHg (80.0-100.0)
[2018-06-19 10:09] LABS: PaCO2 63.6 mmHg (35.0-45.0)
--- NOTE | 2018-06-19 12:41 | General Progress Note ---
Subjective - Review of Systems Service Date: 06/19/18 Subjective: Patient is still complaining of chest pain shortness of breath no palpitations Patient has desaturation patient stable on BiPAP Objective - Results Result Diagrams: 06/19/18 04:45 06/19/18 04:45 Recent Labs: Laboratory Last Values WBC 7.4 Th/cmm (4.8-10.8) 06/19/18 04:45 RBC 3.72 Mil/cmm (4.30-5.70) L 06/19/18 04:45 Hgb 10.6 gm/dL (12-16) L 06/19/18 04:45 Hct 33.1 % (41.0-60) L 06/19/18 04:45 MCV 89.2 fl (80-99) 06/19/18 04:45 MCH 28.5 pg (26.0-30.0) 06/19/18 04:45 MCHC Differential 32.0 pg (28.0-36.0) 06/19/18 04:45 RDW 14.6 % (11.5-20.0) 06/19/18 04:45 Plt Count 114 Th/cmm (150-400) L 06/19/18 04:45 MPV 9.1 fl 06/19/18 04:45 Add Manual Diff YES 06/18/18 04:25 Neutrophils % 85.4 % (40.0-80.0) H 06/19/18 04:45 Lymphocytes % 10.4 % (20.0-50.0) L 06/19/18 04:45 Monocytes % 1.6 % (2.0-10.0) L 06/19/18 04:45 Eosinophils % 0.3 % (0.0-5.0) 06/19/18 04:45 Basophils % 2.3 % (0.0-2.0) H 06/19/18 04:45 Neutrophils (Manual) 86 % (40-80) H 06/18/18 04:25 Lymphocytes 13 % (20-50) L 06/18/18 04:25 Monocytes 1 % (2-10) L 06/18/18 04:25 Platelet Estimate DECREASED PLATELETS (NORMAL) 06/18/18 04:25 Eos Smear Source URINE 06/18/18 18:30 Eos Smear Total Cells NONE SEEN (NONE SEEN) 06/18/18 18:30 Specimen Source Arterial 06/19/18 09:58 Sample Site Left Radial 06/19/18 09:58 pH 7.315 (7.35-7.45) L 06/19/18 09:58 pCO2 63.6 mmHg (35.0-45.0) H* 06/19/18 09:58 pO2 77.4 mmHg (80.0-100.0) L 06/19/18 09:58 HCO3 31.7 mEq/L (20.0-26.0) H 06/19/18 09:58 Base Excess 3.5 mEq/L (-3.0-3.0) H 06/19/18 09:58 O2 Saturation 94.0 % (92.0-100.0) 06/19/18 09:58 Brody Test PASS 06/19/18 09:58 Vent Rate NA 06/17/18 10:56 Inspired O2 36 06/19/18 09:58 Tidal Volume NA 06/17/18 10:56 PEEP NA 06/17/18 10:56 Pressure (ins/psv/peep) NA 06/17/18 10:56 Critical Value PW 06/19/18 09:58 Sodium 126 mEq/L (136-145) L 06/19/18 04:45 Potassium 5.4 mEq/L (3.5-5.1) H 06/19/18 04:45 Chloride 84 mEq/L (98-107) L 06/19/18 04:45 Carbon Dioxide 29.7 mEq/L (21.0-31.0) 06/19/18 04:45 Anion Gap 17.7 (7.0-16.0) H 06/19/18 04:45 BUN 102 mg/dL (7-25) H* 06/19/18 04:45 Creatinine 3.2 mg/dL (0.7-1.3) H 06/19/18 04:45 Est GFR ( Amer) 25.4 ml/min (>90) 06/19/18 04:45 Est GFR (Non-Af Amer) 21.0 ml/min 06/19/18 04:45 BUN/Creatinine Ratio 31.9 06/19/18 04:45 Glucose 217 mg/dL (70-105) H 06/19/18 04:45 POC Glucose 198 MG/DL (70 - 105) H 06/19/18 11:41 Whole Bld Lactic Acid 1.92 mmol/L (0.60-1.99) 06/12/18 13:55 Calcium 8.8 mg/dL (8.6-10.3) 06/19/18 04:45 Phosphorus 6.3 mg/dL (2.5-5.0) H 06/19/18 04:45 Magnesium 2.5 mg/dL (1.9-2.7) 06/19/18 04:45 Total Bilirubin 1.1 mg/dL (0.3-1.0) H 06/19/18 04:45 Direct Bilirubin 0.75 mg/dL (0.0-0.2) H 06/18/18 04:25 AST 261 U/L (13-39) H 06/19/18 04:45 ALT 541 U/L (7-52) H 06/19/18 04:45 Alkaline Phosphatase 161 U/L (34-104) H 06/19/18 04:45 Ammonia 65 umol/L (16-53) H 06/17/18 15:45 Creatine Kinase 35 U/L (30-223) 06/11/18 21:30 Troponin I 0.10 ng/mL (0.01-0.05) H* D 06/13/18 06:35 Total Protein 6.1 gm/dL (6.0-8.3) 06/19/18 04:45 Albumin 3.5 gm/dL (4.2-5.5) L 06/19/18 04:45 Globulin 2.6 gm/dL 06/19/18 04:45 Albumin/Globulin Ratio 1.4 (1.0-1.8) 06/19/18 04:45 Triglycerides 114 mg/dL (<150) 06/13/18 06:35 Cholesterol 115 mg/dL (<200) 06/13/18 06:35 LDL Cholesterol Direct 76 mg/dL (75-193) 06/13/18 06:35 HDL Cholesterol 26 mg/dL (23-92) 06/13/18 06:35 Amylase 24 U/L (29-103) L 06/13/18 06:35 Lipase 11 U/L (11-82) 06/11/18 21:30 TSH 1.30 uIU/ml (0.34-5.60) 06/12/18 13:55 Urine Source RANDOM 06/13/18 13:46 Urine Color YELLOW 06/13/18 13:46 Urine Clarity CLEAR (CLEAR) 06/13/18 13:46 Urine pH 5.5 (4.6 - 8.0) 06/13/18 13:46 Ur Specific [place] >= 1.030 (1.005-1.030) 06/13/18 13:46 Urine Protein NEGATIVE mg/dL (NEGATIVE) 06/13/18 13:46 Urine Glucose (UA) NEGATIVE mg/dL (NEGATIVE) 06/13/18 13:46 Urine Ketones NEGATIVE mg/dL (NEGATIVE) 06/13/18 13:46 Urine Blood NEGATIVE (NEGATIVE) 06/13/18 13:46 Urine Nitrate NEGATIVE (NEGATIVE) 06/13/18 13:46 Urine Bilirubin NEGATIVE (NEGATIVE) 06/13/18 13:46 Urine Urobilinogen 0.2 E.U./dL (0.2 - 1.0) 06/13/18 13:46 Ur Leukocyte Esterase NEGATIVE (NEGATIVE) 06/13/18 13:46 Urine RBC NONE SEEN /hpf (0-5) 06/13/18 13:46 Urine WBC NONE SEEN /hpf (0-5) 06/13/18 13:46 Ur Epithelial Cells RARE /lpf (FEW) 06/13/18 13:46 Urine Bacteria FEW /hpf (NONE SEEN) 06/13/18 13:46 Urine Opiates Screen NEGATIVE (NEGATIVE) 06/13/18 13:46 Urine Methadone Screen NEGATIVE (NEGATIVE) 06/13/18 13:46 Ur Barbiturates Screen NEGATIVE (NEGATIVE) 06/13/18 13:46 Ur Tricyclics Screen NEGATIVE (NEGATIVE) 06/13/18 13:46 Ur Phencyclidine Scrn NEGATIVE (NEGATIVE) 06/13/18 13:46 Amphetamines Screen NEGATIVE (NEGATIVE) 06/13/18 13:46 U Methamphetamines Scrn NEGATIVE (NEGATIVE) 06/13/18 13:46 U Benzodiazepines Scrn NEGATIVE (NEGATIVE) 06/13/18 13:46 U Cocaine Metab Screen NEGATIVE (NEGATIVE) 06/13/18 13:46 U Cannabinoids Screen NEGATIVE (NEGATIVE) 06/13/18 13:46 Hepatitis A IgM Ab Negative (Negative) 06/17/18 15:45 Hep Bs Antigen Negative (Negative) 06/17/18 15:45 Hep B Core IgM Ab Negative (Negative) 06/17/18 15:45 Hepatitis C Antibody <0.1 s/co ratio (0.0-0.9) 06/17/18 15:45 - Physical Exam Vitals and I&O: Vital Signs Temp 98.2 F 06/19/18 10:00 Pulse 84 06/19/18 10:00 Resp 16 06/19/18 10:29 BP 96/45 06/19/18 10:00 Pulse Ox 95 06/19/18 11:50 Intake & Output 06/18/18 06/19/18 06/19/18 18:59 06:59 18:59 Intake Total 100 500 Output Total 600 300 Balance -500 200 Weight (lbs) 122.243 kg 122.016 kg Intake: Oral 500 Other 100 Output: Urine 600 300 Other: # Bowel Movements 0 0 Weight Source Bedscale Bedscale Active Medications: Current Medications Acetaminophen (Tylenol) 650 mg PO Q4HR PRN PRN Reason: Pain or Fever >101 Stop: 08/11/18 03:59 Last Admin: 06/13/18 21:42 Dose: 650 mg Albuterol/Ipratropium (Duoneb Neb) 3 ml HHN [id number] [facility] Stop: 08/16/18 14:59 Last Admin: 06/19/18 10:29 Dose: 3 ml Aspirin (Aspirin) 325 mg PO DAILY [facility] Stop: 08/11/18 08:59 Last Admin: 06/19/18 09:14 Dose: 325 mg Budesonide (Pulmicort) 0.5 mg HHN BIDRT [facility] Stop: 08/16/18 18:59 Last Admin: 06/19/18 06:53 Dose: 0.5 mg Carvedilol (Coreg) 6.25 mg PO BID [facility] Stop: 08/11/18 16:59 Last Admin: 06/19/18 09:23 Dose: Not Given Dextrose (D50w) 50 ml IVP PRN PRN PRN Reason: Blood Glucose less than 70 Stop: 08/11/18 05:22 Gabapentin (Neurontin) 800 mg PO TID [facility] Stop: 08/11/18 13:59 Last Admin: 06/19/18 09:22 Dose: 800 mg Glipizide (Glucotrol) 5 mg PO DAILY [facility] Stop: 08/11/18 11:14 Last Admin: 06/19/18 09:16 Dose: 5 mg Sodium Chloride (Nacl 0.9%) 1,000 mls @ 50 mls/hr IV .Q20H [facility] Stop: 08/18/18 07:59 Last Admin: 06/19/18 09:14 Dose: 50 mls/hr Insulin Human Lispro (Humalog Insulin Sliding Scale) 0 units SUBQ ACHS [facility]; Protocol Stop: 08/11/18 07:29 Last Admin: 06/19/18 12:15 Dose: 2 units Lactobacillus Rhamnosus (Culturelle 15b) 1 each PO DAILY [facility] Stop: 08/13/18 08:59 Last Admin: 06/19/18 09:14 Dose: 1 each Levetiracetam (Keppra) 500 mg PO BID [facility] Stop: 08/13/18 18:14 Last Admin: 06/19/18 09:16 Dose: 500 mg Methylprednisolone Sodium Succinate (Solu-Medrol) 40 mg IV Q8HR [facility] Stop: 06/21/18 05:01 Last Admin: 06/19/18 12:14 Dose: 40 mg Miscellaneous (Probiotic Screen) 1 ea [facility] PRN PRN PRN Reason: PROTOCOL Stop: 08/12/18 13:54 Miscellaneous (Clinical Monitoring) 1 ea [facility] DAILY PRN PRN Reason: RENAL DOSING Stop: 08/17/18 12:28 Ondansetron HCl (Zofran) 4 mg IV Q4H PRN PRN Reason: Nausea / Vomiting Stop: 08/14/18 11:47 Last Admin: 06/18/18 13:22 Dose: 4 mg Pantoprazole Sodium (Protonix) 40 mg PO QDAC [facility] Stop: 08/11/18 07:29 Last Admin: 06/19/18 09:14 Dose: 40 mg Sevelamer Carbonate (Renvela) 800 mg PO TIDWM [facility] Stop: 08/14/18 16:59 Last Admin: 06/19/18 12:14 Dose: 800 mg Tramadol HCl (Ultram) 50 mg PO Q4H PRN PRN Reason: Pain (Severe) Stop: 08/11/18 11:08 Last Admin: 06/18/18 13:34 Dose: 50 mg General: Alert, Moderate distress HEENT: Mucous membr. moist/pink Neck: Supple, JVD, +2 carotid pulse wo bruit (flat) Cardiovascular: Regular rate, Normal S1, Normal S2, Systolic murmurs, Other ( atrial fibrillation) Lungs: Clear to auscultation, Normal air movement Abdomen: Bowel sounds, Soft, Distended, Obese, Other (no organomegaly) Neurological: Normal speech, Strength at 5/5 X4 ext, Cranial nerves 3-12 NL, Reflexes 2+ - Procedures Procedures: Procedures Procedure Code Date OXYGEN ENRICHMENT NEC 93.96 12/11/00 Assessment/Plan - Problem List Patient Problems: All Active Problems ARF (acute renal failure) (Acute) COPD with acute exacerbation (Acute) J44.1 Diabetes mellitus (Acute) E11.9 HTN (hypertension) (Acute) I10 - Assessment Assessment: Staph septicemia Diabetes mellitus type 2 insulin-dependent Diabetics securities Hypertension Congestive heart failure diastolic dysfunction. COPD sick sinus syndrome with pacemaker Atrial fibrillation Narcotic dependence Respiratory failure on BiPAP - Plan Plan: Continue IV antibiotics we will do urine for drug screen Patient to get Kayexalate 60 g due to hyperkalemia Low dose dopamine for renal perfusion Continue present management Nutritional Asmnt/Malnutr-PDOC - Dietary Evaluation Malnutrition Findings (Please click <Entered> for more info): Nutritional Asmnt/Malnutrition Start: 06/12/18 17: 18 Text: Status: Complete Freq: Protocol: Document 06/12/18 17:23 LCHENG (Rec: 06/12/18 17:37 [email or web address] [id number]) Nutritional Asmnt/Malnutrition Patient General Information Nutritional Screening High Risk Diagnosis COPD, CHF Pertinent Medical Hx/Surgical Hx DM, HTN, pacemaker, COPD, CHF Subjective Information Pt seen sitting up on bed having lunch. Pt stated he did not want this lunch tray only took the ice cream and requested for salad and fresh fruit. Food preference provided to RD. Glucose ad admission was 189 noted. Pt appeared not ready for diabetic education. Current Diet Order/ Nutrition Support CCHO NA 2gm Pertinent Medications lasix, humalog, mag-oxide, glucophage, protonix Pertinent Labs 06/12 na 135, K 5.8, Cl 92, BUN 35, Cr 1.8, Glucose 156, POC 147-280, Alb 3.8 Nutritional Hx/Data Height 1.73 m Height (Calculated Centimeters) 172.7 Current Weight (lbs) 117.934 kg Weight (Calculated Kilograms) 117.9 Weight (Calculated Grams) 372755.0 Nursery Body Weight 154 Body Mass Index (BMI) 39.5 Weight Status Obese GI Symptoms GI Symptoms None Last BM none Difficult in: None Skin Integrity/Comment: intact Estimated Nutritional Goals BEE in Kcals: Adj wt of IBW Calories/Kcals/Kg 23-27 Kcals Calculated [id number] Protein: Adj wt of IBW Protein g/k.8 Protein Calculated 66 Fluid: ml Nutritional Problem 1. Problem Problem altered nutrition related labs Etiology hyperglycemia Signs/Symptoms: Glucose 156, POC 147-280 Intervention/Recommendation Comments 1. Continue with [facility] Na 2gm diet as ordered. 2. Monitor PO intake, wt, labs and skin integrity 3. F/U as high risk in 2-3 days Expected Outcomes/Goals Expected Outcomes/Goals 1. PO intake to meet at least 75% of nutritional needs. 2. Wt stability, skin to remain intact, labs to approach WNL.
--- NOTE | 2018-06-19 18:14 | GI Progress Note ---
Subjective - Review of Systems Service Date: 06/19/18 Events since last encounter: K is still high No BM Subjective: Passing Gases but no BM Objective - Results Result Diagrams: 06/19/18 04:45 06/19/18 04:45 Recent Labs: Laboratory Last Values WBC 7.4 Th/cmm (4.8-10.8) 06/19/18 04:45 RBC 3.72 Mil/cmm (4.30-5.70) L 06/19/18 04:45 Hgb 10.6 gm/dL (12-16) L 06/19/18 04:45 Hct 33.1 % (41.0-60) L 06/19/18 04:45 MCV 89.2 fl (80-99) 06/19/18 04:45 MCH 28.5 pg (26.0-30.0) 06/19/18 04:45 MCHC Differential 32.0 pg (28.0-36.0) 06/19/18 04:45 RDW 14.6 % (11.5-20.0) 06/19/18 04:45 Plt Count 114 Th/cmm (150-400) L 06/19/18 04:45 MPV 9.1 fl 06/19/18 04:45 Add Manual Diff YES 06/18/18 04:25 Neutrophils % 85.4 % (40.0-80.0) H 06/19/18 04:45 Lymphocytes % 10.4 % (20.0-50.0) L 06/19/18 04:45 Monocytes % 1.6 % (2.0-10.0) L 06/19/18 04:45 Eosinophils % 0.3 % (0.0-5.0) 06/19/18 04:45 Basophils % 2.3 % (0.0-2.0) H 06/19/18 04:45 Neutrophils (Manual) 86 % (40-80) H 06/18/18 04:25 Lymphocytes 13 % (20-50) L 06/18/18 04:25 Monocytes 1 % (2-10) L 06/18/18 04:25 Platelet Estimate DECREASED PLATELETS (NORMAL) 06/18/18 04:25 Eos Smear Source URINE 06/18/18 18:30 Eos Smear Total Cells NONE SEEN (NONE SEEN) 06/18/18 18:30 Specimen Source Arterial 06/19/18 09:58 Sample Site Left Radial 06/19/18 09:58 pH 7.315 (7.35-7.45) L 06/19/18 09:58 pCO2 63.6 mmHg (35.0-45.0) H* 06/19/18 09:58 pO2 77.4 mmHg (80.0-100.0) L 06/19/18 09:58 HCO3 31.7 mEq/L (20.0-26.0) H 06/19/18 09:58 Base Excess 3.5 mEq/L (-3.0-3.0) H 06/19/18 09:58 O2 Saturation 94.0 % (92.0-100.0) 06/19/18 09:58 Brody Test PASS 06/19/18 09:58 Vent Rate NA 06/17/18 10:56 Inspired O2 36 06/19/18 09:58 Tidal Volume NA 06/17/18 10:56 PEEP NA 06/17/18 10:56 Pressure (ins/psv/peep) NA 06/17/18 10:56 Critical Value PW 06/19/18 09:58 Sodium 126 mEq/L (136-145) L 06/19/18 04:45 Potassium 5.4 mEq/L (3.5-5.1) H 06/19/18 04:45 Chloride 84 mEq/L (98-107) L 06/19/18 04:45 Carbon Dioxide 29.7 mEq/L (21.0-31.0) 06/19/18 04:45 Anion Gap 17.7 (7.0-16.0) H 06/19/18 04:45 BUN 102 mg/dL (7-25) H* 06/19/18 04:45 Creatinine 3.2 mg/dL (0.7-1.3) H 06/19/18 04:45 Est GFR ( Amer) 25.4 ml/min (>90) 06/19/18 04:45 Est GFR (Non-Af Amer) 21.0 ml/min 06/19/18 04:45 BUN/Creatinine Ratio 31.9 06/19/18 04:45 Glucose 217 mg/dL (70-105) H 06/19/18 04:45 POC Glucose 202 MG/DL (70 - 105) H 06/19/18 17:02 Whole Bld Lactic Acid 1.92 mmol/L (0.60-1.99) 06/12/18 13:55 Calcium 8.8 mg/dL (8.6-10.3) 06/19/18 04:45 Phosphorus 6.3 mg/dL (2.5-5.0) H 06/19/18 04:45 Magnesium 2.5 mg/dL (1.9-2.7) 06/19/18 04:45 Total Bilirubin 1.1 mg/dL (0.3-1.0) H 06/19/18 04:45 Direct Bilirubin 0.75 mg/dL (0.0-0.2) H 06/18/18 04:25 AST 261 U/L (13-39) H 06/19/18 04:45 ALT 541 U/L (7-52) H 06/19/18 04:45 Alkaline Phosphatase 161 U/L (34-104) H 06/19/18 04:45 Ammonia 65 umol/L (16-53) H 06/17/18 15:45 Creatine Kinase 35 U/L (30-223) 06/11/18 21:30 Troponin I 0.10 ng/mL (0.01-0.05) H* D 06/13/18 06:35 Total Protein 6.1 gm/dL (6.0-8.3) 06/19/18 04:45 Albumin 3.5 gm/dL (4.2-5.5) L 06/19/18 04:45 Globulin 2.6 gm/dL 06/19/18 04:45 Albumin/Globulin Ratio 1.4 (1.0-1.8) 06/19/18 04:45 Triglycerides 114 mg/dL (<150) 06/13/18 06:35 Cholesterol 115 mg/dL (<200) 06/13/18 06:35 LDL Cholesterol Direct 76 mg/dL (75-193) 06/13/18 06:35 HDL Cholesterol 26 mg/dL (23-92) 06/13/18 06:35 Amylase 24 U/L (29-103) L 06/13/18 06:35 Lipase 11 U/L (11-82) 06/11/18 21:30 TSH 1.30 uIU/ml (0.34-5.60) 06/12/18 13:55 Urine Source RANDOM 06/13/18 13:46 Urine Color YELLOW 06/13/18 13:46 Urine Clarity CLEAR (CLEAR) 06/13/18 13:46 Urine pH 5.5 (4.6 - 8.0) 06/13/18 13:46 Ur Specific [place] >= 1.030 (1.005-1.030) 06/13/18 13:46 Urine Protein NEGATIVE mg/dL (NEGATIVE) 06/13/18 13:46 Urine Glucose (UA) NEGATIVE mg/dL (NEGATIVE) 06/13/18 13:46 Urine Ketones NEGATIVE mg/dL (NEGATIVE) 06/13/18 13:46 Urine Blood NEGATIVE (NEGATIVE) 06/13/18 13:46 Urine Nitrate NEGATIVE (NEGATIVE) 06/13/18 13:46 Urine Bilirubin NEGATIVE (NEGATIVE) 06/13/18 13:46 Urine Urobilinogen 0.2 E.U./dL (0.2 - 1.0) 06/13/18 13:46 Ur Leukocyte Esterase NEGATIVE (NEGATIVE) 06/13/18 13:46 Urine RBC NONE SEEN /hpf (0-5) 06/13/18 13:46 Urine WBC NONE SEEN /hpf (0-5) 06/13/18 13:46 Ur Epithelial Cells RARE /lpf (FEW) 06/13/18 13:46 Urine Bacteria FEW /hpf (NONE SEEN) 06/13/18 13:46 Urine Opiates Screen NEGATIVE (NEGATIVE) 06/13/18 13:46 Urine Methadone Screen NEGATIVE (NEGATIVE) 06/13/18 13:46 Ur Barbiturates Screen NEGATIVE (NEGATIVE) 06/13/18 13:46 Ur Tricyclics Screen NEGATIVE (NEGATIVE) 06/13/18 13:46 Ur Phencyclidine Scrn NEGATIVE (NEGATIVE) 06/13/18 13:46 Amphetamines Screen NEGATIVE (NEGATIVE) 06/13/18 13:46 U Methamphetamines Scrn NEGATIVE (NEGATIVE) 06/13/18 13:46 U Benzodiazepines Scrn NEGATIVE (NEGATIVE) 06/13/18 13:46 U Cocaine Metab Screen NEGATIVE (NEGATIVE) 06/13/18 13:46 U Cannabinoids Screen NEGATIVE (NEGATIVE) 06/13/18 13:46 Hepatitis A IgM Ab Negative (Negative) 06/17/18 15:45 Hep Bs Antigen Negative (Negative) 06/17/18 15:45 Hep B Core IgM Ab Negative (Negative) 06/17/18 15:45 Hepatitis C Antibody <0.1 s/co ratio (0.0-0.9) 06/17/18 15:45 - Physical Exam Vitals and I&O: Vital Signs Temp 98.4 F 06/19/18 16:00 Pulse 92 06/19/18 17:09 Resp 15 06/19/18 16:00 BP 95/53 06/19/18 17:09 Pulse Ox 96 06/19/18 16:58 Intake & Output 06/18/18 06/19/18 06/19/18 18:59 06:59 18:59 Intake Total 100 500 Output Total 600 300 Balance -500 200 Weight (lbs) 122.243 kg 122.016 kg Intake: Oral 500 Other 100 Output: Urine 600 300 Other: # Bowel Movements 0 0 Weight Source Bedscale Bedscale Active Medications: Current Medications Acetaminophen (Tylenol) 650 mg PO Q4HR PRN PRN Reason: Pain or Fever >101 Stop: 08/11/18 03:59 Last Admin: 06/13/18 21:42 Dose: 650 mg Albuterol/Ipratropium (Duoneb Neb) 3 ml HHN [id number] [facility] Stop: 08/16/18 14:59 Last Admin: 06/19/18 14:42 Dose: 3 ml Aspirin (Aspirin) 325 mg PO DAILY [facility] Stop: 08/11/18 08:59 Last Admin: 06/19/18 09:14 Dose: 325 mg Budesonide (Pulmicort) 0.5 mg HHN BIDRT [facility] Stop: 08/16/18 18:59 Last Admin: 06/19/18 06:53 Dose: 0.5 mg Carvedilol (Coreg) 6.25 mg PO BID [facility] Stop: 08/11/18 16:59 Last Admin: 06/19/18 17:09 Dose: Not Given Dextrose (D50w) 50 ml IVP PRN PRN PRN Reason: Blood Glucose less than 70 Stop: 08/11/18 05:22 Gabapentin (Neurontin) 800 mg PO TID [facility] Stop: 08/11/18 13:59 Last Admin: 06/19/18 14:39 Dose: 800 mg Glipizide (Glucotrol) 5 mg PO DAILY [facility] Stop: 08/11/18 11:14 Last Admin: 06/19/18 09:16 Dose: 5 mg Sodium Chloride (Nacl 0.9%) 1,000 mls @ 50 mls/hr IV .Q20H [facility] Stop: 08/18/18 07:59 Last Admin: 06/19/18 09:14 Dose: 50 mls/hr Insulin Human Lispro (Humalog Insulin Sliding Scale) 0 units SUBQ ACHS [facility]; Protocol Stop: 08/11/18 07:29 Last Admin: 06/19/18 17:43 Dose: 4 units Lactobacillus Rhamnosus (Culturelle 15b) 1 each PO DAILY [facility] Stop: 08/13/18 08:59 Last Admin: 06/19/18 09:14 Dose: 1 each Levetiracetam (Keppra) 500 mg PO BID [facility] Stop: 08/13/18 18:14 Last Admin: 06/19/18 17:42 Dose: 500 mg Methylprednisolone Sodium Succinate (Solu-Medrol) 40 mg IV Q8HR [facility] Stop: 06/21/18 05:01 Last Admin: 06/19/18 12:14 Dose: 40 mg Midodrine (Proamatine) 5 mg PO TID [facility] Stop: 08/18/18 13:59 Last Admin: 06/19/18 14:39 Dose: 5 mg Miscellaneous (Probiotic Screen) 1 ea PRN PRN PRN Reason: PROTOCOL Stop: 08/12/18 13:54 Miscellaneous (Clinical Monitoring) 1 [facility] DAILY PRN PRN Reason: RENAL DOSING Stop: 08/17/18 12:28 Ondansetron HCl (Zofran) 4 mg IV Q4H PRN PRN Reason: Nausea / Vomiting Stop: 08/14/18 11:47 Last Admin: 06/18/18 13:22 Dose: 4 mg Pantoprazole Sodium (Protonix) 40 mg PO QDAC [facility] Stop: 08/11/18 07:29 Last Admin: 06/19/18 09:14 Dose: 40 mg Sevelamer Carbonate (Renvela) 1,600 mg PO TIDWM [facility] Stop: 08/18/18 16:59 Last Admin: 06/19/18 17:42 Dose: 1,600 mg Tramadol HCl (Ultram) 50 mg PO Q4H PRN PRN Reason: Pain (Severe) Stop: 08/11/18 11:08 Last Admin: 06/18/18 13:34 Dose: 50 mg General: Alert, Moderate distress Cardiovascular: Regular rate, Normal S1, Normal S2, Systolic murmurs, Other ( atrial fibrillation) Lungs: Clear to auscultation, Normal air movement Abdomen: Bowel sounds, Distended, Obese, Other (no organomegaly), no Tender Neurological: Normal speech, Reflexes 2+ - Procedures Procedures: Procedures Procedure Code Date OXYGEN ENRICHMENT NEC 93.96 12/11/00 Assessment/Plan - Problem List Patient Problems: All Active Problems ARF (acute renal failure) (Acute) COPD with acute exacerbation (Acute) J44.1 Diabetes mellitus (Acute) E11.9 HTN (hypertension) (Acute) I10 - Assessment Assessment: 1. Transaminitis 2. Hypoxemic resp failure 3. Septicemia 4. Probable multifactorial hepatitis - - Plan Plan: 1. Transaminitis Worsening. Sepsis/ stasis Vs drug induced Vs lesions or chronic liver disease. Check CT and W/U for chronic liver disease 2. Hypoxemic resp failure 3. Septicemia
--- NOTE | 2018-06-19 23:05 | Progress Notes ---
DATE: 06/19/2018 PULMONARY PROGRESS NOTE PROBLEM LIST: 1. Acute exacerbation of chronic obstructive pulmonary disease. 2. Sleep apnea syndrome. 3. Morbid obesity. SYMPTOMS: Nil. "He loves to be in a BiPAP" and wants to have BiPAP practically all the time. No respiratory distress, etc. PHYSICAL EXAMINATION: VITAL SIGNS: Temperature is 98.2, blood pressure 96/45 and saturation is to low 90s on 4 liters per minute. NECK: Veins not visualized. CHEST: Shows diminished air entry with occasional rhonchi. HEART: Regular. ABDOMEN: Soft, nontender. EXTREMITIES: Shows no peripheral edema. LABORATORY DATA: ABG shows slight improvement. LABORATORY DATA: A pH of 7.31, pCO2 is 63 and this is on 36% of oxygen. Electrolytes show sodium 126, potassium 5.4 and BUN is 102 as of now, he has a metabolic issue as well. PLANS AND SUGGESTIONS: Continue current respiratory care, inhalation treatment, okay to go to step-down unit and Nephrology active participation would be appreciated. JOB# [id number]
[2018-06-20] MEDS: Sodium Chloride 0.9% 1,000 ML IV SCH (02:00)
--- NOTE | 2018-06-20 04:24 | Progress Notes ---
DATE: 06/19/2018 SUBJECTIVE: The patient is seen and examined. The patient is alert, awake. Biggest concern RN has is low blood pressure and elevated potassium. The patient has waxing and waning mental status, refusing BiPAP on many occasions. OBJECTIVE: On today's exam, VITAL SIGNS: See nurse's note. HEENT: No facial asymmetry. Absent upper and lower dentition noted. NECK: Supple, no JVD. HEART: Irregularly irregular. CHEST AND LUNG: Equal in expansion with mild expiratory wheezing. ABDOMEN: Soft. No guarding, no rigidity. Bowel sounds present. No palpable mass. EXTREMITIES: +1 edema, but no calf tenderness noted. AVAILABLE DIAGNOSTIC DATA: Reviewed. CLINICAL IMPRESSION: 1. Hyperkalemia. 2. Low urine output. 3. Chronic obstructive pulmonary disease exacerbation. 4. Obstructive sleep apnea. 5. Transaminitis. 6. Diabetes. 7. Chronic AFib. 8. Hypertension. 9. Congestive heart failure. PLAN: 1. Kayexalate to correct potassium. 2. Nephrology on board to help with the decreased urine output. 3. Oxygen, steroids and nebulizer treatment. 4. IV antibiotic. 5. General nursing care. 6. Follow lab. 7. Follow senior application security consultant's recommendation. 8. Care plan reviewed and discussed with staff. JOB# [id number]
[2018-06-20] MEDS: methylPREDNISolone SS 40 mg Vial IV SCH ×3 (05:14→20:33)
[2018-06-20 05:16] LABS: HEMATOCRIT 36.3 % (41.0-60); HEMOGLOBIN 11.8 gm/dL (12-16); MEAN CELL VOLUME 89.2 fl (80-99); MEAN CORPUSCULAR HEMOGLOBIN 29.1 pg (26.0-30.0); MEAN CORPUSCULAR HGB CONC 32.7 pg (28.0-36.0); MEAN PLATELET VOLUME 9.2 fl; PLATELET COUNT 115 Th/cmm (150-400); RED BLOOD COUNT 4.07 Mil/cmm (4.30-5.70); RED CELL DISTRIBUTION WIDTH 14.2 % (11.5-20.0); WHITE BLOOD COUNT 6.7 Th/cmm (4.8-10.8)
[2018-06-20 05:49] LABS: ALB/GLOB RATIO 1.5 (1.0-1.8); ANION GAP 18.7 (7.0-16.0); BILIRUBIN,TOTAL 1.6 mg/dL (0.3-1.0); CALCIUM SERUM 8.9 mg/dL (8.6-10.3); CREATININE - SERUM 3.7 mg/dL (0.7-1.3); GFR AFRICAN-AMERICAN 21.5 ml/min (>90); GFR NON AFRICAN-AMERICAN 17.8 ml/min; PHOSPHOROUS 7.7 mg/dL (2.5-5.0); POTASSIUM SERUM 5.7 mEq/L (3.5-5.1); TOTAL PROTEIN,SERUM 6.7 gm/dL (6.0-8.3)
[2018-06-20 05:55] LABS: ALB/GLOB RATIO 1.7 (1.0-1.8); BILIRUBIN,DIRECT 0.94 mg/dL (0.0-0.2); BILIRUBIN,TOTAL 1.6 mg/dL (0.3-1.0); TOTAL PROTEIN,SERUM 6.4 gm/dL (6.0-8.3)
[2018-06-20 06:23] LABS: LYMPHOCYTE 10 % (20-50); NEUTROPHILS 90 % (40-80); PLATELET ESTIMATE DECREASED PLATELETS (NORMAL)
[2018-06-20] MEDS: INSULIN LISPRO SLIDING SCALE 100 UNITS/ML UNIT SUBQ SCH ×4 (06:44→20:45)
--- NOTE | 2018-06-20 07:10 | Progress Notes ---
DATE: LOCATION: Room ICU bed #7, [facility]. The patient is sleeping comfortably on the BiPAP now. The patient was oliguric last night. Lasix has been given this morning. No vomiting or diarrhea noted. The patient was on heparin as IV, which has been changed to NS due to hyponatremia. OBJECTIVE: VITAL SIGNS: Temperature 98.2, blood pressure 96/45, oxygen saturation 94, respirations 16. Yesterday's intake 2177, urine output 1100. HEART: Regular. LUNGS: Rhonchi on both the bases. ABDOMEN: Soft. EXTREMITIES: Edema 1+. LABORATORY DATA: WBC 7.4; hemoglobin 10.6; platelet 114,000. Sodium 126, potassium 5.4, chloride 84, CO2 29, BUN 102, creatinine 3.2, EGFR 21, phosphorus 6.3. LFTs elevated. ASSESSMENT: 1. Worsening of chronic kidney disease. 2. Hyperkalemia. 3. Hyponatremia. 4. Chronic obstructive pulmonary disease with CO2 retention. 5. History of congestive heart failure. 6. Diabetes mellitus. 7. Hypotension. 8. Obesity and obstructive sleep apnea. PLAN: 1. Lasix 40 mg IV 1 time this morning. 2. Change peripheral IV from half NS to NS. 3. Kayexalate 30 grams p.o. one time now. 4. Lab in the morning. 5. Start patient on midodrine p.o. 6. If the patient does not improve, he will need dialysis. 7. Discussed with the patient and nursing staff at length. 8. All questions answered. JOB# [id number]
[2018-06-20] MEDS: Albuterol/Ipratropium Neb 3 ML AERS HHN SCH ×4 (07:18→19:59)
[2018-06-20] MEDS: Budesonide 0.5 Mg/2 mL Ud HHN SCH ×2 (07:26→19:59)
[2018-06-20 09:20] LABS: PaCO2 47.2 mmHg (35.0-45.0)
[2018-06-20 09:21] LABS: ALLEN TEST Positive; PaO2 151.2 mmHg (80.0-100.0); sO2c 98.9 % (92.0-100.0)
[2018-06-20] MEDS ORDERED: Diatrizoate Meglumine/Diatri 30 mL Sol PO ONE (09:57)
--- NOTE | 2018-06-20 10:00 | Diagnostic Imaging Report ---
Portable chest x-ray HISTORY: Shortness of breath Compared to prior exam of June 18, 2018, accentuation of interstitial markings within the left perihilar region. However, no definite focal pulmonary processes are seen. The heart remains enlarged. There is evidence of a small right pleural effusion. IMPRESSION: 1. No significant change in the cardiopulmonary status.
--- NOTE | 2018-06-20 11:29 | Infectious Disease Prog Note ---
Infectious Disease Subjective - Review of Systems Service Date: 06/20/18 Subjective: Patient is doing better. no fever. liver enzymes are increasing. Increasing creatinine. Infectious Disease Objective - Results Result Diagrams: 06/20/18 05:00 06/20/18 05:00 Recent Labs: Laboratory Last Values WBC 6.7 Th/cmm (4.8-10.8) 06/20/18 05:00 RBC 4.07 Mil/cmm (4.30-5.70) L 06/20/18 05:00 Hgb 11.8 gm/dL (12-16) L 06/20/18 05:00 Hct 36.3 % (41.0-60) L 06/20/18 05:00 MCV 89.2 fl (80-99) 06/20/18 05:00 MCH 29.1 pg (26.0-30.0) 06/20/18 05:00 MCHC Differential 32.7 pg (28.0-36.0) 06/20/18 05:00 RDW 14.2 % (11.5-20.0) 06/20/18 05:00 Plt Count 115 Th/cmm (150-400) L 06/20/18 05:00 MPV 9.2 fl 06/20/18 05:00 Add Manual Diff YES 06/20/18 05:00 Neutrophils % 85.4 % (40.0-80.0) H 06/19/18 04:45 Lymphocytes % 10.4 % (20.0-50.0) L 06/19/18 04:45 Monocytes % 1.6 % (2.0-10.0) L 06/19/18 04:45 Eosinophils % 0.3 % (0.0-5.0) 06/19/18 04:45 Basophils % 2.3 % (0.0-2.0) H 06/19/18 04:45 Neutrophils (Manual) 90 % (40-80) H 06/20/18 05:00 Lymphocytes 10 % (20-50) L 06/20/18 05:00 Monocytes 1 % (2-10) L 06/18/18 04:25 Platelet Estimate DECREASED PLATELETS (NORMAL) 06/20/18 05:00 Eos Smear Source URINE 06/18/18 18:30 Eos Smear Total Cells NONE SEEN (NONE SEEN) 06/18/18 18:30 Specimen Source Arterial 06/20/18 08:43 Sample Site Left Radial 06/20/18 08:43 pH 7.380 (7.35-7.45) 06/20/18 08:43 pCO2 47.2 mmHg (35.0-45.0) H 06/20/18 08:43 pO2 151.2 mmHg (80.0-100.0) H 06/20/18 08:43 HCO3 27.3 mEq/L (20.0-26.0) H 06/20/18 08:43 Base Excess 1.5 mEq/L (-3.0-3.0) 06/20/18 08:43 O2 Saturation 98.9 % (92.0-100.0) 06/20/18 08:43 Brody Test Positive 06/20/18 08:43 Vent Rate 16 06/20/18 08:43 Inspired O2 70 06/20/18 08:43 Tidal Volume N/A 06/20/18 08:43 PEEP N/A 06/20/18 08:43 Pressure (ins/psv/peep) N/A 06/20/18 08:43 Critical Value DM 06/20/18 08:43 Sodium 125 mEq/L (136-145) L 06/20/18 05:00 Potassium 5.7 mEq/L (3.5-5.1) H 06/20/18 05:00 Chloride 83 mEq/L (98-107) L 06/20/18 05:00 Carbon Dioxide 29.0 mEq/L (21.0-31.0) 06/20/18 05:00 Anion Gap 18.7 (7.0-16.0) H 06/20/18 05:00 BUN 114 mg/dL (7-25) H* 06/20/18 05:00 Creatinine 3.7 mg/dL (0.7-1.3) H 06/20/18 05:00 Est GFR ( Amer) 21.5 ml/min (>90) 06/20/18 05:00 Est GFR (Non-Af Amer) 17.8 ml/min 06/20/18 05:00 BUN/Creatinine Ratio 30.8 06/20/18 05:00 Glucose 186 mg/dL (70-105) H 06/20/18 05:00 POC Glucose 171 MG/DL (70 - 105) H 06/20/18 05:56 Whole Bld Lactic Acid 1.92 mmol/L (0.60-1.99) 06/12/18 13:55 Calcium 8.9 mg/dL (8.6-10.3) 06/20/18 05:00 Phosphorus 7.7 mg/dL (2.5-5.0) H 06/20/18 05:00 Magnesium 2.5 mg/dL (1.9-2.7) 06/19/18 04:45 Total Bilirubin 1.6 mg/dL (0.3-1.0) H 06/20/18 05:00 Direct Bilirubin 0.94 mg/dL (0.0-0.2) H 06/20/18 05:00 AST 354 U/L (13-39) H 06/20/18 05:00 ALT 758 U/L (7-52) H 06/20/18 05:00 Alkaline Phosphatase 219 U/L (34-104) H 06/20/18 05:00 Ammonia 117 umol/L (16-53) H 06/20/18 05:00 Creatine Kinase 35 U/L (30-223) 06/11/18 21:30 Troponin I 0.10 ng/mL (0.01-0.05) H* D 06/13/18 06:35 Total Protein 6.4 gm/dL (6.0-8.3) 06/20/18 05:00 Albumin 4.0 gm/dL (4.2-5.5) L 06/20/18 05:00 Globulin 2.4 gm/dL 06/20/18 05:00 Albumin/Globulin Ratio 1.7 (1.0-1.8) 06/20/18 05:00 Triglycerides 114 mg/dL (<150) 06/13/18 06:35 Cholesterol 115 mg/dL (<200) 06/13/18 06:35 LDL Cholesterol Direct 76 mg/dL (75-193) 06/13/18 06:35 HDL Cholesterol 26 mg/dL (23-92) 06/13/18 06:35 Amylase 24 U/L (29-103) L 06/13/18 06:35 Lipase 11 U/L (11-82) 06/11/18 21:30 TSH 1.30 uIU/ml (0.34-5.60) 06/12/18 13:55 Urine Source RANDOM 06/13/18 13:46 Urine Color YELLOW 06/13/18 13:46 Urine Clarity CLEAR (CLEAR) 06/13/18 13:46 Urine pH 5.5 (4.6 - 8.0) 06/13/18 13:46 Ur Specific [place] >= 1.030 (1.005-1.030) 06/13/18 13:46 Urine Protein NEGATIVE mg/dL (NEGATIVE) 06/13/18 13:46 Urine Glucose (UA) NEGATIVE mg/dL (NEGATIVE) 06/13/18 13:46 Urine Ketones NEGATIVE mg/dL (NEGATIVE) 06/13/18 13:46 Urine Blood NEGATIVE (NEGATIVE) 06/13/18 13:46 Urine Nitrate NEGATIVE (NEGATIVE) 06/13/18 13:46 Urine Bilirubin NEGATIVE (NEGATIVE) 06/13/18 13:46 Urine Urobilinogen 0.2 E.U./dL (0.2 - 1.0) 06/13/18 13:46 Ur Leukocyte Esterase NEGATIVE (NEGATIVE) 06/13/18 13:46 Urine RBC NONE SEEN /hpf (0-5) 06/13/18 13:46 Urine WBC NONE SEEN /hpf (0-5) 06/13/18 13:46 Ur Epithelial Cells RARE /lpf (FEW) 06/13/18 13:46 Urine Bacteria FEW /hpf (NONE SEEN) 06/13/18 13:46 Urine Opiates Screen NEGATIVE (NEGATIVE) 06/13/18 13:46 Urine Methadone Screen NEGATIVE (NEGATIVE) 06/13/18 13:46 Ur Barbiturates Screen NEGATIVE (NEGATIVE) 06/13/18 13:46 Ur Tricyclics Screen NEGATIVE (NEGATIVE) 06/13/18 13:46 Ur Phencyclidine Scrn NEGATIVE (NEGATIVE) 06/13/18 13:46 Amphetamines Screen NEGATIVE (NEGATIVE) 06/13/18 13:46 U Methamphetamines Scrn NEGATIVE (NEGATIVE) 06/13/18 13:46 U Benzodiazepines Scrn NEGATIVE (NEGATIVE) 06/13/18 13:46 U Cocaine Metab Screen NEGATIVE (NEGATIVE) 06/13/18 13:46 U Cannabinoids Screen NEGATIVE (NEGATIVE) 06/13/18 13:46 Hepatitis A IgM Ab Negative (Negative) 06/17/18 15:45 Hep Bs Antigen Negative (Negative) 06/17/18 15:45 Hep B Core IgM Ab Negative (Negative) 06/17/18 15:45 Hepatitis C Antibody <0.1 s/co ratio (0.0-0.9) 06/17/18 15:45 - Physical Exam Vitals and I&O: Vital Signs Temp 97.2 F 06/20/18 08:00 Pulse 93 06/20/18 10:00 Resp 11 06/20/18 10:00 BP 123/58 06/20/18 10:00 Pulse Ox 95 06/20/18 10:00 Intake & Output 06/19/18 06/20/18 06/20/18 18:59 06:59 18:59 Intake Total 500 1638.333 Output Total 300 450 Balance 200 1188.333 Weight (lbs) 122.016 kg 126.24 kg Intake: Intake, IV Amount 838.333 Sodium Chloride 0.9% 1, 838.333 000 ml @ 50 mls/hr IV . Q20H [facility] Rx#:[id number] Oral 500 800 Output: Urine 300 450 Other: # Bowel Movements 0 0 Weight Source Bedscale Bedscale Active Medications: Current Medications Acetaminophen (Tylenol) 650 mg PO Q4HR PRN PRN Reason: Pain or Fever >101 Stop: 08/11/18 03:59 Last Admin: 06/13/18 21:42 Dose: 650 mg Albuterol/Ipratropium (Duoneb Neb) 3 ml HHN [id number] [facility] Stop: 08/16/18 14:59 Last Admin: 06/20/18 07:18 Dose: 3 ml Aspirin (Aspirin) 325 mg PO DAILY [facility] Stop: 08/11/18 08:59 Last Admin: 06/19/18 09:14 Dose: 325 mg Budesonide (Pulmicort) 0.5 mg HHN BIDRT [facility] Stop: 08/16/18 18:59 Last Admin: 06/20/18 07:26 Dose: 0.5 mg Carvedilol (Coreg) 6.25 mg PO BID [facility] Stop: 08/11/18 16:59 Last Admin: 06/19/18 17:09 Dose: Not Given Dextrose (D50w) 50 ml IVP PRN PRN PRN Reason: Blood Glucose less than 70 Stop: 08/11/18 05:22 Gabapentin (Neurontin) 800 mg PO TID [facility] Stop: 08/11/18 13:59 Last Admin: 06/19/18 21:09 Dose: 800 mg Glipizide (Glucotrol) 5 mg PO DAILY [facility] Stop: 08/11/18 11:14 Last Admin: 06/19/18 09:16 Dose: 5 mg Sodium Chloride (Nacl 0.9%) 1,000 mls @ 50 mls/hr IV .Q20H [facility] Stop: 08/18/18 07:59 Last Admin: 06/20/18 02:00 Dose: 50 mls/hr Insulin Human Lispro (Humalog Insulin Sliding Scale) 0 units SUBQ ACHS [facility]; Protocol Stop: 08/11/18 07:29 Last Admin: 06/20/18 06:44 Dose: Not Given Lactobacillus Rhamnosus (Culturelle 15b) 1 each PO DAILY [facility] Stop: 08/13/18 08:59 Last Admin: 06/19/18 09:14 Dose: 1 each Levetiracetam (Keppra) 500 mg PO BID [facility] Stop: 08/13/18 18:14 Last Admin: 06/19/18 17:42 Dose: 500 mg Methylprednisolone Sodium Succinate (Solu-Medrol) 40 mg IV Q8HR [facility] Stop: 06/21/18 05:01 Last Admin: 06/20/18 05:14 Dose: 40 mg Midodrine (Proamatine) 5 mg PO TID [facility] Stop: 08/18/18 13:59 Last Admin: 06/19/18 21:10 Dose: 5 mg Mineral Oil (Mineral Oil 30 Ml) 30 ml PO BID [facility] Stop: 06/24/18 18:29 Last Admin: 06/19/18 21:18 Dose: 30 ml Miscellaneous (Probiotic Screen) 1 ea MC PRN PRN PRN Reason: PROTOCOL Stop: 08/12/18 13:54 Miscellaneous (Clinical Monitoring) 1 ea MC DAILY PRN PRN Reason: RENAL DOSING Stop: 08/17/18 12:28 Ondansetron HCl (Zofran) 4 mg IV Q4H PRN PRN Reason: Nausea / Vomiting Stop: 08/14/18 11:47 Last Admin: 06/18/18 13:22 Dose: 4 mg Pantoprazole Sodium (Protonix) 40 mg PO QDAC [facility] Stop: 08/11/18 07:29 Last Admin: 06/19/18 09:14 Dose: 40 mg Sevelamer Carbonate (Renvela) 1,600 mg PO TIDWM [facility] Stop: 08/18/18 16:59 Last Admin: 06/19/18 17:42 Dose: 1,600 mg General: no acute distress, other (obesity,.) HEENT: atraumatic, normocephalic, PERRLA, EOMI Neck: supple, no thyromegaly, no lymphadenopathy Cardiovascular: S1S2, regular Lungs: clear to auscultation bilaterally, clear to percussion Abdomen: soft, no tender, no distended, no hepatomegaly Extremities: no cyanosis, no clubbing, no edema Neurological: awake, alert, oriented Skin: intact - Procedures Procedures: Procedures Procedure Code Date OXYGEN ENRICHMENT NEC 93.96 12/11/00 Infectious Disease Assmt/Plan - Problem List Patient Problems: All Active Problems ARF (acute renal failure) (Acute) COPD with acute exacerbation (Acute) J44.1 Diabetes mellitus (Acute) E11.9 HTN (hypertension) (Acute) I10 - Assessment Assessment: 1. Staph hemolyticus bacteremia/sepsis. 2. DEENA on CKD. worse. 3. SOB. COPD exacerbation. 4. CELIO. 5. DM2 6. COPD. 7. Obesity. 8. h/o Afib and Pacemaker placement. 9. AMS 2/2 Metabolic encephalopathy and CO2 narcosis. Improved. 10. Hepatitis. - Plan Plan: Will continue the same treatment. Follow up CT A/P. Nutritional Asmnt/Malnutr-PDOC - Dietary Evaluation Malnutrition Findings (Please click <Entered> for more info): Nutritional Asmnt/Malnutrition Start: 06/12/18 17: 18 Text: Status: Complete Freq: Protocol: Document 06/12/18 17:23 LCHENG (Rec: 06/12/18 17:37 [email or web address] [email or web address]) Nutritional Asmnt/Malnutrition Patient General Information Nutritional Screening High Risk Diagnosis COPD, CHF Pertinent Medical Hx/Surgical Hx DM, HTN, pacemaker, COPD, CHF Subjective Information Pt seen sitting up on bed having lunch. Pt stated he did not want this lunch tray only took the ice cream and requested for salad and fresh fruit. Food preference provided to RD. Glucose ad admission was 189 noted. Pt appeared not ready for diabetic education. Current Diet Order/ Nutrition Support CCHO NA 2gm Pertinent Medications lasix, humalog, mag-oxide, glucophage, protonix Pertinent Labs 06/12 na 135, K 5.8, Cl 92, BUN 35, Cr 1.8, Glucose 156, POC 147-280, Alb 3.8 Nutritional Hx/Data Height 1.73 m Height (Calculated Centimeters) 172.7 Current Weight (lbs) 117.934 kg Weight (Calculated Kilograms) 117.9 Weight (Calculated Grams) 391525.0 [place] Body Weight 154 Body Mass Index (BMI) 39.5 Weight Status Obese GI Symptoms GI Symptoms None Last BM none Difficult in: None Skin Integrity/Comment: intact Estimated Nutritional Goals BEE in Kcals: Adj wt of IBW Calories/Kcals/Kg 23-27 Kcals Calculated Protein: Adj wt of IBW Protein g/k.8 Protein Calculated 66 Fluid: ml Nutritional Problem 1. Problem Problem altered nutrition related labs Etiology hyperglycemia Signs/Symptoms: Glucose 156, POC 147-280 Intervention/Recommendation Comments 1. Continue with [facility] Na 2gm diet as ordered. 2. Monitor PO intake, wt, labs and skin integrity 3. F/U as high risk in 2-3 days Expected Outcomes/Goals Expected Outcomes/Goals 1. PO intake to meet at least 75% of nutritional needs. 2. Wt stability, skin to remain intact, labs to approach WNL.
--- NOTE | 2018-06-20 11:46 | GI Progress Note ---
Subjective - Review of Systems Service Date: 06/20/18 Events since last encounter: No events LFTs are still rising Subjective: SOB Objective - Results Result Diagrams: 06/20/18 05:00 06/20/18 05:00 Recent Labs: Laboratory Last Values WBC 6.7 Th/cmm (4.8-10.8) 06/20/18 05:00 RBC 4.07 Mil/cmm (4.30-5.70) L 06/20/18 05:00 Hgb 11.8 gm/dL (12-16) L 06/20/18 05:00 Hct 36.3 % (41.0-60) L 06/20/18 05:00 MCV 89.2 fl (80-99) 06/20/18 05:00 MCH 29.1 pg (26.0-30.0) 06/20/18 05:00 MCHC Differential 32.7 pg (28.0-36.0) 06/20/18 05:00 RDW 14.2 % (11.5-20.0) 06/20/18 05:00 Plt Count 115 Th/cmm (150-400) L 06/20/18 05:00 MPV 9.2 fl 06/20/18 05:00 Add Manual Diff YES 06/20/18 05:00 Neutrophils % 85.4 % (40.0-80.0) H 06/19/18 04:45 Lymphocytes % 10.4 % (20.0-50.0) L 06/19/18 04:45 Monocytes % 1.6 % (2.0-10.0) L 06/19/18 04:45 Eosinophils % 0.3 % (0.0-5.0) 06/19/18 04:45 Basophils % 2.3 % (0.0-2.0) H 06/19/18 04:45 Neutrophils (Manual) 90 % (40-80) H 06/20/18 05:00 Lymphocytes 10 % (20-50) L 06/20/18 05:00 Monocytes 1 % (2-10) L 06/18/18 04:25 Platelet Estimate DECREASED PLATELETS (NORMAL) 06/20/18 05:00 Eos Smear Source URINE 06/18/18 18:30 Eos Smear Total Cells NONE SEEN (NONE SEEN) 06/18/18 18:30 Specimen Source Arterial 06/20/18 08:43 Sample Site Left Radial 06/20/18 08:43 pH 7.380 (7.35-7.45) 06/20/18 08:43 pCO2 47.2 mmHg (35.0-45.0) H 06/20/18 08:43 pO2 151.2 mmHg (80.0-100.0) H 06/20/18 08:43 HCO3 27.3 mEq/L (20.0-26.0) H 06/20/18 08:43 Base Excess 1.5 mEq/L (-3.0-3.0) 06/20/18 08:43 O2 Saturation 98.9 % (92.0-100.0) 06/20/18 08:43 Brody Test Positive 06/20/18 08:43 Vent Rate 16 06/20/18 08:43 Inspired O2 70 06/20/18 08:43 Tidal Volume N/A 06/20/18 08:43 PEEP N/A 06/20/18 08:43 Pressure (ins/psv/peep) N/A 06/20/18 08:43 Critical Value DM 06/20/18 08:43 Sodium 125 mEq/L (136-145) L 06/20/18 05:00 Potassium 5.7 mEq/L (3.5-5.1) H 06/20/18 05:00 Chloride 83 mEq/L (98-107) L 06/20/18 05:00 Carbon Dioxide 29.0 mEq/L (21.0-31.0) 06/20/18 05:00 Anion Gap 18.7 (7.0-16.0) H 06/20/18 05:00 BUN 114 mg/dL (7-25) H* 06/20/18 05:00 Creatinine 3.7 mg/dL (0.7-1.3) H 06/20/18 05:00 Est GFR ( Amer) 21.5 ml/min (>90) 06/20/18 05:00 Est GFR (Non-Af Amer) 17.8 ml/min 06/20/18 05:00 BUN/Creatinine Ratio 30.8 06/20/18 05:00 Glucose 186 mg/dL (70-105) H 06/20/18 05:00 POC Glucose 171 MG/DL (70 - 105) H 06/20/18 05:56 Whole Bld Lactic Acid 1.92 mmol/L (0.60-1.99) 06/12/18 13:55 Calcium 8.9 mg/dL (8.6-10.3) 06/20/18 05:00 Phosphorus 7.7 mg/dL (2.5-5.0) H 06/20/18 05:00 Magnesium 2.5 mg/dL (1.9-2.7) 06/19/18 04:45 Total Bilirubin 1.6 mg/dL (0.3-1.0) H 06/20/18 05:00 Direct Bilirubin 0.94 mg/dL (0.0-0.2) H 06/20/18 05:00 AST 354 U/L (13-39) H 06/20/18 05:00 ALT 758 U/L (7-52) H 06/20/18 05:00 Alkaline Phosphatase 219 U/L (34-104) H 06/20/18 05:00 Ammonia 117 umol/L (16-53) H 06/20/18 05:00 Creatine Kinase 35 U/L (30-223) 06/11/18 21:30 Troponin I 0.10 ng/mL (0.01-0.05) H* D 06/13/18 06:35 Total Protein 6.4 gm/dL (6.0-8.3) 06/20/18 05:00 Albumin 4.0 gm/dL (4.2-5.5) L 06/20/18 05:00 Globulin 2.4 gm/dL 06/20/18 05:00 Albumin/Globulin Ratio 1.7 (1.0-1.8) 06/20/18 05:00 Triglycerides 114 mg/dL (<150) 06/13/18 06:35 Cholesterol 115 mg/dL (<200) 06/13/18 06:35 LDL Cholesterol Direct 76 mg/dL (75-193) 06/13/18 06:35 HDL Cholesterol 26 mg/dL (23-92) 06/13/18 06:35 Amylase 24 U/L (29-103) L 06/13/18 06:35 Lipase 11 U/L (11-82) 06/11/18 21:30 TSH 1.30 uIU/ml (0.34-5.60) 06/12/18 13:55 Urine Source RANDOM 06/13/18 13:46 Urine Color YELLOW 06/13/18 13:46 Urine Clarity CLEAR (CLEAR) 06/13/18 13:46 Urine pH 5.5 (4.6 - 8.0) 06/13/18 13:46 Ur Specific [place] >= 1.030 (1.005-1.030) 06/13/18 13:46 Urine Protein NEGATIVE mg/dL (NEGATIVE) 06/13/18 13:46 Urine Glucose (UA) NEGATIVE mg/dL (NEGATIVE) 06/13/18 13:46 Urine Ketones NEGATIVE mg/dL (NEGATIVE) 06/13/18 13:46 Urine Blood NEGATIVE (NEGATIVE) 06/13/18 13:46 Urine Nitrate NEGATIVE (NEGATIVE) 06/13/18 13:46 Urine Bilirubin NEGATIVE (NEGATIVE) 06/13/18 13:46 Urine Urobilinogen 0.2 E.U./dL (0.2 - 1.0) 06/13/18 13:46 Ur Leukocyte Esterase NEGATIVE (NEGATIVE) 06/13/18 13:46 Urine RBC NONE SEEN /hpf (0-5) 06/13/18 13:46 Urine WBC NONE SEEN /hpf (0-5) 06/13/18 13:46 Ur Epithelial Cells RARE /lpf (FEW) 06/13/18 13:46 Urine Bacteria FEW /hpf (NONE SEEN) 06/13/18 13:46 Urine Opiates Screen NEGATIVE (NEGATIVE) 06/13/18 13:46 Urine Methadone Screen NEGATIVE (NEGATIVE) 06/13/18 13:46 Ur Barbiturates Screen NEGATIVE (NEGATIVE) 06/13/18 13:46 Ur Tricyclics Screen NEGATIVE (NEGATIVE) 06/13/18 13:46 Ur Phencyclidine Scrn NEGATIVE (NEGATIVE) 06/13/18 13:46 Amphetamines Screen NEGATIVE (NEGATIVE) 06/13/18 13:46 U Methamphetamines Scrn NEGATIVE (NEGATIVE) 06/13/18 13:46 U Benzodiazepines Scrn NEGATIVE (NEGATIVE) 06/13/18 13:46 U Cocaine Metab Screen NEGATIVE (NEGATIVE) 06/13/18 13:46 U Cannabinoids Screen NEGATIVE (NEGATIVE) 06/13/18 13:46 Hepatitis A IgM Ab Negative (Negative) 06/17/18 15:45 Hep Bs Antigen Negative (Negative) 06/17/18 15:45 Hep B Core IgM Ab Negative (Negative) 06/17/18 15:45 Hepatitis C Antibody <0.1 s/co ratio (0.0-0.9) 06/17/18 15:45 - Physical Exam Vitals and I&O: Vital Signs Temp 97.2 F 06/20/18 08:00 Pulse 93 06/20/18 10:00 Resp 11 06/20/18 10:00 BP 123/58 06/20/18 10:00 Pulse Ox 95 06/20/18 10:00 Intake & Output 06/19/18 06/20/18 06/20/18 18:59 06:59 18:59 Intake Total 500 1638.333 Output Total 300 450 Balance 200 1188.333 Weight (lbs) 122.016 kg 126.24 kg Intake: Intake, IV Amount 838.333 Sodium Chloride 0.9% 1, 838.333 000 ml @ 50 mls/hr IV . Q20H [facility] Rx#:[id number] Oral 500 800 Output: Urine 300 450 Other: # Bowel Movements 0 0 Weight Source Bedscale Bedscale Active Medications: Current Medications Acetaminophen (Tylenol) 650 mg PO Q4HR PRN PRN Reason: Pain or Fever >101 Stop: 08/11/18 03:59 Last Admin: 06/13/18 21:42 Dose: 650 mg Albuterol/Ipratropium (Duoneb Neb) 3 ml HHN [id number] [facility] Stop: 08/16/18 14:59 Last Admin: 06/20/18 07:18 Dose: 3 ml Aspirin (Aspirin) 325 mg PO DAILY [facility] Stop: 08/11/18 08:59 Last Admin: 06/19/18 09:14 Dose: 325 mg Budesonide (Pulmicort) 0.5 mg HHN BIDRT [facility] Stop: 08/16/18 18:59 Last Admin: 06/20/18 07:26 Dose: 0.5 mg Carvedilol (Coreg) 6.25 mg PO BID [facility] Stop: 08/11/18 16:59 Last Admin: 06/19/18 17:09 Dose: Not Given Dextrose (D50w) 50 ml IVP PRN PRN PRN Reason: Blood Glucose less than 70 Stop: 08/11/18 05:22 Gabapentin (Neurontin) 800 mg PO TID [facility] Stop: 08/11/18 13:59 Last Admin: 06/19/18 21:09 Dose: 800 mg Glipizide (Glucotrol) 5 mg PO DAILY [facility] Stop: 08/11/18 11:14 Last Admin: 06/19/18 09:16 Dose: 5 mg Sodium Chloride (Nacl 0.9%) 1,000 mls @ 50 mls/hr IV .Q20H [facility] Stop: 08/18/18 07:59 Last Admin: 06/20/18 02:00 Dose: 50 mls/hr Insulin Human Lispro (Humalog Insulin Sliding Scale) 0 units SUBQ ACHS [facility]; Protocol Stop: 08/11/18 07:29 Last Admin: 06/20/18 06:44 Dose: Not Given Lactobacillus Rhamnosus (Culturelle 15b) 1 each PO DAILY [facility] Stop: 08/13/18 08:59 Last Admin: 06/19/18 09:14 Dose: 1 each Levetiracetam (Keppra) 500 mg PO BID [facility] Stop: 08/13/18 18:14 Last Admin: 06/19/18 17:42 Dose: 500 mg Methylprednisolone Sodium Succinate (Solu-Medrol) 40 mg IV Q8HR [facility] Stop: 06/21/18 05:01 Last Admin: 06/20/18 05:14 Dose: 40 mg Midodrine (Proamatine) 5 mg PO TID [facility] Stop: 08/18/18 13:59 Last Admin: 06/19/18 21:10 Dose: 5 mg Mineral Oil (Mineral Oil 30 Ml) 30 ml PO BID [facility] Stop: 06/24/18 18:29 Last Admin: 06/19/18 21:18 Dose: 30 ml Miscellaneous (Probiotic Screen) 1 ea MC PRN PRN PRN Reason: PROTOCOL Stop: 08/12/18 13:54 Miscellaneous (Clinical Monitoring) 1 ea MC DAILY PRN PRN Reason: RENAL DOSING Stop: 08/17/18 12:28 Ondansetron HCl (Zofran) 4 mg IV Q4H PRN PRN Reason: Nausea / Vomiting Stop: 08/14/18 11:47 Last Admin: 06/18/18 13:22 Dose: 4 mg Pantoprazole Sodium (Protonix) 40 mg PO QDAC [facility] Stop: 08/11/18 07:29 Last Admin: 06/19/18 09:14 Dose: 40 mg Sevelamer Carbonate (Renvela) 1,600 mg PO TIDWM [facility] Stop: 08/18/18 16:59 Last Admin: 06/19/18 17:42 Dose: 1,600 mg General: Alert, Moderate distress Cardiovascular: Regular rate, Normal S1, Normal S2, Systolic murmurs, Other ( atrial fibrillation) Lungs: Clear to auscultation, Normal air movement Abdomen: Bowel sounds, Distended, Obese, Other (no organomegaly), no Tender Neurological: Normal speech, Reflexes 2+ - Procedures Procedures: Procedures Procedure Code Date OXYGEN ENRICHMENT NEC 93.96 12/11/00 Assessment/Plan - Problem List Patient Problems: All Active Problems ARF (acute renal failure) (Acute) COPD with acute exacerbation (Acute) J44.1 Diabetes mellitus (Acute) E11.9 HTN (hypertension) (Acute) I10 - Assessment Assessment: 1. Transaminitis 2. Hypoxemic resp failure 3. Septicemia 4. Probable multifactorial hepatitis - - Plan Plan: 1. Transaminitis Worsening. Sepsis/ stasis Vs drug induced Vs lesions or chronic liver disease. Check CT and W/U for chronic liver disease ?MRCP but not available here and too sick to be transferred 2. Hypoxemic resp failure 3. Septicemia
--- NOTE | 2018-06-20 13:02 | Diagnostic Imaging Report ---
CT scan abdomen and pelvis without intravenous contrast HISTORY: Abnormal liver function tests Total DLP equals 1074 CTDI equals 19.0 Axial sections were obtained from the xiphoid process down to the pubic symphysis. The exam is compared with the prior study of June 02, 2018. Limited sections through the lower chest demonstrate interval development of small bilateral pleural effusions along with bilateral lower lobe pulmonary parenchymal densities consistent with atelectasis and/or consolidation. Heart size is somewhat increased. No focal hepatic lesions are seen. The spleen appears normal. No focal abnormality seen in the region of the pancreas. No significant focal renal lesions. There is a fat-containing umbilical hernia. Question development of a small amount of density/fluid within the subcutaneous tissues adjacent to the hernia site at the level of the umbilicus since the prior study. The findings should be correlated clinically. The exam of the pelvis demonstrates preservation of normal fat planes. No abnormal soft tissue masses or abnormal fluid collections. Colonic diverticula are seen. Degenerative changes noted throughout the spine. A 1 mm calcification is noted within the urinary bladder near the ureterovesical junction. No change from the prior examination. No hydronephrosis. IMPRESSION: 1. Interval development since June 02, 2018, of increased density which may be associated with a small amount of fluid within the subcutaneous tissues adjacent to the previously reported fat-containing umbilical hernia. Significance should be correlated clinically. 2. Interval development of small bilateral pleural effusions. Pulmonary parenchymal changes also noted in the lower lobes consistent with atelectasis and/or consolidation 3. No change in a punctate (1 mm) calcification which appears to be within the lumen of the urinary bladder adjacent to the left ureterovesical junction. No associated hydronephrosis. 4. Atherosclerotic vascular changes 5. Diverticulosis
[2018-06-20] MEDS: Apixaban 5 MG TABLET PO SCH ×3 (13:17→18:13)
[2018-06-20] MEDS: Lactobacillus Rhamnosus GG 15 Billion CFU CAP.SPRINK PO SCH (13:17)
[2018-06-20] MEDS: Pantoprazole 40 mg EC Tab PO SCH ×2 (13:17→14:08)
--- NOTE | 2018-06-20 14:13 | General Progress Note ---
Subjective - Review of Systems Service Date: 06/20/18 Subjective: Patient is still complaining of chest pain shortness of breath no palpitations Patient has desaturation patient stable on BiPAP Objective - Results Result Diagrams: 06/20/18 05:00 06/20/18 05:00 Recent Labs: Laboratory Last Values WBC 6.7 Th/cmm (4.8-10.8) 06/20/18 05:00 RBC 4.07 Mil/cmm (4.30-5.70) L 06/20/18 05:00 Hgb 11.8 gm/dL (12-16) L 06/20/18 05:00 Hct 36.3 % (41.0-60) L 06/20/18 05:00 MCV 89.2 fl (80-99) 06/20/18 05:00 MCH 29.1 pg (26.0-30.0) 06/20/18 05:00 MCHC Differential 32.7 pg (28.0-36.0) 06/20/18 05:00 RDW 14.2 % (11.5-20.0) 06/20/18 05:00 Plt Count 115 Th/cmm (150-400) L 06/20/18 05:00 MPV 9.2 fl 06/20/18 05:00 Add Manual Diff YES 06/20/18 05:00 Neutrophils % 85.4 % (40.0-80.0) H 06/19/18 04:45 Lymphocytes % 10.4 % (20.0-50.0) L 06/19/18 04:45 Monocytes % 1.6 % (2.0-10.0) L 06/19/18 04:45 Eosinophils % 0.3 % (0.0-5.0) 06/19/18 04:45 Basophils % 2.3 % (0.0-2.0) H 06/19/18 04:45 Neutrophils (Manual) 90 % (40-80) H 06/20/18 05:00 Lymphocytes 10 % (20-50) L 06/20/18 05:00 Monocytes 1 % (2-10) L 06/18/18 04:25 Platelet Estimate DECREASED PLATELETS (NORMAL) 06/20/18 05:00 Eos Smear Source URINE 06/18/18 18:30 Eos Smear Total Cells NONE SEEN (NONE SEEN) 06/18/18 18:30 Specimen Source Arterial 06/20/18 08:43 Sample Site Left Radial 06/20/18 08:43 pH 7.380 (7.35-7.45) 06/20/18 08:43 pCO2 47.2 mmHg (35.0-45.0) H 06/20/18 08:43 pO2 151.2 mmHg (80.0-100.0) H 06/20/18 08:43 HCO3 27.3 mEq/L (20.0-26.0) H 06/20/18 08:43 Base Excess 1.5 mEq/L (-3.0-3.0) 06/20/18 08:43 O2 Saturation 98.9 % (92.0-100.0) 06/20/18 08:43 Brody Test Positive 06/20/18 08:43 Vent Rate 16 06/20/18 08:43 Inspired O2 70 06/20/18 08:43 Tidal Volume N/A 06/20/18 08:43 PEEP N/A 06/20/18 08:43 Pressure (ins/psv/peep) N/A 06/20/18 08:43 Critical Value DM 06/20/18 08:43 Sodium 125 mEq/L (136-145) L 06/20/18 05:00 Potassium 5.7 mEq/L (3.5-5.1) H 06/20/18 05:00 Chloride 83 mEq/L (98-107) L 06/20/18 05:00 Carbon Dioxide 29.0 mEq/L (21.0-31.0) 06/20/18 05:00 Anion Gap 18.7 (7.0-16.0) H 06/20/18 05:00 BUN 114 mg/dL (7-25) H* 06/20/18 05:00 Creatinine 3.7 mg/dL (0.7-1.3) H 06/20/18 05:00 Est GFR ( Amer) 21.5 ml/min (>90) 06/20/18 05:00 Est GFR (Non-Af Amer) 17.8 ml/min 06/20/18 05:00 BUN/Creatinine Ratio 30.8 06/20/18 05:00 Glucose 186 mg/dL (70-105) H 06/20/18 05:00 POC Glucose 199 MG/DL (70 - 105) H 06/20/18 12:01 Whole Bld Lactic Acid 1.92 mmol/L (0.60-1.99) 06/12/18 13:55 Calcium 8.9 mg/dL (8.6-10.3) 06/20/18 05:00 Phosphorus 7.7 mg/dL (2.5-5.0) H 06/20/18 05:00 Magnesium 2.5 mg/dL (1.9-2.7) 06/19/18 04:45 Total Bilirubin 1.6 mg/dL (0.3-1.0) H 06/20/18 05:00 Direct Bilirubin 0.94 mg/dL (0.0-0.2) H 06/20/18 05:00 AST 354 U/L (13-39) H 06/20/18 05:00 ALT 758 U/L (7-52) H 06/20/18 05:00 Alkaline Phosphatase 219 U/L (34-104) H 06/20/18 05:00 Ammonia 117 umol/L (16-53) H 06/20/18 05:00 Creatine Kinase 35 U/L (30-223) 06/11/18 21:30 Troponin I 0.10 ng/mL (0.01-0.05) H* D 06/13/18 06:35 Total Protein 6.4 gm/dL (6.0-8.3) 06/20/18 05:00 Albumin 4.0 gm/dL (4.2-5.5) L 06/20/18 05:00 Globulin 2.4 gm/dL 06/20/18 05:00 Albumin/Globulin Ratio 1.7 (1.0-1.8) 06/20/18 05:00 Triglycerides 114 mg/dL (<150) 06/13/18 06:35 Cholesterol 115 mg/dL (<200) 06/13/18 06:35 LDL Cholesterol Direct 76 mg/dL (75-193) 06/13/18 06:35 HDL Cholesterol 26 mg/dL (23-92) 06/13/18 06:35 Amylase 24 U/L (29-103) L 06/13/18 06:35 Lipase 11 U/L (11-82) 06/11/18 21:30 TSH 1.30 uIU/ml (0.34-5.60) 06/12/18 13:55 Urine Source RANDOM 06/13/18 13:46 Urine Color YELLOW 06/13/18 13:46 Urine Clarity CLEAR (CLEAR) 06/13/18 13:46 Urine pH 5.5 (4.6 - 8.0) 06/13/18 13:46 Ur Specific [place] >= 1.030 (1.005-1.030) 06/13/18 13:46 Urine Protein NEGATIVE mg/dL (NEGATIVE) 06/13/18 13:46 Urine Glucose (UA) NEGATIVE mg/dL (NEGATIVE) 06/13/18 13:46 Urine Ketones NEGATIVE mg/dL (NEGATIVE) 06/13/18 13:46 Urine Blood NEGATIVE (NEGATIVE) 06/13/18 13:46 Urine Nitrate NEGATIVE (NEGATIVE) 06/13/18 13:46 Urine Bilirubin NEGATIVE (NEGATIVE) 06/13/18 13:46 Urine Urobilinogen 0.2 E.U./dL (0.2 - 1.0) 06/13/18 13:46 Ur Leukocyte Esterase NEGATIVE (NEGATIVE) 06/13/18 13:46 Urine RBC NONE SEEN /hpf (0-5) 06/13/18 13:46 Urine WBC NONE SEEN /hpf (0-5) 06/13/18 13:46 Ur Epithelial Cells RARE /lpf (FEW) 06/13/18 13:46 Urine Bacteria FEW /hpf (NONE SEEN) 06/13/18 13:46 Urine Opiates Screen NEGATIVE (NEGATIVE) 06/13/18 13:46 Urine Methadone Screen NEGATIVE (NEGATIVE) 06/13/18 13:46 Ur Barbiturates Screen NEGATIVE (NEGATIVE) 06/13/18 13:46 Ur Tricyclics Screen NEGATIVE (NEGATIVE) 06/13/18 13:46 Ur Phencyclidine Scrn NEGATIVE (NEGATIVE) 06/13/18 13:46 Amphetamines Screen NEGATIVE (NEGATIVE) 06/13/18 13:46 U Methamphetamines Scrn NEGATIVE (NEGATIVE) 06/13/18 13:46 U Benzodiazepines Scrn NEGATIVE (NEGATIVE) 06/13/18 13:46 U Cocaine Metab Screen NEGATIVE (NEGATIVE) 06/13/18 13:46 U Cannabinoids Screen NEGATIVE (NEGATIVE) 06/13/18 13:46 Hepatitis A IgM Ab Negative (Negative) 06/17/18 15:45 Hep Bs Antigen Negative (Negative) 06/17/18 15:45 Hep B Core IgM Ab Negative (Negative) 06/17/18 15:45 Hepatitis C Antibody <0.1 s/co ratio (0.0-0.9) 06/17/18 15:45 - Physical Exam Vitals and I&O: Vital Signs Temp 97.2 F 06/20/18 08:00 Pulse 91 06/20/18 11:52 Resp 18 06/20/18 11:52 BP 123/58 06/20/18 10:00 Pulse Ox 98 06/20/18 11:52 Intake & Output 06/19/18 06/20/18 06/20/18 18:59 06:59 18:59 Intake Total 500 1638.333 Output Total 300 450 Balance 200 1188.333 Weight (lbs) 122.016 kg 126.24 kg Intake: Intake, IV Amount 838.333 Sodium Chloride 0.9% 1, 838.333 000 ml @ 50 mls/hr IV . Q20H [facility] Rx#:[id number] Oral 500 800 Output: Urine 300 450 Other: # Bowel Movements 0 0 Weight Source Bedscale Bedscale Active Medications: Current Medications Acetaminophen (Tylenol) 650 mg PO Q4HR PRN PRN Reason: Pain or Fever >101 Stop: 08/11/18 03:59 Last Admin: 06/13/18 21:42 Dose: 650 mg Albuterol/Ipratropium (Duoneb Neb) [id number] [facility] Stop: 08/16/18 14:59 Last Admin: 06/20/18 11:52 Dose: 3 ml Aspirin (Aspirin) [address] [facility] Stop: 08/11/18 08:59 Last Admin: 06/20/18 13:17 Dose: Not Given Budesonide (Pulmicort) 0.[address] [facility] Stop: 08/16/18 18:59 Last Admin: 06/20/18 07:26 Dose: 0.5 mg Carvedilol (Coreg) 6.[address] [facility] Stop: 08/11/18 16:59 Last Admin: 06/20/18 12:09 Dose: Not Given Dextrose (D50w) 50 ml IVP PRN PRN PRN Reason: Blood Glucose less than 70 Stop: 08/11/18 05:22 Gabapentin (Neurontin) [address] [facility] Stop: 08/11/18 13:59 Last Admin: 06/20/18 14:09 Dose: 800 mg Glipizide (Glucotrol) [address] [facility] Stop: 08/11/18 11:14 Last Admin: 06/20/18 13:17 Dose: Not Given Sodium Chloride (Nacl 0.9%) 1,000 mls @ 50 mls/hr IV .Q20H [facility] Stop: 08/18/18 07:59 Last Admin: 06/20/18 02:00 Dose: 50 mls/hr Insulin Human Lispro (Humalog Insulin Sliding Scale) [address] [facility]; Protocol Stop: 08/11/18 07:29 Last Admin: 06/20/18 13:28 Dose: Not Given Lactobacillus Rhamnosus (Culturelle 15b) [address] [facility] Stop: 08/13/18 08:59 Last Admin: 06/20/18 13:17 Dose: Not Given Levetiracetam (Keppra) [address] [facility] Stop: 08/13/18 18:14 Last Admin: 06/20/18 14:08 Dose: 500 mg Methylprednisolone Sodium Succinate (Solu-Medrol) [address] [facility] Stop: 06/21/18 05:01 Last Admin: 06/20/18 14:09 Dose: 40 mg Midodrine (Proamatine) [address] [facility] Stop: 08/18/18 13:59 Last Admin: 06/20/18 14:08 Dose: 5 mg Mineral Oil (Mineral Oil 30 Ml) [address] [facility] Stop: 06/24/18 18:29 Last Admin: 06/20/18 14:09 Dose: 30 ml Miscellaneous (Probiotic Screen) 1 ea [facility] PRN PRN PRN Reason: PROTOCOL Stop: 08/12/18 13:54 Miscellaneous (Clinical Monitoring) 1 ea [facility] DAILY PRN PRN Reason: RENAL DOSING Stop: 08/17/18 12:28 Ondansetron HCl (Zofran) 4 mg IV Q4H PRN PRN Reason: Nausea / Vomiting Stop: 08/14/18 11:47 Last Admin: 06/18/18 13:22 Dose: 4 mg Pantoprazole Sodium (Protonix) [address] [facility] Stop: 08/11/18 07:29 Last Admin: 06/20/18 14:08 Dose: 40 mg Sevelamer Carbonate (Renvela) 1,[address] [facility] Stop: 08/18/18 16:59 Last Admin: 06/20/18 14:07 Dose: 1,600 mg General: Alert, Moderate distress HEENT: Mucous membr. moist/pink Neck: Supple, JVD, +2 carotid pulse wo bruit (flat) Cardiovascular: Regular rate, Normal S1, Normal S2, Systolic murmurs, Other ( atrial fibrillation) Lungs: Clear to auscultation, Normal air movement Abdomen: Bowel sounds, Distended, Obese, Other (no organomegaly), no Tender Neurological: Normal speech, Reflexes 2+ - Procedures Procedures: Procedures Procedure Code Date OXYGEN ENRICHMENT NEC 93.96 12/11/00 Assessment/Plan - Problem List Patient Problems: All Active Problems ARF (acute renal failure) (Acute) COPD with acute exacerbation (Acute) J44.1 Diabetes mellitus (Acute) E11.9 HTN (hypertension) (Acute) I10 - Assessment Assessment: Staph septicemia Diabetes mellitus type 2 insulin-dependent Diabetics securities Hypertension Congestive heart failure diastolic dysfunction. COPD sick sinus syndrome with pacemaker Atrial fibrillation Narcotic dependence Respiratory failure on BiPAP - Plan Plan: Continue IV antibiotics we will do urine for drug screen Patient to get Kayexalate 60 g due to hyperkalemia Low dose dopamine for renal perfusion Continue present management Nutritional Asmnt/Malnutr-PDOC - Dietary Evaluation Malnutrition Findings (Please click <Entered> for more info): Nutritional Asmnt/Malnutrition Start: 06/12/18 17: 18 Text: Status: Complete Freq: Protocol: Document 06/12/18 17:23 LCHENG (Rec: 06/12/18 17:37 LCHENG [id number]) Nutritional Asmnt/Malnutrition Patient General Information Nutritional Screening High Risk Diagnosis COPD, CHF Pertinent Medical Hx/Surgical Hx DM, HTN, pacemaker, COPD, CHF Subjective Information Pt seen sitting up on bed having lunch. Pt stated he did not want this lunch tray only took the ice cream and requested for salad and fresh fruit. Food preference provided to RD. Glucose ad admission was 189 noted. Pt appeared not ready for diabetic education. Current Diet Order/ Nutrition Support CCHO NA 2gm Pertinent Medications lasix, humalog, mag-oxide, glucophage, protonix Pertinent Labs 06/12 na 135, K 5.8, Cl 92, BUN 35, Cr 1.8, Glucose 156, POC 147-280, Alb 3.8 Nutritional Hx/Data Height 1.73 m Height (Calculated Centimeters) 172.7 Current Weight (lbs) 117.934 kg Weight (Calculated Kilograms) 117.9 Weight (Calculated Grams) 190231.0 [place] Body Weight 154 Body Mass Index (BMI) 39.5 Weight Status Obese GI Symptoms GI Symptoms None Last BM none Difficult in: None Skin Integrity/Comment: intact Estimated Nutritional Goals BEE in Kcals: Adj wt of IBW Calories/Kcals/Kg 23-27 Kcals Calculated 3416-3276 Protein: Adj wt of IBW Protein g/k.8 Protein Calculated 66 Fluid: ml Nutritional Problem 1. Problem Problem altered nutrition related labs Etiology hyperglycemia Signs/Symptoms: Glucose 156, POC 147-280 Intervention/Recommendation Comments 1. Continue with [facility] Na 2gm diet as ordered. 2. Monitor PO intake, wt, labs and skin integrity 3. F/U as high risk in 2-3 days Expected Outcomes/Goals Expected Outcomes/Goals 1. PO intake to meet at least 75% of nutritional needs. 2. Wt stability, skin to remain intact, labs to approach WNL.
[2018-06-20] MEDS ORDERED: Heparin Sod 5,000Units/ML 5,000 UNITS/ML VIAL HD ONE (14:27)
--- NOTE | 2018-06-20 14:57 | Operative Report ---
Post Operative Report - POST-OPERATIVE NOTE Preoperative diagnosis:: acute renal failure, hyperkalemia; needs HD access Postoperative diagnosis:: same Operation performed:: placement RIJ Arrow large bore HD catheter w/ central line port. u/s guidance for vascular access Specimen:: none Anesthesia:: Local Anesthesiologist:: Ron Gabriel Blood Loss (fluid management):: <5ml Surgeon:: Ron Gabriel Findings:: cxr to confirm placement Prosthetic devices, grafts, tissue or device implanted:: HD cath Complications:: none
[2018-06-20] MEDS ORDERED: Heparin Sod 1,000Units/ML 1,000 UNITS/ML VIAL HD ONE (16:31)
[2018-06-20] MEDS ORDERED: Heparin Sod 1,000 Units/mL 10ml HD ONE (17:02)
--- NOTE | 2018-06-20 18:30 | Operative Report ---
DATE OF SURGERY: 06/20/2018 BEDSIDE PROCEDURE NOTE TIME: 02:59 p.m. PREOPERATIVE DIAGNOSES: Acute renal failure, hyperkalemia, and need for hemodialysis access urgently. POSTOPERATIVE DIAGNOSES: Acute renal failure, hyperkalemia, and need for hemodialysis access urgently. OPERATION PERFORMED: 1. Placement of right IJ Arrow large bore hemodialysis catheter with central line port. 2. Ultrasound guidance for vascular access. SPECIMENS: None. ANESTHESIA: Local. ESTIMATED BLOOD LOSS: Less than 5 mL. SURGEON: Ron Gabriel M.D. FINDINGS: Chest x-ray to confirm placement. Arrow hemodialysis catheter with 2 large bore ports and central line port. COMPLICATIONS: None. DESCRIPTION OF PROCEDURE: After confirming patient identification and procedure to be done, the patient was placed in supine position. The right neck was prepped and draped in usual sterile fashion. Timeout was performed. Ultrasound was used to identify the right internal jugular vein, which was large and patent. Local anesthesia was used to infiltrate the skin and subcutaneous tissue. A large bore needle was used to cannulate the right internal jugular vein. Guidewire was placed in without difficulty. Tract was dilated. The catheter placed in over the guidewire in Seldinger technique. Good venous draw back from all 3 ports. All 3 ports were flushed with normal saline. Catheter was suture anchored to skin. Dressings were applied. The patient tolerated the procedure well. Chest x-ray will be checked post-procedure. JOB# [id number]
[2018-06-21] MEDS: Sodium Chloride 0.9% 1,000 ML IV SCH ×2 (02:39→13:52)
--- NOTE | 2018-06-21 03:20 | Progress Notes ---
DATE: 06/20/2018 PULMONARY/CRITICAL CARE PROGRESS NOTE PROBLEM LIST: 1. Respiratory failure, improved. 2. Chronic obstructive pulmonary disease. 3. Sleep apnea syndrome. 4. Renal failure. 5. Significant morbid obesity with obesity hypoventilation syndrome. SYMPTOMS: Nil. He is concerned about his kidney. His breathing is okay. Currently, on nasal cannula. PHYSICAL EXAMINATION: VITAL SIGNS: Temperature is 96, heart rate is in 90s, BP is 123/80, saturation is 98 on 2-3 liters per minute. NECK: Veins not visualized. CHEST: Shows diminished air entry. ABDOMEN: Soft and nontender. EXTREMITIES: Shows no peripheral edema. LABORATORY DATA: The patient's CBC looks okay with white count 6.7. ABG shows compensated respiratory acidemia was on 70% earlier, reason not clear. The patient's electrolytes shows potassium 5.7, sodium is 125, creatinine is 3.7 and BUN is 114. ASSESSMENT: The patient clinically appears to be stable with renal failure, abnormal LFT, chronic obstructive pulmonary disease and sleep apnea syndrome. PLANS AND SUGGESTIONS: We will continue current respiratory care, inhalation treatment, etc. use BiPAP only p.r.n. daytime and regular nighttime and see how he does and go from there. JOB# [id number]
--- NOTE | 2018-06-21 04:25 | Progress Notes ---
DATE: 06/20/2018 PATIENT'S ID: A 62-year-old male patient. SUBJECTIVE: The patient seen and examined. The patient is currently on BiPAP. The patient looks lethargic than usual. The patient's lab has revealed elevated liver function test along with hyponatremia and worsening BUN and creatinine. The patient does not look not look better today. OBJECTIVE: Today's exam, VITAL SIGNS: See nurse's note. HEENT: Remarkable for oral BiPAP mask noted. NECK: Supple, no JVD. HEART: Irregularly, irregular. CHEST AND LUNG: Equal in expansion with expiratory wheezing. ABDOMEN: Protuberant, soft. Bowel sounds are present. No palpable mass. EXTREMITIES: No edema. AVAILABLE DIAGNOSTIC DATA: Reviewed. CLINICAL IMPRESSION: 1. Encephalopathy, most likely metabolic in etiology. 2. 3. 4. Acute liver injury, GI is following. 5. Chronic obstructive pulmonary disease exacerbation. 6. Congestive heart failure. 7. Acute on chronic respiratory failure. 8. Obstructive sleep apnea. PLAN: In the view of the complexity of his medical problem, we will keep him in ICU for now. Have Nephrology to correct electrolytes. The patient may need possible dialysis. As far as the elevated liver function is concerned, it could be related to medication related. We will defer further treatment plan to Gastroenterology who has been closely watching his liver function test. We will monitor lab for now. Continue oxygen with BiPAP along with nebulizer treatment, IV steroids, IV antibiotic, and follow up on audit consultant recommendation. Overall, prognosis is guarded. JOB# [id number]
[2018-06-21] MEDS: methylPREDNISolone SS 40 mg Vial IV SCH (04:32)
[2018-06-21 05:06] LABS: HEMATOCRIT 31.9 % (41.0-60); HEMOGLOBIN 10.6 gm/dL (12-16); MEAN CELL VOLUME 88.7 fl (80-99); MEAN CORPUSCULAR HEMOGLOBIN 29.4 pg (26.0-30.0); MEAN CORPUSCULAR HGB CONC 33.2 pg (28.0-36.0); PLATELET COUNT 74 Th/cmm (150-400); RED CELL DISTRIBUTION WIDTH 14.5 % (11.5-20.0); WHITE BLOOD COUNT 6.1 Th/cmm (4.8-10.8)
[2018-06-21 05:16] LABS: ALB/GLOB RATIO 1.5 (1.0-1.8); ALBUMIN 3.7 gm/dL (4.2-5.5); ANION GAP 20.9 (7.0-16.0); BILIRUBIN,TOTAL 2.4 mg/dL (0.3-1.0); CALCIUM SERUM 8.5 mg/dL (8.6-10.3); CARBON DIOXIDE 26.9 mEq/L (21.0-31.0); CREATININE - SERUM 3.4 mg/dL (0.7-1.3); GFR AFRICAN-AMERICAN 23.7 ml/min (>90); GFR NON AFRICAN-AMERICAN 19.6 ml/min; POTASSIUM SERUM 5.8 mEq/L (3.5-5.1); TOTAL PROTEIN,SERUM 6.1 gm/dL (6.0-8.3)
[2018-06-21 06:09] LABS: BAND NEUTROPHILE 0 % (0-10); BASOPHIL 0 % (0-3); EOSINOPHIL 0 % (0-5); LYMPHOCYTE 10 % (20-50); MONOCYTE 2 % (2-10); NEUTROPHILS 88 % (40-80)
[2018-06-21] MEDS: Pantoprazole 40 mg EC Tab PO SCH (06:54)
[2018-06-21] MEDS: Albuterol/Ipratropium Neb 3 ML AERS HHN SCH ×4 (07:30→18:36)
[2018-06-21] MEDS: Budesonide 0.5 Mg/2 mL Ud HHN SCH ×2 (07:41→18:36)
--- NOTE | 2018-06-21 09:37 | GI Progress Note ---
Subjective - Review of Systems Service Date: 06/21/18 Subjective: On BiPAP, appears lethargic Objective - Results Result Diagrams: 06/21/18 04:50 06/21/18 04:50 Recent Labs: Laboratory Last Values WBC 6.1 Th/cmm (4.8-10.8) 06/21/18 04:50 RBC 3.60 Mil/cmm (4.30-5.70) L 06/21/18 04:50 Hgb 10.6 gm/dL (12-16) L 06/21/18 04:50 Hct 31.9 % (41.0-60) L 06/21/18 04:50 MCV 88.7 fl (80-99) 06/21/18 04:50 MCH 29.4 pg (26.0-30.0) 06/21/18 04:50 MCHC Differential 33.2 pg (28.0-36.0) 06/21/18 04:50 RDW 14.5 % (11.5-20.0) 06/21/18 04:50 Plt Count 74 Th/cmm (150-400) L 06/21/18 04:50 MPV 9.0 fl 06/21/18 04:50 Add Manual Diff YES 06/21/18 04:50 Neutrophils % 85.4 % (40.0-80.0) H 06/19/18 04:45 Band Neutrophils % 0 % (0-10) 06/21/18 04:50 Lymphocytes % 10.4 % (20.0-50.0) L 06/19/18 04:45 Monocytes % 1.6 % (2.0-10.0) L 06/19/18 04:45 Eosinophils % 0.3 % (0.0-5.0) 06/19/18 04:45 Basophils % 2.3 % (0.0-2.0) H 06/19/18 04:45 Neutrophils (Manual) 88 % (40-80) H 06/21/18 04:50 Lymphocytes 10 % (20-50) L 06/21/18 04:50 Monocytes 2 % (2-10) 06/21/18 04:50 Eosinophils 0 % (0-5) 06/21/18 04:50 Basophils 0 % (0-3) 06/21/18 04:50 Platelet Estimate DECREASED PLATELETS (NORMAL) 06/20/18 05:00 Eos Smear Source URINE 06/18/18 18:30 Eos Smear Total Cells NONE SEEN (NONE SEEN) 06/18/18 18:30 Specimen Source Arterial 06/20/18 08:43 Sample Site Left Radial 06/20/18 08:43 pH 7.380 (7.35-7.45) 06/20/18 08:43 pCO2 47.2 mmHg (35.0-45.0) H 06/20/18 08:43 pO2 151.2 mmHg (80.0-100.0) H 06/20/18 08:43 HCO3 27.3 mEq/L (20.0-26.0) H 06/20/18 08:43 Base Excess 1.5 mEq/L (-3.0-3.0) 06/20/18 08:43 O2 Saturation 98.9 % (92.0-100.0) 06/20/18 08:43 Brody Test Positive 06/20/18 08:43 Vent Rate 16 06/20/18 08:43 Inspired O2 70 06/20/18 08:43 Tidal Volume N/A 06/20/18 08:43 PEEP N/A 06/20/18 08:43 Pressure (ins/psv/peep) N/A 06/20/18 08:43 Critical Value DM 06/20/18 08:43 Sodium 126 mEq/L (136-145) L 06/21/18 04:50 Potassium 5.8 mEq/L (3.5-5.1) H 06/21/18 04:50 Chloride 84 mEq/L (98-107) L 06/21/18 04:50 Carbon Dioxide 26.9 mEq/L (21.0-31.0) 06/21/18 04:50 Anion Gap 20.9 (7.0-16.0) H 06/21/18 04:50 BUN 100 mg/dL (7-25) H* 06/21/18 04:50 Creatinine 3.4 mg/dL (0.7-1.3) H 06/21/18 04:50 Est GFR ( Amer) 23.7 ml/min (>90) 06/21/18 04:50 Est GFR (Non-Af Amer) 19.6 ml/min 06/21/18 04:50 BUN/Creatinine Ratio 29.4 06/21/18 04:50 Glucose 173 mg/dL (70-105) H 06/21/18 04:50 POC Glucose 173 MG/DL (70 - 105) H 06/21/18 06:50 Whole Bld Lactic Acid 1.92 mmol/L (0.60-1.99) 06/12/18 13:55 Calcium 8.5 mg/dL (8.6-10.3) L 06/21/18 04:50 Phosphorus 7.7 mg/dL (2.5-5.0) H 06/20/18 05:00 Magnesium 2.5 mg/dL (1.9-2.7) 06/19/18 04:45 Total Bilirubin 2.4 mg/dL (0.3-1.0) H 06/21/18 04:50 Direct Bilirubin 0.94 mg/dL (0.0-0.2) H 06/20/18 05:00 AST 483 U/L (13-39) H 06/21/18 04:50 ALT 1013 U/L (7-52) H 06/21/18 04:50 Alkaline Phosphatase 207 U/L (34-104) H 06/21/18 04:50 Ammonia 132 umol/L (16-53) H 06/21/18 04:50 Creatine Kinase 35 U/L (30-223) 06/11/18 21:30 Troponin I 0.10 ng/mL (0.01-0.05) H* D 06/13/18 06:35 Total Protein 6.1 gm/dL (6.0-8.3) 06/21/18 04:50 Albumin 3.7 gm/dL (4.2-5.5) L 06/21/18 04:50 Globulin 2.4 gm/dL 06/21/18 04:50 Albumin/Globulin Ratio 1.5 (1.0-1.8) 06/21/18 04:50 Triglycerides 114 mg/dL (<150) 06/13/18 06:35 Cholesterol 115 mg/dL (<200) 06/13/18 06:35 LDL Cholesterol Direct 76 mg/dL (75-193) 06/13/18 06:35 HDL Cholesterol 26 mg/dL (23-92) 06/13/18 06:35 Amylase 24 U/L (29-103) L 06/13/18 06:35 Lipase 11 U/L (11-82) 06/11/18 21:30 TSH 1.30 uIU/ml (0.34-5.60) 06/12/18 13:55 Urine Source RANDOM 06/13/18 13:46 Urine Color YELLOW 06/13/18 13:46 Urine Clarity CLEAR (CLEAR) 06/13/18 13:46 Urine pH 5.5 (4.6 - 8.0) 06/13/18 13:46 Ur Specific Garner >= 1.030 (1.005-1.030) 06/13/18 13:46 Urine Protein NEGATIVE mg/dL (NEGATIVE) 06/13/18 13:46 Urine Glucose (UA) NEGATIVE mg/dL (NEGATIVE) 06/13/18 13:46 Urine Ketones NEGATIVE mg/dL (NEGATIVE) 06/13/18 13:46 Urine Blood NEGATIVE (NEGATIVE) 06/13/18 13:46 Urine Nitrate NEGATIVE (NEGATIVE) 06/13/18 13:46 Urine Bilirubin NEGATIVE (NEGATIVE) 06/13/18 13:46 Urine Urobilinogen 0.2 E.U./dL (0.2 - 1.0) 06/13/18 13:46 Ur Leukocyte Esterase NEGATIVE (NEGATIVE) 06/13/18 13:46 Urine RBC NONE SEEN /hpf (0-5) 06/13/18 13:46 Urine WBC NONE SEEN /hpf (0-5) 06/13/18 13:46 Ur Epithelial Cells RARE /lpf (FEW) 06/13/18 13:46 Urine Bacteria FEW /hpf (NONE SEEN) 06/13/18 13:46 Urine Opiates Screen NEGATIVE (NEGATIVE) 06/13/18 13:46 Urine Methadone Screen NEGATIVE (NEGATIVE) 06/13/18 13:46 Ur Barbiturates Screen NEGATIVE (NEGATIVE) 06/13/18 13:46 Ur Tricyclics Screen NEGATIVE (NEGATIVE) 06/13/18 13:46 Ur Phencyclidine Scrn NEGATIVE (NEGATIVE) 06/13/18 13:46 Amphetamines Screen NEGATIVE (NEGATIVE) 06/13/18 13:46 U Methamphetamines Scrn NEGATIVE (NEGATIVE) 06/13/18 13:46 U Benzodiazepines Scrn NEGATIVE (NEGATIVE) 06/13/18 13:46 U Cocaine Metab Screen NEGATIVE (NEGATIVE) 06/13/18 13:46 U Cannabinoids Screen NEGATIVE (NEGATIVE) 06/13/18 13:46 Hepatitis A IgM Ab Negative (Negative) 06/17/18 15:45 Hep Bs Antigen Negative (Negative) 06/17/18 15:45 Hep B Core IgM Ab Negative (Negative) 06/17/18 15:45 Hepatitis C Antibody <0.1 s/co ratio (0.0-0.9) 06/17/18 15:45 - Physical Exam Vitals and I&O: Vital Signs Temp 97.9 F 06/21/18 08:00 Pulse 98 06/21/18 08:00 Resp 16 06/21/18 09:05 BP 122/58 06/21/18 08:00 Pulse Ox 92 06/21/18 09:05 Intake & Output 06/20/18 06/21/18 06/21/18 18:59 06:59 18:59 Intake Total 950 1400 Output Total 350 300 Balance 600 1100 Weight (lbs) 126.235 kg 126.099 kg Intake: Intake, IV Amount 1000 Sodium Chloride 0.9% 1, 1000 000 ml @ 50 mls/hr IV . Q20H [facility] Rx#:[id number] Oral 950 400 Output: Urine 350 300 Other: # Voids 2 # Bowel Movements 0 3 Weight Source Bedscale Bedscale Active Medications: Current Medications Albuterol/Ipratropium (Duoneb Neb) 3 ml HHN [id number] [facility] Stop: 08/16/18 14:59 Last Admin: 06/21/18 07:30 Dose: 3 ml Aspirin (Aspirin) 325 mg PO DAILY [facility] Stop: 08/11/18 08:59 Last Admin: 06/20/18 13:17 Dose: Not Given Budesonide (Pulmicort) 0.5 mg HHN BIDRT [facility] Stop: 08/16/18 18:59 Last Admin: 06/21/18 07:41 Dose: 0.5 mg Carvedilol (Coreg) 6.25 mg PO BID [facility] Stop: 08/11/18 16:59 Last Admin: 06/20/18 18:14 Dose: Not Given Dextrose (D50w) 50 ml IVP PRN PRN PRN Reason: Blood Glucose less than 70 Stop: 08/11/18 05:22 Sodium Chloride (Nacl 0.9%) 1,000 mls @ 50 mls/hr IV .Q20H [facility] Stop: 08/18/18 07:59 Last Admin: 06/21/18 02:39 Dose: 50 mls/hr Insulin Human Lispro (Humalog Insulin Sliding Scale) 0 units SUBQ ACHS [facility]; Protocol Stop: 08/11/18 07:29 Last Admin: 06/20/18 20:45 Dose: 2 units Lactobacillus Rhamnosus (Culturelle 15b) 1 each PO DAILY [facility] Stop: 08/13/18 08:59 Last Admin: 06/20/18 13:17 Dose: Not Given Levetiracetam (Keppra) 500 mg PO BID [facility] Stop: 08/13/18 18:14 Last Admin: 06/20/18 18:13 Dose: 500 mg Midodrine (Proamatine) 5 mg PO TID [facility] Stop: 08/18/18 13:59 Last Admin: 06/20/18 20:34 Dose: 5 mg Mineral Oil (Mineral Oil 30 Ml) 30 ml PO BID [facility] Stop: 06/24/18 18:29 Last Admin: 06/20/18 18:13 Dose: 30 ml Miscellaneous (Probiotic Screen) 1 ea PRN PRN PRN Reason: PROTOCOL Stop: 08/12/18 13:54 Miscellaneous (Clinical Monitoring) 1 ea DAILY PRN PRN Reason: RENAL DOSING Stop: 08/17/18 12:28 Ondansetron HCl (Zofran) 4 mg IV Q4H PRN PRN Reason: Nausea / Vomiting Stop: 08/14/18 11:47 Last Admin: 06/18/18 13:22 Dose: 4 mg Pantoprazole Sodium (Protonix) 40 mg PO QDAC [facility] Stop: 08/11/18 07:29 Last Admin: 06/21/18 06:54 Dose: Not Given Sevelamer Carbonate (Renvela) 1,600 mg PO TIDWM [facility] Stop: 08/18/18 16:59 Last Admin: 06/20/18 18:13 Dose: 1,600 mg General: Alert, Moderate distress HEENT: Mucous membr. moist/pink Neck: Supple, JVD, +2 carotid pulse wo bruit (flat) Cardiovascular: Regular rate, Other (atrial fibrillation) Lungs: Clear to auscultation, Normal air movement Abdomen: Bowel sounds, Hepatomegaly, Distended, Obese, Other (no organomegaly), no Tender, no Rebound, no Mass, no Guarding, no Drain Neurological: Normal speech, Reflexes 2+ - Procedures Procedures: Procedures Procedure Code Date OXYGEN ENRICHMENT NEC 93.96 12/11/00 Assessment/Plan - Problem List Patient Problems: All Active Problems ARF (acute renal failure) (Acute) COPD with acute exacerbation (Acute) J44.1 Diabetes mellitus (Acute) E11.9 HTN (hypertension) (Acute) I10 - Assessment Assessment: 1. Transaminitis 2. Hypoxemic resp failure 3. Septicemia 4. Probable multifactorial hepatitis Concerning for Drug induced liver injury vs ischemic hepatopathy at this point. His LFTs continue to rise. CT noted, and there are no acute liver lesions or obvious liver pathology. Plan: 1. Transaminitis Worsening. Sepsis/ stasis Vs drug induced Vs lesions or chronic liver disease. - no viral hepatitis - will stop the following medications in the case this is DILI: tylenol, glipizide, gabapentin. He is not on any antibiotics that I see ?MRCP but not available here and too sick to be transferred -Try and optimize cardiac output -Check INR 2. Hypoxemic resp failure 3. Septicemia
[2018-06-21] MEDS: Lactobacillus Rhamnosus GG 15 Billion CFU CAP.SPRINK PO SCH (09:40)
[2018-06-21] MEDS: Apixaban 5 MG TABLET PO SCH (09:50)
[2018-06-21] MEDS: INSULIN LISPRO SLIDING SCALE 100 UNITS/ML UNIT SUBQ SCH ×4 (09:52→21:55)
--- NOTE | 2018-06-21 10:06 | Diagnostic Imaging Report ---
CHEST X-RAY: AP view INDICATION: Dialysis catheter placement COMPARISON: 06/20/2018 at 9:35 AM FINDINGS: Right IJ dialysis catheter is in place with tip not well visualized probably at the cavoatrial junction. Pacemaker leads are noted. Increased bibasilar lung markings are seen favoring atelectasis. Small right effusion is noted. No pneumothorax. Cardiomegaly is noted. IMPRESSION: Interval right IJ dialysis catheter placement with tip not well visualized due to overlying pacemaker leads but likely in the cavoatrial junction Bibasal atelectatic changes however faint infiltrate at the right base cannot be excluded. No pneumothorax. Cardiomegaly and atherosclerotic vascular disease.
--- NOTE | 2018-06-21 10:06 | Progress Notes ---
DATE: LOCATION: [facility], room # ICU 7 bed A. SUBJECTIVE: The patient is conscious, alert, but falling asleep while talking. The patient's [id number], family members at bedside. The patient is receiving IV fluids. The patient's urine output is marginal lately. The patient is on a BiPAP, not tolerating all the time. The patient is anorexic lately. OBJECTIVE: VITAL SIGNS: Blood pressure 123/58, pulse 93, saturation 95. Intake 100 only which does not seems to be accurate; output 600, which I am not sure is accurate. Today, intake is 2138, output 750. HEART: Regular. LUNGS: Few rhonchi on both the bases. ABDOMEN: Soft. EXTREMITIES: Trace to 1+ edema. SIGNIFICANT LABORATORY DATA: WBC 6.7, hemoglobin 11.8. Sodium 125, potassium 5.7, chloride 83, CO2 29, BUN 114, creatinine 3.4, calcium 8.9, glucose 186. Ammonia 117. ASSESSMENT: 1. Worsening of acute kidney injury. 2. Hyperkalemia. 3. Hyponatremia. 4. Congestive heart failure. 5. Chronic obstructive pulmonary disease. 6. Obesity and obstructive sleep apnea. 7. Diabetes mellitus. 8. Recurrent hypotension. PLAN: Discussed with the patient's relative at length. The patient will require dialysis due to persistent hyperkalemia and azotemia. If they agree, we will have surgery consultation for triple lumen David and we will proceed with dialysis order. Discussed at length with the patient and patient's family. [facility]# [id number]
[2018-06-21 10:46] LABS: INR 3.43 (0.5-1.4); PROTHROMBIN TIME (TEST) 33.6 SECONDS (9.5-11.5)
--- NOTE | 2018-06-21 11:00 | Consultation ---
DATE OF CONSULTATION: 06/20/2018 TIME: 2:31 p.m. HISTORY OF PRESENT ILLNESS: The patient is currently in ICU. He was admitted on 06/11/2018 with CHF, COPD, pacemaker, diabetes, hypertension, shortness of breath, cough and abdominal pain. The patient subsequently admitted to the hospital and currently in ICU. His medical problems include morbid obesity, acute renal failure, COPD with acute exacerbation, diabetes, hypertension, staph septicemia, CHF, atrial fibrillation, narcotic dependence and respiratory failure on BiPAP. The patient is seen by Dr. Ap Rutherford. The recommendation is for hemodialysis as the patient has a markedly elevated BUN, creatinine and hyperkalemia. Request for hemodialysis catheter placement. The patient sent from [facility]. ALLERGIES: None. MEDICATIONS: Ecotrin, aspirin, Coreg, Lasix, gabapentin, glipizide, Zyvox, losartan, magnesium oxide, metformin, Solu-Medrol, Protonix, Ultram, Actos. He is on aspirin, gabapentin, glipizide, insulin, Solu-Medrol and midodrine. PHYSICAL EXAMINATION: APPEARANCE: The patient is 126 kg, BMI 42.3. VITAL SIGNS: He is afebrile. GENERAL: He is somewhat confused, short of breath. HEENT AND NECK: Otherwise within normal limits. No JVD. No carotid bruits. CHEST: Clear to auscultation bilaterally. CARDIAC: Regular rate. ABDOMEN: Soft, protuberant, nontender. There is no guarding, rebound or generalized peritoneal signs. NEUROVASCULAR AND EXTREMITIES: Shows some peripheral edema. LABORATORY DATA: His white blood cell count 6.7, H and H 11.8 and 36.3, platelet count 115. His pCO2 is 47, pO2 is 151, bicarbonate is 27. His sodium is 125, potassium 5.7, chloride 83, BUN and creatinine is at 114 and 3.7. His phosphorus 7.7. T-bili, AST, ALT and alkaline phosphatase are all elevated. IMAGING: His head CT reveals no acute abnormalities, mild cerebral atrophy. Abdominal ultrasound reveals suboptimal exam due to the patient's size, body habitus, bowel gas and due to incomplete visualization of liver which appears to be enlarged, nonvisualization of the gallbladder consistent with the patient's surgical history, poor visualization of the kidneys. Renal ultrasound reveals increased renal sizes bilaterally significant, should be correlated with renal function test, no focal renal lesion or hydronephrosis. IMPRESSION AND PLAN: The patient with multiple medical problems, respiratory failure, congestive heart failure and chronic obstructive pulmonary disease. The patient with worsening kidney function, elevated BUN and creatinine, hyperkalemia and hyperphosphatemia. Request for dialysis catheter placement on an urgent basis. The risks and benefits were explained to the family and agreed to the procedure. [facility]# [id number]
[2018-06-21 13:24] LABS: INR 3.2 (0.5-1.4); PROTHROMBIN TIME (TEST) 31.5 SECONDS (9.5-11.5)
[2018-06-21] MEDS: Lactulose 10 Gm/15 mL 30mL UDC PO SCH ×3 (13:52→23:29)
[2018-06-21] MEDS ORDERED: Phytonadione **Oral Compound** 10mg/10mL Soln PO ONE (13:55)
[2018-06-21] MEDS ORDERED: Pantoprazole 40 mg EC Tab PO ONE (14:00)
--- NOTE | 2018-06-21 16:28 | Consultation ---
DATE OF CONSULTATION: 06/21/2018 HEMATOLOGY ONCOLOGY CONSULTATION HISTORY OF PRESENT ILLNESS: The patient is a 62-year-old male who has been hospitalized since 06/12/2018. The patient has been having progressive worsening of his renal and kidney function and required placement of hemodialysis catheter. He had a history of staph bacteremia on blood culture twice and he was treated in the past with Zyvox. Zyvox was discontinued about 4 days ago. The patient continues to have thrombocytopenia and I was asked to evaluate. PAST MEDICAL HISTORY: Morbid obesity, COPD, and congestive heart failure. 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 He also has diabetes mellitus and obstructive sleep apnea. CURRENT MEDICATIONS: Protonix, Zofran, apixaban, aspirin, Keppra, insulin, and Coreg. PHYSICAL EXAMINATION: GENERAL: He is awake and oriented to place and person. VITAL SIGNS: Temperature 97.9, blood pressure 116/56, and saturation 93% on nasal cannula oxygen. HEENT: Atraumatic. No mucosal bleeding. NECK: No lymphadenopathy. CHEST: Poor inspiratory effort. ABDOMEN: Obese and soft. Right internal jugular dialysis catheter. EXTREMITIES: Otherwise unremarkable. LABORATORY DATA: INR 3.43. From today, hemoglobin 10.6; platelets 74, platelets have been falling since admission; and white count 6.1. Creatinine 3.4, which has been also deteriorating since admission. AST, ALT, and alkaline phosphatase are elevated and continues to rise. The bilirubin is also rising, currently, 2.4. CT scan of the abdomen and chest from 06/20/2018, increased density, possible small amount of fluid within the subcutaneous tissue adjacent to the umbilical hernia. Small bilateral pleural effusion, calcification in the urinary bladder, diverticulosis. ASSESSMENT: Progressive thrombocytopenia, multifactorial from drug-induced etiology. The Zyvox was discontinued. The patient continues to be on Protonix and we will monitor on the Protonix for now. Because of the falling platelets and the worsening renal function, I will discontinue the apixaban. If the platelets worsen further, then, the aspirin will also be discontinued. I will follow the prothrombin time, which was markedly elevated, likely from vitamin K deficiency and vitamin K supplementation will be given with close monitoring of the coagulation panel and fibrinogen. The patient is not having active bleeding at this time and no need for fresh frozen plasma transfusion. There is no evidence of DIC, the platelet count was stabilized in the next few days and after clearing of the Zyvox and if not then the Protonix and aspirin will be discontinued. Thank you, Dr. Rutherford for the opportunity to participate in the care of this interesting case. JOB# [id number]
--- NOTE | 2018-06-21 22:30 | Progress Notes ---
DATE: 06/21/2018 PULMONARY PROGRESS NOTE PROBLEM LIST: 1. Acute exacerbation of chronic obstructive pulmonary disease, stable. 2. Sleep apnea syndrome. "He likes CPAP machine," using practically all the time. 3. Acute on chronic renal failure. 4. Obesity hypoventilation syndrome. SYMPTOMS: The patient is currently sleeping, but arousable with a CPAP mask, undergoing dialysis. PHYSICAL EXAMINATION: VITAL SIGNS: T-max is 97.7 and respiration rate is 18. The patient's saturation is 95%-97% on 35% of oxygen. NECK: Veins not visualized. CHEST: Shows diminished air entry without much of adventitious breath sounds. HEART: Regular. ABDOMEN: Soft, nontender. LABORATORY DATA: The patient's white count is 6.4 and hemoglobin is 10.6. Electrolytes: Sodium is 126, potassium is still high at 5.8 with a BUN of 100 and creatinine of 3.4. ASSESSMENT: The patient is stable from respiratory llanes. PLANS AND SUGGESTIONS: Continue current treatment, etc. Follow up repeat chest x-ray and blood gases in the next few days' time. JOB# [id number]
--- NOTE | 2018-06-22 01:23 | Progress Notes ---
DATE: 06/21/2018 The patient was seen earlier in the day. The patient is status post right IJ hemodialysis catheter placement yesterday. No reported problems with the catheter. No bleeding, hematoma or signs of infection. PHYSICAL EXAMINATION: CHEST: Clear to auscultation bilaterally. CARDIOVASCULAR: Regular rhythm and rate. He has a nasal BiPAP. NEUROVASCULAR AND EXTREMITY: Otherwise normal. LABORATORY DATA: The white blood cell count 6.1, H and H is 10.6 and 31.9, platelet count 65. PT is 31.5, INR 3.20. Sodium is 126, potassium 5.8, chloride 84, BUN and creatinine is 100/3.4. LFTs are very elevated as well too. The patient on aspirin, midodrine. DIAGNOSTIC STUDIES: The chest x-ray done post-procedure reveals interval right IJ dialysis catheter placement with tip not well visualized due to overlying pacemaker leads, but likely in the cavoatrial junction. Bibasal atelectatic changes; however, faint infiltrate at the right base cannot be excluded. No pneumothorax, cardiomegaly and atherosclerotic vascular disease. IMPRESSION AND PLAN: Stable after right IJ hemodialysis catheter placement. Successful dialysis with the catheter with no reported problems. Catheter may be used as needed per Renal. Surgical followup as needed. If necessary to change to a tunneled hemodialysis Perm-A-Cath, surgery can be reconsulted. JOB# [id number]
--- NOTE | 2018-06-22 01:48 | Progress Notes ---
DATE: 06/21/2018 IDENTIFICATION: A 62-year-old male. CHIEF COMPLAINT: "I can't eat." SUBJECTIVE: The patient is admitted at [facility] for complex medical illness and the patient has multiorgan failure, currently followed by multiple doctors and started on dialysis yesterday. Upon my arrival, the patient has been transferred to telemetry unit. The patient's family is upset at this time, which I was not aware about his transfer. The patient will be transferred to tele ICU considering his complexity of problem. The patient is lying comfortably at this time, though the patient is trying to eat. PHYSICAL EXAMINATION: VITAL SIGNS: Temperature 97.9, pulse is 95, respiratory rate is 20, blood pressure 116/56. HEENT: No facial asymmetry. NECK: Supple. Dialysis catheter at the left side of the neck noted. HEART: Both heart sounds are irregular. CHEST AND LUNGS: Equal in expansion, no expiratory wheezing. ABDOMEN: Protuberant, soft. No guarding, no rigidity. Bowel sounds are present. EXTREMITIES: Chronic venous stasis changes noted. AVAILABLE DIAGNOSTIC DATA: White count of 6.1, hemoglobin 10.6, and platelet count of 74,000. Sodium 126, potassium 5.8, chloride 84, BUN and creatinine are . AST, ALT, and alkaline phosphatase is 483, 1013, and 207. Glucoscan is reviewed. PT and INR 33.6 and 3.43. CLINICAL IMPRESSION: 1. Encephalopathy. 2. Acute liver injury. 3. Electrolyte imbalance. 4. Thrombocytopenia, worsening. 5. Acute on chronic respiratory failure. 6. Coagulopathy. 7. Obesity. 8. Chronic obstructive pulmonary disease exacerbation. 9. Seizure disorder. 10. History of Staphylococcus haemolyticus septicemia. PLAN: Transfer back this patient to ICU in the view of his worsening liver function with acute kidney injury. I recommend this patient to be transferred to higher level of care considering this patient's condition is deteriorating. We will talk to the assistant case manager as well. We will continue to provide a current medication as prescribed by the identity management consultant along with oxygen, nebulizer treatment, BiPAP, seizure medications, diabetes management along with followup on labs. We will also get the Hematology/Oncology consultation as well. I have discussed with the patient's son over the phone about my plan and I also informed that I will do my best to transfer this patient to the higher level of care and I have answered all their questions. The patient's son was very appreciative of the treatment plan. [facility]# [id number]
--- NOTE | 2018-06-22 02:11 | Progress Notes ---
DATE: LOCATION: Room 12A. SUBJECTIVE: The patient is conscious, alert. The patient had his first dialysis yesterday for 2 hours. The patient has persistent hyperkalemia. The patient is alert, but sleepy, falling asleep while talking. According to the nursing staff, the patient has a poor intake. No diarrhea or vomiting noted. Right side Dvaid catheter site is without any bleeding or discharge. OBJECTIVE: VITAL SIGNS: Temperature 97.9, pulse 95, blood pressure 116/56, respirations 20. Yesterday's intake 2177, output 1100. HEART: Regular. LUNGS: Few rhonchi both bases. ABDOMEN: Soft. EXTREMITIES: Edema 1+. SIGNIFICANT LABORATORY DATA: Hemoglobin 10.6, WBC 6.1, platelets 74,000. Sodium 126, potassium 5.8, chloride 84, CO2 26.9, BUN 100, creatinine 3.4, calcium 8.5, blood sugar 173. LFTs elevated. Ammonia 207. ASSESSMENT: 1. Acute kidney injury. 2. Chronic kidney disease 4, baseline. 3. Hyponatremia, persistent. 4. Hyperkalemia, recurrent and persistent. 5. Uremia. 6. Elevated LFT. 7. Anemia secondary to chronic disease. 8. Hepatic encephalopathy. 9. Diabetes mellitus. 10. Obesity. 11. Obstructive sleep apnea. 12. Recurrent hypotension. 13. Congestive heart failure. PLAN: 1. Decrease NS IV to 25 mL per hour due to CHF. 2. Change diet to renal diet due to hyperkalemia. 3. Continue phosphate binder for hyperphosphatemia. 4. Increase conductivity on dialysis today due to hyponatremia. 5. Decrease potassium bath and dialysis due to hyperkalemia. 6. Discontinue Neurontin due to elevated LFT. 7. Start the patient on Nepro 1 can p.o. t.i.d. due to poor intake. 8. Hemodialysis will be done today with ultrafiltration. 9. Check CMP, phosphorus, magnesium, CBC differential, iron level and ammonia level in the morning. 10. Discussed with Dr. Rutherford at length about the transfer back to ICU. 11. Discussed with nursing staff and dialysis nurse in the last 24 hours. Total time spent on the management of this patient is about 60 minutes in the last 24 hours. JOB# [id number]
[2018-06-22] MEDS ORDERED: Dextrose 50% 50 mL Abboject IVP ONE (02:20)
[2018-06-22] MEDS ORDERED: Sodium Bicarbonate 8.4% 50mEq PFS IVP ONE (02:20)
[2018-06-22] MEDS ORDERED: Lactulose 10 Gm/15 mL 30mL UDC ONE ×2 (04:09→04:10)
[2018-06-22] MEDS: Lactulose 10 Gm/15 mL 30mL UDC PO SCH ×4 (05:36→23:27)
[2018-06-22 05:40] LABS: ALB/GLOB RATIO 1.5 (1.0-1.8); ALBUMIN 3.6 gm/dL (4.2-5.5); ANION GAP 21.6 (7.0-16.0); BILIRUBIN,TOTAL 3.5 mg/dL (0.3-1.0); CALCIUM SERUM 8.6 mg/dL (8.6-10.3); CARBON DIOXIDE 24.5 mEq/L (21.0-31.0); CREATININE - SERUM 3.3 mg/dL (0.7-1.3); GFR AFRICAN-AMERICAN 24.6 ml/min (>90); GFR NON AFRICAN-AMERICAN 20.3 ml/min; MAGNESIUM 2.5 mg/dL (1.9-2.7); PHOSPHOROUS 7.4 mg/dL (2.5-5.0)
[2018-06-22 06:55] LABS: HEMOGLOBIN 10.7 gm/dL (12-16); MEAN CELL VOLUME 89.8 fl (80-99); MEAN CORPUSCULAR HEMOGLOBIN 29.9 pg (26.0-30.0); MEAN CORPUSCULAR HGB CONC 33.3 pg (28.0-36.0); RED BLOOD COUNT 3.57 Mil/cmm (4.30-5.70); RED CELL DISTRIBUTION WIDTH 14.9 % (11.5-20.0); WHITE BLOOD COUNT 8.2 Th/cmm (4.8-10.8)
[2018-06-22] MEDS: INSULIN LISPRO SLIDING SCALE 100 UNITS/ML UNIT SUBQ SCH ×4 (07:03→20:28)
[2018-06-22] MEDS: Pantoprazole 40 mg EC Tab PO SCH (07:04)
[2018-06-22 07:10] LABS: MEAN PLATELET VOLUME 9.9 fl; PLATELET COUNT 45 Th/cmm (150-400)
[2018-06-22] MEDS: Albuterol/Ipratropium Neb 3 ML AERS HHN SCH ×4 (07:13→18:29)
[2018-06-22] MEDS: Budesonide 0.5 Mg/2 mL Ud HHN SCH ×2 (07:13→18:29)
[2018-06-22 07:33] LABS: PROTHROMBIN TIME (TEST) 41.5 SECONDS (9.5-11.5)
[2018-06-22 07:45] LABS: POTASSIUM SERUM 6.1 mEq/L (3.5-5.1)
[2018-06-22 08:14] LABS: BAND NEUTROPHILE 0 % (0-10); BASOPHIL 0 % (0-3); EOSINOPHIL 0 % (0-5); LYMPHOCYTE 5 % (20-50); MONOCYTE 5 % (2-10); NEUTROPHILS 90 % (40-80)
[2018-06-22] MEDS: Lactobacillus Rhamnosus GG 15 Billion CFU CAP.SPRINK PO SCH (09:29)
[2018-06-22 11:38] LABS: INR 4.28 (0.5-1.4)
--- NOTE | 2018-06-22 11:43 | GI Progress Note ---
Subjective - Review of Systems Service Date: 06/22/18 Subjective: Deteriorating, he is lethargic. Transferred back to ICU Objective - Results Result Diagrams: 06/22/18 06:24 06/22/18 04:40 Recent Labs: Laboratory Last Values WBC 8.2 Th/cmm (4.8-10.8) 06/22/18 06:24 Corrected WBC (auto) Cancelled 06/22/18 04:45 RBC 3.57 Mil/cmm (4.30-5.70) L 06/22/18 06:24 Hgb 10.7 gm/dL (12-16) L 06/22/18 06:24 Hct 32.0 % (41.0-60) L 06/22/18 06:24 MCV 89.8 fl (80-99) 06/22/18 06:24 MCH 29.9 pg (26.0-30.0) 06/22/18 06:24 MCHC Differential 33.3 pg (28.0-36.0) 06/22/18 06:24 RDW 14.9 % (11.5-20.0) 06/22/18 06:24 Plt Count 45 Th/cmm (150-400) L 06/22/18 06:24 MPV 9.9 fl 06/22/18 06:24 Add Manual Diff YES 06/22/18 06:24 Neutrophils % 85.4 % (40.0-80.0) H 06/19/18 04:45 Band Neutrophils % 0 % (0-10) 06/22/18 06:24 Lymphocytes % 10.4 % (20.0-50.0) L 06/19/18 04:45 Monocytes % 1.6 % (2.0-10.0) L 06/19/18 04:45 Eosinophils % 0.3 % (0.0-5.0) 06/19/18 04:45 Basophils % 2.3 % (0.0-2.0) H 06/19/18 04:45 Neutrophils (Manual) 90 % (40-80) H 06/22/18 06:24 Lymphocytes 5 % (20-50) L 06/22/18 06:24 Monocytes 5 % (2-10) 06/22/18 06:24 Eosinophils 0 % (0-5) 06/22/18 06:24 Basophils 0 % (0-3) 06/22/18 06:24 Metamyelocytes Cancelled 06/22/18 04:45 Myelocytes Cancelled 06/22/18 04:45 Promyelocytes Cancelled 06/22/18 04:45 Nucleated RBCs 1.0 % (0-0) H 06/22/18 06:24 Hypersegmented Polys Cancelled 06/22/18 04:45 Atypical Lymphocytes Cancelled 06/22/18 04:45 Vacuolated Monocytes Cancelled 06/22/18 04:45 Myeloblasts Cancelled 06/22/18 04:45 Plasma Cells Cancelled 06/22/18 04:45 Smudge Cells Cancelled 06/22/18 04:45 Other Cell Type Cancelled 06/22/18 04:45 Hypochromia Cancelled 06/22/18 04:45 Toxic Granulation Cancelled 06/22/18 04:45 Dohle Bodies Cancelled 06/22/18 04:45 Pelger-Huet Cells Cancelled 06/22/18 04:45 Josy Rods Cancelled 06/22/18 04:45 Platelet Estimate DECREASED PLATELETS (NORMAL) 06/20/18 05:00 Platelet Morphology Cancelled 06/22/18 04:45 Polychromasia Cancelled 06/22/18 04:45 Poikilocytosis Cancelled 06/22/18 04:45 Basophilic Stippling Cancelled 06/22/18 04:45 Anisocytosis Cancelled 06/22/18 04:45 Microcytosis Cancelled 06/22/18 04:45 Macrocytosis Cancelled 06/22/18 04:45 Spherocytes Cancelled 06/22/18 04:45 Pappenheimer Bodies Cancelled 06/22/18 04:45 Sickle Cells Cancelled 06/22/18 04:45 Target Cells Cancelled 06/22/18 04:45 Tear Drop Cells Cancelled 06/22/18 04:45 Ovalocytes Cancelled 06/22/18 04:45 Stomatocytes Cancelled 06/22/18 04:45 Helmet Cells Cancelled 06/22/18 04:45 Morrell-Bonney Bodies Cancelled 06/22/18 04:45 [place] Rings Cancelled 06/22/18 04:45 Ucon Cells Cancelled 06/22/18 04:45 Crenated Cell Cancelled 06/22/18 04:45 Acanthocytes (Spur) Cancelled 06/22/18 04:45 Rouleaux Cancelled 06/22/18 04:45 Schistocytes Cancelled 06/22/18 04:45 RBC Morph Micro Appear Cancelled 06/22/18 04:45 Morphology Comment Cancelled 06/22/18 04:45 Smear Path Review Cancelled 06/22/18 04:45 Eos Smear Source URINE 06/18/18 18:30 Eos Smear Total Cells NONE SEEN (NONE SEEN) 06/18/18 18:30 Plt Count 65 Th/cmm (150-750) L 06/21/18 13:01 PT 41.5 SECONDS (9.5-11.5) H 06/22/18 04:40 INR 4.28 (0.5-1.4) H* D 06/22/18 04:40 PTT (Actin FS) 31.4 SECONDS (26.0-38.0) 06/22/18 04:40 Fibrinogen 177.0 mg/dL (200.0-400.0) L 06/22/18 04:40 D-Dimer 1270 ng/mL (100-400) H 06/21/18 13:01 Specimen Source Arterial 06/20/18 08:43 Sample Site Left Radial 06/20/18 08:43 pH 7.380 (7.35-7.45) 06/20/18 08:43 pCO2 47.2 mmHg (35.0-45.0) H 06/20/18 08:43 pO2 151.2 mmHg (80.0-100.0) H 06/20/18 08:43 HCO3 27.3 mEq/L (20.0-26.0) H 06/20/18 08:43 Base Excess 1.5 mEq/L (-3.0-3.0) 06/20/18 08:43 O2 Saturation 98.9 % (92.0-100.0) 06/20/18 08:43 Brody Test Positive 06/20/18 08:43 Vent Rate 16 06/20/18 08:43 Inspired O2 70 06/20/18 08:43 Tidal Volume N/A 06/20/18 08:43 PEEP N/A 06/20/18 08:43 Pressure (ins/psv/peep) N/A 06/20/18 08:43 Critical Value DM 06/20/18 08:43 Sodium 131 mEq/L (136-145) L 06/22/18 04:40 Potassium 6.1 mEq/L (3.5-5.1) H* 06/22/18 04:40 Chloride 91 mEq/L (98-107) L 06/22/18 04:40 Carbon Dioxide 24.5 mEq/L (21.0-31.0) 06/22/18 04:40 Anion Gap 21.6 (7.0-16.0) H 06/22/18 04:40 BUN 82 mg/dL (7-25) H* 06/22/18 04:40 Creatinine 3.3 mg/dL (0.7-1.3) H 06/22/18 04:40 Est GFR ( Amer) 24.6 ml/min (>90) 06/22/18 04:40 Est GFR (Non-Af Amer) 20.3 ml/min 06/22/18 04:40 BUN/Creatinine Ratio 24.8 06/22/18 04:40 Glucose 212 mg/dL (70-105) H 06/22/18 04:40 POC Glucose 226 MG/DL (70 - 105) H 06/22/18 07:01 Whole Bld Lactic Acid 1.92 mmol/L (0.60-1.99) 06/12/18 13:55 Calcium 8.6 mg/dL (8.6-10.3) 06/22/18 04:40 Phosphorus 7.4 mg/dL (2.5-5.0) H 06/22/18 04:40 Magnesium 2.5 mg/dL (1.9-2.7) 06/22/18 04:40 Total Bilirubin 3.5 mg/dL (0.3-1.0) H 06/22/18 04:40 Direct Bilirubin 0.94 mg/dL (0.0-0.2) H 06/20/18 05:00 AST 663 U/L (13-39) H 06/22/18 04:40 ALT 1341 U/L (7-52) H 06/22/18 04:40 Alkaline Phosphatase 234 U/L (34-104) H 06/22/18 04:40 Ammonia 175 umol/L (16-53) H 06/22/18 04:40 Creatine Kinase 35 U/L (30-223) 04/24/19 21:30 Troponin I 0.10 ng/mL (0.01-0.05) H* D 06/13/18 06:35 Total Protein 6.0 gm/dL (6.0-8.3) 06/22/18 04:40 Albumin 3.6 gm/dL (4.2-5.5) L 06/22/18 04:40 Globulin 2.4 gm/dL 06/22/18 04:40 Albumin/Globulin Ratio 1.5 (1.0-1.8) 06/22/18 04:40 Triglycerides 114 mg/dL (<150) 06/13/18 06:35 Cholesterol 115 mg/dL (<200) 06/13/18 06:35 LDL Cholesterol Direct 76 mg/dL (75-193) 06/13/18 06:35 HDL Cholesterol 26 mg/dL (23-92) 06/13/18 06:35 Amylase 24 U/L (29-103) L 06/13/18 06:35 Lipase 11 U/L (11-82) 06/11/18 21:30 TSH 1.81 uIU/ml (0.34-5.60) 06/22/18 04:40 Urine Source RANDOM 06/13/18 13:46 Urine Color YELLOW 06/13/18 13:46 Urine Clarity CLEAR (CLEAR) 06/13/18 13:46 Urine pH 5.5 (4.6 - 8.0) 06/13/18 13:46 Ur Specific [place] >= 1.030 (1.005-1.030) 06/13/18 13:46 Urine Protein NEGATIVE mg/dL (NEGATIVE) 06/13/18 13:46 Urine Glucose (UA) NEGATIVE mg/dL (NEGATIVE) 06/13/18 13:46 Urine Ketones NEGATIVE mg/dL (NEGATIVE) 06/13/18 13:46 Urine Blood NEGATIVE (NEGATIVE) 06/13/18 13:46 Urine Nitrate NEGATIVE (NEGATIVE) 06/13/18 13:46 Urine Bilirubin NEGATIVE (NEGATIVE) 06/13/18 13:46 Urine Urobilinogen 0.2 E.U./dL (0.2 - 1.0) 06/13/18 13:46 Ur Leukocyte Esterase NEGATIVE (NEGATIVE) 06/13/18 13:46 Urine RBC NONE SEEN /hpf (0-5) 06/13/18 13:46 Urine WBC NONE SEEN /hpf (0-5) 06/13/18 13:46 Ur Epithelial Cells RARE /lpf (FEW) 06/13/18 13:46 Urine Bacteria FEW /hpf (NONE SEEN) 06/13/18 13:46 Urine Opiates Screen NEGATIVE (NEGATIVE) 06/13/18 13:46 Urine Methadone Screen NEGATIVE (NEGATIVE) 06/13/18 13:46 Ur Barbiturates Screen NEGATIVE (NEGATIVE) 06/13/18 13:46 Ur Tricyclics Screen NEGATIVE (NEGATIVE) 06/13/18 13:46 Ur Phencyclidine Scrn NEGATIVE (NEGATIVE) 06/13/18 13:46 Amphetamines Screen NEGATIVE (NEGATIVE) 06/13/18 13:46 U Methamphetamines Scrn NEGATIVE (NEGATIVE) 06/13/18 13:46 U Benzodiazepines Scrn NEGATIVE (NEGATIVE) 06/13/18 13:46 U Cocaine Metab Screen NEGATIVE (NEGATIVE) 06/13/18 13:46 U Cannabinoids Screen NEGATIVE (NEGATIVE) 06/13/18 13:46 Hepatitis A IgM Ab Negative (Negative) 06/17/18 15:45 Hep Bs Antigen Negative (Negative) 06/17/18 15:45 Hep B Core IgM Ab Negative (Negative) 06/17/18 15:45 Hepatitis C Antibody <0.1 s/co ratio (0.0-0.9) 06/17/18 15:45 - Physical Exam Vitals and I&O: Vital Signs Temp 96.6 F 06/22/18 08:00 Pulse 60 06/22/18 11:00 Resp 20 06/22/18 11:00 BP 103/19 06/22/18 11:00 Pulse Ox 91 06/22/18 11:00 Intake & Output 06/21/18 06/22/18 06/22/18 18:59 06:59 18:59 Intake Total 400 400 100 Output Total 1600 50 Balance -1200 400 50 Weight (lbs) 126.099 kg 125.645 kg 125.645 kg Intake: Oral 400 400 100 Output: Urine 0 Emesis 50 Hemodialysis 1600 Other: # Voids 2 5 # Bowel Movements 2 Stool Characteristics Soft Soft Brown Brown Black Black Weight Source Bedscale Bedscale Bedscale Active Medications: Current Medications Albuterol/Ipratropium (Duoneb Neb) 3 ml HHN [id number] [facility] Stop: 08/16/18 14:59 Last Admin: 06/22/18 10:52 Dose: 3 ml Aspirin (Aspirin) 325 mg PO DAILY [facility] Stop: 08/11/18 08:59 Last Admin: 06/22/18 09:25 Dose: 325 mg Budesonide (Pulmicort) 0.5 mg HHN BIDRT [facility] Stop: 08/16/18 18:59 Last Admin: 06/22/18 07:13 Dose: 0.5 mg Carvedilol (Coreg) 6.25 mg PO BID [facility] Stop: 08/11/18 16:59 Last Admin: 06/22/18 09:32 Dose: Not Given Dextrose (D50w) 50 ml IVP PRN PRN PRN Reason: Blood Glucose less than 70 Stop: 08/11/18 05:22 Sodium Chloride (Nacl 0.9%) 1,000 mls @ 25 mls/hr IV .Q24H [facility] Stop: 08/20/18 12:59 Last Admin: 06/21/18 13:52 Dose: 25 mls/hr Insulin Human Lispro (Humalog Insulin Sliding Scale) 0 units SUBQ [facility]; Protocol Stop: 08/11/18 07:29 Last Admin: 06/22/18 07:03 Dose: 4 units Lactobacillus Rhamnosus (Culturelle 15b) 1 each PO DAILY [facility] Stop: 08/13/18 08:59 Last Admin: 06/22/18 09:29 Dose: 1 each Lactulose (Cephulac) 30 gm PO Q6HR [facility] Stop: 08/20/18 13:54 Last Admin: 06/22/18 05:36 Dose: 30 gm Levetiracetam (Keppra) 500 mg PO BID [facility] Stop: 08/13/18 18:14 Last Admin: 06/22/18 09:36 Dose: 500 mg Midodrine (Proamatine) 10 mg PO TID [facility] Stop: 08/20/18 13:59 Last Admin: 06/22/18 09:36 Dose: 10 mg Mineral Oil (Mineral Oil 30 Ml) 30 ml PO BID [facility] Stop: 06/24/18 18:29 Last Admin: 06/21/18 18:18 Dose: 30 ml Miscellaneous (Probiotic Screen) 1 ea MC PRN PRN PRN Reason: PROTOCOL Stop: 08/12/18 13:54 Miscellaneous (Clinical Monitoring) 1 ea MC DAILY PRN PRN Reason: RENAL DOSING Stop: 08/17/18 12:28 Ondansetron HCl (Zofran) 4 mg IV Q4H PRN PRN Reason: Nausea / Vomiting Stop: 08/14/18 11:47 Last Admin: 06/21/18 13:59 Dose: 4 mg Pantoprazole Sodium (Protonix) 40 mg PO QDAC [facility] Stop: 08/11/18 07:29 Last Admin: 06/22/18 07:04 Dose: 40 mg Sevelamer Carbonate (Renvela) 1,600 mg PO TIDWM [facility] Stop: 08/18/18 16:59 Last Admin: 06/22/18 08:15 Dose: 1,600 mg Tramadol HCl (Ultram) 50 mg PO Q6HR PRN PRN Reason: Pain (Severe) Stop: 08/20/18 23:20 Last Admin: 06/21/18 23:29 Dose: 50 mg General: Alert, Moderate distress HEENT: Mucous membr. moist/pink Neck: Supple, JVD, +2 carotid pulse wo bruit (flat) Cardiovascular: Regular rate, Other (atrial fibrillation) Lungs: Clear to auscultation, Normal air movement Abdomen: Bowel sounds, Hepatomegaly, Distended, Obese, Other (no organomegaly), no Tender, no Rebound, no Mass, no Guarding, no Drain Neurological: Normal speech, Reflexes 2+ - Procedures Procedures: Procedures Procedure Code Date OXYGEN ENRICHMENT NEC 93.96 12/11/00 Assessment/Plan - Problem List Patient Problems: All Active Problems ARF (acute renal failure) (Acute) COPD with acute exacerbation (Acute) J44.1 Diabetes mellitus (Acute) E11.9 HTN (hypertension) (Acute) I10 - Assessment Assessment: 1. Transaminitis 2. Hypoxemic resp failure 3. Septicemia 4. Probable multifactorial hepatitis Concerning for Drug induced liver injury vs ischemic hepatopathy at this point. His LFTs continue to rise. CT noted, and there are no acute liver lesions or obvious liver pathology. This patient is doing worse as of 06/22. He is showing signs of multi organ failure, including renal and liver failure. Dialysis initiated, but his LFTs continue to rise despite stopping any offending medications. Plan: 1. Transaminitis Worsening. Sepsis/ stasis Vs drug induced Vs lesions or chronic liver disease. - no viral hepatitis - will stop the following medications in the case this is DILI: tylenol, glipizide, gabapentin. He is not on any antibiotics that I see - will re-order US to see if there have been any interval changes ?MRCP but not available here and too sick to be transferred -Try and optimize cardiac output -Check INR 2. Hypoxemic resp failure 3. Septicemia
[2018-06-22] MEDS: Sodium Chloride 0.9% 1,000 ML IV SCH (13:00)
[2018-06-22 17:04] LABS: ANTITRYPSIN SERUM A1 156 mg/dL (90-200); F1 ACTIN-SMOOTH MUSC IGG 17 Units (0-19); FERRITIN 1580 ng/mL (30-400)
[2018-06-22] MEDS ORDERED: Albumin 25% 12.5gm/50mL 12.5 GM/50 ML BTL IV ONE (17:27)
[2018-06-22] MEDS ORDERED: Albumin 25% 25gm/100mL 25 GM/100 ML BTL IV ONE ×3 (17:43→17:52)
[2018-06-22] MEDS ORDERED: Heparin Sod 1,000 Units/mL 10ml HD SCH (19:00)
[2018-06-22] MEDS ORDERED: Heparin Sod 1,000 Units/mL 10ml HD ONE (19:50)
[2018-06-22] MEDS ORDERED: Heparin Sod 5,000Units/ML 5,000 UNITS/ML VIAL ONE ×2 (19:59→20:01)
--- NOTE | 2018-06-22 22:41 | Progress Notes ---
DATE: 06/22/2018 PULMONARY PROGRESS NOTE PROBLEM LIST: 1. Respiratory failure, stable. 2. Chronic obstructive pulmonary disease, stable. 3. Severe obstructive sleep apnea syndrome. 4. Renal failure. SYMPTOMS: Nil. Moved back to ICU at the request of family. No respiratory distress, etc. PHYSICAL EXAMINATION: VITAL SIGNS: T-max 97.8, blood pressure 86/45. NECK: Veins not visualized. CHEST: Shows diminished air entry without much of adventitious breath sounds. HEART: Regular. ABDOMEN: Soft, nontender. LABORATORY DATA: White count is 8.2, hemoglobin is 10.7 and blood chemistry, the patient's potassium is 6.1 and BUN is 82, creatinine 3.3. ASSESSMENT: The patient clinically respiratory llanes stable, not too much change or improved. PLANS AND SUGGESTIONS: Continue current respiratory care, inhalation treatment, etc. Care and plan discussed with the nursing staff. JOB# [id number]
--- NOTE | 2018-06-23 02:19 | Infectious Disease Prog Note ---
Infectious Disease Subjective - Review of Systems Service Date: 06/22/18 Events since last encounter: started on HD. Subjective: Patient is doing better. no fever. liver enzymes are increasing. Increasing creatinine. increasing K. Non-compliant. confused. Infectious Disease Objective - Results Result Diagrams: 06/22/18 06:24 06/22/18 04:40 Recent Labs: Laboratory Last Values WBC 8.2 Th/cmm (4.8-10.8) 06/22/18 06:24 Corrected WBC (auto) Cancelled 06/22/18 04:45 RBC 3.57 Mil/cmm (4.30-5.70) L 06/22/18 06:24 Hgb 10.7 gm/dL (12-16) L 06/22/18 06:24 Hct 32.0 % (41.0-60) L 06/22/18 06:24 MCV 89.8 fl (80-99) 06/22/18 06:24 MCH 29.9 pg (26.0-30.0) 06/22/18 06:24 MCHC Differential 33.3 pg (28.0-36.0) 06/22/18 06:24 RDW 14.9 % (11.5-20.0) 06/22/18 06:24 Plt Count 45 Th/cmm (150-400) L 06/22/18 06:24 MPV 9.9 fl 06/22/18 06:24 Add Manual Diff YES 06/22/18 06:24 Neutrophils % 85.4 % (40.0-80.0) H 06/19/18 04:45 Band Neutrophils % 0 % (0-10) 06/22/18 06:24 Lymphocytes % 10.4 % (20.0-50.0) L 06/19/18 04:45 Monocytes % 1.6 % (2.0-10.0) L 06/19/18 04:45 Eosinophils % 0.3 % (0.0-5.0) 06/19/18 04:45 Basophils % 2.3 % (0.0-2.0) H 06/19/18 04:45 Neutrophils (Manual) 90 % (40-80) H 06/22/18 06:24 Lymphocytes 5 % (20-50) L 06/22/18 06:24 Monocytes 5 % (2-10) 06/22/18 06:24 Eosinophils 0 % (0-5) 06/22/18 06:24 Basophils 0 % (0-3) 06/22/18 06:24 Metamyelocytes Cancelled 06/22/18 04:45 Myelocytes Cancelled 06/22/18 04:45 Promyelocytes Cancelled 06/22/18 04:45 Nucleated RBCs 1.0 % (0-0) H 06/22/18 06:24 Hypersegmented Polys Cancelled 06/22/18 04:45 Atypical Lymphocytes Cancelled 06/22/18 04:45 Vacuolated Monocytes Cancelled 06/22/18 04:45 Myeloblasts Cancelled 06/22/18 04:45 Plasma Cells Cancelled 06/22/18 04:45 Smudge Cells Cancelled 06/22/18 04:45 Other Cell Type Cancelled 06/22/18 04:45 Hypochromia Cancelled 06/22/18 04:45 Toxic Granulation Cancelled 06/22/18 04:45 Dohle Bodies Cancelled 06/22/18 04:45 Pelger-Huet Cells Cancelled 06/22/18 04:45 Josy Rods Cancelled 06/22/18 04:45 Platelet Estimate DECREASED PLATELETS (NORMAL) 06/20/18 05:00 Platelet Morphology Cancelled 06/22/18 04:45 Polychromasia Cancelled 06/22/18 04:45 Poikilocytosis Cancelled 06/22/18 04:45 Basophilic Stippling Cancelled 06/22/18 04:45 Anisocytosis Cancelled 06/22/18 04:45 Microcytosis Cancelled 06/22/18 04:45 Macrocytosis Cancelled 06/22/18 04:45 Spherocytes Cancelled 06/22/18 04:45 Pappenheimer Bodies Cancelled 06/22/18 04:45 Sickle Cells Cancelled 06/22/18 04:45 Target Cells Cancelled 06/22/18 04:45 Tear Drop Cells Cancelled 06/22/18 04:45 Ovalocytes Cancelled 06/22/18 04:45 Stomatocytes Cancelled 06/22/18 04:45 Helmet Cells Cancelled 06/22/18 04:45 Morrell-[place]field Bodies Cancelled 06/22/18 04:45 Hancock Rings Cancelled 06/22/18 04:45 [place] Cells Cancelled 06/22/18 04:45 Crenated Cell Cancelled 06/22/18 04:45 Acanthocytes (Spur) Cancelled 06/22/18 04:45 Rouleaux Cancelled 06/22/18 04:45 Schistocytes Cancelled 06/22/18 04:45 RBC Morph Micro Appear Cancelled 06/22/18 04:45 Morphology Comment Cancelled 06/22/18 04:45 Smear Path Review Cancelled 06/22/18 04:45 Eos Smear Source URINE 06/18/18 18:30 Eos Smear Total Cells NONE SEEN (NONE SEEN) 06/18/18 18:30 Plt Count 65 Th/cmm (150-750) L 06/21/18 13:01 PT 41.5 SECONDS (9.5-11.5) H 06/22/18 04:40 INR 4.28 (0.5-1.4) H* D 06/22/18 04:40 PTT (Actin FS) 31.4 SECONDS (26.0-38.0) 06/22/18 04:40 Fibrinogen 177.0 mg/dL (200.0-400.0) L 06/22/18 04:40 D-Dimer 1270 ng/mL (100-400) H 06/21/18 13:01 Specimen Source Arterial 06/20/18 08:43 Sample Site Left Radial 06/20/18 08:43 pH 7.380 (7.35-7.45) 06/20/18 08:43 pCO2 47.2 mmHg (35.0-45.0) H 06/20/18 08:43 pO2 151.2 mmHg (80.0-100.0) H 06/20/18 08:43 HCO3 27.3 mEq/L (20.0-26.0) H 06/20/18 08:43 Base Excess 1.5 mEq/L (-3.0-3.0) 06/20/18 08:43 O2 Saturation 98.9 % (92.0-100.0) 06/20/18 08:43 Brody Test Positive 06/20/18 08:43 Vent Rate 16 06/20/18 08:43 Inspired O2 70 06/20/18 08:43 Tidal Volume N/A 06/20/18 08:43 PEEP N/A 06/20/18 08:43 Pressure (ins/psv/peep) N/A 06/20/18 08:43 Critical Value DM 06/20/18 08:43 Sodium 131 mEq/L (136-145) L 06/22/18 04:40 Potassium 6.1 mEq/L (3.5-5.1) H* 06/22/18 04:40 Chloride 91 mEq/L (98-107) L 06/22/18 04:40 Carbon Dioxide 24.5 mEq/L (21.0-31.0) 06/22/18 04:40 Anion Gap 21.6 (7.0-16.0) H 06/22/18 04:40 BUN 82 mg/dL (7-25) H* 06/22/18 04:40 Creatinine 3.3 mg/dL (0.7-1.3) H 06/22/18 04:40 Est GFR ( Amer) 24.6 ml/min (>90) 06/22/18 04:40 Est GFR (Non-Af Amer) 20.3 ml/min 06/22/18 04:40 BUN/Creatinine Ratio 24.8 06/22/18 04:40 Glucose 212 mg/dL (70-105) H 06/22/18 04:40 POC Glucose 144 MG/DL (70 - 105) H 06/22/18 20:28 Whole Bld Lactic Acid 1.92 mmol/L (0.60-1.99) 06/12/18 13:55 Calcium 8.6 mg/dL (8.6-10.3) 06/22/18 04:40 Phosphorus 7.4 mg/dL (2.5-5.0) H 06/22/18 04:40 Magnesium 2.5 mg/dL (1.9-2.7) 06/22/18 04:40 Ferritin 1580 ng/mL (30-400) H 06/20/18 05:00 Total Bilirubin 3.5 mg/dL (0.3-1.0) H 06/22/18 04:40 Direct Bilirubin 0.94 mg/dL (0.0-0.2) H 06/20/18 05:00 AST 663 U/L (13-39) H 06/22/18 04:40 ALT 1341 U/L (7-52) H 06/22/18 04:40 Alkaline Phosphatase 234 U/L (34-104) H 06/22/18 04:40 Ammonia 279 umol/L (16-53) H 06/22/18 13:50 Creatine Kinase 35 U/L (30-223) 06/11/18 21:30 Troponin I 0.10 ng/mL (0.01-0.05) H* D 06/13/18 06:35 Total Protein 6.0 gm/dL (6.0-8.3) 06/22/18 04:40 Albumin 3.6 gm/dL (4.2-5.5) L 06/22/18 04:40 Globulin 2.4 gm/dL 06/22/18 04:40 Albumin/Globulin Ratio 1.5 (1.0-1.8) 06/22/18 04:40 Clppj-2-Bwal[place]kliik 156 mg/dL (90-200) 06/20/18 05:00 Triglycerides 114 mg/dL (<150) 06/13/18 06:35 Cholesterol 115 mg/dL (<200) 06/13/18 06:35 LDL Cholesterol Direct 76 mg/dL (75-193) 06/13/18 06:35 HDL Cholesterol 26 mg/dL (23-92) 06/13/18 06:35 Amylase 24 U/L (29-103) L 06/13/18 06:35 Lipase 11 U/L (11-82) 06/11/18 21:30 TSH 1.81 uIU/ml (0.34-5.60) 06/22/18 04:40 Urine Source RANDOM 06/13/18 13:46 Urine Color YELLOW 06/13/18 13:46 Urine Clarity CLEAR (CLEAR) 06/13/18 13:46 Urine pH 5.5 (4.6 - 8.0) 06/13/18 13:46 Ur Specific [place] >= 1.030 (1.005-1.030) 06/13/18 13:46 Urine Protein NEGATIVE mg/dL (NEGATIVE) 06/13/18 13:46 Urine Glucose (UA) NEGATIVE mg/dL (NEGATIVE) 06/13/18 13:46 Urine Ketones NEGATIVE mg/dL (NEGATIVE) 06/13/18 13:46 Urine Blood NEGATIVE (NEGATIVE) 06/13/18 13:46 Urine Nitrate NEGATIVE (NEGATIVE) 06/13/18 13:46 Urine Bilirubin NEGATIVE (NEGATIVE) 06/13/18 13:46 Urine Urobilinogen 0.2 E.U./dL (0.2 - 1.0) 06/13/18 13:46 Ur Leukocyte Esterase NEGATIVE (NEGATIVE) 06/13/18 13:46 Urine RBC NONE SEEN /hpf (0-5) 06/13/18 13:46 Urine WBC NONE SEEN /hpf (0-5) 06/13/18 13:46 Ur Epithelial Cells RARE /lpf (FEW) 06/13/18 13:46 Urine Bacteria FEW /hpf (NONE SEEN) 06/13/18 13:46 Urine Opiates Screen NEGATIVE (NEGATIVE) 06/13/18 13:46 Urine Methadone Screen NEGATIVE (NEGATIVE) 06/13/18 13:46 Ur Barbiturates Screen NEGATIVE (NEGATIVE) 06/13/18 13:46 Ur Tricyclics Screen NEGATIVE (NEGATIVE) 06/13/18 13:46 Ur Phencyclidine Scrn NEGATIVE (NEGATIVE) 06/13/18 13:46 Amphetamines Screen NEGATIVE (NEGATIVE) 06/13/18 13:46 U Methamphetamines Scrn NEGATIVE (NEGATIVE) 06/13/18 13:46 U Benzodiazepines Scrn NEGATIVE (NEGATIVE) 06/13/18 13:46 U Cocaine Metab Screen NEGATIVE (NEGATIVE) 06/13/18 13:46 U Cannabinoids Screen NEGATIVE (NEGATIVE) 06/13/18 13:46 Smooth Muscle IgG Ab 17 Units (0-19) 06/20/18 05:00 Hepatitis A IgM Ab Negative (Negative) 06/17/18 15:45 Hep Bs Antigen Negative (Negative) 06/17/18 15:45 Hep B Core IgM Ab Negative (Negative) 06/17/18 15:45 Hepatitis C Antibody <0.1 s/co ratio (0.0-0.9) 06/17/18 15:45 - Physical Exam Vitals and I&O: Vital Signs Temp 97.3 F 06/22/18 20:00 Pulse 95 06/22/18 21:00 Resp 24 06/22/18 21:00 BP 97/34 06/22/18 21:00 Pulse Ox 100 06/23/18 00:00 Intake & Output 06/22/18 06/22/18 06/23/18 06:59 18:59 06:59 Intake Total 400 100 Output Total 50 Balance 400 50 Weight (lbs) 125.645 kg 125.645 kg Intake: Oral 400 100 Output: Urine 0 Emesis 50 Other: # Voids 5 # Bowel Movements 2 Stool Characteristics Soft Soft Soft Brown Brown Brown Black Black Black Weight Source Bedscale Bedscale Active Medications: Current Medications Albuterol/Ipratropium (Duoneb Neb) 3 ml HHN [id number] [facility] Stop: 08/16/18 14:59 Last Admin: 06/22/18 18:29 Dose: 3 ml Budesonide (Pulmicort) 0.5 mg HHN BIDRT [facility] Stop: 08/16/18 18:59 Last Admin: 06/22/18 18:29 Dose: 0.5 mg Carvedilol (Coreg) 6.25 mg PO BID [facility] Stop: 08/11/18 16:59 Last Admin: 06/22/18 17:34 Dose: Not Given Dextrose (D50w) 50 ml IVP PRN PRN PRN Reason: Blood Glucose less than 70 Stop: 08/11/18 05:22 Sodium Chloride (Nacl 0.9%) 1,000 mls @ 25 mls/hr IV .Q24H [facility] Stop: 08/20/18 12:59 Last Admin: 06/22/18 13:00 Dose: Not Given Insulin Human Lispro (Humalog Insulin Sliding Scale) 0 units SUBQ ACHS [facility]; Protocol Stop: 08/11/18 07:29 Last Admin: 06/22/18 20:28 Dose: Not Given Lactobacillus Rhamnosus (Culturelle 15b) 1 each PO DAILY [facility] Stop: 08/13/18 08:59 Last Admin: 06/22/18 09:29 Dose: 1 each Lactulose (Cephulac) 30 gm PO Q6HR [facility] Stop: 08/20/18 13:54 Last Admin: 06/22/18 23:27 Dose: 30 gm Levetiracetam (Keppra) 500 mg PO BID [facility] Stop: 08/13/18 18:14 Last Admin: 06/22/18 17:34 Dose: 500 mg Midodrine (Proamatine) 10 mg PO TID [facility] Stop: 08/20/18 13:59 Last Admin: 06/22/18 20:29 Dose: Not Given Mineral Oil (Mineral Oil 30 Ml) 30 ml PO BID [facility] Stop: 06/24/18 18:29 Last Admin: 06/22/18 17:35 Dose: Not Given Miscellaneous (Probiotic Screen) 1 ea MC PRN PRN PRN Reason: PROTOCOL Stop: 08/12/18 13:54 Miscellaneous (Clinical Monitoring) 1 ea MC DAILY PRN PRN Reason: RENAL DOSING Stop: 08/17/18 12:28 Ondansetron HCl (Zofran) 4 mg IV Q4H PRN PRN Reason: Nausea / Vomiting Stop: 08/14/18 11:47 Last Admin: 06/22/18 23:28 Dose: 4 mg Pantoprazole Sodium (Protonix) 40 mg PO QDAC [facility] Stop: 08/11/18 07:29 Last Admin: 06/22/18 07:04 Dose: 40 mg Sevelamer Carbonate (Renvela) 1,600 mg PO TIDWM [facility] Stop: 08/18/18 16:59 Last Admin: 06/22/18 17:34 Dose: 1,600 mg Tramadol HCl (Ultram) 50 mg PO Q6HR PRN PRN Reason: Pain (Severe) Stop: 08/20/18 23:20 Last Admin: 06/22/18 23:27 Dose: 50 mg General: no acute distress, well developed, well nourished, other (obese) HEENT: atraumatic, normocephalic, PERRLA, EOMI Neck: supple, no thyromegaly Cardiovascular: S1S2, irregular Lungs: clear to auscultation bilaterally, clear to percussion Abdomen: bowel sounds, obese, no tender, no distended Extremities: no cyanosis, no clubbing, no edema Neurological: other (Confused.) Skin: intact - Procedures Procedures: Procedures Procedure Code Date OXYGEN ENRICHMENT NEC 93.96 12/11/00 Infectious Disease Assmt/Plan - Problem List Patient Problems: All Active Problems ARF (acute renal failure) (Acute) COPD with acute exacerbation (Acute) J44.1 Diabetes mellitus (Acute) E11.9 HTN (hypertension) (Acute) I10 - Assessment Assessment: 1. Staph hemolyticus bacteremia/sepsis. 2. DEENA on CKD. worse. 3. SOB. COPD exacerbation. 4. CELIO. 5. DM2 6. COPD. 7. Obesity. 8. h/o Afib and Pacemaker placement. 9. AMS 2/2 Metabolic encephalopathy and CO2 narcosis. Hepatic encephalopathy. 10. Hepatitis. - Plan Plan: Will continue the same treatment. CT scan of the A/p reviewed. off antibiotics. Will do serveillance blood cs Nutritional Asmnt/Malnutr-PDOC - Dietary Evaluation Malnutrition Findings (Please click <Entered> for more info): Nutritional Asmnt/Malnutrition Start: 06/12/18 17: 18 Text: Status: Complete Freq: Protocol: Document 06/12/18 17:23 LCMARVING (Rec: 06/12/18 17:37 MARVIN [email or web address]) Nutritional Asmnt/Malnutrition Patient General Information Nutritional Screening High Risk Diagnosis COPD, CHF Pertinent Medical Hx/Surgical Hx DM, HTN, pacemaker, COPD, CHF Subjective Information Pt seen sitting up on bed having lunch. Pt stated he did not want this lunch tray only took the ice cream and requested for salad and fresh fruit. Food preference provided to RD. Glucose ad admission was 189 noted. Pt appeared not ready for diabetic education. Current Diet Order/ Nutrition Support CCHO NA 2gm Pertinent Medications lasix, humalog, mag-oxide, glucophage, protonix Pertinent Labs 06/12 na 135, K 5.8, Cl 92, BUN 35, Cr 1.8, Glucose 156, POC 147-280, Alb 3.8 Nutritional Hx/Data Height 1.73 m Height (Calculated Centimeters) 172.7 Current Weight (lbs) 117.934 kg Weight (Calculated Kilograms) 117.9 Weight (Calculated Grams) 340730.0 [place] Body Weight 154 Body Mass Index (BMI) 39.5 Weight Status Obese GI Symptoms GI Symptoms None Last BM none Difficult in: None Skin Integrity/Comment: intact Estimated Nutritional Goals BEE in Kcals: Adj wt of IBW Calories/Kcals/Kg 23-27 Kcals Calculated 3550-1285 Protein: Adj wt of IBW Protein g/k.8 Protein Calculated 66 Fluid: ml 3903-8668 Nutritional Problem 1. Problem Problem altered nutrition related labs Etiology hyperglycemia Signs/Symptoms: Glucose 156, POC 147-280 Intervention/Recommendation Comments 1. Continue with CCHO Na 2gm diet as ordered. 2. Monitor PO intake, wt, labs and skin integrity 3. F/U as high risk in 2-3 days Expected Outcomes/Goals Expected Outcomes/Goals 1. PO intake to meet at least 75% of nutritional needs. 2. Wt stability, skin to remain intact, labs to approach WNL.
--- NOTE | 2018-06-23 08:05 | Progress Notes ---
DATE: 06/22/2018 LOCATION: [facility] ICU, bed #7. SUBJECTIVE: The patient is conscious, alert, but he is at times lethargic, confused, and sleepy. The patient had dialysis yesterday. In spite of dialysis, the patient had recurrent hyperkalemia today. The patient is refusing Kayexalate to take for hyperkalemia. After doing a lot of research, it has found that patient's family is bringing food from outside including chocolates and high potassium food. The patient getting very violent when he does not receive those food. The patient denies vomiting or diarrhea. The patient does not have any chest pain. OBJECTIVE: VITAL SIGNS: Blood pressure 103/ , pulse 60, respirations 20. Intake and output, yesterday's intake 2350, ultrafiltration output 1600. HEART: Regular. LUNGS: Rhonchi both sides. ABDOMEN: Soft. EXTREMITIES: Trace edema. SIGNIFICANT LABS: WBC 8.2, hemoglobin 10.7, platelets 45,000. PT/INR 4.2. Sodium 131, potassium 6.1, chloride 91, CO2 24, BUN 82, creatinine 3.3, blood sugar 226. Phosphorus 7.4. LFTs elevated. ASSESSMENT: 1. Acute kidney injury, dialysis dependent at this time. 2. History of chronic kidney disease, baseline. 3. Recurrent hyperkalemia. 4. Noncompliant with diet. 5. Hyponatremia. 6. Uremia. 7. Elevated liver function tests. 8. Hepatic encephalopathy. 9. Diabetes mellitus. 10. Obesity. 11. Obstructive sleep apnea. 12. History of congestive heart failure. 13. History of recurrent hypotension. PLAN: 1. We will try to convince the patient to take Kayexalate. 2. Hemodialysis will be done again today. 3. Discussed with the patient and the patient's son, nursing staff, not to bring any food, which is not . The patient is taking Nepro. The patient is not taking Glucerna. Labs in the morning. Discussed with Dr. Rutherford at length. JOB# [id number]
--- NOTE | 2018-06-23 08:23 | Diagnostic Imaging Report ---
Exam: Ultrasound examination of the abdomen. HISTORY: Elevated liver function tests. Findings: Real-time ultrasound examination of the abdomen was performed multiple planes. The study is limited due to patient body habitus. Correlation was made with CT examination of the abdomen pelvis 06/20/2018. Mild fatty infiltration liver parenchyma. Gallbladder is not clearly seen. Common bile duct measures 1.5 mm. Pancreas not seen. There is no evidence of obstructive uropathy or nephrolithiasis. The spleen is not visualized. No free fluid is noted. IMPRESSION: Extremely limited examination of the abdomen due to patient body habitus. Nonvisualized gallbladder. Nonvisualization of pancreas. Spleen is poorly seen. Question of mild fatty infiltration of liver parenchyma.
--- NOTE | 2018-06-23 08:25 | Progress Notes ---
DATE: 06/22/2018 IDENTIFICATION: A 62-year-old male. SUBJECTIVE: Patient seen and examined. The patient is lying in the bed. The patient is agitated at times. The patient's son is at bedside. I did sit down with him and explained to him about the patient's conditions, underlying diagnosis, and guarded prognosis. I also informed him about he refusing multiple times care as well as limitation of care considering the patient refused on multiple occasions. The patient's son is extremely appreciative about the care he received here in the hospital. I do appreciate insurance consultant's help in order to taking care of this patient. The patient is currently in the ICU and he is scheduled to have dialysis. PHYSICAL EXAMINATION: VITAL SIGNS: Temperature 97.6, pulse 60, respiratory rate 20, blood pressure is 103/50. HEENT: No facial asymmetry. NECK: Supple, no JVD. CARDIOVASCULAR: Irregularly irregular. CHEST AND LUNGS: expiratory wheezing. ABDOMEN: Distended, soft. Bowel sounds present. EXTREMITIES: Trace edema. AVAILABLE DIAGNOSTIC DATA: Has been reviewed. CLINICAL IMPRESSION: 1. Coagulopathy. 2. Acute hepatic injury. 3. Acute on chronic kidney disease. 4. Respiratory failure. 5. Hepatic encephalopathy. 6. . 7. Guarded prognosis. PLAN: The patient remained full code according to the patient's son. I will keep the patient in ICU for now. Continue to provide ICU care along with consultants' help in order to correct electrolytes, hemodialysis along with holding medication as needed, and providing lactulose, and follow up on lab. Overall, prognosis is guarded. I will talk to the pillowcase cleaner tomorrow about transferring the patient for higher level of care. All questions have been answered in length. JOB# [id number]
--- NOTE | 2018-06-23 19:56 | Discharge Summary ---
DATE OF DISCHARGE: 06/23/2018 IDENTIFICATION: A 62-year-old male. DATE OF : 06/23/2018, at 3:00 a.m. PRINCIPAL DIAGNOSES: 1. Cardiac arrest. 2. Acute respiratory failure, required endotracheal intubation and mechanical ventilation. 3. Acute hepatic failure. 4. Acute kidney injury, required hemodialysis. 5. Chronic obstructive pulmonary disease exacerbation. 6. Disseminated intravascular coagulopathy. 7. Congestive heart failure exacerbation. 8. Sick sinus syndrome, status post pacemaker placement. 9. Atrial fibrillation. 10. Diabetes mellitus. 11. Status post completed antibiotic for Staphylococcus haemolyticus septicemia. 12. Obstructive sleep apnea. 13. Electrolyte imbalance. 14. Hepatic encephalopathy. 15. History of narcotic dependence. BRIEF STATEMENT FOR THE REASON FOR ADMISSION: A 62-year-old male transferred from [facility] to [facility] for evaluation of shortness of breath. The patient was evaluated and subsequently admitted to the hospital for further treatment. Please refer to Dr. Abdullahi Hernandez's H and P for further information. HOSPITAL COURSE: The patient was admitted by Dr. Abdullahi Hernandez. The patient was seen by coater operator insulation board, mushroom spawn maker, and director of product development. Appropriate treatment plan was addressed. Appropriate home medications reconciled. The patient's hospital course was complicated due to multiorgan failure, which did require worsening of renal failure, needed to have hemodialysis, worsening of the liver injury, required GI consultation, with conservative management. Noted to have a severe thrombocytopenia, required Hematology/Oncology consultation. Respiratory distress, required pulmonary consultation. Aggressive therapy were initiated. The patient's family were updated about the patient's condition, diagnosis, and treatment plan. The patient was also followed by Infectious Disease as well. Unfortunately, the patient did sustain cardiopulmonary arrest in spite of aggressive measures. The patient did not survive, the patient was pronounced by Emergency Room MD. The patient's family were notified. During the stay in the hospital, the patient's son was constantly informed about the patient's condition, diagnosis, and treatment plan. I did extensively explain to him about the patient's poor prognosis as well as deteriorating condition as well as the diagnostic studies performed in the hospital. The patient's son was extremely appreciative of the care provided by myself and my team. JOB# [id number]
[2018-06-24 01:08] LABS: T3 FREE 1.2 pg/mL (2.0-4.4)
[2018-06-25 12:19] LABS: ASCA IGG-ANCA SEE REF. LAB REPORT
[2018-06-25 12:20] LABS: ANCA MYELOPEROXIDASE SEE REF. LAB REPORT
== END 2018-06-23 06:30 | disposition expired | DRG 720 ==
LOC: ER 20:47 → TELE 06-12 01:40 → ICU 06-16 21:15 → TELE 06-21 06:20 → ICU 06-21 20:21
PROVIDERS: ADMIT Internal Medicine; ATTEND Internal Medicine
PROC: 5A09357 Assistance with Respiratory Ventilation, Less than 24 Consecutive Hours, Continuous Positive Airway Pressure (ICD-10-PCS; principal; 2018-06-17)
PROC: 5A09357 Assistance with Respiratory Ventilation, Less than 24 Consecutive Hours, Continuous Positive Airway Pressure (ICD-10-PCS; 2018-06-18)
PROC: 5A09357 Assistance with Respiratory Ventilation, Less than 24 Consecutive Hours, Continuous Positive Airway Pressure (ICD-10-PCS; 2018-06-20)
PROC: 02HV33Z Insertion of Infusion Device into Superior Vena Cava, Percutaneous Approach (ICD-10-PCS; 2018-06-20)
PROC: B548ZZA Ultrasonography of Superior Vena Cava, Guidance (ICD-10-PCS; 2018-06-20)
PROC: 5A09357 Assistance with Respiratory Ventilation, Less than 24 Consecutive Hours, Continuous Positive Airway Pressure (ICD-10-PCS; 2018-06-21)
PROC: 5A1D70Z Performance of Urinary Filtration, Intermittent, Less than 6 Hours Per Day (ICD-10-PCS; 2018-06-21)
DX: A41.1 Sepsis due to other specified staphylococcus (principal); K72.00 Acute and subacute hepatic failure without coma; J96.21 Acute and chronic respiratory failure with hypoxia; D65 Disseminated intravascular coagulation [defibrination syndrome]; G93.41 Metabolic encephalopathy; E11.22 Type 2 diabetes mellitus with diabetic chronic kidney disease; I95.9 Hypotension, unspecified; F11.20 Opioid dependence, uncomplicated; I46.9 Cardiac arrest, cause unspecified; I50.33 Acute on chronic diastolic (congestive) heart failure; I48.2 Chronic atrial fibrillation; R74.0 Nonspecific elevation of levels of transaminase and lactic acid dehydrogenase [LDH]; E83.39 Other disorders of phosphorus metabolism; G40.909 Epilepsy, unspecified, not intractable, without status epilepticus; N18.4 Chronic kidney disease, stage 4 (severe); N17.9 Acute kidney failure, unspecified; E87.1 Hypo-osmolality and hyponatremia; I49.5 Sick sinus syndrome; J44.1 Chronic obstructive pulmonary disease with (acute) exacerbation; R74.8 Abnormal levels of other serum enzymes; I12.9 Hypertensive chronic kidney disease with stage 1 through stage 4 chronic kidney disease, or unspecified chronic kidney disease; E87.5 Hyperkalemia; M72.0 Palmar fascial fibromatosis [Dupuytren]; D64.9 Anemia, unspecified; E66.2 Morbid (severe) obesity with alveolar hypoventilation; Z95.0 Presence of cardiac pacemaker; Z87.891 Personal history of nicotine dependence; Z79.4 Long term (current) use of insulin; Z68.41 Body mass index [BMI] 40.0-44.9, adult; Z79.899 Other long term (current) drug therapy
CPT/HCPCS: 36415-UA; 36600-90; 70450-TC; 71045-TC; 71046-TC; 73120-TC-LT; 73120-TC-RT; 76700-TC; 76770-TC; 80053-TC; 80061-TC; 80074-90; 80076-TC; 80307; 81001-TC; 81015-TC; 82103-90; 82140-TC; 82150-TC; 82248-TC; 82550-TC; 82728-90; 82803-TC; 82948-90; 83036-90; 83516-90; 83540-90; 83550-90; 83605; 83690-TC; 83735-TC; 84100-TC; 84443-TC; 84479-90; 84484-TC; 85007-TC; 85025-TC; 85049-TC; 85379-TC; 85384-TC; 85610-TC; 85730-TC; 86021-90; 86671-90; 92950; 93005; 94640; 94660; 94760; 96374; 97530; J0171; J0610; J1265; J1644; J1815; J1940; J2020; J2405; J2920; J3430; J7030; J7040; J7042; J7799; P9045; P9046; P9047; X3904; Z7610